=== PATIENT | male | born 1930 | race Two or more races ===

== ENCOUNTER 2016-12-02 17:37 | Inpatient (IN) | payer MEDICARE ==
[~2016-12-02] VITALS: Ht 160 cm; Wt 48.0 kg
[2016-12-02 19:00] VITALS: BP 121/52
[2016-12-02] MEDS ORDERED: MORPHINE SULFATE 2 MG/ML DISP.SYRIN. IV PRN (19:30)
[2016-12-02] MEDS ORDERED: 0.9 % SODIUM CHLORIDE 10 ML DISP.SYRIN. IV PRN (19:30)
[2016-12-02] MEDS ORDERED: BISACODYL 10 MG SUPP.RECT PR PRN (19:30)
[2016-12-02] MEDS ORDERED: hydrALAZINE 20 MG/ML VIAL. IVP PRN (19:45)
[2016-12-02] MEDS ORDERED: ACETAMINOPHEN 650 MG SUPP.RECT. PR PRN (19:45)
[2016-12-02 20:00] VITALS: BP 119/47
[2016-12-02 21:00] VITALS: BP 127/43
--- NOTE | 2016-12-02 21:22 | HP ---
ADMIT DATE: 12/02/2016 CHIEF COMPLAINT: Abdominal pain, gastric outlet obstruction. HISTORY OF PRESENT ILLNESS: This is an 85-year-old gentleman who presented to the Emergency Room at [facility] with a 2-day history of abdominal pain. He relates that this is going on for the past 2 days, it got worse and worse. It is in his midabdomen, sharp, did not have any vomiting, but has been nauseous. Did have a normal bowel movement yesterday, has a history of constipation. Denies any vomiting, any diarrhea, any fevers or chills. In the Emergency Room at [facility], CT showed a massively distended stomach consistent with gastric outlet obstruction. He was therefore transferred to the [facility] for further evaluation. PAST MEDICAL HISTORY: Diabetes, hypertension. He denies heart disease or CHF, but does have a pacer in place. Parkinsonism. FAMILY HISTORY: Positive for heart disease. SOCIAL HISTORY: Lives with his . Quit smoking several years back, accumulated a 50+ pack-year history. ALLERGIES: No known drug allergies. MEDICATIONS: MAR reconciled with home medications. REVIEW OF SYSTEMS: The patient relates the pain currently is about a 3. He does have some breathing difficulties at this time. He has not voided. Does not feel constipated or that his bladder is full. Denies any other symptoms at this time in rest of organ system review. PHYSICAL EXAMINATION: VITAL SIGNS: From today show a blood pressure of 126/51, heart rate at 94, respiratory rate at 23. He is afebrile. GENERAL: This is an 85-year-old, cachectic-appearing gentleman, awake, alert, in no acute distress. HEENT: Shows no scleral icterus. Ptosis of both eyelids, right greater than left. Oral mucosa is dry. He is edentulous. NECK: Supple. LUNGS: Clear. CARDIOVASCULAR: Regular rate and rhythm with 2/6 systolic ejection murmur. ABDOMEN: Decreased bowel sounds, soft, no tenderness to palpation. EXTREMITIES: Show no edema, no clubbing, no cyanosis. SKIN: Warm, soft and dry. LABORATORY DATA: From [facility] were reviewed. CT reviewed as well. ASSESSMENT AND PLAN: The patient is an 85-year-old gentleman with gastric outlet obstruction. Etiology is somewhat unclear. No preceding symptoms consistent with infection etc. We will treat symptomatically for now. NG tube will be placed. He will remain n.p.o. Surgical consult will be requested. By report from the ER in [facility], he does have a history of CHF. We will be cautious with IV fluids. He did have receive a small bolus at the ER at [facility] already. He also received Lasix without any urine production so far. Perry will be placed. Creatinine at [facility] was 2.2, possibly secondary to poor p.o. intake and vomiting x 1 yesterday. We will cautiously rehydrate. We will obtain a renal consult in the morning as well. Blood pressure currently is under good control. He is on Norvasc at home. We will hold all p.o. medications. He will be given hydralazine p.r.n. The patient is on carbidopa levodopa for Parkinson's. We will hold p.o. medications. Monitor closely. Abrupt stoppage can cause NMS-like symptoms. For prophylaxis, he will be started on a proton pump inhibitor. We will hold heparin subQ for now in anticipation of potential surgery. SCDs will be applied. AZUL WOOD MD DR: UR/nts JOB#: [id number] / [id number] POLINA
[2016-12-02 21:37] LABS: OBC FLU VALID
[2016-12-02] MEDS ORDERED: ACET325T9 PO (21:46)
[2016-12-02] MEDS ORDERED: AMLO5TAB2 PO (21:46)
[2016-12-02] MEDS ORDERED: ASPI81TA9 PO (21:46)
[2016-12-02] MEDS ORDERED: RANI150T2 PO (21:58)
[2016-12-02] MEDS ORDERED: FURO40TA4 PO (21:58)
[2016-12-02] MEDS ORDERED: SIMV40TA3 PO (21:58)
[2016-12-02] MEDS ORDERED: CARB1TAB2 PO (21:58)
[2016-12-02] MEDS ORDERED: OMEP40CA5 PO (21:58)
[2016-12-02] MEDS ORDERED: INSU100V5 IJ (21:58)
[2016-12-02 22:00] VITALS: BP 118/47
[2016-12-02 22:10] LABS: BASO # 0.1 x10^3/uL (0.0-0.2); BASO % 0 % (0-3); EOS % 0 % (0-3); HEMATOCRIT 41.3 % (39.0-53.0); HEMOGLOBIN 13.4 g/dL (13.0-17.5); LYMPH # 0.7 x10^3/uL (1.0-4.8); LYMPH % 4 % (24-48); MEAN CORPUSCULAR HEMOGLOBIN 31 pg (25-35); MEAN CORPUSCULAR HGB CONC 32 g/dL (31-37); MEAN CORPUSCULAR VOLUME 95 fL (79-100); MONO % 7 % (0-9); NEUT % 89 % (31-73); PLATELET COUNT 269 x10^3/uL (140-400); RED BLOOD COUNT 4.34 x10^6/uL (4.30-5.70); RED CELL DISTRIBUTION WIDTH 13.4 % (11.5-14.5); WHITE BLOOD COUNT 18.6 x10^3/uL (4.0-11.0)
[2016-12-02 22:17] LABS: INR 1.2 (0.8-1.1); PROTHROMBIN TIME PATIENT 14.4 SEC (11.7-14.0)
[2016-12-02 22:27] LABS: MAGNESIUM 2.7 mg/dL (1.8-2.4)
[2016-12-02 22:29] LABS: ALBUMIN 3.6 g/dL (3.4-5.0); CREATININE 3.7 mg/dL (0.7-1.3); GFR 15.6; POTASSIUM 3.5 mmol/L (3.5-5.1); TOTAL BILIRUBIN 0.4 mg/dL (0.2-1.0); TOTAL PROTEIN 7.1 g/dL (6.4-8.2)
[2016-12-02 22:32] LABS: PLT ESTIMATE ADEQUATE (ADEQUATE); TOXIC GRANULATION SLIGHT
[2016-12-02] MEDS ORDERED: CALC1TAB75 PO (22:58)
[2016-12-02 23:00] VITALS: BP 126/44
[2016-12-02] MEDS ORDERED: PIPERACILLIN/TAZOBACTAM 2.25 GM in IV NORMAL SALINE 50ML 50 ML IV ONE (23:00)
[2016-12-02] MEDS ORDERED: IV 1/2 NORMAL SALINE 1,000 ML IV SCH (23:00)
[2016-12-02] MEDS ORDERED: PIP/TAZO PER PHARMACY MC PRN (23:00)
[2016-12-03] VITALS (17 sets, daily range): BP systolic 110–153; BP diastolic 34–63
[2016-12-03 04:54] LABS: BASO % 0 % (0-3); EOS % 0 % (0-3); HEMATOCRIT 40.9 % (39.0-53.0); LYMPH # 0.9 x10^3/uL (1.0-4.8); LYMPH % 5 % (24-48); MEAN CORPUSCULAR HEMOGLOBIN 31 pg (25-35); MEAN CORPUSCULAR HGB CONC 32 g/dL (31-37); MEAN CORPUSCULAR VOLUME 98 fL (79-100); MONO % 7 % (0-9); NEUT % 88 % (31-73); PLATELET COUNT 227 x10^3/uL (140-400); RED BLOOD COUNT 4.19 x10^6/uL (4.30-5.70); RED CELL DISTRIBUTION WIDTH 13.7 % (11.5-14.5); WHITE BLOOD COUNT 19.2 x10^3/uL (4.0-11.0)
[2016-12-03 05:01] LABS: INR 1.2 (0.8-1.1); PROTHROMBIN TIME PATIENT 14.7 SEC (11.7-14.0)
[2016-12-03] MEDS: PIPERACILLIN/TAZOBACTAM 2.25 GM in IV NORMAL SALINE 50ML 50 ML IV SCH ×2 (06:04→13:28)
[2016-12-03 07:23] LABS: ALBUMIN 3.4 g/dL (3.4-5.0); CALCIUM 9.8 mg/dL (8.5-10.1); CREATININE 3.7 mg/dL (0.7-1.3); GFR 15.6; MAGNESIUM 2.7 mg/dL (1.8-2.4); PHOSPHORUS 5.8 mg/dL (2.6-4.7); TOTAL BILIRUBIN 0.6 mg/dL (0.2-1.0); TOTAL PROTEIN 6.9 g/dL (6.4-8.2)
[2016-12-03 07:24] LABS: POTASSIUM 4.5 mmol/L (3.5-5.1)
--- NOTE | 2016-12-03 10:09 | PDOC2 ---
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 Patient reports abdominal pain and vomiting for 2 days. Small hard BM 2 days ago. Denies blood in stool, however had some possible blood in emesis Past Medical History Cardiovascular: CAD, CHF, HTN, Pulmonary hypertension Pulmonary: COPD CENTRAL NERVOUS SYSTEM: Other (parkinsons ) Renal/: Chronic renal insuff Endocrine: Diabetes Past Surgical History Past Surgical History: Appendectomy, Cholecystectomy, Hernia Repair Family History Family History: Other (noncontributory due to advanced age) Social History Quit ALCOHOL: none Drugs: None Lives: with Family Current Problem List Problem List Problems Medical Problems: (1) Gastric outlet obstruction Status: Acute Current Medications Current Medications Current Medications Sodium Chloride (Normal Saline Flush) 3 ml PRN DAILY PRN IV AFTER MEDS AND BLOOD DRAWS; Start 12/02/16 at 19:30 Morphine Sulfate 1 mg PRN Q1HR PRN IV PAIN; Start 12/02/16 at 19:30 Bisacodyl (Dulcolax Supp) 10 mg PRN DAILY PRN [place] CONSTIPATION; Start 12/02/16 at 19:30 Hydralazine HCl (Apresoline) 10 mg PRN Q4HRS PRN IVP ELEVATED BP, SEE COMMENTS ; Start 12/02/16 at 19:45 Acetaminophen 650 mg 650 mg PRN Q6HRS PRN [place] MILD PAIN / TEMP; Start 12/02/16 at 19:45 Sodium Chloride 1,000 ml @ 150 mls/hr Q6H40M IV ; Start 12/02/16 at 23:00; Stop 12/03/16 at 01:24; Status DC Piperacillin Sod/ Tazobactam Sod/ Sodium Chloride (Zosyn/Iv Sodium Chloride 0.9 % 50ml) 50 ml @ 100 mls/hr 1X ONCE IV Last administered on 12/03/16t 00:15; Start 12/02/16 at 23:00; Stop 12/02/16 at 23:29; Status DC Piperacillin Sod/ Tazobactam Sod 1 each 1 each PRN DAILY PRN MC SEE COMMENTS; Start 12/02/16 at 23:00 Piperacillin Sod/ Tazobactam Sod 2.25 gm/Sodium Chloride 50 ml @ 100 mls/hr Q8HRS IV Last administered on 12/03/16 06:04; Start 12/03/16 at 06:00 Sodium Chloride (Iv Sodium Chloride 0.45%) 1,000 ml @ 150 mls/hr Q6H40M IV Last administered on 12/03/16 01:56; Start 12/03/16 at 23:00 Active Scripts Active Reported Calcium 600 + Vit D 200 Tablet (Calcium Carbonate/Vitamin D3) 1 Each Tablet 1 Each PO BID Simvastatin 40 Mg Tablet 0.5 Tab PO QHS Ranitidine Hcl 150 Mg Tablet 1 Tab PO BID Omeprazole 40 Mg Capsule.dr 1 Cap PO DAILY Humulin R (Insulin Regular, Human) 100 Unit/1 Ml Vial 5-8 Unit IJ TIDWMEALS Furosemide 40 Mg Tablet 0.5 Tab PO DAILY PRN Furosemide 40 Mg Tablet 0.5 Tab PO DAILY Sinemet 25-100 Mg Tablet (Carbidopa/Levodopa) 1 Each Tablet 1 Tab PO QID Aspirin Ec (Aspirin) 81 Mg Tablet.dr 1 Tab PO DAILY Amlodipine Besylate 5 Mg Tablet 2.5 Mg PO DAILY Tylenol (Acetaminophen) 325 Mg Tablet 1-2 Tab PO QID Allergies Allergies: Coded Allergies: No Known Drug Allergies (Unverified , 12/02/16) ROS General: No: Chills, Other (fevers ) PSYCHOLOGICAL ROS: No: Anxiety, Depression Eyes: No Blurry vision, No Double vision HEENT: YES: Hearing change, No: Heacaches Hematological and Lymphatic: No: Bleeding Problems, Blood Clots Respiratory: YES: Cough, Shortness of breath Cardiovascular: No Chest Pain, No Palpitations Gastrointestinal: Yes Other (see hpi) Genitourinary: No Dysuria, No Hematuria Musculoskeletal: No Joint Stiffness, No Joint Swelling Neurological: Yes Memory Loss, No Impaired Coord/balance Skin: No Pruritus Physical Exam General: Cooperative, No acute distress, Other (eldery male) HEENT: Mucous membr. moist/pink, Other (NG tube in place) Lungs: Other (diminished ) Heart: Regular rate, Normal S1, Normal S2 Abdomen: Soft, Other (ND, NTTP on exam) Extremities: No clubbing, No cyanosis Skin: No breakdown, No significant lesion Neuro: Normal speech, Sensation intact Psych/Mental Status: Mental status NL, Mood NL MUSCULOSKELETAL: No deformity, No swelling Vitals VITALS Vital Signs Date Time Temp Pulse Resp B/P Pulse Ox O2 Delivery O2 Flow Rate FiO2 12/03/16 09:00 97.9 82 20 132/43 100 Nasal Cannula 5.0 97.9 Labs Labs Laboratory Tests Test 12/02/16 21:00 12/02/16 21:12 12/02/16 21:55 12/03/16 03:20 Influenza Type A Antigen Negative (NEGATIVE) Influenza Type B Antigen Negative (NEGATIVE) Glucose (Fingerstick) 285mg/dL (70-99) White Blood Count 18.6x10^3/uL (4.0-11.0) 19.2x10^3/uL (4.0-11.0) Red Blood Count 4.34x10^6/uL (4.30-5.70) 4.19x10^6/uL (4.30-5.70) Hemoglobin 13.4g/dL (13.0-17.5) 13.0g/dL (13.0-17.5) Hematocrit 41.3% (39.0-53.0) 40.9% (39.0-53.0) Mean Corpuscular Volume 95fL (79-100) 98fL (79-100) Mean Corpuscular Hemoglobin 31pg (25-35) 31pg (25-35) Mean Corpuscular Hemoglobin Concent 32g/dL (31-37) 32g/dL (31-37) Red Cell Distribution Width 13.4% (11.5-14.5) 13.7% (11.5-14.5) Platelet Count 269x10^3/uL (140-400) 227x10^3/uL (140-400) Neutrophils (%) (Auto) 89% (31-73) 88% (31-73) Lymphocytes (%) (Auto) 4% (24-48) 5% (24-48) Monocytes (%) (Auto) 7% (0-9) 7% (0-9) Eosinophils (%) (Auto) 0% (0-3) 0% (0-3) Basophils (%) (Auto) 0% (0-3) 0% (0-3) Neutrophils # (Auto) 16.6x10^3uL (1.8-7.7) 16.9x10^3uL (1.8-7.7) Lymphocytes # (Auto) 0.7x10^3/uL (1.0-4.8) 0.9x10^3/uL (1.0-4.8) Monocytes # (Auto) 1.2x10^3/uL (0.0-1.1) 1.3x10^3/uL (0.0-1.1) Eosinophils # (Auto) 0.0x10^3/uL (0.0-0.7) 0.0x10^3/uL (0.0-0.7) Basophils # (Auto) 0.1x10^3/uL (0.0-0.2) 0.0x10^3/uL (0.0-0.2) Segmented Neutrophils % 79% (35-66) Band Neutrophils % 11% (0-9) Lymphocytes % 4% (24-48) Monocytes % 6% (0-10) Toxic Granulation Slight Platelet Estimate Adequate (ADEQUATE) Prothrombin Time 14.4SEC (11.7-14.0) 14.7SEC (11.7-14.0) Prothromb Time International Ratio 1.2 (0.8-1.1) 1.2 (0.8-1.1) Sodium Level 151mmol/L (136-145) 154mmol/L (136-145) Potassium Level 3.5mmol/L (3.5-5.1) 4.5mmol/L (3.5-5.1) Chloride Level 102mmol/L (98-107) 104mmol/L (98-107) Carbon Dioxide Level 37mmol/L (21-32) 40mmol/L (21-32) Anion Gap 12 (6-14) 10 (6-14) Blood Urea Nitrogen 81mg/dL (8-26) 86mg/dL (8-26) Creatinine 3.7mg/dL (0.7-1.3) 3.7mg/dL (0.7-1.3) Estimated GFR (Cockcroft-Gault) 15.6 15.6 BUN/Creatinine Ratio 22 (6-20) 23 (6-20) Glucose Level 354mg/dL (70-99) 319mg/dL (70-99) Calcium Level 10.0mg/dL (8.5-10.1) 9.8mg/dL (8.5-10.1) Phosphorus Level 6.0mg/dL (2.6-4.7) 5.8mg/dL (2.6-4.7) Magnesium Level 2.7mg/dL (1.8-2.4) 2.7mg/dL (1.8-2.4) Total Bilirubin 0.4mg/dL (0.2-1.0) 0.6mg/dL (0.2-1.0) Aspartate Amino Transf (AST/SGOT) 16U/L (15-37) 16U/L (15-37) Alanine Aminotransferase (ALT/SGPT) 13U/L (16-63) 13U/L (16-63) Alkaline Phosphatase 81U/L (46-116) 77U/L (46-116) Total Protein 7.1g/dL (6.4-8.2) 6.9g/dL (6.4-8.2) Albumin 3.6g/dL (3.4-5.0) 3.4g/dL (3.4-5.0) Albumin/Globulin Ratio 1.0 (1.0-1.7) 1.0 (1.0-1.7) Laboratory Tests Test 12/02/16 21:00 12/02/16 21:12 12/02/16 21:55 12/03/16 03:20 Influenza Type A Antigen Negative (NEGATIVE) Influenza Type B Antigen Negative (NEGATIVE) Glucose (Fingerstick) 285mg/dL (70-99) White Blood Count 18.6x10^3/uL (4.0-11.0) 19.2x10^3/uL (4.0-11.0) Red Blood Count 4.34x10^6/uL (4.30-5.70) 4.19x10^6/uL (4.30-5.70) Hemoglobin 13.4g/dL (13.0-17.5) 13.0g/dL (13.0-17.5) Hematocrit 41.3% (39.0-53.0) 40.9% (39.0-53.0) Mean Corpuscular Volume 95fL (79-100) 98fL (79-100) Mean Corpuscular Hemoglobin 31pg (25-35) 31pg (25-35) Mean Corpuscular Hemoglobin Concent 32g/dL (31-37) 32g/dL (31-37) Red Cell Distribution Width 13.4% (11.5-14.5) 13.7% (11.5-14.5) Platelet Count 269x10^3/uL (140-400) 227x10^3/uL (140-400) Neutrophils (%) (Auto) 89% (31-73) 88% (31-73) Lymphocytes (%) (Auto) 4% (24-48) 5% (24-48) Monocytes (%) (Auto) 7% (0-9) 7% (0-9) Eosinophils (%) (Auto) 0% (0-3) 0% (0-3) Basophils (%) (Auto) 0% (0-3) 0% (0-3) Neutrophils # (Auto) 16.6x10^3uL (1.8-7.7) 16.9x10^3uL (1.8-7.7) Lymphocytes # (Auto) 0.7x10^3/uL (1.0-4.8) 0.9x10^3/uL (1.0-4.8) Monocytes # (Auto) 1.2x10^3/uL (0.0-1.1) 1.3x10^3/uL (0.0-1.1) Eosinophils # (Auto) 0.0x10^3/uL (0.0-0.7) 0.0x10^3/uL (0.0-0.7) Basophils # (Auto) 0.1x10^3/uL (0.0-0.2) 0.0x10^3/uL (0.0-0.2) Segmented Neutrophils % 79% (35-66) Band Neutrophils % 11% (0-9) Lymphocytes % 4% (24-48) Monocytes % 6% (0-10) Toxic Granulation Slight Platelet Estimate Adequate (ADEQUATE) Prothrombin Time 14.4SEC (11.7-14.0) 14.7SEC (11.7-14.0) Prothromb Time International Ratio 1.2 (0.8-1.1) 1.2 (0.8-1.1) Sodium Level 151mmol/L (136-145) 154mmol/L (136-145) Potassium Level 3.5mmol/L (3.5-5.1) 4.5mmol/L (3.5-5.1) Chloride Level 102mmol/L (98-107) 104mmol/L (98-107) Carbon Dioxide Level 37mmol/L (21-32) 40mmol/L (21-32) Anion Gap 12 (6-14) 10 (6-14) Blood Urea Nitrogen 81mg/dL (8-26) 86mg/dL (8-26) Creatinine 3.7mg/dL (0.7-1.3) 3.7mg/dL (0.7-1.3) Estimated GFR (Cockcroft-Gault) 15.6 15.6 BUN/Creatinine Ratio 22 (6-20) 23 (6-20) Glucose Level 354mg/dL (70-99) 319mg/dL (70-99) Calcium Level 10.0mg/dL (8.5-10.1) 9.8mg/dL (8.5-10.1) Phosphorus Level 6.0mg/dL (2.6-4.7) 5.8mg/dL (2.6-4.7) Magnesium Level 2.7mg/dL (1.8-2.4) 2.7mg/dL (1.8-2.4) Total Bilirubin 0.4mg/dL (0.2-1.0) 0.6mg/dL (0.2-1.0) Aspartate Amino Transf (AST/SGOT) 16U/L (15-37) 16U/L (15-37) Alanine Aminotransferase (ALT/SGPT) 13U/L (16-63) 13U/L (16-63) Alkaline Phosphatase 81U/L (46-116) 77U/L (46-116) Total Protein 7.1g/dL (6.4-8.2) 6.9g/dL (6.4-8.2) Albumin 3.6g/dL (3.4-5.0) 3.4g/dL (3.4-5.0) Albumin/Globulin Ratio 1.0 (1.0-1.7) 1.0 (1.0-1.7) Assessment/Plan Assessment/Plan Reviewed CT from [facility]--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 Pt denies pain currently, asking to drink; PMH/PSH/ROS/SH as above, reviewed; exam: alert, elderly, frail, denies pain, NG in place, lungs diminished, heart RR and R, abdomen soft, thin, nontender, no masses, ext neg for edema; Lab and CT/xrays reviewed; A/P) Vomiting, large diaphragmatic hernia; stable with NG tube, agree with GI consult for EGD, upper GI; pt frail, multiple comorbidities, poor surgical candidate LUISA FRY APRN Dec 03, 2016 10:09 CALLIE HOWELL MD Dec 03, 2016 10:47
--- NOTE | 2016-12-03 10:11 | PDOC ---
PROGRESS NOTES Chief Complaint Chief Complaint 1. Gastric outlet obstruction 2. Abdominal pain 3. Constipation 4. Diabetes Mellitus Type 2 5. Hypertension 6. Parkinson's Disease History of Present Illness History of Present Illness Pt awake laying down in bed in ICU. Pt has intermittent NG tube in place. No fevers or chills. On 5 L NC. Patient in no acute distress. Pt notes to have several runs of arrhythmia-consults to Cards placed. VSS- All questions and concerns addressed and answered. Vitals Vitals Vital Signs Date Time Temp Pulse Resp B/P Pulse Ox O2 Delivery O2 Flow Rate FiO2 12/03/16 09:00 97.9 82 20 132/43 100 Nasal Cannula 5.0 97.9 Physical Exam General: Alert, Cooperative, No acute distress Heart: Regular rate, Normal S1, Normal S2, No murmurs Lungs: Clear Abdomen: Soft, No tenderness, Other (no bowel sounds) Extremities: No clubbing, No cyanosis, No edema Skin: No rashes, No breakdown, No significant lesion Labs LABS Laboratory Tests Test 12/02/16 21:00 12/02/16 21:12 12/02/16 21:55 12/03/16 03:20 Influenza Type A Antigen Negative (NEGATIVE) Influenza Type B Antigen Negative (NEGATIVE) Glucose (Fingerstick) 285mg/dL (70-99) White Blood Count 18.6x10^3/uL (4.0-11.0) 19.2x10^3/uL (4.0-11.0) Red Blood Count 4.34x10^6/uL (4.30-5.70) 4.19x10^6/uL (4.30-5.70) Hemoglobin 13.4g/dL (13.0-17.5) 13.0g/dL (13.0-17.5) Hematocrit 41.3% (39.0-53.0) 40.9% (39.0-53.0) Mean Corpuscular Volume 95fL (79-100) 98fL (79-100) Mean Corpuscular Hemoglobin 31pg (25-35) 31pg (25-35) Mean Corpuscular Hemoglobin Concent 32g/dL (31-37) 32g/dL (31-37) Red Cell Distribution Width 13.4% (11.5-14.5) 13.7% (11.5-14.5) Platelet Count 269x10^3/uL (140-400) 227x10^3/uL (140-400) Neutrophils (%) (Auto) 89% (31-73) 88% (31-73) Lymphocytes (%) (Auto) 4% (24-48) 5% (24-48) Monocytes (%) (Auto) 7% (0-9) 7% (0-9) Eosinophils (%) (Auto) 0% (0-3) 0% (0-3) Basophils (%) (Auto) 0% (0-3) 0% (0-3) Neutrophils # (Auto) 16.6x10^3uL (1.8-7.7) 16.9x10^3uL (1.8-7.7) Lymphocytes # (Auto) 0.7x10^3/uL (1.0-4.8) 0.9x10^3/uL (1.0-4.8) Monocytes # (Auto) 1.2x10^3/uL (0.0-1.1) 1.3x10^3/uL (0.0-1.1) Eosinophils # (Auto) 0.0x10^3/uL (0.0-0.7) 0.0x10^3/uL (0.0-0.7) Basophils # (Auto) 0.1x10^3/uL (0.0-0.2) 0.0x10^3/uL (0.0-0.2) Segmented Neutrophils % 79% (35-66) Band Neutrophils % 11% (0-9) Lymphocytes % 4% (24-48) Monocytes % 6% (0-10) Toxic Granulation Slight Platelet Estimate Adequate (ADEQUATE) Prothrombin Time 14.4SEC (11.7-14.0) 14.7SEC (11.7-14.0) Prothromb Time International Ratio 1.2 (0.8-1.1) 1.2 (0.8-1.1) Sodium Level 151mmol/L (136-145) 154mmol/L (136-145) Potassium Level 3.5mmol/L (3.5-5.1) 4.5mmol/L (3.5-5.1) Chloride Level 102mmol/L (98-107) 104mmol/L (98-107) Carbon Dioxide Level 37mmol/L (21-32) 40mmol/L (21-32) Anion Gap 12 (6-14) 10 (6-14) Blood Urea Nitrogen 81mg/dL (8-26) 86mg/dL (8-26) Creatinine 3.7mg/dL (0.7-1.3) 3.7mg/dL (0.7-1.3) Estimated GFR (Cockcroft-Gault) 15.6 15.6 BUN/Creatinine Ratio 22 (6-20) 23 (6-20) Glucose Level 354mg/dL (70-99) 319mg/dL (70-99) Calcium Level 10.0mg/dL (8.5-10.1) 9.8mg/dL (8.5-10.1) Phosphorus Level 6.0mg/dL (2.6-4.7) 5.8mg/dL (2.6-4.7) Magnesium Level 2.7mg/dL (1.8-2.4) 2.7mg/dL (1.8-2.4) Total Bilirubin 0.4mg/dL (0.2-1.0) 0.6mg/dL (0.2-1.0) Aspartate Amino Transf (AST/SGOT) 16U/L (15-37) 16U/L (15-37) Alanine Aminotransferase (ALT/SGPT) 13U/L (16-63) 13U/L (16-63) Alkaline Phosphatase 81U/L (46-116) 77U/L (46-116) Total Protein 7.1g/dL (6.4-8.2) 6.9g/dL (6.4-8.2) Albumin 3.6g/dL (3.4-5.0) 3.4g/dL (3.4-5.0) Albumin/Globulin Ratio 1.0 (1.0-1.7) 1.0 (1.0-1.7) Review of Systems Review of Systems Complaint of hunger Complaint of fatigue Assessment and Plan Assessmemt and Plan Problems Medical Problems: (1) Gastric outlet obstruction Status: Acute Assessment: 1. Gastric outlet obstruction 2. Abdominal pain 3. Constipation 4. Diabetes Mellitus Type 2 5. Hypertension 6. Parkinson's Disease Plan: Continue to monitor the patient per ICU protocol Continue daily labs- CBC, BMP, BUN and Cr NPO Continue NG tube Continue IV Zosyn IVFs at 150 cc/hr Perry inplace Continue to hold hold PO medications Monitor for any NMS-like syndrome Await surgery, renal, and GI input and recommendations Consult Cards for arrhythmia Discuss with ICU nurse Problems: Comment Review of Relevant I have reviewed the following items rachael (where applicable) has been applied. Labs Laboratory Tests Test 12/02/16 21:00 12/02/16 21:12 12/02/16 21:55 12/03/16 03:20 Influenza Type A Antigen Negative (NEGATIVE) Influenza Type B Antigen Negative (NEGATIVE) Glucose (Fingerstick) 285mg/dL (70-99) White Blood Count 18.6x10^3/uL (4.0-11.0) 19.2x10^3/uL (4.0-11.0) Red Blood Count 4.34x10^6/uL (4.30-5.70) 4.19x10^6/uL (4.30-5.70) Hemoglobin 13.4g/dL (13.0-17.5) 13.0g/dL (13.0-17.5) Hematocrit 41.3% (39.0-53.0) 40.9% (39.0-53.0) Mean Corpuscular Volume 95fL (79-100) 98fL (79-100) Mean Corpuscular Hemoglobin 31pg (25-35) 31pg (25-35) Mean Corpuscular Hemoglobin Concent 32g/dL (31-37) 32g/dL (31-37) Red Cell Distribution Width 13.4% (11.5-14.5) 13.7% (11.5-14.5) Platelet Count 269x10^3/uL (140-400) 227x10^3/uL (140-400) Neutrophils (%) (Auto) 89% (31-73) 88% (31-73) Lymphocytes (%) (Auto) 4% (24-48) 5% (24-48) Monocytes (%) (Auto) 7% (0-9) 7% (0-9) Eosinophils (%) (Auto) 0% (0-3) 0% (0-3) Basophils (%) (Auto) 0% (0-3) 0% (0-3) Neutrophils # (Auto) 16.6x10^3uL (1.8-7.7) 16.9x10^3uL (1.8-7.7) Lymphocytes # (Auto) 0.7x10^3/uL (1.0-4.8) 0.9x10^3/uL (1.0-4.8) Monocytes # (Auto) 1.2x10^3/uL (0.0-1.1) 1.3x10^3/uL (0.0-1.1) Eosinophils # (Auto) 0.0x10^3/uL (0.0-0.7) 0.0x10^3/uL (0.0-0.7) Basophils # (Auto) 0.1x10^3/uL (0.0-0.2) 0.0x10^3/uL (0.0-0.2) Segmented Neutrophils % 79% (35-66) Band Neutrophils % 11% (0-9) Lymphocytes % 4% (24-48) Monocytes % 6% (0-10) Toxic Granulation Slight Platelet Estimate Adequate (ADEQUATE) Prothrombin Time 14.4SEC (11.7-14.0) 14.7SEC (11.7-14.0) Prothromb Time International Ratio 1.2 (0.8-1.1) 1.2 (0.8-1.1) Sodium Level 151mmol/L (136-145) 154mmol/L (136-145) Potassium Level 3.5mmol/L (3.5-5.1) 4.5mmol/L (3.5-5.1) Chloride Level 102mmol/L (98-107) 104mmol/L (98-107) Carbon Dioxide Level 37mmol/L (21-32) 40mmol/L (21-32) Anion Gap 12 (6-14) 10 (6-14) Blood Urea Nitrogen 81mg/dL (8-26) 86mg/dL (8-26) Creatinine 3.7mg/dL (0.7-1.3) 3.7mg/dL (0.7-1.3) Estimated GFR (Cockcroft-Gault) 15.6 15.6 BUN/Creatinine Ratio 22 (6-20) 23 (6-20) Glucose Level 354mg/dL (70-99) 319mg/dL (70-99) Calcium Level 10.0mg/dL (8.5-10.1) 9.8mg/dL (8.5-10.1) Phosphorus Level 6.0mg/dL (2.6-4.7) 5.8mg/dL (2.6-4.7) Magnesium Level 2.7mg/dL (1.8-2.4) 2.7mg/dL (1.8-2.4) Total Bilirubin 0.4mg/dL (0.2-1.0) 0.6mg/dL (0.2-1.0) Aspartate Amino Transf (AST/SGOT) 16U/L (15-37) 16U/L (15-37) Alanine Aminotransferase (ALT/SGPT) 13U/L (16-63) 13U/L (16-63) Alkaline Phosphatase 81U/L (46-116) 77U/L (46-116) Total Protein 7.1g/dL (6.4-8.2) 6.9g/dL (6.4-8.2) Albumin 3.6g/dL (3.4-5.0) 3.4g/dL (3.4-5.0) Albumin/Globulin Ratio 1.0 (1.0-1.7) 1.0 (1.0-1.7) Laboratory Tests Test 12/02/16 21:00 12/02/16 21:12 12/02/16 21:55 12/03/16 03:20 Influenza Type A Antigen Negative (NEGATIVE) Influenza Type B Antigen Negative (NEGATIVE) Glucose (Fingerstick) 285mg/dL (70-99) White Blood Count 18.6x10^3/uL (4.0-11.0) 19.2x10^3/uL (4.0-11.0) Red Blood Count 4.34x10^6/uL (4.30-5.70) 4.19x10^6/uL (4.30-5.70) Hemoglobin 13.4g/dL (13.0-17.5) 13.0g/dL (13.0-17.5) Hematocrit 41.3% (39.0-53.0) 40.9% (39.0-53.0) Mean Corpuscular Volume 95fL (79-100) 98fL (79-100) Mean Corpuscular Hemoglobin 31pg (25-35) 31pg (25-35) Mean Corpuscular Hemoglobin Concent 32g/dL (31-37) 32g/dL (31-37) Red Cell Distribution Width 13.4% (11.5-14.5) 13.7% (11.5-14.5) Platelet Count 269x10^3/uL (140-400) 227x10^3/uL (140-400) Neutrophils (%) (Auto) 89% (31-73) 88% (31-73) Lymphocytes (%) (Auto) 4% (24-48) 5% (24-48) Monocytes (%) (Auto) 7% (0-9) 7% (0-9) Eosinophils (%) (Auto) 0% (0-3) 0% (0-3) Basophils (%) (Auto) 0% (0-3) 0% (0-3) Neutrophils # (Auto) 16.6x10^3uL (1.8-7.7) 16.9x10^3uL (1.8-7.7) Lymphocytes # (Auto) 0.7x10^3/uL (1.0-4.8) 0.9x10^3/uL (1.0-4.8) Monocytes # (Auto) 1.2x10^3/uL (0.0-1.1) 1.3x10^3/uL (0.0-1.1) Eosinophils # (Auto) 0.0x10^3/uL (0.0-0.7) 0.0x10^3/uL (0.0-0.7) Basophils # (Auto) 0.1x10^3/uL (0.0-0.2) 0.0x10^3/uL (0.0-0.2) Segmented Neutrophils % 79% (35-66) Band Neutrophils % 11% (0-9) Lymphocytes % 4% (24-48) Monocytes % 6% (0-10) Toxic Granulation Slight Platelet Estimate Adequate (ADEQUATE) Prothrombin Time 14.4SEC (11.7-14.0) 14.7SEC (11.7-14.0) Prothromb Time International Ratio 1.2 (0.8-1.1) 1.2 (0.8-1.1) Sodium Level 151mmol/L (136-145) 154mmol/L (136-145) Potassium Level 3.5mmol/L (3.5-5.1) 4.5mmol/L (3.5-5.1) Chloride Level 102mmol/L (98-107) 104mmol/L (98-107) Carbon Dioxide Level 37mmol/L (21-32) 40mmol/L (21-32) Anion Gap 12 (6-14) 10 (6-14) Blood Urea Nitrogen 81mg/dL (8-26) 86mg/dL (8-26) Creatinine 3.7mg/dL (0.7-1.3) 3.7mg/dL (0.7-1.3) Estimated GFR (Cockcroft-Gault) 15.6 15.6 BUN/Creatinine Ratio 22 (6-20) 23 (6-20) Glucose Level 354mg/dL (70-99) 319mg/dL (70-99) Calcium Level 10.0mg/dL (8.5-10.1) 9.8mg/dL (8.5-10.1) Phosphorus Level 6.0mg/dL (2.6-4.7) 5.8mg/dL (2.6-4.7) Magnesium Level 2.7mg/dL (1.8-2.4) 2.7mg/dL (1.8-2.4) Total Bilirubin 0.4mg/dL (0.2-1.0) 0.6mg/dL (0.2-1.0) Aspartate Amino Transf (AST/SGOT) 16U/L (15-37) 16U/L (15-37) Alanine Aminotransferase (ALT/SGPT) 13U/L (16-63) 13U/L (16-63) Alkaline Phosphatase 81U/L (46-116) 77U/L (46-116) Total Protein 7.1g/dL (6.4-8.2) 6.9g/dL (6.4-8.2) Albumin 3.6g/dL (3.4-5.0) 3.4g/dL (3.4-5.0) Albumin/Globulin Ratio 1.0 (1.0-1.7) 1.0 (1.0-1.7) Medications Current Medications Sodium Chloride (Normal Saline Flush) 3 ml PRN DAILY PRN IV AFTER MEDS AND BLOOD DRAWS; Start 12/02/16 at 19:30 Morphine Sulfate 1 mg PRN Q1HR PRN IV PAIN; Start 12/02/16 at 19:30 Bisacodyl (Dulcolax Supp) 10 mg PRN DAILY PRN CA CONSTIPATION; Start 12/02/16 at 19:30 Hydralazine HCl (Apresoline) 10 mg PRN Q4HRS PRN IVP ELEVATED BP, SEE COMMENTS ; Start 12/02/16 at 19:45 Acetaminophen 650 mg 650 mg PRN Q6HRS PRN CA MILD PAIN / TEMP; Start 12/02/16 at 19:45 Sodium Chloride 1,000 ml @ 150 mls/hr Q6H40M IV ; Start 12/02/16 at 23:00; Stop 12/03/16 at 01:24; Status DC Piperacillin Sod/ Tazobactam Sod/ Sodium Chloride (Zosyn/Iv Sodium Chloride 0.9 % 50ml) 50 ml @ 100 mls/hr 1X ONCE IV Last administered on 12/03/16 00:15; Start 12/02/16 at 23:00; Stop 12/02/16 at 23:29; Status DC Piperacillin Sod/ Tazobactam Sod 1 each 1 each PRN DAILY PRN MC SEE COMMENTS; Start 12/02/16 at 23:00 Piperacillin Sod/ Tazobactam Sod 2.25 gm/Sodium Chloride 50 ml @ 100 mls/hr Q8HRS IV Last administered on 12/03/16 06:04; Start 12/03/16 at 06:00 Sodium Chloride (Iv Sodium Chloride 0.45%) 1,000 ml @ 150 mls/hr Q6H40M IV Last administered on 12/03/16 01:56; Start 12/03/16 at 23:00 Active Scripts Active Reported Calcium 600 + Vit D 200 Tablet (Calcium Carbonate/Vitamin D3) 1 Each Tablet 1 Each PO BID Simvastatin 40 Mg Tablet 0.5 Tab PO QHS Ranitidine Hcl 150 Mg Tablet 1 Tab PO BID Omeprazole 40 Mg Capsule.dr 1 Cap PO DAILY Humulin R (Insulin Regular, Human) 100 Unit/1 Ml Vial 5-8 Unit IJ TIDWMEALS Furosemide 40 Mg Tablet 0.5 Tab PO DAILY PRN Furosemide 40 Mg Tablet 0.5 Tab PO DAILY Sinemet 25-100 Mg Tablet (Carbidopa/Levodopa) 1 Each Tablet 1 Tab PO QID Aspirin Ec (Aspirin) 81 Mg Tablet.dr 1 Tab PO DAILY Amlodipine Besylate 5 Mg Tablet 2.5 Mg PO DAILY Tylenol (Acetaminophen) 325 Mg Tablet 1-2 Tab PO QID Vitals/I & O Vital Sign - Last 24 Hours 12/02/16 12/02/16 12/02/16 12/02/16 19:00 19:00 20:00 21:00 Temp 97.5 97.5 Pulse 87 78 74 Resp 18 18 B/P 121/52 119/47 127/43 Pulse Ox 95 93 98 O2 Delivery Nasal Cannula Nasal Cannula Nasal Cannula Nasal Cannula O2 Flow Rate 5.0 5.0 5.0 5.0 12/02/16 12/02/16 12/02/16 12/03/16 22:00 23:00 23:59 00:23 Temp 97.5 97.5 Pulse 77 78 68 Resp 18 18 B/P 118/47 126/44 134/41 Pulse Ox 100 100 99 O2 Delivery Nasal Cannula Nasal Cannula Nasal Cannula Nasal Cannula O2 Flow Rate 5.0 5.0 5.0 5.0 12/03/16 12/03/16 12/03/16 12/03/16 01:31 01:43 02:23 03:23 Temp 97.5 97.5 Pulse 69 68 68 Resp 16 16 18 B/P 145/47 121/52 138/34 136/47 Pulse Ox 100 100 100 O2 Delivery Nasal Cannula Nasal Cannula Nasal Cannula O2 Flow Rate 5.0 5.0 5.0 12/03/16 12/03/16 12/03/16 12/03/16 04:00 04:23 05:21 06:18 Pulse 75 71 65 Resp 20 18 20 B/P 110/51 142/56 125/51 Pulse Ox 100 100 100 O2 Delivery Nasal Cannula Nasal Cannula Nasal Cannula Nasal Cannula O2 Flow Rate 5.0 5.0 5.0 5.0 12/03/16 12/03/16 12/03/16 07:00 08:00 09:00 Temp 97.9 97.9 Pulse 75 82 Resp 20 20 B/P 142/48 132/43 Pulse Ox 97 100 O2 Delivery Nasal Cannula Nasal Cannula Nasal Cannula O2 Flow Rate 5.0 5.0 5.0 Intake and Output 12/02/16 12/02/16 12/03/16 15:00 23:00 07:00 Intake Total 570 ml Output Total 190 ml 1185 ml Balance -190 ml -615 ml PHIL GROSS III DO Dec 03, 2016 10:11
--- NOTE | 2016-12-03 10:48 | PDOC2 ---
CONSULT Date of Consult Date of Consult DATE: 12/03/16 TIME: 10:43 Reason for Consult Reason for Consult: DIPIKA Referring Physician Referring Physician: ISRAEL Identification/Chief Complaint Chief Complaint ABD PAIN, SOB Source Source: Chart review History of Present Illness Reason for Visit: THIS IS AN 85 YR OLD ADMITTED WITH SOME SOB AND ABD PAIN. PER PT HAS NOT BEEN EATING WELL FOR DAYS AND ALWAYS HAS PROBLEMS WITH CONSTIPATION. HIS CR IS 3.7 AND HE IS HYPERNATREMIC. HE ALSO HAS LEUCOCYTOSIS. PER PT DOES NOT HAVE ANY CKD HX. SHE ALSO STATES THAT HE MAY HAVE SOME BPH. PT HAS REED IN PLACE. 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 Past Medical History Cardiovascular: CAD, CHF, HTN, Pulmonary hypertension Pulmonary: COPD CENTRAL NERVOUS SYSTEM: Other (parkinsons ) Renal/: Chronic renal insuff Endocrine: Diabetes Past Surgical History Past Surgical History: Appendectomy, Cholecystectomy, Hernia Repair Family History Family History: Other (noncontributory due to advanced age) Social History Quit ALCOHOL: none Drugs: None Lives: with Family Current Problem List Problem List Problems Medical Problems: (1) Gastric outlet obstruction Status: Acute Current Medications Current Medications Current Medications Sodium Chloride (Normal Saline Flush) 3 ml PRN DAILY PRN IV AFTER MEDS AND BLOOD DRAWS; Start 12/02/16 at 19:30 Morphine Sulfate 1 mg PRN Q1HR PRN IV PAIN; Start 12/02/16 at 19:30 Bisacodyl (Dulcolax Supp) 10 mg PRN DAILY PRN IN CONSTIPATION; Start 12/02/16 at 19:30 Hydralazine HCl (Apresoline) 10 mg PRN Q4HRS PRN IVP ELEVATED BP, SEE COMMENTS ; Start 12/02/16 at 19:45 Acetaminophen 650 mg 650 mg PRN Q6HRS PRN IN MILD PAIN / TEMP; Start 12/02/16 at 19:45 Sodium Chloride 1,000 ml @ 150 mls/hr Q6H40M IV ; Start 12/02/16 at 23:00; Stop 12/03/16 at 01:24; Status DC Piperacillin Sod/ Tazobactam Sod/ Sodium Chloride (Zosyn/Iv Sodium Chloride 0.9 % 50ml) 50 ml @ 100 mls/hr 1X ONCE IV Last administered on 12/03/16t 00:15; Start 12/02/16 at 23:00; Stop 12/02/16 at 23:29; Status DC Piperacillin Sod/ Tazobactam Sod 1 each 1 each PRN DAILY PRN MC SEE COMMENTS; Start 12/02/16 at 23:00 Piperacillin Sod/ Tazobactam Sod 2.25 gm/Sodium Chloride 50 ml @ 100 mls/hr Q8HRS IV Last administered on 12/03/16 06:04; Start 12/03/16 at 06:00 Sodium Chloride (Iv Sodium Chloride 0.45%) 1,000 ml @ 150 mls/hr Q6H40M IV Last administered on 12/03/16 01:56; Start 12/03/16 at 23:00 Active Scripts Active Reported Calcium 600 + Vit D 200 Tablet (Calcium Carbonate/Vitamin D3) 1 Each Tablet 1 Each PO BID Simvastatin 40 Mg Tablet 0.5 Tab PO QHS Ranitidine Hcl 150 Mg Tablet 1 Tab PO BID Omeprazole 40 Mg Capsule.dr 1 Cap PO DAILY Humulin R (Insulin Regular, Human) 100 Unit/1 Ml Vial 5-8 Unit IJ TIDWMEALS Furosemide 40 Mg Tablet 0.5 Tab PO DAILY PRN Furosemide 40 Mg Tablet 0.5 Tab PO DAILY Sinemet 25-100 Mg Tablet (Carbidopa/Levodopa) 1 Each Tablet 1 Tab PO QID Aspirin Ec (Aspirin) 81 Mg Tablet.dr 1 Tab PO DAILY Amlodipine Besylate 5 Mg Tablet 2.5 Mg PO DAILY Tylenol (Acetaminophen) 325 Mg Tablet 1-2 Tab PO QID Allergies Allergies: Coded Allergies: No Known Drug Allergies (Unverified , 12/02/16) ROS Review of System UNABLE TO OBTAIN FROM PT Physical Exam General: Alert, Cooperative HEENT: Atraumatic, PERRLA, Other (DRY ORAL MUCOSA) Lungs: Clear to auscultation Heart: Regular rate Abdomen: Other (SOME EPIGASTRIC DISTENTION AND HYPOACTIVE) Extremities: No clubbing Skin: No breakdown Neuro: Other Psych/Mental Status: Other (SOME LETHARGY) MUSCULOSKELETAL: No deformity, Other (DIFFUSE ATROPHY) Vitals VITALS Vital Signs Date Time Temp Pulse Resp B/P Pulse Ox O2 Delivery O2 Flow Rate FiO2 12/03/16 09:00 97.9 82 20 132/43 100 Nasal Cannula 5.0 97.9 Labs Labs Laboratory Tests Test 12/02/16 21:00 12/02/16 21:12 12/02/16 21:55 12/03/16 03:20 Influenza Type A Antigen Negative (NEGATIVE) Influenza Type B Antigen Negative (NEGATIVE) Glucose (Fingerstick) 285mg/dL (70-99) White Blood Count 18.6x10^3/uL (4.0-11.0) 19.2x10^3/uL (4.0-11.0) Red Blood Count 4.34x10^6/uL (4.30-5.70) 4.19x10^6/uL (4.30-5.70) Hemoglobin 13.4g/dL (13.0-17.5) 13.0g/dL (13.0-17.5) Hematocrit 41.3% (39.0-53.0) 40.9% (39.0-53.0) Mean Corpuscular Volume 95fL (79-100) 98fL (79-100) Mean Corpuscular Hemoglobin 31pg (25-35) 31pg (25-35) Mean Corpuscular Hemoglobin Concent 32g/dL (31-37) 32g/dL (31-37) Red Cell Distribution Width 13.4% (11.5-14.5) 13.7% (11.5-14.5) Platelet Count 269x10^3/uL (140-400) 227x10^3/uL (140-400) Neutrophils (%) (Auto) 89% (31-73) 88% (31-73) Lymphocytes (%) (Auto) 4% (24-48) 5% (24-48) Monocytes (%) (Auto) 7% (0-9) 7% (0-9) Eosinophils (%) (Auto) 0% (0-3) 0% (0-3) Basophils (%) (Auto) 0% (0-3) 0% (0-3) Neutrophils # (Auto) 16.6x10^3uL (1.8-7.7) 16.9x10^3uL (1.8-7.7) Lymphocytes # (Auto) 0.7x10^3/uL (1.0-4.8) 0.9x10^3/uL (1.0-4.8) Monocytes # (Auto) 1.2x10^3/uL (0.0-1.1) 1.3x10^3/uL (0.0-1.1) Eosinophils # (Auto) 0.0x10^3/uL (0.0-0.7) 0.0x10^3/uL (0.0-0.7) Basophils # (Auto) 0.1x10^3/uL (0.0-0.2) 0.0x10^3/uL (0.0-0.2) Segmented Neutrophils % 79% (35-66) Band Neutrophils % 11% (0-9) Lymphocytes % 4% (24-48) Monocytes % 6% (0-10) Toxic Granulation Slight Platelet Estimate Adequate (ADEQUATE) Prothrombin Time 14.4SEC (11.7-14.0) 14.7SEC (11.7-14.0) Prothromb Time International Ratio 1.2 (0.8-1.1) 1.2 (0.8-1.1) Sodium Level 151mmol/L (136-145) 154mmol/L (136-145) Potassium Level 3.5mmol/L (3.5-5.1) 4.5mmol/L (3.5-5.1) Chloride Level 102mmol/L (98-107) 104mmol/L (98-107) Carbon Dioxide Level 37mmol/L (21-32) 40mmol/L (21-32) Anion Gap 12 (6-14) 10 (6-14) Blood Urea Nitrogen 81mg/dL (8-26) 86mg/dL (8-26) Creatinine 3.7mg/dL (0.7-1.3) 3.7mg/dL (0.7-1.3) Estimated GFR (Cockcroft-Gault) 15.6 15.6 BUN/Creatinine Ratio 22 (6-20) 23 (6-20) Glucose Level 354mg/dL (70-99) 319mg/dL (70-99) Calcium Level 10.0mg/dL (8.5-10.1) 9.8mg/dL (8.5-10.1) Phosphorus Level 6.0mg/dL (2.6-4.7) 5.8mg/dL (2.6-4.7) Magnesium Level 2.7mg/dL (1.8-2.4) 2.7mg/dL (1.8-2.4) Total Bilirubin 0.4mg/dL (0.2-1.0) 0.6mg/dL (0.2-1.0) Aspartate Amino Transf (AST/SGOT) 16U/L (15-37) 16U/L (15-37) Alanine Aminotransferase (ALT/SGPT) 13U/L (16-63) 13U/L (16-63) Alkaline Phosphatase 81U/L (46-116) 77U/L (46-116) Total Protein 7.1g/dL (6.4-8.2) 6.9g/dL (6.4-8.2) Albumin 3.6g/dL (3.4-5.0) 3.4g/dL (3.4-5.0) Albumin/Globulin Ratio 1.0 (1.0-1.7) 1.0 (1.0-1.7) Laboratory Tests Test 12/02/16 21:00 12/02/16 21:12 12/02/16 21:55 12/03/16 03:20 Influenza Type A Antigen Negative (NEGATIVE) Influenza Type B Antigen Negative (NEGATIVE) Glucose (Fingerstick) 285mg/dL (70-99) White Blood Count 18.6x10^3/uL (4.0-11.0) 19.2x10^3/uL (4.0-11.0) Red Blood Count 4.34x10^6/uL (4.30-5.70) 4.19x10^6/uL (4.30-5.70) Hemoglobin 13.4g/dL (13.0-17.5) 13.0g/dL (13.0-17.5) Hematocrit 41.3% (39.0-53.0) 40.9% (39.0-53.0) Mean Corpuscular Volume 95fL (79-100) 98fL (79-100) Mean Corpuscular Hemoglobin 31pg (25-35) 31pg (25-35) Mean Corpuscular Hemoglobin Concent 32g/dL (31-37) 32g/dL (31-37) Red Cell Distribution Width 13.4% (11.5-14.5) 13.7% (11.5-14.5) Platelet Count 269x10^3/uL (140-400) 227x10^3/uL (140-400) Neutrophils (%) (Auto) 89% (31-73) 88% (31-73) Lymphocytes (%) (Auto) 4% (24-48) 5% (24-48) Monocytes (%) (Auto) 7% (0-9) 7% (0-9) Eosinophils (%) (Auto) 0% (0-3) 0% (0-3) Basophils (%) (Auto) 0% (0-3) 0% (0-3) Neutrophils # (Auto) 16.6x10^3uL (1.8-7.7) 16.9x10^3uL (1.8-7.7) Lymphocytes # (Auto) 0.7x10^3/uL (1.0-4.8) 0.9x10^3/uL (1.0-4.8) Monocytes # (Auto) 1.2x10^3/uL (0.0-1.1) 1.3x10^3/uL (0.0-1.1) Eosinophils # (Auto) 0.0x10^3/uL (0.0-0.7) 0.0x10^3/uL (0.0-0.7) Basophils # (Auto) 0.1x10^3/uL (0.0-0.2) 0.0x10^3/uL (0.0-0.2) Segmented Neutrophils % 79% (35-66) Band Neutrophils % 11% (0-9) Lymphocytes % 4% (24-48) Monocytes % 6% (0-10) Toxic Granulation Slight Platelet Estimate Adequate (ADEQUATE) Prothrombin Time 14.4SEC (11.7-14.0) 14.7SEC (11.7-14.0) Prothromb Time International Ratio 1.2 (0.8-1.1) 1.2 (0.8-1.1) Sodium Level 151mmol/L (136-145) 154mmol/L (136-145) Potassium Level 3.5mmol/L (3.5-5.1) 4.5mmol/L (3.5-5.1) Chloride Level 102mmol/L (98-107) 104mmol/L (98-107) Carbon Dioxide Level 37mmol/L (21-32) 40mmol/L (21-32) Anion Gap 12 (6-14) 10 (6-14) Blood Urea Nitrogen 81mg/dL (8-26) 86mg/dL (8-26) Creatinine 3.7mg/dL (0.7-1.3) 3.7mg/dL (0.7-1.3) Estimated GFR (Cockcroft-Gault) 15.6 15.6 BUN/Creatinine Ratio 22 (6-20) 23 (6-20) Glucose Level 354mg/dL (70-99) 319mg/dL (70-99) Calcium Level 10.0mg/dL (8.5-10.1) 9.8mg/dL (8.5-10.1) Phosphorus Level 6.0mg/dL (2.6-4.7) 5.8mg/dL (2.6-4.7) Magnesium Level 2.7mg/dL (1.8-2.4) 2.7mg/dL (1.8-2.4) Total Bilirubin 0.4mg/dL (0.2-1.0) 0.6mg/dL (0.2-1.0) Aspartate Amino Transf (AST/SGOT) 16U/L (15-37) 16U/L (15-37) Alanine Aminotransferase (ALT/SGPT) 13U/L (16-63) 13U/L (16-63) Alkaline Phosphatase 81U/L (46-116) 77U/L (46-116) Total Protein 7.1g/dL (6.4-8.2) 6.9g/dL (6.4-8.2) Albumin 3.6g/dL (3.4-5.0) 3.4g/dL (3.4-5.0) Albumin/Globulin Ratio 1.0 (1.0-1.7) 1.0 (1.0-1.7) Assessment/Plan Assessment/Plan IMP DIPIKA-ATN DEHYDRATION GASTRIC OUTLET OBSTRUCTION CHRONIC CONSTIPATION PLAN IVF'S SURGERY AND GI EVALUATION RENAL SONOGRAM UA UPDATED AND FAMILY EZEKIEL RAMOS MD Dec 03, 2016 10:48
--- NOTE | 2016-12-03 10:59 | PDOC2 ---
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 Reports upper abd pain began 3 days ago w/ significant vomiting. Family reports possible bloody emesis. Currently w/o pain. H/o GERD not controlled w/ omeprazole 40mg QD. Recalls previous EGD, no h/o PUD. Some constipation improved w/ stool softeners. Previously normal colonoscopy years ago. Labs significant for elevated WBC (19.2), elevated Na+ ( 154), elevated BUN (86), elevated Cr (3.6). PMH: PMH: CAD, CHF, HTN, pulmonary hypertension, COPD, GERD, Parkison's, CKD, DM, appendectomy, cholecystectomy, hernia repair, pacemaker FH: Family History: CAD Social History: Smoke: Quit ALCOHOL: none Drugs: None ROS: GEN: Denies fevers, chills, sweats HEENT: Denies blurred vision, sore throat CV: Denies chest pain RESP: Denies shortness of air, cough GI: Per HPI : Denies hematuria, dysuria ENDO: Denies weight changes NEURO: Denies confusion, dizziness MSK: +weakness SKIN: Denies jaundice, pruritus VItals: Vitals: Vital Signs Date Time Temp Pulse Resp B/P Pulse Ox O2 Delivery O2 Flow Rate FiO2 12/03/16 09:00 97.9 82 20 132/43 100 Nasal Cannula 5.0 97.9 Labs: Labs: Laboratory Tests Test 12/02/16 21:00 12/02/16 21:12 12/02/16 21:55 12/03/16 03:20 Influenza Type A Antigen Negative (NEGATIVE) Influenza Type B Antigen Negative (NEGATIVE) Glucose (Fingerstick) 285mg/dL (70-99) White Blood Count 18.6x10^3/uL (4.0-11.0) 19.2x10^3/uL (4.0-11.0) Red Blood Count 4.34x10^6/uL (4.30-5.70) 4.19x10^6/uL (4.30-5.70) Hemoglobin 13.4g/dL (13.0-17.5) 13.0g/dL (13.0-17.5) Hematocrit 41.3% (39.0-53.0) 40.9% (39.0-53.0) Mean Corpuscular Volume 95fL (79-100) 98fL (79-100) Mean Corpuscular Hemoglobin 31pg (25-35) 31pg (25-35) Mean Corpuscular Hemoglobin Concent 32g/dL (31-37) 32g/dL (31-37) Red Cell Distribution Width 13.4% (11.5-14.5) 13.7% (11.5-14.5) Platelet Count 269x10^3/uL (140-400) 227x10^3/uL (140-400) Neutrophils (%) (Auto) 89% (31-73) 88% (31-73) Lymphocytes (%) (Auto) 4% (24-48) 5% (24-48) Monocytes (%) (Auto) 7% (0-9) 7% (0-9) Eosinophils (%) (Auto) 0% (0-3) 0% (0-3) Basophils (%) (Auto) 0% (0-3) 0% (0-3) Neutrophils # (Auto) 16.6x10^3uL (1.8-7.7) 16.9x10^3uL (1.8-7.7) Lymphocytes # (Auto) 0.7x10^3/uL (1.0-4.8) 0.9x10^3/uL (1.0-4.8) Monocytes # (Auto) 1.2x10^3/uL (0.0-1.1) 1.3x10^3/uL (0.0-1.1) Eosinophils # (Auto) 0.0x10^3/uL (0.0-0.7) 0.0x10^3/uL (0.0-0.7) Basophils # (Auto) 0.1x10^3/uL (0.0-0.2) 0.0x10^3/uL (0.0-0.2) Segmented Neutrophils % 79% (35-66) Band Neutrophils % 11% (0-9) Lymphocytes % 4% (24-48) Monocytes % 6% (0-10) Toxic Granulation Slight Platelet Estimate Adequate (ADEQUATE) Prothrombin Time 14.4SEC (11.7-14.0) 14.7SEC (11.7-14.0) Prothromb Time International Ratio 1.2 (0.8-1.1) 1.2 (0.8-1.1) Sodium Level 151mmol/L (136-145) 154mmol/L (136-145) Potassium Level 3.5mmol/L (3.5-5.1) 4.5mmol/L (3.5-5.1) Chloride Level 102mmol/L (98-107) 104mmol/L (98-107) Carbon Dioxide Level 37mmol/L (21-32) 40mmol/L (21-32) Anion Gap 12 (6-14) 10 (6-14) Blood Urea Nitrogen 81mg/dL (8-26) 86mg/dL (8-26) Creatinine 3.7mg/dL (0.7-1.3) 3.7mg/dL (0.7-1.3) Estimated GFR (Cockcroft-Gault) 15.6 15.6 BUN/Creatinine Ratio 22 (6-20) 23 (6-20) Glucose Level 354mg/dL (70-99) 319mg/dL (70-99) Calcium Level 10.0mg/dL (8.5-10.1) 9.8mg/dL (8.5-10.1) Phosphorus Level 6.0mg/dL (2.6-4.7) 5.8mg/dL (2.6-4.7) Magnesium Level 2.7mg/dL (1.8-2.4) 2.7mg/dL (1.8-2.4) Total Bilirubin 0.4mg/dL (0.2-1.0) 0.6mg/dL (0.2-1.0) Aspartate Amino Transf (AST/SGOT) 16U/L (15-37) 16U/L (15-37) Alanine Aminotransferase (ALT/SGPT) 13U/L (16-63) 13U/L (16-63) Alkaline Phosphatase 81U/L (46-116) 77U/L (46-116) Total Protein 7.1g/dL (6.4-8.2) 6.9g/dL (6.4-8.2) Albumin 3.6g/dL (3.4-5.0) 3.4g/dL (3.4-5.0) Albumin/Globulin Ratio 1.0 (1.0-1.7) 1.0 (1.0-1.7) Allergies: Coded Allergies: No Known Drug Allergies (Unverified , 12/02/16) Medications: Current Medications Medications (Trade) Dose Ordered Sig/Jaylan Route PRN Reason Start Time Stop Time Status Last Admin Dose Admin Piperacillin Sod/ Tazobactam Sod 2.25 gm/Sodium Chloride 50 ml @ 100 mls/hr 1X ONCE IV 12/02/16 23:00 12/02/16 23:29 DC 12/03/16 00:15 Piperacillin Sod/ Tazobactam Sod 2.25 gm/Sodium Chloride 50 ml @ 100 mls/hr Q8HRS IV 12/03/16 06:00 12/03/16 06:04 Sodium Chloride (Iv Sodium Chloride 0.45%) 1,000 ml @ 150 mls/hr Q6H40M IV 12/03/16 23:00 12/03/16 01:56 Imaging: Imaging: Reviewed report of CT from [facility] (per HPI). 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 Sorto - ?EGD ?upper GI GERM[facility]N-SD DARDEN Dec 03, 2016 10:59
--- NOTE | 2016-12-03 11:26 | PDOC2 ---
ARON HOOK COMMERCIAL FIELD INSPECTOR 12/03/16 1126: CARDIAC CONSULT DATE OF CONSULT Date of Consult DATE: 12/03/16 TIME: 11:18 REASON FOR CONSULT Reason for Consult: arrhythmia REFERRING PHYSICIAN Referring Physician: Dr. Ramírez SOURCE Source: Chart review, Patient HISTORY OF PRESENT ILLNESS HISTORY OF PRESENT ILLNESS This is an 85 yo male who initially presented to [facility] with complaints of abdominal pain and vomiting. CT noted chronic diaphragmatic hernia with extension of the stomach and bowel loops along with marked distention of the stomach with fluid, gas, and food debris. Patient was therefore transferred to the [facility] for further evaluation/treatment. Patient is a poor historian. Pacemaker in situ; unclear as to why this was placed. Presumably for SSS. Additional h/o CHF. Follows with [facility] cardiology. Most recent echocardiogram > 6 months ago. Reports compliance with medications but unable to verbalize home medication regimen. PAST MEDICAL HISTORY Cardiovascular: CAD, CHF, HTN Pulmonary: COPD CENTRAL NERVOUS SYSTEM: Other (Parkinson's Dx) GI: GERD Heme/Onc: No pertinent hx Hepatobiliary: No pertinent hx Psych: No pertinent hx Musculoskeletal: Osteoarthritis Rheumatologic: No pertinent hx Infectious disease: No pertinent hx ENT: No pertinent hx Renal/: Chronic renal insuff Endocrine: Diabetes Dermatology: No pertinent hx PAST SURGICAL HISTORY Past Surgical History: Pacemaker, Appendectomy, Hernia Repair FAMILY HISTORY Family History: Other (noncontributory ) SOCIAL HISTORY Smoke: No ALCOHOL: none Drugs: None Lives: with Family CURRENT MEDICATIONS CURRENT MEDICATIONS Current Medications Medications (Trade) Dose Ordered Sig/Jaylan Route PRN Reason Start Time Stop Time Status Last Admin Dose Admin Piperacillin Sod/ Tazobactam Sod 2.25 gm/Sodium Chloride 50 ml @ 100 mls/hr 1X ONCE IV 12/02/16 23:00 12/02/16 23:29 DC 12/03/16 00:15 Piperacillin Sod/ Tazobactam Sod 2.25 gm/Sodium Chloride 50 ml @ 100 mls/hr Q8HRS IV 12/03/16 06:00 12/03/16 06:04 Sodium Chloride (Iv Sodium Chloride 0.45%) 1,000 ml @ 75 mls/hr Q6H40M IV 12/03/16 23:00 12/03/16 01:56 ALLERGIES ALLERGIES: Coded Allergies: No Known Drug Allergies (Unverified , 12/02/16) ROS Review of System 14 point ROS conducted with pertinent positives noted above in HPI although somewhat limited as patient is a poor historian. PHYSICAL EXAM General: Alert, Oriented X3, Cooperative, No acute distress HEENT: Atraumatic, Mucous membr. moist/pink, Other (right nare NG tube intace ) Lungs: Other (diminished bases ) Heart: Other (distant heart tones; tele; intermittent AV pacing with underlying sinus arrhythmia with PAC's and PVC's. ) Abdomen: Soft, Other (tenderness) Extremities: No edema, Other (1+ bilateral DP pulses ) Skin: No breakdown, No significant lesion Neuro: Normal speech, Sensation intact Psych/Mental Status: Mental status NL, Mood NL MUSCULOSKELETAL: Osteoarthritic changes both hands VITALS VITALS Vital Signs Date Time Temp Pulse Resp B/P Pulse Ox O2 Delivery O2 Flow Rate FiO2 12/03/16 11:00 76 20 131/45 100 Nasal Cannula 5.0 12/03/16 09:00 97.9 97.9 LABS Lab: Laboratory Tests Test 12/02/16 21:00 12/02/16 21:12 12/02/16 21:55 12/03/16 03:20 Influenza Type A Antigen Negative (NEGATIVE) Influenza Type B Antigen Negative (NEGATIVE) Glucose (Fingerstick) 285mg/dL (70-99) White Blood Count 18.6x10^3/uL (4.0-11.0) 19.2x10^3/uL (4.0-11.0) Red Blood Count 4.34x10^6/uL (4.30-5.70) 4.19x10^6/uL (4.30-5.70) Hemoglobin 13.4g/dL (13.0-17.5) 13.0g/dL (13.0-17.5) Hematocrit 41.3% (39.0-53.0) 40.9% (39.0-53.0) Mean Corpuscular Volume 95fL (79-100) 98fL (79-100) Mean Corpuscular Hemoglobin 31pg (25-35) 31pg (25-35) Mean Corpuscular Hemoglobin Concent 32g/dL (31-37) 32g/dL (31-37) Red Cell Distribution Width 13.4% (11.5-14.5) 13.7% (11.5-14.5) Platelet Count 269x10^3/uL (140-400) 227x10^3/uL (140-400) Neutrophils (%) (Auto) 89% (31-73) 88% (31-73) Lymphocytes (%) (Auto) 4% (24-48) 5% (24-48) Monocytes (%) (Auto) 7% (0-9) 7% (0-9) Eosinophils (%) (Auto) 0% (0-3) 0% (0-3) Basophils (%) (Auto) 0% (0-3) 0% (0-3) Neutrophils # (Auto) 16.6x10^3uL (1.8-7.7) 16.9x10^3uL (1.8-7.7) Lymphocytes # (Auto) 0.7x10^3/uL (1.0-4.8) 0.9x10^3/uL (1.0-4.8) Monocytes # (Auto) 1.2x10^3/uL (0.0-1.1) 1.3x10^3/uL (0.0-1.1) Eosinophils # (Auto) 0.0x10^3/uL (0.0-0.7) 0.0x10^3/uL (0.0-0.7) Basophils # (Auto) 0.1x10^3/uL (0.0-0.2) 0.0x10^3/uL (0.0-0.2) Segmented Neutrophils % 79% (35-66) Band Neutrophils % 11% (0-9) Lymphocytes % 4% (24-48) Monocytes % 6% (0-10) Toxic Granulation Slight Platelet Estimate Adequate (ADEQUATE) Prothrombin Time 14.4SEC (11.7-14.0) 14.7SEC (11.7-14.0) Prothromb Time International Ratio 1.2 (0.8-1.1) 1.2 (0.8-1.1) Sodium Level 151mmol/L (136-145) 154mmol/L (136-145) Potassium Level 3.5mmol/L (3.5-5.1) 4.5mmol/L (3.5-5.1) Chloride Level 102mmol/L (98-107) 104mmol/L (98-107) Carbon Dioxide Level 37mmol/L (21-32) 40mmol/L (21-32) Anion Gap 12 (6-14) 10 (6-14) Blood Urea Nitrogen 81mg/dL (8-26) 86mg/dL (8-26) Creatinine 3.7mg/dL (0.7-1.3) 3.7mg/dL (0.7-1.3) Estimated GFR (Cockcroft-Gault) 15.6 15.6 BUN/Creatinine Ratio 22 (6-20) 23 (6-20) Glucose Level 354mg/dL (70-99) 319mg/dL (70-99) Calcium Level 10.0mg/dL (8.5-10.1) 9.8mg/dL (8.5-10.1) Phosphorus Level 6.0mg/dL (2.6-4.7) 5.8mg/dL (2.6-4.7) Magnesium Level 2.7mg/dL (1.8-2.4) 2.7mg/dL (1.8-2.4) Total Bilirubin 0.4mg/dL (0.2-1.0) 0.6mg/dL (0.2-1.0) Aspartate Amino Transf (AST/SGOT) 16U/L (15-37) 16U/L (15-37) Alanine Aminotransferase (ALT/SGPT) 13U/L (16-63) 13U/L (16-63) Alkaline Phosphatase 81U/L (46-116) 77U/L (46-116) Total Protein 7.1g/dL (6.4-8.2) 6.9g/dL (6.4-8.2) Albumin 3.6g/dL (3.4-5.0) 3.4g/dL (3.4-5.0) Albumin/Globulin Ratio 1.0 (1.0-1.7) 1.0 (1.0-1.7) ASSESSMENT/PLAN ASSESSMENT/PLAN 1. Arrhythmia 2. PPM in situ 3. Coronary artery disease 4. Abdominal Pain/ gastric outlet obstruction 5. Leukocytosis 6. Hypernatremia 7. DIPIKA 8. Diabetes 9. Dehydration Recommendations PPM interrogation check TSH, echo obtain records from [facility] Agree with gentle hydration supportive care from CV perspective. Problems: KEY WALLACE MD 12/03/16 191: CARDIAC CONSULT ALLERGIES ALLERGIES: Coded Allergies: No Known Drug Allergies (Unverified , 12/02/16) ASSESSMENT/PLAN ASSESSMENT/PLAN Pt. seen and examined. Agree with above BLUEPRINTING AND PHOTOCOPY SUPERVISOR note. 85 y.o with GI problems, cardiology asked to see given significant history Awaiting OSH records. On exam he is somnolent. Appears weak labs reviewed. meds reviewed. Patient has multiorgan failure, suspect from dehydration, possible infection and now echo reveals severe LV dysfunction. Poor candidate for cath etc. Would continue conservative mgmt, could consider cath ultimately on an outpt basis with primary fleet maintenance foreman. Will follow along. May give fluids prn, will use prn vasopressors if needed. Problems: ARON HOOK APRN Dec 03, 2016 11:26 KEY WALLACE MD Dec 03, 2016 19:12
[2016-12-03 15:18] LABS: BILIRUBIN,URINE NEGATIVE (NEG); GLUCOSE,URINE NEGATIVE (NEG); NITRITE,URINE NEGATIVE (NEG); PH,URINE 5.5; PROTEIN,URINE 30 mg/dL (NEG-TRACE); UROBILINOGEN,URINE 0.2 mg/dL (0.2 mg/dL)
--- NOTE | 2016-12-03 15:51 | RAD ---
Renal ultrasound, 12/03/2016: History: Acute renal injury The right kidney measures 10.4 cm in length while the left kidney measures 10.3 cm. There is no evidence of hydronephrosis or a renal mass. The renal parenchymal echogenicity is within normal limits. The urinary bladder is collapsed due to the presence of a Perry catheter, and not adequately delineated. The prostate is markedly enlarged. IMPRESSION: 1. No renal abnormality is detected. 2. Prostatic enlargement
[2016-12-03 15:56] LABS: BACTERIA,URINE FEW /HPF (0-FEW); SQUAMOUS EPITHELIAL CELL,UR MOD /LPF
[2016-12-03] MEDS ORDERED: IV 1/2 NORMAL SALINE 1,000 ML IV SCH (23:00)
[2016-12-04] VITALS (23 sets, daily range): BP systolic 111–162; BP diastolic 43–81
[2016-12-04] MEDS: PIPERACILLIN/TAZOBACTAM 2.25 GM in IV NORMAL SALINE 50ML 50 ML IV SCH ×4 (00:57→22:39)
[2016-12-04 06:04] LABS: BASO % 0 % (0-3); EOS % 0 % (0-3); HEMATOCRIT 36.1 % (39.0-53.0); HEMOGLOBIN 11.6 g/dL (13.0-17.5); LYMPH # 1.2 x10^3/uL (1.0-4.8); LYMPH % 10 % (24-48); MEAN CORPUSCULAR HEMOGLOBIN 31 pg (25-35); MEAN CORPUSCULAR HGB CONC 32 g/dL (31-37); MEAN CORPUSCULAR VOLUME 97 fL (79-100); MONO % 8 % (0-9); NEUT % 83 % (31-73); PLATELET COUNT 188 x10^3/uL (140-400); RED BLOOD COUNT 3.73 x10^6/uL (4.30-5.70); RED CELL DISTRIBUTION WIDTH 13.3 % (11.5-14.5); WHITE BLOOD COUNT 12.8 x10^3/uL (4.0-11.0)
[2016-12-04 06:23] LABS: ALBUMIN 2.7 g/dL (3.4-5.0); ALBUMIN/GLOBULIN RATIO 0.8 (1.0-1.7); CALCIUM 9.2 mg/dL (8.5-10.1); CREATININE 2.6 mg/dL (0.7-1.3); GFR 23.5; TOTAL BILIRUBIN 0.7 mg/dL (0.2-1.0); TOTAL PROTEIN 6.2 g/dL (6.4-8.2)
[2016-12-04] MEDS ORDERED: IV RINGERS,LACTATED 1000ML 1,000 ML IV SCH (07:00)
--- NOTE | 2016-12-04 07:49 | CARD ---
APPROVED REPORT EXAM: Two-dimensional and M-mode echocardiogram with Doppler and color Doppler. Other Information Quality : Technically Limited Technically limited study due to body habitus and smoking. INDICATION Arrhythmia Congestive Heart Failure Surgery/Intervention ICD/Pacemaker: 2D DIMENSIONS Left Atrium(2D)3.7 (1.6-4.0cm)IVSd0.7 (0.7-1.1cm) Aortic Root(2D)2.7 (2.0-3.7cm)LVDd4.9 (3.9-5.9cm) PWd0.8 (0.7-1.1cm)LVDs3.8 (2.5-4.0cm) FS (%) 22.8 %SV51.2 ml LVEF(%)45.8 (>50%) LEFT VENTRICLE The left ventricle is normal size. There is normal left ventricular wall thickness. Left ventricle sy stolic function is severely impaired. The Ejection Fraction is 25%. There is severe global hypokinesi s of the left ventricle with severe hypokinesis to akinesis of the anterior wall. Tissue Doppler imag ing reveals severe left ventricular diastolic dysfunction. RIGHT VENTRICLE The right ventricle is normal size. The right ventricular systolic function is normal. ATRIA The left atrium size is normal. The right atrium size is normal. The interatrial septum is intact wit h no evidence for an atrial septal defect or patent foramen ovale as noted on 2-D or Doppler imaging. AORTIC VALVE The aortic valve is not well visualized. Doppler and Color Flow revealed trace aortic regurgitation. MITRAL VALVE The mitral valve is calcified but opens well. There is no evidence of mitral valve prolapse. There is no mitral valve stenosis. Doppler and Color-flow revealed mild mitral regurgitation. TRICUSPID VALVE The tricuspid valve is normal in structure and function. Doppler and Color Flow revealed no tricuspid valve regurgitation noted. There is no tricuspid valve stenosis. GREAT VESSELS The aortic root is normal in size. The ascending aorta is not well seen. The IVC is dilated and colla pses <50% with inspiration consisten with volume overload PERICARDIAL EFFUSION There is no evidence of significant pericardial effusion. Critical Notification Critical Value: No <Conclusion> Left ventricle systolic function is severely impaired. The Ejection Fraction is 25%. There is severe global hypokinesis of the left ventricle with severe hypokinesis to akinesis of the a nterior wall. Tissue Doppler imaging reveals severe left ventricular diastolic dysfunction. The IVC is dilated and collapses <50% with inspiration consistent with volume overload
--- NOTE | 2016-12-04 08:33 | PDOC ---
LUISA FRY DIGITAL EDITOR 12/04/16 0833: SURGICAL PROGRESS NOTE Subjective still having some pain i spoke with his on the phone potential EGD today Vital Signs Vital Signs Date Time Temp Pulse Resp B/P Pulse Ox O2 Delivery O2 Flow Rate FiO2 12/04/16 08:00 98.7 77 25 135/45 100 Nasal Cannula 2.0 98.7 I&O Intake and Output 12/04/16 07:00 Intake Total 1630 ml Output Total 1275 ml Balance 355 ml Intake Oral 0 ml IV Total 1630 ml Output Urine Total 825 ml Gastric Drainage Total 450 ml General: Alert, Cooperative, No acute distress HEENT: Other (ng present ) Abdomen: Soft, Other (ND, mild epigastric ttp on exam) Labs Laboratory Tests Test 12/02/16 21:00 12/02/16 21:12 12/02/16 21:55 12/03/16 03:20 Influenza Type A Antigen Negative (NEGATIVE) Influenza Type B Antigen Negative (NEGATIVE) Glucose (Fingerstick) 285mg/dL (70-99) White Blood Count 18.6x10^3/uL (4.0-11.0) 19.2x10^3/uL (4.0-11.0) Red Blood Count 4.34x10^6/uL (4.30-5.70) 4.19x10^6/uL (4.30-5.70) Hemoglobin 13.4g/dL (13.0-17.5) 13.0g/dL (13.0-17.5) Hematocrit 41.3% (39.0-53.0) 40.9% (39.0-53.0) Mean Corpuscular Volume 95fL (79-100) 98fL (79-100) Mean Corpuscular Hemoglobin 31pg (25-35) 31pg (25-35) Mean Corpuscular Hemoglobin Concent 32g/dL (31-37) 32g/dL (31-37) Red Cell Distribution Width 13.4% (11.5-14.5) 13.7% (11.5-14.5) Platelet Count 269x10^3/uL (140-400) 227x10^3/uL (140-400) Neutrophils (%) (Auto) 89% (31-73) 88% (31-73) Lymphocytes (%) (Auto) 4% (24-48) 5% (24-48) Monocytes (%) (Auto) 7% (0-9) 7% (0-9) Eosinophils (%) (Auto) 0% (0-3) 0% (0-3) Basophils (%) (Auto) 0% (0-3) 0% (0-3) Neutrophils # (Auto) 16.6x10^3uL (1.8-7.7) 16.9x10^3uL (1.8-7.7) Lymphocytes # (Auto) 0.7x10^3/uL (1.0-4.8) 0.9x10^3/uL (1.0-4.8) Monocytes # (Auto) 1.2x10^3/uL (0.0-1.1) 1.3x10^3/uL (0.0-1.1) Eosinophils # (Auto) 0.0x10^3/uL (0.0-0.7) 0.0x10^3/uL (0.0-0.7) Basophils # (Auto) 0.1x10^3/uL (0.0-0.2) 0.0x10^3/uL (0.0-0.2) Segmented Neutrophils % 79% (35-66) Band Neutrophils % 11% (0-9) Lymphocytes % 4% (24-48) Monocytes % 6% (0-10) Toxic Granulation Slight Platelet Estimate Adequate (ADEQUATE) Prothrombin Time 14.4SEC (11.7-14.0) 14.7SEC (11.7-14.0) Prothromb Time International Ratio 1.2 (0.8-1.1) 1.2 (0.8-1.1) Sodium Level 151mmol/L (136-145) 154mmol/L (136-145) Potassium Level 3.5mmol/L (3.5-5.1) 4.5mmol/L (3.5-5.1) Chloride Level 102mmol/L (98-107) 104mmol/L (98-107) Carbon Dioxide Level 37mmol/L (21-32) 40mmol/L (21-32) Anion Gap 12 (6-14) 10 (6-14) Blood Urea Nitrogen 81mg/dL (8-26) 86mg/dL (8-26) Creatinine 3.7mg/dL (0.7-1.3) 3.7mg/dL (0.7-1.3) Estimated GFR (Cockcroft-Gault) 15.6 15.6 BUN/Creatinine Ratio 22 (6-20) 23 (6-20) Glucose Level 354mg/dL (70-99) 319mg/dL (70-99) Calcium Level 10.0mg/dL (8.5-10.1) 9.8mg/dL (8.5-10.1) Phosphorus Level 6.0mg/dL (2.6-4.7) 5.8mg/dL (2.6-4.7) Magnesium Level 2.7mg/dL (1.8-2.4) 2.7mg/dL (1.8-2.4) Total Bilirubin 0.4mg/dL (0.2-1.0) 0.6mg/dL (0.2-1.0) Aspartate Amino Transf (AST/SGOT) 16U/L (15-37) 16U/L (15-37) Alanine Aminotransferase (ALT/SGPT) 13U/L (16-63) 13U/L (16-63) Alkaline Phosphatase 81U/L (46-116) 77U/L (46-116) Total Protein 7.1g/dL (6.4-8.2) 6.9g/dL (6.4-8.2) Albumin 3.6g/dL (3.4-5.0) 3.4g/dL (3.4-5.0) Albumin/Globulin Ratio 1.0 (1.0-1.7) 1.0 (1.0-1.7) Thyroid Stimulating Hormone (TSH) 2.919uIU/mL (0.358-3.74) Test 12/03/16 10:35 12/03/16 14:00 12/03/16 15:05 12/04/16 01:28 Nasal Screen MRSA (PCR) Negative (Negative) Urine Color Yellow Urine Clarity Clear Urine pH 5.5 Urine Specific [place] 1.020 Urine Protein 30mg/dL (NEG-TRACE) Urine Glucose (UA) Negativemg/dL (NEG) Urine Ketones (Stick) Negativemg/dL (NEG) Urine Blood Moderate (NEG) Urine Nitrite Negative (NEG) Urine Bilirubin Negative (NEG) Urine Urobilinogen Dipstick 0.2mg/dL (0.2 mg/dL) Urine Leukocyte Esterase Moderate (NEG) Urine RBC 1-2/HPF (0-2) Urine WBC 1-4/HPF (0-4) Urine Squamous Epithelial Cells Mod/LPF Urine Bacteria Few/HPF (0-FEW) Urine Hyaline Casts Occasional/HPF Urine Mucus Slight/LPF Troponin I Quantitative 0.149ng/mL (0.000-0.055) Glucose (Fingerstick) 211mg/dL (70-99) Test 12/04/16 05:08 12/04/16 08:04 White Blood Count 12.8x10^3/uL (4.0-11.0) Red Blood Count 3.73x10^6/uL (4.30-5.70) Hemoglobin 11.6g/dL (13.0-17.5) Hematocrit 36.1% (39.0-53.0) Mean Corpuscular Volume 97fL (79-100) Mean Corpuscular Hemoglobin 31pg (25-35) Mean Corpuscular Hemoglobin Concent 32g/dL (31-37) Red Cell Distribution Width 13.3% (11.5-14.5) Platelet Count 188x10^3/uL (140-400) Neutrophils (%) (Auto) 83% (31-73) Lymphocytes (%) (Auto) 10% (24-48) Monocytes (%) (Auto) 8% (0-9) Eosinophils (%) (Auto) 0% (0-3) Basophils (%) (Auto) 0% (0-3) Neutrophils # (Auto) 10.6x10^3uL (1.8-7.7) Lymphocytes # (Auto) 1.2x10^3/uL (1.0-4.8) Monocytes # (Auto) 1.0x10^3/uL (0.0-1.1) Eosinophils # (Auto) 0.0x10^3/uL (0.0-0.7) Basophils # (Auto) 0.0x10^3/uL (0.0-0.2) Sodium Level 151mmol/L (136-145) Potassium Level 3.0mmol/L (3.5-5.1) Chloride Level 105mmol/L (98-107) Carbon Dioxide Level 37mmol/L (21-32) Anion Gap 9 (6-14) Blood Urea Nitrogen 76mg/dL (8-26) Creatinine 2.6mg/dL (0.7-1.3) Estimated GFR (Cockcroft-Gault) 23.5 BUN/Creatinine Ratio 29 (6-20) Glucose Level 222mg/dL (70-99) Calcium Level 9.2mg/dL (8.5-10.1) Total Bilirubin 0.7mg/dL (0.2-1.0) Aspartate Amino Transf (AST/SGOT) 17U/L (15-37) Alanine Aminotransferase (ALT/SGPT) 10U/L (16-63) Alkaline Phosphatase 58U/L (46-116) Total Protein 6.2g/dL (6.4-8.2) Albumin 2.7g/dL (3.4-5.0) Albumin/Globulin Ratio 0.8 (1.0-1.7) Glucose (Fingerstick) 177mg/dL (70-99) Laboratory Tests Test 12/03/16 10:35 12/03/16 14:00 12/03/16 15:05 12/04/16 01:28 Nasal Screen MRSA (PCR) Negative (Negative) Urine Color Yellow Urine Clarity Clear Urine pH 5.5 Urine Specific [place] 1.020 Urine Protein 30mg/dL (NEG-TRACE) Urine Glucose (UA) Negativemg/dL (NEG) Urine Ketones (Stick) Negativemg/dL (NEG) Urine Blood Moderate (NEG) Urine Nitrite Negative (NEG) Urine Bilirubin Negative (NEG) Urine Urobilinogen Dipstick 0.2mg/dL (0.2 mg/dL) Urine Leukocyte Esterase Moderate (NEG) Urine RBC 1-2/HPF (0-2) Urine WBC 1-4/HPF (0-4) Urine Squamous Epithelial Cells Mod/LPF Urine Bacteria Few/HPF (0-FEW) Urine Hyaline Casts Occasional/HPF Urine Mucus Slight/LPF Troponin I Quantitative 0.149ng/mL (0.000-0.055) Glucose (Fingerstick) 211mg/dL (70-99) Test 12/04/16 05:08 12/04/16 08:04 White Blood Count 12.8x10^3/uL (4.0-11.0) Red Blood Count 3.73x10^6/uL (4.30-5.70) Hemoglobin 11.6g/dL (13.0-17.5) Hematocrit 36.1% (39.0-53.0) Mean Corpuscular Volume 97fL (79-100) Mean Corpuscular Hemoglobin 31pg (25-35) Mean Corpuscular Hemoglobin Concent 32g/dL (31-37) Red Cell Distribution Width 13.3% (11.5-14.5) Platelet Count 188x10^3/uL (140-400) Neutrophils (%) (Auto) 83% (31-73) Lymphocytes (%) (Auto) 10% (24-48) Monocytes (%) (Auto) 8% (0-9) Eosinophils (%) (Auto) 0% (0-3) Basophils (%) (Auto) 0% (0-3) Neutrophils # (Auto) 10.6x10^3uL (1.8-7.7) Lymphocytes # (Auto) 1.2x10^3/uL (1.0-4.8) Monocytes # (Auto) 1.0x10^3/uL (0.0-1.1) Eosinophils # (Auto) 0.0x10^3/uL (0.0-0.7) Basophils # (Auto) 0.0x10^3/uL (0.0-0.2) Sodium Level 151mmol/L (136-145) Potassium Level 3.0mmol/L (3.5-5.1) Chloride Level 105mmol/L (98-107) Carbon Dioxide Level 37mmol/L (21-32) Anion Gap 9 (6-14) Blood Urea Nitrogen 76mg/dL (8-26) Creatinine 2.6mg/dL (0.7-1.3) Estimated GFR (Cockcroft-Gault) 23.5 BUN/Creatinine Ratio 29 (6-20) Glucose Level 222mg/dL (70-99) Calcium Level 9.2mg/dL (8.5-10.1) Total Bilirubin 0.7mg/dL (0.2-1.0) Aspartate Amino Transf (AST/SGOT) 17U/L (15-37) Alanine Aminotransferase (ALT/SGPT) 10U/L (16-63) Alkaline Phosphatase 58U/L (46-116) Total Protein 6.2g/dL (6.4-8.2) Albumin 2.7g/dL (3.4-5.0) Albumin/Globulin Ratio 0.8 (1.0-1.7) Glucose (Fingerstick) 177mg/dL (70-99) Problem List Problems Medical Problems: (1) Gastric outlet obstruction Status: Acute 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 EGD results noted, Dr Sorto described gastric volvulus, recommended definitive surgery. Pt sleeping after EGD, NG in place, O2 per NC, lungs clear, abdomen soft, nontender with palpation, ext neg for edema. The patients and Son are present. I had an extensive discussion about surgical treatment for a very large paraesophageal hernia. I reviewed the details of surgery. The risks are significant and he is a poor operative candidate. However without treatment there would be concern for continued or recurrent volvulus with gastric outlet obstruction. The risks of surgery were described which include and are not limited to bleeding, infection, gastric or esophageal perforation, recurrent hernia, dysphagia, reflux, anesthetic risk, visceral organ injury, pneumonia, DVT, [place], mortality risk. The family understands and would like to proceed with surgery in the hopes of preventing recurrent problems. Problems: LUISA FRY APRN Dec 04, 2016 08:33 CALLIE CLIFTON MD Dec 04, 2016 16:47
[2016-12-04] MEDS ORDERED: DEXTROSE 50% 25 GM / 50ML DISP.SYRIN. IV PRN (09:30)
[2016-12-04] MEDS ORDERED: ACETAMINOPHEN 325 MG TABLET. PO PRN (09:30)
[2016-12-04] MEDS: PANTOPRAZOLE 40 MG TABLET. PO SCH (10:00)
[2016-12-04] MEDS: ASPIRIN ENTERIC COATED 81 MG TABLET.DR. PO SCH (10:00)
[2016-12-04] MEDS: CALCIUM CARB/VIT D3 500/200 TABLET PO SCH ×2 (10:00→17:00)
[2016-12-04] MEDS ORDERED: POTASSIUM CL 20MEQ-0.45% NACL 1,000 ML IV SCH (10:00)
[2016-12-04] MEDS: AMLODIPINE BESYLATE 2.5 MG TABLET PO SCH (10:00)
[2016-12-04] MEDS: CARBIDOPA/LEVODOPA 25/100MG TABLET PO SCH ×4 (10:00→19:38)
[2016-12-04] MEDS: AA 4.25%/CALCIUM/LYTES/D5W 1,000 ML IV SCH ×2 (10:30→23:54)
--- NOTE | 2016-12-04 10:36 | PDOC ---
Renal-Progress Notes Subjective Notes Notes CONFUSED History of Present Illness Hx of present illness FRAIL, STABLE Vitals Vitals Vital Signs Date Time Temp Pulse Resp B/P Pulse Ox O2 Delivery O2 Flow Rate FiO2 12/04/16 10:00 83 20 136/48 100 Nasal Cannula 2.0 12/04/16 08:00 98.7 98.7 Weight Weight [ ] I.O. Intake and Output Intake and Output 12/04/16 07:00 Intake Total 1630 ml Output Total 1275 ml Balance 355 ml Intake Oral 0 ml IV Total 1630 ml Output Urine Total 825 ml Gastric Drainage Total 450 ml Labs Labs Laboratory Tests Test 12/03/16 10:35 12/03/16 14:00 12/03/16 15:05 12/04/16 01:28 Nasal Screen MRSA (PCR) Negative (Negative) Urine Color Yellow Urine Clarity Clear Urine pH 5.5 Urine Specific [place] 1.020 Urine Protein 30mg/dL (NEG-TRACE) Urine Glucose (UA) Negativemg/dL (NEG) Urine Ketones (Stick) Negativemg/dL (NEG) Urine Blood Moderate (NEG) Urine Nitrite Negative (NEG) Urine Bilirubin Negative (NEG) Urine Urobilinogen Dipstick 0.2mg/dL (0.2 mg/dL) Urine Leukocyte Esterase Moderate (NEG) Urine RBC 1-2/HPF (0-2) Urine WBC 1-4/HPF (0-4) Urine Squamous Epithelial Cells Mod/LPF Urine Bacteria Few/HPF (0-FEW) Urine Hyaline Casts Occasional/HPF Urine Mucus Slight/LPF Troponin I Quantitative 0.149ng/mL (0.000-0.055) Glucose (Fingerstick) 211mg/dL (70-99) Test 12/04/16 05:08 12/04/16 08:04 White Blood Count 12.8x10^3/uL (4.0-11.0) Red Blood Count 3.73x10^6/uL (4.30-5.70) Hemoglobin 11.6g/dL (13.0-17.5) Hematocrit 36.1% (39.0-53.0) Mean Corpuscular Volume 97fL (79-100) Mean Corpuscular Hemoglobin 31pg (25-35) Mean Corpuscular Hemoglobin Concent 32g/dL (31-37) Red Cell Distribution Width 13.3% (11.5-14.5) Platelet Count 188x10^3/uL (140-400) Neutrophils (%) (Auto) 83% (31-73) Lymphocytes (%) (Auto) 10% (24-48) Monocytes (%) (Auto) 8% (0-9) Eosinophils (%) (Auto) 0% (0-3) Basophils (%) (Auto) 0% (0-3) Neutrophils # (Auto) 10.6x10^3uL (1.8-7.7) Lymphocytes # (Auto) 1.2x10^3/uL (1.0-4.8) Monocytes # (Auto) 1.0x10^3/uL (0.0-1.1) Eosinophils # (Auto) 0.0x10^3/uL (0.0-0.7) Basophils # (Auto) 0.0x10^3/uL (0.0-0.2) Sodium Level 151mmol/L (136-145) Potassium Level 3.0mmol/L (3.5-5.1) Chloride Level 105mmol/L (98-107) Carbon Dioxide Level 37mmol/L (21-32) Anion Gap 9 (6-14) Blood Urea Nitrogen 76mg/dL (8-26) Creatinine 2.6mg/dL (0.7-1.3) Estimated GFR (Cockcroft-Gault) 23.5 BUN/Creatinine Ratio 29 (6-20) Glucose Level 222mg/dL (70-99) Calcium Level 9.2mg/dL (8.5-10.1) Magnesium Level 2.7mg/dL (1.8-2.4) Total Bilirubin 0.7mg/dL (0.2-1.0) Aspartate Amino Transf (AST/SGOT) 17U/L (15-37) Alanine Aminotransferase (ALT/SGPT) 10U/L (16-63) Alkaline Phosphatase 58U/L (46-116) Total Protein 6.2g/dL (6.4-8.2) Albumin 2.7g/dL (3.4-5.0) Albumin/Globulin Ratio 0.8 (1.0-1.7) Glucose (Fingerstick) 177mg/dL (70-99) Review of Systems Constitutional: yes: no symptom reported Physical Exam General Appearance: no apparent distress Skin: warm Respiratory: decreased breath sounds Heart: S1S2, RRR Abdomen: soft, other (HYPOACTIVE) Genitourinary: bladder flat Extremities: atrophy Neurology: alert Musculoskeletal: Osteoarthritis Assessment Assessment IMP DIPIKA-IMPROVING HYPOVOLEMIA HYPOKALEMIA HYPERNATREMIA GASTRIC OBSTRUCTION LEUCOCYTOSIS-BETTER PLAN GI AND SURGERY EVAL AND TX REPLACE K PPN WILL FOLLOW EZEKIEL RAMOS MD Dec 04, 2016 10:36
[2016-12-04] MEDS: POTASSIUM CHLORIDE 10MEQ 100 ML IV SCH ×2 (10:42→12:29)
[2016-12-04] MEDS: INSULIN ASPART 300 UNITS/3 ML INSULN.PEN SQ SCH ×2 (12:00→17:00)
--- NOTE | 2016-12-04 12:40 | PDOC ---
[facility] 12/04/16 1240: CARDIO Progress Notes Date and Time Date of Service 12/04/16 Time of Evaluation 1300 Subjective Subjective: No Chest Pain, No shortness of breath, No Palpitations, Other ( abdominal pain) Vitals Vitals Vital Signs Date Time Temp Pulse Resp B/P Pulse Ox O2 Delivery O2 Flow Rate FiO2 12/04/16 11:00 85 24 127/46 100 Nasal Cannula 2.0 12/04/16 08:00 98.7 98.7 Weight Weight [ ] Input and Output Intake and Output Intake and Output 12/04/16 07:00 Intake Total 1630 ml Output Total 1275 ml Balance 355 ml Intake Oral 0 ml IV Total 1630 ml Output Urine Total 825 ml Gastric Drainage Total 450 ml Laboratory Labs Laboratory Tests Test 12/03/16 14:00 12/03/16 15:05 12/04/16 01:28 12/04/16 05:08 Urine Color Yellow Urine Clarity Clear Urine pH 5.5 Urine Specific [place] 1.020 Urine Protein 30mg/dL (NEG-TRACE) Urine Glucose (UA) Negativemg/dL (NEG) Urine Ketones (Stick) Negativemg/dL (NEG) Urine Blood Moderate (NEG) Urine Nitrite Negative (NEG) Urine Bilirubin Negative (NEG) Urine Urobilinogen Dipstick 0.2mg/dL (0.2 mg/dL) Urine Leukocyte Esterase Moderate (NEG) Urine RBC 1-2/HPF (0-2) Urine WBC 1-4/HPF (0-4) Urine Squamous Epithelial Cells Mod/LPF Urine Bacteria Few/HPF (0-FEW) Urine Hyaline Casts Occasional/HPF Urine Mucus Slight/LPF Troponin I Quantitative 0.149ng/mL (0.000-0.055) Glucose (Fingerstick) 211mg/dL (70-99) White Blood Count 12.8x10^3/uL (4.0-11.0) Red Blood Count 3.73x10^6/uL (4.30-5.70) Hemoglobin 11.6g/dL (13.0-17.5) Hematocrit 36.1% (39.0-53.0) Mean Corpuscular Volume 97fL (79-100) Mean Corpuscular Hemoglobin 31pg (25-35) Mean Corpuscular Hemoglobin Concent 32g/dL (31-37) Red Cell Distribution Width 13.3% (11.5-14.5) Platelet Count 188x10^3/uL (140-400) Neutrophils (%) (Auto) 83% (31-73) Lymphocytes (%) (Auto) 10% (24-48) Monocytes (%) (Auto) 8% (0-9) Eosinophils (%) (Auto) 0% (0-3) Basophils (%) (Auto) 0% (0-3) Neutrophils # (Auto) 10.6x10^3uL (1.8-7.7) Lymphocytes # (Auto) 1.2x10^3/uL (1.0-4.8) Monocytes # (Auto) 1.0x10^3/uL (0.0-1.1) Eosinophils # (Auto) 0.0x10^3/uL (0.0-0.7) Basophils # (Auto) 0.0x10^3/uL (0.0-0.2) Sodium Level 151mmol/L (136-145) Potassium Level 3.0mmol/L (3.5-5.1) Chloride Level 105mmol/L (98-107) Carbon Dioxide Level 37mmol/L (21-32) Anion Gap 9 (6-14) Blood Urea Nitrogen 76mg/dL (8-26) Creatinine 2.6mg/dL (0.7-1.3) Estimated GFR (Cockcroft-Gault) 23.5 BUN/Creatinine Ratio 29 (6-20) Glucose Level 222mg/dL (70-99) Calcium Level 9.2mg/dL (8.5-10.1) Magnesium Level 2.7mg/dL (1.8-2.4) Total Bilirubin 0.7mg/dL (0.2-1.0) Aspartate Amino Transf (AST/SGOT) 17U/L (15-37) Alanine Aminotransferase (ALT/SGPT) 10U/L (16-63) Alkaline Phosphatase 58U/L (46-116) Total Protein 6.2g/dL (6.4-8.2) Albumin 2.7g/dL (3.4-5.0) Albumin/Globulin Ratio 0.8 (1.0-1.7) Test 12/04/16 08:04 Glucose (Fingerstick) 177mg/dL (70-99) Review of Systems Constitutional: yes: no symptom reported Physical Exam HEENT: Neck Supple W Full Motion Chest: Symmetric LUNGS: Other (diminished bases ) Heart: S1S2, other (distant hrt tones. tele SR with intermittent V pacing with PVC's and PAC's ) Abdomen: Soft N/T, Other (diffuse abdominal tenderness) Extremities: No Edema Neurology: alert, oriented, follow commands, other (WIYOT) Assessment Assessment 1. Arrhythmia 2. PPM in situ 3. Coronary artery disease 4. Abdominal Pain/ gastric outlet obstruction 5. Leukocytosis 6. lyte abnormalities 7. DIPIKA 8. Diabetes 9. Dehydration Recommendations PPM interrogation reveals normal device function replace K, monitor lytes. echo revealed severely impaired LV function with an EF of 25%, not new per . No records from [facility] obtained No RYLEE/ARB with DIPIKA High surgical risk given comorbidities and severe systolic dysfunction Supportive care from CV perspective. Prognosis poor KEY WALLACE MD 12/04/16 2215: CARDIO Progress Notes Plan Plan Pt. seen and examined. Discussed with [employer] and RN at bedside No significant changes since yesterday. Labs/meds reviewed. For intrabdominal surgery he would be considered high risk due to acute heart failure and poor functional capacity. No interventions prior would really help mitigate risk. Poor overall prognosis. Will follow along. ARON HOOK APRN Dec 04, 2016 12:40 KEY WALLACE MD Dec 04, 2016 22:15
[2016-12-04] MEDS: IV NORMAL SALINE 1000ML BAG 1,000 ML IV SCH (14:00)
[2016-12-04] MEDS ORDERED: HEPARIN PF for SUB-Q USE 5,000 UNIT/0.5 ML VIAL. SQ SCH (14:30)
--- NOTE | 2016-12-04 14:30 | PDOC ---
PROGRESS NOTES Chief Complaint Chief Complaint 1. Gastric outlet obstruction 2. Abdominal pain 3. Constipation 4. Diabetes Mellitus Type 2 5. Hypertension 6. Parkinson's Disease fu with card, gi, sx EGD today plan possible sx tmr NPO ivf, on PPN dvt , gi ppx replete K History of Present Illness History of Present Illness Pt awake laying down in bed in ICU. Pt has intermittent NG tube in place. No fevers or chills. On 5 L NC. Patient in no acute distress. Pt notes to have several runs of arrhythmia-consults to Cards placed. VSS- All questions and concerns addressed and answered. very bad hearing Vitals Vitals Vital Signs Date Time Temp Pulse Resp B/P Pulse Ox O2 Delivery O2 Flow Rate FiO2 12/04/16 12:00 Nasal Cannula 2.0 12/04/16 11:00 85 24 127/46 100 12/04/16 08:00 98.7 98.7 Physical Exam General: Alert, Cooperative, No acute distress Heart: Other (distant heart tones; tele; intermittent AV pacing with underlying sinus arrhythmia with PAC's and PVC's. ) Lungs: Clear Abdomen: Soft, No tenderness, Other (ND, mild epigastric ttp on exam) Extremities: No edema, Other (1+ bilateral DP pulses ) Skin: No breakdown, No significant lesion Labs LABS Laboratory Tests Test 12/03/16 15:05 12/04/16 01:28 12/04/16 05:08 12/04/16 08:04 Troponin I Quantitative 0.149ng/mL (0.000-0.055) Glucose (Fingerstick) 211mg/dL (70-99) 177mg/dL (70-99) White Blood Count 12.8x10^3/uL (4.0-11.0) Red Blood Count 3.73x10^6/uL (4.30-5.70) Hemoglobin 11.6g/dL (13.0-17.5) Hematocrit 36.1% (39.0-53.0) Mean Corpuscular Volume 97fL (79-100) Mean Corpuscular Hemoglobin 31pg (25-35) Mean Corpuscular Hemoglobin Concent 32g/dL (31-37) Red Cell Distribution Width 13.3% (11.5-14.5) Platelet Count 188x10^3/uL (140-400) Neutrophils (%) (Auto) 83% (31-73) Lymphocytes (%) (Auto) 10% (24-48) Monocytes (%) (Auto) 8% (0-9) Eosinophils (%) (Auto) 0% (0-3) Basophils (%) (Auto) 0% (0-3) Neutrophils # (Auto) 10.6x10^3uL (1.8-7.7) Lymphocytes # (Auto) 1.2x10^3/uL (1.0-4.8) Monocytes # (Auto) 1.0x10^3/uL (0.0-1.1) Eosinophils # (Auto) 0.0x10^3/uL (0.0-0.7) Basophils # (Auto) 0.0x10^3/uL (0.0-0.2) Sodium Level 151mmol/L (136-145) Potassium Level 3.0mmol/L (3.5-5.1) Chloride Level 105mmol/L (98-107) Carbon Dioxide Level 37mmol/L (21-32) Anion Gap 9 (6-14) Blood Urea Nitrogen 76mg/dL (8-26) Creatinine 2.6mg/dL (0.7-1.3) Estimated GFR (Cockcroft-Gault) 23.5 BUN/Creatinine Ratio 29 (6-20) Glucose Level 222mg/dL (70-99) Calcium Level 9.2mg/dL (8.5-10.1) Magnesium Level 2.7mg/dL (1.8-2.4) Total Bilirubin 0.7mg/dL (0.2-1.0) Aspartate Amino Transf (AST/SGOT) 17U/L (15-37) Alanine Aminotransferase (ALT/SGPT) 10U/L (16-63) Alkaline Phosphatase 58U/L (46-116) Total Protein 6.2g/dL (6.4-8.2) Albumin 2.7g/dL (3.4-5.0) Albumin/Globulin Ratio 0.8 (1.0-1.7) Test 12/04/16 12:40 Glucose (Fingerstick) 162mg/dL (70-99) Review of Systems Review of Systems no fever, chills, sob or chest pain Assessment and Plan Assessmemt and Plan Problems Medical Problems: (1) Gastric outlet obstruction Status: Acute Problems: Comment Review of Relevant I have reviewed the following items rachael (where applicable) has been applied. Labs Laboratory Tests Test 12/02/16 21:00 12/02/16 21:12 12/02/16 21:55 12/03/16 03:20 Influenza Type A Antigen Negative (NEGATIVE) Influenza Type B Antigen Negative (NEGATIVE) Glucose (Fingerstick) 285mg/dL (70-99) White Blood Count 18.6x10^3/uL (4.0-11.0) 19.2x10^3/uL (4.0-11.0) Red Blood Count 4.34x10^6/uL (4.30-5.70) 4.19x10^6/uL (4.30-5.70) Hemoglobin 13.4g/dL (13.0-17.5) 13.0g/dL (13.0-17.5) Hematocrit 41.3% (39.0-53.0) 40.9% (39.0-53.0) Mean Corpuscular Volume 95fL (79-100) 98fL (79-100) Mean Corpuscular Hemoglobin 31pg (25-35) 31pg (25-35) Mean Corpuscular Hemoglobin Concent 32g/dL (31-37) 32g/dL (31-37) Red Cell Distribution Width 13.4% (11.5-14.5) 13.7% (11.5-14.5) Platelet Count 269x10^3/uL (140-400) 227x10^3/uL (140-400) Neutrophils (%) (Auto) 89% (31-73) 88% (31-73) Lymphocytes (%) (Auto) 4% (24-48) 5% (24-48) Monocytes (%) (Auto) 7% (0-9) 7% (0-9) Eosinophils (%) (Auto) 0% (0-3) 0% (0-3) Basophils (%) (Auto) 0% (0-3) 0% (0-3) Neutrophils # (Auto) 16.6x10^3uL (1.8-7.7) 16.9x10^3uL (1.8-7.7) Lymphocytes # (Auto) 0.7x10^3/uL (1.0-4.8) 0.9x10^3/uL (1.0-4.8) Monocytes # (Auto) 1.2x10^3/uL (0.0-1.1) 1.3x10^3/uL (0.0-1.1) Eosinophils # (Auto) 0.0x10^3/uL (0.0-0.7) 0.0x10^3/uL (0.0-0.7) Basophils # (Auto) 0.1x10^3/uL (0.0-0.2) 0.0x10^3/uL (0.0-0.2) Segmented Neutrophils % 79% (35-66) Band Neutrophils % 11% (0-9) Lymphocytes % 4% (24-48) Monocytes % 6% (0-10) Toxic Granulation Slight Platelet Estimate Adequate (ADEQUATE) Prothrombin Time 14.4SEC (11.7-14.0) 14.7SEC (11.7-14.0) Prothromb Time International Ratio 1.2 (0.8-1.1) 1.2 (0.8-1.1) Sodium Level 151mmol/L (136-145) 154mmol/L (136-145) Potassium Level 3.5mmol/L (3.5-5.1) 4.5mmol/L (3.5-5.1) Chloride Level 102mmol/L (98-107) 104mmol/L (98-107) Carbon Dioxide Level 37mmol/L (21-32) 40mmol/L (21-32) Anion Gap 12 (6-14) 10 (6-14) Blood Urea Nitrogen 81mg/dL (8-26) 86mg/dL (8-26) Creatinine 3.7mg/dL (0.7-1.3) 3.7mg/dL (0.7-1.3) Estimated GFR (Cockcroft-Gault) 15.6 15.6 BUN/Creatinine Ratio 22 (6-20) 23 (6-20) Glucose Level 354mg/dL (70-99) 319mg/dL (70-99) Calcium Level 10.0mg/dL (8.5-10.1) 9.8mg/dL (8.5-10.1) Phosphorus Level 6.0mg/dL (2.6-4.7) 5.8mg/dL (2.6-4.7) Magnesium Level 2.7mg/dL (1.8-2.4) 2.7mg/dL (1.8-2.4) Total Bilirubin 0.4mg/dL (0.2-1.0) 0.6mg/dL (0.2-1.0) Aspartate Amino Transf (AST/SGOT) 16U/L (15-37) 16U/L (15-37) Alanine Aminotransferase (ALT/SGPT) 13U/L (16-63) 13U/L (16-63) Alkaline Phosphatase 81U/L (46-116) 77U/L (46-116) Total Protein 7.1g/dL (6.4-8.2) 6.9g/dL (6.4-8.2) Albumin 3.6g/dL (3.4-5.0) 3.4g/dL (3.4-5.0) Albumin/Globulin Ratio 1.0 (1.0-1.7) 1.0 (1.0-1.7) Thyroid Stimulating Hormone (TSH) 2.919uIU/mL (0.358-3.74) Test 12/03/16 10:35 12/03/16 14:00 12/03/16 15:05 12/04/16 01:28 Nasal Screen MRSA (PCR) Negative (Negative) Urine Color Yellow Urine Clarity Clear Urine pH 5.5 Urine Specific Howard 1.020 Urine Protein 30mg/dL (NEG-TRACE) Urine Glucose (UA) Negativemg/dL (NEG) Urine Ketones (Stick) Negativemg/dL (NEG) Urine Blood Moderate (NEG) Urine Nitrite Negative (NEG) Urine Bilirubin Negative (NEG) Urine Urobilinogen Dipstick 0.2mg/dL (0.2 mg/dL) Urine Leukocyte Esterase Moderate (NEG) Urine RBC 1-2/HPF (0-2) Urine WBC 1-4/HPF (0-4) Urine Squamous Epithelial Cells Mod/LPF Urine Bacteria Few/HPF (0-FEW) Urine Hyaline Casts Occasional/HPF Urine Mucus Slight/LPF Troponin I Quantitative 0.149ng/mL (0.000-0.055) Glucose (Fingerstick) 211mg/dL (70-99) Test 12/04/16 05:08 12/04/16 08:04 12/04/16 12:40 White Blood Count 12.8x10^3/uL (4.0-11.0) Red Blood Count 3.73x10^6/uL (4.30-5.70) Hemoglobin 11.6g/dL (13.0-17.5) Hematocrit 36.1% (39.0-53.0) Mean Corpuscular Volume 97fL (79-100) Mean Corpuscular Hemoglobin 31pg (25-35) Mean Corpuscular Hemoglobin Concent 32g/dL (31-37) Red Cell Distribution Width 13.3% (11.5-14.5) Platelet Count 188x10^3/uL (140-400) Neutrophils (%) (Auto) 83% (31-73) Lymphocytes (%) (Auto) 10% (24-48) Monocytes (%) (Auto) 8% (0-9) Eosinophils (%) (Auto) 0% (0-3) Basophils (%) (Auto) 0% (0-3) Neutrophils # (Auto) 10.6x10^3uL (1.8-7.7) Lymphocytes # (Auto) 1.2x10^3/uL (1.0-4.8) Monocytes # (Auto) 1.0x10^3/uL (0.0-1.1) Eosinophils # (Auto) 0.0x10^3/uL (0.0-0.7) Basophils # (Auto) 0.0x10^3/uL (0.0-0.2) Sodium Level 151mmol/L (136-145) Potassium Level 3.0mmol/L (3.5-5.1) Chloride Level 105mmol/L (98-107) Carbon Dioxide Level 37mmol/L (21-32) Anion Gap 9 (6-14) Blood Urea Nitrogen 76mg/dL (8-26) Creatinine 2.6mg/dL (0.7-1.3) Estimated GFR (Cockcroft-Gault) 23.5 BUN/Creatinine Ratio 29 (6-20) Glucose Level 222mg/dL (70-99) Calcium Level 9.2mg/dL (8.5-10.1) Magnesium Level 2.7mg/dL (1.8-2.4) Total Bilirubin 0.7mg/dL (0.2-1.0) Aspartate Amino Transf (AST/SGOT) 17U/L (15-37) Alanine Aminotransferase (ALT/SGPT) 10U/L (16-63) Alkaline Phosphatase 58U/L (46-116) Total Protein 6.2g/dL (6.4-8.2) Albumin 2.7g/dL (3.4-5.0) Albumin/Globulin Ratio 0.8 (1.0-1.7) Glucose (Fingerstick) 177mg/dL (70-99) 162mg/dL (70-99) Laboratory Tests Test 12/03/16 15:05 12/04/16 01:28 12/04/16 05:08 12/04/16 08:04 Troponin I Quantitative 0.149ng/mL (0.000-0.055) Glucose (Fingerstick) 211mg/dL (70-99) 177mg/dL (70-99) White Blood Count 12.8x10^3/uL (4.0-11.0) Red Blood Count 3.73x10^6/uL (4.30-5.70) Hemoglobin 11.6g/dL (13.0-17.5) Hematocrit 36.1% (39.0-53.0) Mean Corpuscular Volume 97fL (79-100) Mean Corpuscular Hemoglobin 31pg (25-35) Mean Corpuscular Hemoglobin Concent 32g/dL (31-37) Red Cell Distribution Width 13.3% (11.5-14.5) Platelet Count 188x10^3/uL (140-400) Neutrophils (%) (Auto) 83% (31-73) Lymphocytes (%) (Auto) 10% (24-48) Monocytes (%) (Auto) 8% (0-9) Eosinophils (%) (Auto) 0% (0-3) Basophils (%) (Auto) 0% (0-3) Neutrophils # (Auto) 10.6x10^3uL (1.8-7.7) Lymphocytes # (Auto) 1.2x10^3/uL (1.0-4.8) Monocytes # (Auto) 1.0x10^3/uL (0.0-1.1) Eosinophils # (Auto) 0.0x10^3/uL (0.0-0.7) Basophils # (Auto) 0.0x10^3/uL (0.0-0.2) Sodium Level 151mmol/L (136-145) Potassium Level 3.0mmol/L (3.5-5.1) Chloride Level 105mmol/L (98-107) Carbon Dioxide Level 37mmol/L (21-32) Anion Gap 9 (6-14) Blood Urea Nitrogen 76mg/dL (8-26) Creatinine 2.6mg/dL (0.7-1.3) Estimated GFR (Cockcroft-Gault) 23.5 BUN/Creatinine Ratio 29 (6-20) Glucose Level 222mg/dL (70-99) Calcium Level 9.2mg/dL (8.5-10.1) Magnesium Level 2.7mg/dL (1.8-2.4) Total Bilirubin 0.7mg/dL (0.2-1.0) Aspartate Amino Transf (AST/SGOT) 17U/L (15-37) Alanine Aminotransferase (ALT/SGPT) 10U/L (16-63) Alkaline Phosphatase 58U/L (46-116) Total Protein 6.2g/dL (6.4-8.2) Albumin 2.7g/dL (3.4-5.0) Albumin/Globulin Ratio 0.8 (1.0-1.7) Test 12/04/16 12:40 Glucose (Fingerstick) 162mg/dL (70-99) Medications Current Medications Sodium Chloride (Normal Saline Flush) 3 ml PRN DAILY PRN IV AFTER MEDS AND BLOOD DRAWS; Start 12/02/16 at 19:30 Morphine Sulfate 1 mg PRN Q1HR PRN IV PAIN; Start 12/02/16 at 19:30 Bisacodyl (Dulcolax Supp) 10 mg PRN DAILY PRN LA CONSTIPATION; Start 12/02/16 at 19:30 Hydralazine HCl (Apresoline) 10 mg PRN Q4HRS PRN IVP ELEVATED BP, SEE COMMENTS ; Start 12/02/16 at 19:45 Acetaminophen 650 mg 650 mg PRN Q6HRS PRN LA MILD PAIN / TEMP; Start 12/02/16 at 19:45 Sodium Chloride 1,000 ml @ 150 mls/hr Q6H40M IV ; Start 12/02/16 at 23:00; Stop 12/03/16 at 01:24; Status DC Piperacillin Sod/ Tazobactam Sod/ Sodium Chloride (Zosyn/Iv Sodium Chloride 0.9 % 50ml) 50 ml @ 100 mls/hr 1X ONCE IV Last administered on 12/03/16 00:15; Start 12/02/16 at 23:00; Stop 12/02/16 at 23:29; Status DC Piperacillin Sod/ Tazobactam Sod 1 each 1 each PRN DAILY PRN MC SEE COMMENTS; Start 12/02/16 at 23:00 Piperacillin Sod/ Tazobactam Sod 2.25 gm/Sodium Chloride 50 ml @ 100 mls/hr Q8HRS IV Last administered on 12/04/16 06:28; Start 12/03/16 at 06:00 Sodium Chloride 1,000 ml @ 75 mls/hr Q6H40M IV Last administered on 12/03/16 01:56; Start 12/03/16 at 23:00; Stop 12/04/16 at 09:27; Status DC Lactated Ringer's (Iv Lactated Ringers) 1,000 ml @ 50 mls/hr Q20H IV ; Start at 07:00; Stop 12/04/16 at 18:59 Acetaminophen (Tylenol) 650 mg PRN Q6HRS PRN PO FEVER; Start 12/04/16 at 09:30 Amlodipine Besylate (Norvasc) 2.5 mg DAILY PO ; Start 12/04/16 at 10:00 Aspirin (Ecotrin) 81 mg DAILY PO ; Start 12/04/16 at 10:00 Carbidopa/Levodopa (Sinemet 25/100) 1 tab QID PO ; Start 12/04/16 at 10:00 Atorvastatin Calcium (Lipitor) 20 mg QHS PO ; Start 12/04/16 at 21:00 Calcium/Vitamin D (Oscal D 500mg/ 200uts) 1 tab BIDWMEALS PO ; Start 12/04/16 at 10:00 Pantoprazole Sodium 40 mg 40 mg DAILYAC PO ; Start 12/04/16 at 10:00 Potassium Chloride 100 ml @ 100 mls/hr Q1H IV Last administered on 12/04/16 12:29; Start 12/04/16 at 10:00; Stop 12/04/16 at 11:59; Status DC Potassium Chloride/Sodium Chloride (KCl 20 Meq-0.45% Nacl) 1,000 ml @ 75 mls/ hr [id number] IV ; Start 12/04/16 at 10:00 Insulin Aspart (Novolog) 0-9 UNITS TIDWMEALS SQ ; Start 12/04/16 at 12:00 Dextrose 12.5 gm 12.5 gm PRN Q15MIN PRN IV SEE COMMENTS; Start 12/04/16 at 09: 30 Amino Acids/ Electrolytes/ Dextrose 1,000 ml @ 80 mls/hr [id number] IV Last administered on 12/04/16 10:30; Start 12/04/16 at 10:30 Sodium Chloride (Iv Sodium Chloride 0.9% 1000ml Bag) 1,000 ml @ 75 mls/hr [id number] IV ; Start 12/04/16 at 14:00 Active Scripts Active Reported Calcium 600 + Vit D 200 Tablet (Calcium Carbonate/Vitamin D3) 1 Each Tablet 1 Each PO BID Simvastatin 40 Mg Tablet 0.5 Tab PO QHS Ranitidine Hcl 150 Mg Tablet 1 Tab PO BID Omeprazole 40 Mg Capsule.dr 1 Cap PO DAILY Humulin R (Insulin Regular, Human) 100 Unit/1 Ml Vial 5-8 Unit IJ TIDWMEALS Furosemide 40 Mg Tablet 0.5 Tab PO DAILY PRN Furosemide 40 Mg Tablet 0.5 Tab PO DAILY Sinemet 25-100 Mg Tablet (Carbidopa/Levodopa) 1 Each Tablet 1 Tab PO QID Aspirin Ec (Aspirin) 81 Mg Tablet.dr 1 Tab PO DAILY Amlodipine Besylate 5 Mg Tablet 2.5 Mg PO DAILY Tylenol (Acetaminophen) 325 Mg Tablet 1-2 Tab PO QID Vitals/I & O Vital Sign - Last 24 Hours 12/03/16 12/03/16 12/03/16 12/03/16 15:00 16:00 16:00 17:00 Temp 99.1 99.1 Pulse 71 83 86 Resp 16 16 16 B/P 135/46 132/50 116/46 Pulse Ox 100 100 100 O2 Delivery Nasal Cannula Nasal Cannula Nasal Cannula Nasal Cannula O2 Flow Rate 3.0 3.0 2.0 2.0 12/03/16 12/03/16 12/03/16 12/03/16 18:00 19:00 20:00 20:00 Temp 98.9 98.9 Pulse 85 70 82 Resp 16 22 18 B/P 147/61 Pulse Ox 100 100 100 O2 Delivery Nasal Cannula Nasal Cannula Nasal Cannula Nasal Cannula O2 Flow Rate 2.0 2.0 2.0 2.0 12/03/16 12/03/16 12/03/16 12/04/16 21:00 22:00 23:00 00:00 Temp 99.4 99.4 Pulse 76 80 76 80 Resp 20 20 18 12 B/P 149/54 148/56 Pulse Ox 100 100 100 100 O2 Delivery Nasal Cannula Nasal Cannula Nasal Cannula Nasal Cannula O2 Flow Rate 2.0 2.0 2.0 2.0 12/04/16 12/04/16 12/04/16 12/04/16 00:00 01:00 02:00 03:00 Pulse 78 82 64 Resp 18 15 12 B/P 150/53 116/43 152/58 Pulse Ox 100 99 100 O2 Delivery Nasal Cannula Nasal Cannula Nasal Cannula Nasal Cannula O2 Flow Rate 2.0 2.0 2.0 2.0 12/04/16 12/04/16 12/04/16 12/04/16 04:00 04:00 05:00 06:00 Temp 99.2 99.2 Pulse 80 72 82 Resp 10 12 24 B/P 141/53 155/60 138/58 Pulse Ox 100 100 100 O2 Delivery Nasal Cannula Nasal Cannula Nasal Cannula Nasal Cannula O2 Flow Rate 2.0 2.0 2.0 2.0 12/04/16 12/04/16 12/04/16 12/04/16 07:00 08:00 08:00 09:00 Temp 98.7 98.7 Pulse 81 77 75 Resp 15 25 25 B/P 123/62 135/45 136/47 Pulse Ox 100 100 97 O2 Delivery Nasal Cannula Nasal Cannula Nasal Cannula Nasal Cannula O2 Flow Rate 2.0 2.0 2.0 2.0 12/04/16 12/04/16 12/04/16 10:00 11:00 12:00 Pulse 83 85 Resp 20 24 B/P 136/48 127/46 Pulse Ox 100 100 O2 Delivery Nasal Cannula Nasal Cannula Nasal Cannula O2 Flow Rate 2.0 2.0 2.0 Intake and Output 12/03/16 12/03/16 12/04/16 15:00 23:00 07:00 Intake Total 100 ml 1530 ml 0 ml Output Total 245 ml 255 ml 775 ml Balance -145 ml 1275 ml -775 ml AURELIA EVANS MD Dec 04, 2016 14:30
[2016-12-04] MEDS ORDERED: PROPOFOL 20 ML IV ONE (14:58)
[2016-12-04] MEDS ORDERED: LIDOCAINE 2% PF Vial for OR 5 ML VIAL. ONE (14:58)
--- NOTE | 2016-12-04 15:19 | PDOC4 ---
Operative Note Operative Note EGD Meds propofol per anesthesia Pre-op dx n/v/abnl Ct scan/epigastric pain Post-op dx esophagitis gastric volvulus S/p temporary decompression Plan surgical repair tomorrow CALLIE BRUNO MD Dec 04, 2016 15:19
[2016-12-04] MEDS: ATORVASTATIN CALCIUM 20 MG TABLET PO SCH (19:38)
[2016-12-05] VITALS (22 sets, daily range): BP systolic 97–171; BP diastolic 37–71
[2016-12-05] MEDS: INSULIN ASPART 300 UNITS/3 ML INSULN.PEN SQ SCH ×5 (00:16→23:50)
[2016-12-05] MEDS: IV NORMAL SALINE 1000ML BAG 1,000 ML IV SCH ×2 (02:36→12:44)
[2016-12-05] MEDS: PIPERACILLIN/TAZOBACTAM 2.25 GM in IV NORMAL SALINE 50ML 50 ML IV SCH ×3 (05:29→23:11)
[2016-12-05 06:20] LABS: BASO % 0 % (0-3); EOS % 1 % (0-3); HEMOGLOBIN 12.6 g/dL (13.0-17.5); LYMPH # 1.2 x10^3/uL (1.0-4.8); LYMPH % 12 % (24-48); MEAN CORPUSCULAR HEMOGLOBIN 31 pg (25-35); MEAN CORPUSCULAR HGB CONC 32 g/dL (31-37); MEAN CORPUSCULAR VOLUME 97 fL (79-100); MONO % 8 % (0-9); NEUT % 79 % (31-73); PLATELET COUNT 183 x10^3/uL (140-400); RED BLOOD COUNT 4.02 x10^6/uL (4.30-5.70); RED CELL DISTRIBUTION WIDTH 13.2 % (11.5-14.5); WHITE BLOOD COUNT 9.7 x10^3/uL (4.0-11.0)
[2016-12-05 06:40] LABS: ALBUMIN 2.4 g/dL (3.4-5.0); ALBUMIN/GLOBULIN RATIO 0.6 (1.0-1.7); CALCIUM 9.5 mg/dL (8.5-10.1); GFR 31.8; POTASSIUM 3.5 mmol/L (3.5-5.1); TOTAL BILIRUBIN 0.6 mg/dL (0.2-1.0); TOTAL PROTEIN 6.3 g/dL (6.4-8.2)
[2016-12-05] MEDS ORDERED: ONDANSETRON PF 4 MG/2 ML VIAL. IV PRN (07:00)
[2016-12-05] MEDS ORDERED: FENTANYL PF 100 MCG/2 ML VIAL. IV PRN ×2 (07:00)
[2016-12-05] MEDS ORDERED: HYDROMORPHONE 2 MG/ML VIAL. IV PRN (07:00)
[2016-12-05] MEDS ORDERED: IV RINGERS,LACTATED 1000ML 1,000 ML IV SCH (07:00)
[2016-12-05] MEDS ORDERED: MORPHINE SULFATE 2 MG/ML DISP.SYRIN. IV PRN (07:00)
[2016-12-05] MEDS ORDERED: LIDOCAINE 1% 1 ML SYRINGE. ID PRN (07:00)
[2016-12-05] MEDS ORDERED: PROCHLORPERAZINE 10 MG/2 ML VIAL. IV PRN (07:00)
[2016-12-05] MEDS ORDERED: SURGICEL HEMOSTAT 4X8 EACH. ONE ×2 (07:09→07:34)
[2016-12-05] MEDS ORDERED: BUPIVAC MPF-EPI 0.5%-1:200000 30 ML VIAL. ONE (07:09)
[2016-12-05] MEDS ORDERED: PROPOFOL 20 ML IV ONE (07:13)
[2016-12-05] MEDS ORDERED: LIDOCAINE 2% 100 MG/5 ML DISP.SYRIN. ONE (07:13)
[2016-12-05] MEDS ORDERED: ROCURONIUM 50 MG/5 ML VIAL. ONE (07:13)
[2016-12-05] MEDS ORDERED: SUCCINYLCHOLINE 200 MG/10 ML VIAL. ONE (07:14)
[2016-12-05] MEDS ORDERED: FENTANYL PF 100 MCG/2 ML VIAL. ONE ×2 (07:16→08:32)
[2016-12-05] MEDS: PANTOPRAZOLE 40 MG TABLET. PO SCH (07:30)
[2016-12-05] MEDS ORDERED: PHENYLEPHRINE in 0.9% NACL PF 1 MG/10 ML DISP.SYRIN. IV ONE (07:46)
[2016-12-05] MEDS: CALCIUM CARB/VIT D3 500/200 TABLET PO SCH ×2 (08:00→17:00)
[2016-12-05] MEDS ORDERED: ACETAMINOPHEN INTRAVENOUS 100 ML IV ONE (08:29)
--- NOTE | 2016-12-05 08:35 | PDOC ---
Objective: Objective: Out for surgery. Vital Signs: Vital Signs Date Time Temp Pulse Resp B/P Pulse Ox O2 Delivery O2 Flow Rate FiO2 12/05/16 06:00 63 16 143/51 100 Nasal Cannula 2.0 12/05/16 04:00 98.1 98.1 Labs: Laboratory Tests Test 12/04/16 12:40 12/04/16 17:54 12/04/16 23:57 12/05/16 05:39 Glucose (Fingerstick) 162mg/dL 184mg/dL 321mg/dL White Blood Count 9.7x10^3/uL Red Blood Count 4.02x10^6/uL Hemoglobin 12.6g/dL Hematocrit 39.0% Mean Corpuscular Volume 97fL Mean Corpuscular Hemoglobin 31pg Mean Corpuscular Hemoglobin Concent 32g/dL Red Cell Distribution Width 13.2% Platelet Count 183x10^3/uL Neutrophils (%) (Auto) 79% Lymphocytes (%) (Auto) 12% Monocytes (%) (Auto) 8% Eosinophils (%) (Auto) 1% Basophils (%) (Auto) 0% Neutrophils # (Auto) 7.7x10^3uL Lymphocytes # (Auto) 1.2x10^3/uL Monocytes # (Auto) 0.8x10^3/uL Eosinophils # (Auto) 0.1x10^3/uL Basophils # (Auto) 0.0x10^3/uL Sodium Level 150mmol/L Potassium Level 3.5mmol/L Chloride Level 105mmol/L Carbon Dioxide Level 40mmol/L Anion Gap 5 Blood Urea Nitrogen 75mg/dL Creatinine 2.0mg/dL Estimated GFR (Cockcroft-Gault) 31.8 BUN/Creatinine Ratio 38 Glucose Level 302mg/dL Calcium Level 9.5mg/dL Total Bilirubin 0.6mg/dL Aspartate Amino Transf (AST/SGOT) 19U/L Alanine Aminotransferase (ALT/SGPT) 14U/L Alkaline Phosphatase 55U/L Total Protein 6.3g/dL Albumin 2.4g/dL Albumin/Globulin Ratio 0.6 Test 12/05/16 07:35 Glucose (Fingerstick) 287mg/dL Imaging: EGD 12/04/16: esophagitis, gastric volvulus s/p temporary decompression PE: no exam A/P: Gastric volvulus s/p EGD/temporary decompression 12/04 -- Out for surgery. Will follow. SD CLEMENTE Dec 05, 2016 08:35
[2016-12-05] MEDS: AMLODIPINE BESYLATE 2.5 MG TABLET PO SCH (09:00)
[2016-12-05] MEDS: ASPIRIN ENTERIC COATED 81 MG TABLET.DR. PO SCH (09:00)
[2016-12-05] MEDS: CARBIDOPA/LEVODOPA 25/100MG TABLET PO SCH ×4 (09:00→20:45)
[2016-12-05] MEDS ORDERED: DESFLURANE > 120 MINUTES IH ONE (09:09)
[2016-12-05] MEDS ORDERED: EPHEDRINE PF IN SALINE 50 MG/5 ML DISP.SYRIN. IV ONE (10:01)
[2016-12-05] MEDS ORDERED: INSULIN ASPART 100 UNIT/ML 10ML VIAL. SQ ONE (10:15)
[2016-12-05] MEDS ORDERED: INSULIN ASPART 300 UNITS/3 ML INSULN.PEN SQ ONE (10:15)
[2016-12-05] MEDS ORDERED: ALBUMIN HUMAN 25% 0 ML IV ONE ×2 (10:20)
[2016-12-05] MEDS ORDERED: ALBUMIN HUMAN 5% 500 ML IV ONE (10:24)
[2016-12-05] MEDS ORDERED: INSULIN REGULAR 100 UNIT/ML 10ML VIAL. IV ONE ×2 (10:30)
--- NOTE | 2016-12-05 10:40 | PDOC ---
Renal-Progress Notes Subjective Notes Notes TO OR Vitals Vitals Vital Signs Date Time Temp Pulse Resp B/P Pulse Ox O2 Delivery O2 Flow Rate FiO2 12/05/16 06:00 63 16 143/51 100 Nasal Cannula 2.0 12/05/16 04:00 98.1 98.1 Weight Weight [ ] I.O. Intake and Output Intake and Output 12/05/16 07:00 Intake Total 1726 ml Output Total 1450 ml Balance 276 ml Intake Oral 0 ml IV Total 1726 ml Output Urine Total 1450 ml Labs Labs Laboratory Tests Test 12/04/16 12:40 12/04/16 17:54 12/04/16 23:57 12/05/16 05:39 Glucose (Fingerstick) 162mg/dL (70-99) 184mg/dL (70-99) 321mg/dL (70-99) White Blood Count 9.7x10^3/uL (4.0-11.0) Red Blood Count 4.02x10^6/uL (4.30-5.70) Hemoglobin 12.6g/dL (13.0-17.5) Hematocrit 39.0% (39.0-53.0) Mean Corpuscular Volume 97fL (79-100) Mean Corpuscular Hemoglobin 31pg (25-35) Mean Corpuscular Hemoglobin Concent 32g/dL (31-37) Red Cell Distribution Width 13.2% (11.5-14.5) Platelet Count 183x10^3/uL (140-400) Neutrophils (%) (Auto) 79% (31-73) Lymphocytes (%) (Auto) 12% (24-48) Monocytes (%) (Auto) 8% (0-9) Eosinophils (%) (Auto) 1% (0-3) Basophils (%) (Auto) 0% (0-3) Neutrophils # (Auto) 7.7x10^3uL (1.8-7.7) Lymphocytes # (Auto) 1.2x10^3/uL (1.0-4.8) Monocytes # (Auto) 0.8x10^3/uL (0.0-1.1) Eosinophils # (Auto) 0.1x10^3/uL (0.0-0.7) Basophils # (Auto) 0.0x10^3/uL (0.0-0.2) Sodium Level 150mmol/L (136-145) Potassium Level 3.5mmol/L (3.5-5.1) Chloride Level 105mmol/L (98-107) Carbon Dioxide Level 40mmol/L (21-32) Anion Gap 5 (6-14) Blood Urea Nitrogen 75mg/dL (8-26) Creatinine 2.0mg/dL (0.7-1.3) Estimated GFR (Cockcroft-Gault) 31.8 BUN/Creatinine Ratio 38 (6-20) Glucose Level 302mg/dL (70-99) Calcium Level 9.5mg/dL (8.5-10.1) Total Bilirubin 0.6mg/dL (0.2-1.0) Aspartate Amino Transf (AST/SGOT) 19U/L (15-37) Alanine Aminotransferase (ALT/SGPT) 14U/L (16-63) Alkaline Phosphatase 55U/L (46-116) Total Protein 6.3g/dL (6.4-8.2) Albumin 2.4g/dL (3.4-5.0) Albumin/Globulin Ratio 0.6 (1.0-1.7) Test 12/05/16 07:35 12/05/16 09:48 Glucose (Fingerstick) 287mg/dL (70-99) 303mg/dL (70-99) Review of Systems Constitutional: yes: no symptom reported Physical Exam General Appearance: no apparent distress Skin: warm Respiratory: decreased breath sounds Heart: S1S2, RRR Abdomen: soft, other (HYPOACTIVE) Genitourinary: bladder flat Extremities: atrophy Neurology: alert, oriented, follow commands, other (NULATO) Musculoskeletal: Osteoarthritis Assessment Assessment IMP DIPIKA-IMPROVING HYPOVOLEMIA HYPOKALEMIA-BETTER HYPERNATREMIA GASTRIC OBSTRUCTION LEUCOCYTOSIS-BETTER PLAN OR TODAY PPN TO CONTINUE WILL FOLLOW EZEKIEL RAMOS MD Dec 05, 2016 10:40
[2016-12-05] MEDS ORDERED: GLYCOPYRROLATE 1 MG/5 ML VIAL. ONE (10:55)
[2016-12-05] MEDS ORDERED: NEOSTIGMINE METHYLSULFATE 5 MG/5 ML SYRINGE. ONE (10:55)
[2016-12-05] MEDS ORDERED: PHENYLEPHRINE 10 MG/ML VIAL. ONE (11:00)
--- NOTE | 2016-12-05 12:05 | PDOC ---
CARDIO Progress Notes Date and Time Date of Service 12/05/16 Time of Evaluation 0940 Subjective Subjective: No Chest Pain, No shortness of breath, No Palpitations, Other ( abdominal pain) Vitals Vitals Vital Signs Date Time Temp Pulse Resp B/P Pulse Ox O2 Delivery O2 Flow Rate FiO2 12/05/16 08:00 Nasal Cannula 2.0 12/05/16 08:00 60 16 140/52 99 12/05/16 07:00 98.0 98.0 Weight Weight [ ] Input and Output Intake and Output Intake and Output 12/05/16 07:00 Intake Total 1726 ml Output Total 1450 ml Balance 276 ml Intake Oral 0 ml IV Total 1726 ml Output Urine Total 1450 ml Laboratory Labs Laboratory Tests Test 12/04/16 12:40 12/04/16 17:54 12/04/16 23:57 12/05/16 05:39 Glucose (Fingerstick) 162mg/dL (70-99) 184mg/dL (70-99) 321mg/dL (70-99) White Blood Count 9.7x10^3/uL (4.0-11.0) Red Blood Count 4.02x10^6/uL (4.30-5.70) Hemoglobin 12.6g/dL (13.0-17.5) Hematocrit 39.0% (39.0-53.0) Mean Corpuscular Volume 97fL (79-100) Mean Corpuscular Hemoglobin 31pg (25-35) Mean Corpuscular Hemoglobin Concent 32g/dL (31-37) Red Cell Distribution Width 13.2% (11.5-14.5) Platelet Count 183x10^3/uL (140-400) Neutrophils (%) (Auto) 79% (31-73) Lymphocytes (%) (Auto) 12% (24-48) Monocytes (%) (Auto) 8% (0-9) Eosinophils (%) (Auto) 1% (0-3) Basophils (%) (Auto) 0% (0-3) Neutrophils # (Auto) 7.7x10^3uL (1.8-7.7) Lymphocytes # (Auto) 1.2x10^3/uL (1.0-4.8) Monocytes # (Auto) 0.8x10^3/uL (0.0-1.1) Eosinophils # (Auto) 0.1x10^3/uL (0.0-0.7) Basophils # (Auto) 0.0x10^3/uL (0.0-0.2) Sodium Level 150mmol/L (136-145) Potassium Level 3.5mmol/L (3.5-5.1) Chloride Level 105mmol/L (98-107) Carbon Dioxide Level 40mmol/L (21-32) Anion Gap 5 (6-14) Blood Urea Nitrogen 75mg/dL (8-26) Creatinine 2.0mg/dL (0.7-1.3) Estimated GFR (Cockcroft-Gault) 31.8 BUN/Creatinine Ratio 38 (6-20) Glucose Level 302mg/dL (70-99) Calcium Level 9.5mg/dL (8.5-10.1) Total Bilirubin 0.6mg/dL (0.2-1.0) Aspartate Amino Transf (AST/SGOT) 19U/L (15-37) Alanine Aminotransferase (ALT/SGPT) 14U/L (16-63) Alkaline Phosphatase 55U/L (46-116) Total Protein 6.3g/dL (6.4-8.2) Albumin 2.4g/dL (3.4-5.0) Albumin/Globulin Ratio 0.6 (1.0-1.7) Test 12/05/16 07:35 12/05/16 09:48 Glucose (Fingerstick) 287mg/dL (70-99) 303mg/dL (70-99) Review of Systems Constitutional: yes: no symptom reported Physical Exam HEENT: Neck Supple W Full Motion Chest: Symmetric LUNGS: Other (diminished bases ) Heart: S1S2, other (distant hrt tones. tele SR with intermittent V pacing with PVC's and PAC's ) Abdomen: Soft N/T, Other (diffuse abdominal tenderness) Extremities: No Edema Neurology: alert, oriented, follow commands, other ([facility]) Assessment Assessment 1. Arrhythmia 2. PPM in situ 3. Coronary artery disease 4. Abdominal Pain 5. Leukocytosis 6. lyte abnormalities 7. DIPIKA 8. Diabetes 9. Dehydration 10. Esophagitis; volvulus s/p temporary decompression 12/04 Recommendations Off unit in OR will follow in ARON Contreras APRN Dec 05, 2016 12:05
--- NOTE | 2016-12-05 12:13 | PDOC4 ---
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 Anthony Anesthesia: Gen. Estimated Blood Loss: 25 mL Specimen: Hernia sac to pathology Drains: None Complications: None Indications: The patient is an 85 year old male who was admitted because of vomiting. Evaluation identified a very large paraesophageal hernia with the nearly the entire stomach present in the chest and associated volvulus. We reviewed surgical correction of the hernia with the patient and his family. The risks of surgery were discussed which include bleeding, infection, recurrent herniation, gastric or esophageal perforation, visceral injury, recurrent reflux, gas bloat syndrome, dysphasia, anesthetic risk, mortality, potential need for additional surgeries or procedures. They patient is also elderly and frail and a high risk surgical candidate. The family understands and would like to proceed. Description: The patient was taken to the operating room and placed supine on the operating table. General anesthesia was performed. The patient was then placed in lithotomy. The abdomen was prepped with ChloraPrep and draped in a standard surgical fashion. I attempted initially to place a veress needle through a small supraumbilical incision. There appeared to be mesh placed for a prior hernia repair. We then attempted insertion of a veress needle in a left upper quadrant incision, but had some difficulty likely from a redundant peritoneum. I then elected to cut down through the fascia to the peritoneum through a small incision to the patients left of the umbilicus. The peritoneum was opened and a 5 mm trocar was inserted. A pneumoperitoneum was created and the laparoscope introduced. There was no evidence of visceral injury. In the right lateral abdomen a 12 mm trocar was inserted through which a soft fan retractor was used to elevate the left lobe of the liver. In the right upper quadrant a 5 mm trocar was inserted. In the left upper quadrant an 11 mm trocar was inserted while in the left lateral abdomen a 5 mm trocar was inserted. Attention was then directed to the diaphragmatic hiatus. As expected there was a very large hiatal hernia defect with virtually all of the stomach present in the chest. There was also many loops of small bowel and a portion of the transverse colon in the chest. The small and large bowel were reduced without difficulty. A large amount of stomach and omentum was pulled out of the chest and able to be reduced. We then began mobilizing the entire hernia sac within the mediastinum. We started this on the right side and began freeing up the sac from the right jose. The Harmonic scalpel assisted for much of this dissection. We continued mobilizing the sac superiorly well into the mediastinum. We continued this dissection anteriorly freeing up the sac and its attachments in this location. The dissection then continued along the left jose and the sac and attachments were mobilized here as well. Due to the large size and redundancy of the sac considerable time was required in freeing this out of the mediastinum. Portions of the redundant sac were also fully excised and sent off to pathology as a specimen. We then freed up the upper part of the greater curvature and fundus using the harmonic scalpel. Large blood vessels were doubly clipped and divided. The dissection continued all the way back up to the left jose and any remaining splenic attachments were also mobilized. At this point the esophagus was readily visualized and we were able to free up the area around his gastroesophageal junction. A Fan drain was then placed around the esophagus at the GE junction and clips were applied holding the [place] in place. With retraction on the [place] we were able to continue freeing up any remaining sac attachments particularly in the posterior location. At this point the GE junction was well within the abdominal cavity. The left and right jose were then reapproximated with interrupted 2-0 silk sutures using the Endo Stitch device. Stitches were applied both anteriorly and posteriorly allowing for closure of the hernia defect. We elected to reinforce the closure with a Phasix ST mesh patch. The mesh was tailored to fit the space and a slit was made to accommodate the esophagus. The mesh was then introduced and laid up against the diaphragm and around the esophagus. Initial fixation sutures were placed at the superior corners of the mesh using 2 -0 silk. The entire mesh was then fixed to the diaphragm using the Tisseel fibrin glue. The fundus was then wrapped around in a 360 fashion creating the fundoplication. A shoeshine maneuver was used to ensure no twists or kinks. An initial 2-0 Ethibond suture was used securing the fundic lips together. Another suture was placed superior to this which incorporated a small bite of the anterior esophagus. An additional suture was then placed inferiorly completing the fundoplication. At this point hemostasis was good, the hernia was well repaired with good coverage from the biologic mesh, and the fundoplication was intact with a nice orientation. The 11 and 12 mm trochars were then removed and the fascia closed with 0 Vicryl using an Endo Close. The remaining ports were removed and the pneumoperitoneum was relieved. Skin at all incisions was closed with 4-0 Monocryl. Steri-Strips and dressings were applied. The patient tolerated the procedure well. CALLIE HOWELL MD Dec 05, 2016 12:13
[2016-12-05] MEDS: AA 4.25%/CALCIUM/LYTES/D5W 1,000 ML IV SCH (13:46)
--- NOTE | 2016-12-05 14:23 | PDOC ---
PROGRESS NOTES Chief Complaint Chief Complaint 1. Gastric outlet obstruction, hiatal hernia with gastric volvulus 2. Abdominal pain 3. Constipation 4. Diabetes Mellitus Type 2 5. Hypertension 6. Parkinson's Disease History of Present Illness History of Present Illness No acute events overnight. Patient is seen in ICU following return from OR for laparoscopic socorro fundoplication. He remains very sleep from his anesthetic. His nurse is bedside and his care is discussed. Vitals Vitals Vital Signs Date Time Temp Pulse Resp B/P Pulse Ox O2 Delivery O2 Flow Rate FiO2 12/05/16 12:54 97.6 77 18 118/44 98 Nasal Cannula 2.0 97.6 Physical Exam General: Cooperative, No acute distress Heart: Regular rate, No murmurs Lungs: Clear Abdomen: Soft, No tenderness (appropriately tender to plapation at incisions ) , Other (Non-distended, 7 laparoscopic port sites with bandages CDI) Extremities: No edema, No tenderness/swelling Skin: No breakdown, No significant lesion Labs LABS Laboratory Tests Test 12/04/16 17:54 12/04/16 23:57 12/05/16 05:39 12/05/16 07:35 Glucose (Fingerstick) 184mg/dL (70-99) 321mg/dL (70-99) 287mg/dL (70-99) White Blood Count 9.7x10^3/uL (4.0-11.0) Red Blood Count 4.02x10^6/uL (4.30-5.70) Hemoglobin 12.6g/dL (13.0-17.5) Hematocrit 39.0% (39.0-53.0) Mean Corpuscular Volume 97fL (79-100) Mean Corpuscular Hemoglobin 31pg (25-35) Mean Corpuscular Hemoglobin Concent 32g/dL (31-37) Red Cell Distribution Width 13.2% (11.5-14.5) Platelet Count 183x10^3/uL (140-400) Neutrophils (%) (Auto) 79% (31-73) Lymphocytes (%) (Auto) 12% (24-48) Monocytes (%) (Auto) 8% (0-9) Eosinophils (%) (Auto) 1% (0-3) Basophils (%) (Auto) 0% (0-3) Neutrophils # (Auto) 7.7x10^3uL (1.8-7.7) Lymphocytes # (Auto) 1.2x10^3/uL (1.0-4.8) Monocytes # (Auto) 0.8x10^3/uL (0.0-1.1) Eosinophils # (Auto) 0.1x10^3/uL (0.0-0.7) Basophils # (Auto) 0.0x10^3/uL (0.0-0.2) Sodium Level 150mmol/L (136-145) Potassium Level 3.5mmol/L (3.5-5.1) Chloride Level 105mmol/L (98-107) Carbon Dioxide Level 40mmol/L (21-32) Anion Gap 5 (6-14) Blood Urea Nitrogen 75mg/dL (8-26) Creatinine 2.0mg/dL (0.7-1.3) Estimated GFR (Cockcroft-Gault) 31.8 BUN/Creatinine Ratio 38 (6-20) Glucose Level 302mg/dL (70-99) Calcium Level 9.5mg/dL (8.5-10.1) Total Bilirubin 0.6mg/dL (0.2-1.0) Aspartate Amino Transf (AST/SGOT) 19U/L (15-37) Alanine Aminotransferase (ALT/SGPT) 14U/L (16-63) Alkaline Phosphatase 55U/L (46-116) Total Protein 6.3g/dL (6.4-8.2) Albumin 2.4g/dL (3.4-5.0) Albumin/Globulin Ratio 0.6 (1.0-1.7) Test 12/05/16 09:48 12/05/16 12:33 Glucose (Fingerstick) 303mg/dL (70-99) 239mg/dL (70-99) Review of Systems Review of Systems Afebrile, no nausea or vomiting Assessment and Plan Assessmemt and Plan Problems Medical Problems: (1) Gastric outlet obstruction Status: Acute Assessment: 1. Gastric outlet obstruction with hiatal hernia and gastric volvulus 2. Abdominal pain 3. Constipation 4. Diabetes Mellitus Type 2 5. Hypertension 6. Parkinson's Disease Plan: Routine post operative care Restart Clinimix at 80ml/hr Continue to monitor the patient per ICU protocol Continue to trend daily labs, follow electrolytes closely Continue NPO Continue holden catheter Surgery, Renal, GI and cardiology have been consulted, input and recommendations greatly appreciated Plan discussed with ICU nurse Problems: Comment Review of Relevant I have reviewed the following items rachael (where applicable) has been applied. Labs Laboratory Tests Test 12/03/16 15:05 12/04/16 01:28 12/04/16 05:08 12/04/16 08:04 Troponin I Quantitative 0.149ng/mL (0.000-0.055) Glucose (Fingerstick) 211mg/dL (70-99) 177mg/dL (70-99) White Blood Count 12.8x10^3/uL (4.0-11.0) Red Blood Count 3.73x10^6/uL (4.30-5.70) Hemoglobin 11.6g/dL (13.0-17.5) Hematocrit 36.1% (39.0-53.0) Mean Corpuscular Volume 97fL (79-100) Mean Corpuscular Hemoglobin 31pg (25-35) Mean Corpuscular Hemoglobin Concent 32g/dL (31-37) Red Cell Distribution Width 13.3% (11.5-14.5) Platelet Count 188x10^3/uL (140-400) Neutrophils (%) (Auto) 83% (31-73) Lymphocytes (%) (Auto) 10% (24-48) Monocytes (%) (Auto) 8% (0-9) Eosinophils (%) (Auto) 0% (0-3) Basophils (%) (Auto) 0% (0-3) Neutrophils # (Auto) 10.6x10^3uL (1.8-7.7) Lymphocytes # (Auto) 1.2x10^3/uL (1.0-4.8) Monocytes # (Auto) 1.0x10^3/uL (0.0-1.1) Eosinophils # (Auto) 0.0x10^3/uL (0.0-0.7) Basophils # (Auto) 0.0x10^3/uL (0.0-0.2) Sodium Level 151mmol/L (136-145) Potassium Level 3.0mmol/L (3.5-5.1) Chloride Level 105mmol/L (98-107) Carbon Dioxide Level 37mmol/L (21-32) Anion Gap 9 (6-14) Blood Urea Nitrogen 76mg/dL (8-26) Creatinine 2.6mg/dL (0.7-1.3) Estimated GFR (Cockcroft-Gault) 23.5 BUN/Creatinine Ratio 29 (6-20) Glucose Level 222mg/dL (70-99) Calcium Level 9.2mg/dL (8.5-10.1) Magnesium Level 2.7mg/dL (1.8-2.4) Total Bilirubin 0.7mg/dL (0.2-1.0) Aspartate Amino Transf (AST/SGOT) 17U/L (15-37) Alanine Aminotransferase (ALT/SGPT) 10U/L (16-63) Alkaline Phosphatase 58U/L (46-116) Total Protein 6.2g/dL (6.4-8.2) Albumin 2.7g/dL (3.4-5.0) Albumin/Globulin Ratio 0.8 (1.0-1.7) Test 12/04/16 12:40 12/04/16 17:54 12/04/16 23:57 12/05/16 05:39 Glucose (Fingerstick) 162mg/dL (70-99) 184mg/dL (70-99) 321mg/dL (70-99) White Blood Count 9.7x10^3/uL (4.0-11.0) Red Blood Count 4.02x10^6/uL (4.30-5.70) Hemoglobin 12.6g/dL (13.0-17.5) Hematocrit 39.0% (39.0-53.0) Mean Corpuscular Volume 97fL (79-100) Mean Corpuscular Hemoglobin 31pg (25-35) Mean Corpuscular Hemoglobin Concent 32g/dL (31-37) Red Cell Distribution Width 13.2% (11.5-14.5) Platelet Count 183x10^3/uL (140-400) Neutrophils (%) (Auto) 79% (31-73) Lymphocytes (%) (Auto) 12% (24-48) Monocytes (%) (Auto) 8% (0-9) Eosinophils (%) (Auto) 1% (0-3) Basophils (%) (Auto) 0% (0-3) Neutrophils # (Auto) 7.7x10^3uL (1.8-7.7) Lymphocytes # (Auto) 1.2x10^3/uL (1.0-4.8) Monocytes # (Auto) 0.8x10^3/uL (0.0-1.1) Eosinophils # (Auto) 0.1x10^3/uL (0.0-0.7) Basophils # (Auto) 0.0x10^3/uL (0.0-0.2) Sodium Level 150mmol/L (136-145) Potassium Level 3.5mmol/L (3.5-5.1) Chloride Level 105mmol/L (98-107) Carbon Dioxide Level 40mmol/L (21-32) Anion Gap 5 (6-14) Blood Urea Nitrogen 75mg/dL (8-26) Creatinine 2.0mg/dL (0.7-1.3) Estimated GFR (Cockcroft-Gault) 31.8 BUN/Creatinine Ratio 38 (6-20) Glucose Level 302mg/dL (70-99) Calcium Level 9.5mg/dL (8.5-10.1) Total Bilirubin 0.6mg/dL (0.2-1.0) Aspartate Amino Transf (AST/SGOT) 19U/L (15-37) Alanine Aminotransferase (ALT/SGPT) 14U/L (16-63) Alkaline Phosphatase 55U/L (46-116) Total Protein 6.3g/dL (6.4-8.2) Albumin 2.4g/dL (3.4-5.0) Albumin/Globulin Ratio 0.6 (1.0-1.7) Test 12/05/16 07:35 12/05/16 09:48 12/05/16 12:33 Glucose (Fingerstick) 287mg/dL (70-99) 303mg/dL (70-99) 239mg/dL (70-99) Laboratory Tests Test 12/04/16 17:54 12/04/16 23:57 12/05/16 05:39 12/05/16 07:35 Glucose (Fingerstick) 184mg/dL (70-99) 321mg/dL (70-99) 287mg/dL (70-99) White Blood Count 9.7x10^3/uL (4.0-11.0) Red Blood Count 4.02x10^6/uL (4.30-5.70) Hemoglobin 12.6g/dL (13.0-17.5) Hematocrit 39.0% (39.0-53.0) Mean Corpuscular Volume 97fL (79-100) Mean Corpuscular Hemoglobin 31pg (25-35) Mean Corpuscular Hemoglobin Concent 32g/dL (31-37) Red Cell Distribution Width 13.2% (11.5-14.5) Platelet Count 183x10^3/uL (140-400) Neutrophils (%) (Auto) 79% (31-73) Lymphocytes (%) (Auto) 12% (24-48) Monocytes (%) (Auto) 8% (0-9) Eosinophils (%) (Auto) 1% (0-3) Basophils (%) (Auto) 0% (0-3) Neutrophils # (Auto) 7.7x10^3uL (1.8-7.7) Lymphocytes # (Auto) 1.2x10^3/uL (1.0-4.8) Monocytes # (Auto) 0.8x10^3/uL (0.0-1.1) Eosinophils # (Auto) 0.1x10^3/uL (0.0-0.7) Basophils # (Auto) 0.0x10^3/uL (0.0-0.2) Sodium Level 150mmol/L (136-145) Potassium Level 3.5mmol/L (3.5-5.1) Chloride Level 105mmol/L (98-107) Carbon Dioxide Level 40mmol/L (21-32) Anion Gap 5 (6-14) Blood Urea Nitrogen 75mg/dL (8-26) Creatinine 2.0mg/dL (0.7-1.3) Estimated GFR (Cockcroft-Gault) 31.8 BUN/Creatinine Ratio 38 (6-20) Glucose Level 302mg/dL (70-99) Calcium Level 9.5mg/dL (8.5-10.1) Total Bilirubin 0.6mg/dL (0.2-1.0) Aspartate Amino Transf (AST/SGOT) 19U/L (15-37) Alanine Aminotransferase (ALT/SGPT) 14U/L (16-63) Alkaline Phosphatase 55U/L (46-116) Total Protein 6.3g/dL (6.4-8.2) Albumin 2.4g/dL (3.4-5.0) Albumin/Globulin Ratio 0.6 (1.0-1.7) Test 12/05/16 09:48 12/05/16 12:33 Glucose (Fingerstick) 303mg/dL (70-99) 239mg/dL (70-99) Medications Current Medications Sodium Chloride (Normal Saline Flush) 3 ml PRN DAILY PRN IV AFTER MEDS AND BLOOD DRAWS; Start 12/02/16 at 19:30 Morphine Sulfate 1 mg PRN Q1HR PRN IV PAIN; Start 12/02/16 at 19:30 Bisacodyl (Dulcolax Supp) 10 mg PRN DAILY PRN [place] CONSTIPATION; Start 12/02/16 at 19:30 Hydralazine HCl (Apresoline) 10 mg PRN Q4HRS PRN IVP ELEVATED BP, SEE COMMENTS ; Start 12/02/16 at 19:45 Acetaminophen 650 mg 650 mg PRN Q6HRS PRN [place] MILD PAIN / TEMP; Start 12/02/16 at 19:45; Stop 12/04/16 at 14:30; Status DC Sodium Chloride 1,000 ml @ 150 mls/hr Q6H40M IV ; Start 12/02/16 at 23:00; Stop 12/03/16 at 01:24; Status DC Piperacillin Sod/ Tazobactam Sod/ Sodium Chloride (Zosyn/Iv Sodium Chloride 0.9 % 50ml) 50 ml @ 100 mls/hr 1X ONCE IV Last administered on 12/03/16 00:15; Start 12/02/16 at 23:00; Stop 12/02/16 at 23:29; Status DC Piperacillin Sod/ Tazobactam Sod 1 each 1 each PRN DAILY PRN MC SEE COMMENTS; Start 12/02/16 at 23:00; Stop 12/05/16 at 09:25; Status DC Piperacillin Sod/ Tazobactam Sod 2.25 gm/Sodium Chloride 50 ml @ 100 mls/hr Q8HRS IV Last administered on 12/05/16 13:49; Start 12/03/16 at 06:00 Sodium Chloride 1,000 ml @ 75 mls/hr Q6H40M IV Last administered on 12/03/16 01:56; Start 12/03/16 at 23:00; Stop 12/04/16 at 09:27; Status DC Lactated Ringer's (Iv Lactated Ringers) 1,000 ml @ 50 mls/hr Q20H IV ; Start at 07:00; Stop 12/04/16 at 18:59; Status DC Acetaminophen (Tylenol) 650 mg PRN Q6HRS PRN PO FEVER; Start 12/04/16 at 09:30 Amlodipine Besylate (Norvasc) 2.5 mg DAILY PO ; Start 12/04/16 at 10:00 Aspirin (Ecotrin) 81 mg DAILY PO ; Start 12/04/16 at 10:00 Carbidopa/Levodopa (Sinemet 25/100) 1 tab QID PO ; Start 12/04/16 at 10:00 Atorvastatin Calcium (Lipitor) 20 mg QHS PO ; Start 12/04/16 at 21:00 Calcium/Vitamin D (Oscal D 500mg/ 200uts) 1 tab BIDWMEALS PO ; Start 12/04/16 at 10:00 Pantoprazole Sodium 40 mg 40 mg DAILYAC PO ; Start 12/04/16 at 10:00 Potassium Chloride 100 ml @ 100 mls/hr Q1H IV Last administered on 12/04/16 12:29; Start 12/04/16 at 10:00; Stop 12/04/16 at 11:59; Status DC Potassium Chloride/Sodium Chloride (KCl 20 Meq-0.45% Nacl) 1,000 ml @ 75 mls/ hr [id number] IV ; Start 12/04/16 at 10:00; Stop 12/04/16 at 14:30; Status DC Insulin Aspart (Novolog) 0-9 UNITS TIDWMEALS SQ ; Start 12/04/16 at 12:00; Stop 12/05/16 at 00:12; Status DC Dextrose 12.5 gm 12.5 gm PRN Q15MIN PRN IV SEE COMMENTS; Start 12/04/16 at 09: 30 Amino Acids/ Electrolytes/ Dextrose 1,000 ml @ 80 mls/hr [id number] IV Last administered on 3/1/17at 13:46; Start 12/04/16 at 10:30 Sodium Chloride (Iv Sodium Chloride 0.9% 1000ml Bag) 1,000 ml @ 75 mls/hr [id number] IV Last administered on 12/05/16t 12:44; Start 12/04/16 at 14:00 Heparin Sodium (Porcine) 5000 unit 5,000 unit Q8HRS SQ ; Start 12/04/16 at 14:30 ; Stop 12/04/16 at 16:48; Status DC Propofol (Diprivan) 20 ml @ As Directed STK-MED ONCE IV ; Start 12/04/16 at 14: 58; Stop 12/04/16 at 14:59; Status DC Lidocaine HCl (Lidocaine Pf 2% Vial) 5 ml STK-MED ONCE .ROUTE ; Start 12/04/16 at 14:58; Stop 12/04/16 at 14:59; Status DC Ondansetron HCl (Zofran) 4 mg PRN Q6HRS PRN IV Nausea; Start 12/05/16 at 07:00; Stop 12/06/16 at 06:59 Fentanyl Citrate (Fentanyl 2ml Vial) 25 mcg PRN Q5MIN PRN IV MILD PAIN; Start 12/05/16 at 07:00; Stop 12/06/16 at 06:59 Fentanyl Citrate (Fentanyl 2ml Vial) 50 mcg PRN Q5MIN PRN IV MODERATE PAIN; Start 12/05/16 at 07:00; Stop 12/06/16 at 06:59 Morphine Sulfate 1 mg 1 mg PRN Q10MIN PRN IV SEVERE PAIN; Start 12/05/16 at 07: 00; Stop 12/06/16 at 06:59 Lactated Ringer's (Iv Lactated Ringers) 1,000 ml @ 0 mls/hr Q0M IV ; Start 12/05 at 07:00; Stop 12/05/16 at 18:59 Lidocaine HCl 2 ml 1X PRN PRN ID IV START; Start 12/05/16 at 07:00; Stop at 06:59 Hydromorphone HCl (Dilaudid) 0.5 mg PRN Q10MIN PRN IV SEVERE PAIN, Second choice; Start 12/05/16 at 07:00; Stop 12/06/16 at 06:59 Prochlorperazine Edisylate (Compazine) 5 mg PACU PRN PRN IV NAUSEA; Start at 07:00; Stop 12/06/16 at 06:59 Insulin Aspart (Novolog) 0-9 UNITS QIDACHS SQ Last administered on 12/05/16t 00: 16; Start 12/05/16 at 00:30 Cellulose 1 each STK-MED ONCE .ROUTE ; Start 12/05/16 at 07:09; Stop 12/05/16 at 07:10; Status DC Bupivacaine HCl/ Epinephrine Bitart 30 ml 30 ml STK-MED ONCE .ROUTE Last administered on 12/05/16t 08:35; Start 12/05/16 at 07:09; Stop 12/05/16 at 07:10; Status DC Propofol (Diprivan) 20 ml @ As Directed STK-MED ONCE IV ; Start 12/05/16 at 07:13 ; Stop 12/05/16 at 07:14; Status DC Lidocaine HCl 100 mg STK-MED ONCE .ROUTE ; Start 12/05/16 at 07:13; Stop 12/05/16 at 07:14; Status DC Rocuronium [place] (Zemuron) 50 mg STK-MED ONCE .ROUTE ; Start 12/05/16 at 07:13 ; Stop 12/05/16 at 07:14; Status DC Succinylcholine Chloride (Anectine) 200 mg STK-MED ONCE .ROUTE ; Start 12/05/16 at 07:14; Stop 12/05/16 at 07:15; Status DC Fentanyl Citrate (Fentanyl 2ml Vial) 100 mcg STK-MED ONCE .ROUTE ; Start at 07:16; Stop 12/05/16 at 07:17; Status DC Cellulose 1 each STK-MED ONCE .ROUTE ; Start 12/05/16 at 07:34; Stop 12/05/16 at 07:35; Status DC Phenylephrine HCl 1 mg 1 mg STK-MED ONCE IV ; Start 12/05/16 at 07:46; Stop at 07:47; Status DC Acetaminophen (Ofirmev) 100 ml @ As Directed STK-MED ONCE IV ; Start 12/05/16 at 08:29; Stop 12/05/16 at 08:30; Status DC Fentanyl Citrate (Fentanyl 2ml Vial) 100 mcg STK-MED ONCE .ROUTE ; Start at 08:32; Stop 12/05/16 at 08:33; Status DC Desflurane (Suprane) 90 ml STK-MED ONCE IH ; Start 12/05/16 at 09:09; Stop at 09:10; Status DC Insulin Aspart (Novolog) 8 units 1X ONCE SQ ; Start 12/05/16 at 10:15; Stop 12/05 at 10:15; Status DC Ephedrine Sulfate 50 mg STK-MED ONCE IV ; Start 12/05/16 at 10:01; Stop 12/05/16 at 10:02; Status DC Insulin Aspart (Novolog Vial) 8 unit ONCE ONCE SQ ; Start 12/05/16 at 10:15; Stop 12/05/16 at 10:16; Status DC Insulin Human Regular (Novolin R Vial) 8 unit 1X ONCE IV ; Start 12/05/16 at 10: 30; Stop 12/05/16 at 10:30; Status DC Insulin Human Regular 8 unit 8 unit 1X ONCE IV ; Start 12/05/16 at 10:30; Stop 12/05/16 at 10:31; Status DC Albumin Human 0 ml @ As Directed STK-MED ONCE IV ; Start 12/05/16 at 10:20; Stop 12/05/16 at 10:21; Status DC Albumin Human 100 ml @ As Directed STK-MED ONCE IV ; Start 12/05/16 at 10:20; Stop 12/05/16 at 10:21; Status DC Albumin Human (Plasmanate) 500 ml @ As Directed STK-MED ONCE IV ; Start at 10:24; Stop 12/05/16 at 10:25; Status DC Neostigmine Methylsulfate 5 mg STK-MED ONCE .ROUTE ; Start 12/05/16 at 10:55; Stop 12/05/16 at 10:56; Status DC Glycopyrrolate (Robinul) 1 mg STK-MED ONCE .ROUTE ; Start 12/05/16 at 10:55; Stop 12/05/16 at 10:56; Status DC Phenylephrine HCl (Guido-Synephrine Inj) 10 mg STK-MED ONCE .ROUTE ; Start at 11:00; Stop 12/05/16 at 11:01; Status DC Active Scripts Active Reported Calcium 600 + Vit D 200 Tablet (Calcium Carbonate/Vitamin D3) 1 Each Tablet 1 Each PO BID Simvastatin 40 Mg Tablet 0.5 Tab PO QHS Ranitidine Hcl 150 Mg Tablet 1 Tab PO BID Omeprazole 40 Mg Capsule.dr 1 Cap PO DAILY Humulin R (Insulin Regular, Human) 100 Unit/1 Ml Vial 5-8 Unit IJ TIDWMEALS Furosemide 40 Mg Tablet 0.5 Tab PO DAILY PRN Furosemide 40 Mg Tablet 0.5 Tab PO DAILY Sinemet 25-100 Mg Tablet (Carbidopa/Levodopa) 1 Each Tablet 1 Tab PO QID Aspirin Ec (Aspirin) 81 Mg Tablet.dr 1 Tab PO DAILY Amlodipine Besylate 5 Mg Tablet 2.5 Mg PO DAILY Tylenol (Acetaminophen) 325 Mg Tablet 1-2 Tab PO QID Vitals/I & O Vital Sign - Last 24 Hours 12/04/16 12/04/16 12/04/16 12/04/16 14:25 15:19 15:33 16:00 Temp 98.7 98.1 98.8 98.7 98.1 98.8 Pulse 73 76 72 80 Resp 18 16 18 B/P 169/71 169/71 143/68 Pulse Ox 100 100 100 99 O2 Delivery Nasal Cannula Nasal Cannula Nasal Cannula O2 Flow Rate 2.0 2.0 12/04/16 12/04/16 12/04/16 12/04/16 16:00 17:00 18:00 19:00 Pulse 84 76 72 Resp 22 20 20 B/P 158/54 149/53 111/44 Pulse Ox 99 100 100 O2 Delivery Nasal Cannula Nasal Cannula Nasal Cannula Nasal Cannula O2 Flow Rate 2.0 2.0 2.0 2.0 12/04/16 12/04/16 12/04/16 12/04/16 20:00 20:00 21:00 22:00 Temp 97.6 97.6 Pulse 88 76 101 Resp 16 20 20 B/P 162/67 146/81 131/47 Pulse Ox 100 100 100 O2 Delivery Nasal Cannula Nasal Cannula Nasal Cannula Nasal Cannula O2 Flow Rate 2.0 2.0 2.0 2.0 12/04/16 12/04/16 12/05/16 12/05/16 23:00 23:59 00:00 01:00 Temp 97.5 97.5 Pulse 101 72 68 Resp 12 12 12 B/P 112/47 171/66 120/46 Pulse Ox 100 100 100 O2 Delivery Nasal Cannula Nasal Cannula Nasal Cannula Nasal Cannula O2 Flow Rate 2.0 2.0 2.0 2.0 12/05/16 12/05/16 12/05/16 12/05/16 02:00 03:00 04:00 04:00 Temp 98.1 98.1 Pulse 65 75 61 Resp 12 12 12 B/P 144/61 127/59 158/71 Pulse Ox 100 100 100 O2 Delivery Nasal Cannula Nasal Cannula Nasal Cannula Nasal Cannula O2 Flow Rate 2.0 2.0 2.0 2.0 12/05/16 12/05/16 12/05/16 12/05/16 05:00 06:00 07:00 08:00 Temp 98.0 98.0 Pulse 84 63 66 60 Resp 14 16 14 16 B/P 156/57 143/51 152/55 140/52 Pulse Ox 100 100 100 99 O2 Delivery Nasal Cannula Nasal Cannula Nasal Cannula Nasal Cannula O2 Flow Rate 2.0 2.0 2.0 2.0 12/05/16 12/05/16 12/05/16 12/05/16 08:00 12:19 12:34 12:54 Temp 97.6 97.6 97.6 97.6 Pulse 101 80 77 Resp 22 22 18 B/P 123/59 121/42 118/44 Pulse Ox 99 99 98 O2 Delivery Nasal Cannula Simple Mask Simple Mask Nasal Cannula O2 Flow Rate 2.0 10.0 10.0 2.0 Intake and Output 12/04/16 12/04/16 12/05/16 15:00 23:00 07:00 Intake Total 0 ml 1294 ml 432 ml Output Total 240 ml 510 ml 700 ml Balance -240 ml 784 ml -268 ml PHIL GROSS K III DO Dec 05, 2016 14:23
[2016-12-05] MEDS: ATORVASTATIN CALCIUM 20 MG TABLET PO SCH (20:45)
[2016-12-06] VITALS (15 sets, daily range): BP systolic 96–150; BP diastolic 37–81
[2016-12-06] MEDS: AA 4.25%/CALCIUM/LYTES/D5W 1,000 ML IV SCH ×2 (00:49→14:23)
[2016-12-06 04:42] LABS: ALBUMIN 2.5 g/dL (3.4-5.0); ALBUMIN/GLOBULIN RATIO 0.7 (1.0-1.7); CALCIUM 9.3 mg/dL (8.5-10.1); CREATININE 2.1 mg/dL (0.7-1.3); POTASSIUM 3.9 mmol/L (3.5-5.1); TOTAL BILIRUBIN 0.5 mg/dL (0.2-1.0); TOTAL PROTEIN 5.9 g/dL (6.4-8.2)
[2016-12-06] MEDS: PIPERACILLIN/TAZOBACTAM 2.25 GM in IV NORMAL SALINE 50ML 50 ML IV SCH ×3 (05:38→22:26)
[2016-12-06] MEDS: IV NORMAL SALINE 1000ML BAG 1,000 ML IV SCH (06:00)
[2016-12-06] MEDS: INSULIN ASPART 300 UNITS/3 ML INSULN.PEN SQ SCH ×4 (06:45→22:35)
--- NOTE | 2016-12-06 08:35 | PDOC ---
Subjective: Subjective: Some abd tenderness, no flatus. Asks if he has to have another operation, asks to eat. Objective: Objective: Per RN - to try clears this morning, no flatus, doing well. Vital Signs: Vital Signs Date Time Temp Pulse Resp B/P Pulse Ox O2 Delivery O2 Flow Rate FiO2 12/06/16 06:00 70 17 147/55 97 Room Air 12/06/16 04:00 97.7 97.7 12/06/16 03:00 Labs: Laboratory Tests Test 12/05/16 09:48 12/05/16 12:33 12/05/16 19:19 12/05/16 23:48 Glucose (Fingerstick) 303mg/dL 239mg/dL 358mg/dL 333mg/dL Test 12/06/16 04:10 Sodium Level 150mmol/L Potassium Level 3.9mmol/L Chloride Level 110mmol/L Carbon Dioxide Level 34mmol/L Anion Gap 6 Blood Urea Nitrogen 93mg/dL Creatinine 2.1mg/dL Estimated GFR (Cockcroft-Gault) 30.0 BUN/Creatinine Ratio 44 Glucose Level 389mg/dL Calcium Level 9.3mg/dL Total Bilirubin 0.5mg/dL Aspartate Amino Transf (AST/SGOT) 38U/L Alanine Aminotransferase (ALT/SGPT) 29U/L Alkaline Phosphatase 54U/L Total Protein 5.9g/dL Albumin 2.5g/dL Albumin/Globulin Ratio 0.7 PE: GEN: NAD LUNGS: clear anteriorly HEART: S1S2 ABD: some tenderness NEURO/PSYCH: difficult to understand (mouth is dry, dentures out) A/P: S/p lap repair of large paraesophageal hernia w/ Heena fundoplication 12/05/16 -- Note plans to try clears. Diet per surgery. SD CLEMENTE Dec 06, 2016 08:35
--- NOTE | 2016-12-06 09:52 | PDOC ---
LUISA FRY ENGAGEMENT EXECUTIVE 12/06/16 0952: SURGICAL PROGRESS NOTE Subjective Tolerating diet no pain sitting up in chair Vital Signs Vital Signs Date Time Temp Pulse Resp B/P Pulse Ox O2 Delivery O2 Flow Rate FiO2 12/06/16 06:00 70 17 147/55 97 Room Air 12/06/16 04:00 97.7 97.7 12/06/16 03:00 I&O Intake and Output 12/06/16 07:00 Intake Total 2311 ml Output Total 1332 ml Balance 979 ml Intake Oral 0 ml IV Total 2311 ml Output Urine Total 1107 ml Estimated Blood Loss 225 ml General: Alert, Oriented X3, Cooperative, No acute distress Abdomen: Soft, Other (nontender) Labs Laboratory Tests Test 12/04/16 12:40 12/04/16 17:54 12/04/16 23:57 12/05/16 05:39 Glucose (Fingerstick) 162mg/dL (70-99) 184mg/dL (70-99) 321mg/dL (70-99) White Blood Count 9.7x10^3/uL (4.0-11.0) Red Blood Count 4.02x10^6/uL (4.30-5.70) Hemoglobin 12.6g/dL (13.0-17.5) Hematocrit 39.0% (39.0-53.0) Mean Corpuscular Volume 97fL (79-100) Mean Corpuscular Hemoglobin 31pg (25-35) Mean Corpuscular Hemoglobin Concent 32g/dL (31-37) Red Cell Distribution Width 13.2% (11.5-14.5) Platelet Count 183x10^3/uL (140-400) Neutrophils (%) (Auto) 79% (31-73) Lymphocytes (%) (Auto) 12% (24-48) Monocytes (%) (Auto) 8% (0-9) Eosinophils (%) (Auto) 1% (0-3) Basophils (%) (Auto) 0% (0-3) Neutrophils # (Auto) 7.7x10^3uL (1.8-7.7) Lymphocytes # (Auto) 1.2x10^3/uL (1.0-4.8) Monocytes # (Auto) 0.8x10^3/uL (0.0-1.1) Eosinophils # (Auto) 0.1x10^3/uL (0.0-0.7) Basophils # (Auto) 0.0x10^3/uL (0.0-0.2) Sodium Level 150mmol/L (136-145) Potassium Level 3.5mmol/L (3.5-5.1) Chloride Level 105mmol/L (98-107) Carbon Dioxide Level 40mmol/L (21-32) Anion Gap 5 (6-14) Blood Urea Nitrogen 75mg/dL (8-26) Creatinine 2.0mg/dL (0.7-1.3) Estimated GFR (Cockcroft-Gault) 31.8 BUN/Creatinine Ratio 38 (6-20) Glucose Level 302mg/dL (70-99) Calcium Level 9.5mg/dL (8.5-10.1) Total Bilirubin 0.6mg/dL (0.2-1.0) Aspartate Amino Transf (AST/SGOT) 19U/L (15-37) Alanine Aminotransferase (ALT/SGPT) 14U/L (16-63) Alkaline Phosphatase 55U/L (46-116) Total Protein 6.3g/dL (6.4-8.2) Albumin 2.4g/dL (3.4-5.0) Albumin/Globulin Ratio 0.6 (1.0-1.7) Test 12/05/16 07:35 12/05/16 09:48 12/05/16 12:33 12/05/16 19:19 Glucose (Fingerstick) 287mg/dL (70-99) 303mg/dL (70-99) 239mg/dL (70-99) 358mg/dL (70-99) Test 12/05/16 23:48 12/06/16 04:10 Glucose (Fingerstick) 333mg/dL (70-99) Sodium Level 150mmol/L (136-145) Potassium Level 3.9mmol/L (3.5-5.1) Chloride Level 110mmol/L (98-107) Carbon Dioxide Level 34mmol/L (21-32) Anion Gap 6 (6-14) Blood Urea Nitrogen 93mg/dL (8-26) Creatinine 2.1mg/dL (0.7-1.3) Estimated GFR (Cockcroft-Gault) 30.0 BUN/Creatinine Ratio 44 (6-20) Glucose Level 389mg/dL (70-99) Calcium Level 9.3mg/dL (8.5-10.1) Total Bilirubin 0.5mg/dL (0.2-1.0) Aspartate Amino Transf (AST/SGOT) 38U/L (15-37) Alanine Aminotransferase (ALT/SGPT) 29U/L (16-63) Alkaline Phosphatase 54U/L (46-116) Total Protein 5.9g/dL (6.4-8.2) Albumin 2.5g/dL (3.4-5.0) Albumin/Globulin Ratio 0.7 (1.0-1.7) Laboratory Tests Test 12/05/16 12:33 12/05/16 19:19 12/05/16 23:48 12/06/16 04:10 Glucose (Fingerstick) 239mg/dL (70-99) 358mg/dL (70-99) 333mg/dL (70-99) Sodium Level 150mmol/L (136-145) Potassium Level 3.9mmol/L (3.5-5.1) Chloride Level 110mmol/L (98-107) Carbon Dioxide Level 34mmol/L (21-32) Anion Gap 6 (6-14) Blood Urea Nitrogen 93mg/dL (8-26) Creatinine 2.1mg/dL (0.7-1.3) Estimated GFR (Cockcroft-Gault) 30.0 BUN/Creatinine Ratio 44 (6-20) Glucose Level 389mg/dL (70-99) Calcium Level 9.3mg/dL (8.5-10.1) Total Bilirubin 0.5mg/dL (0.2-1.0) Aspartate Amino Transf (AST/SGOT) 38U/L (15-37) Alanine Aminotransferase (ALT/SGPT) 29U/L (16-63) Alkaline Phosphatase 54U/L (46-116) Total Protein 5.9g/dL (6.4-8.2) Albumin 2.5g/dL (3.4-5.0) Albumin/Globulin Ratio 0.7 (1.0-1.7) Problem List Problems Medical Problems: (1) Gastric outlet obstruction Status: Acute Assessment/Plan s/p socorro fundoplication clears, do not advance diet no carbonated beverages Problems: CALLIE HOWELL MD 12/06/16 1302: SURGICAL PROGRESS NOTE Assessment/Plan Clear liquids today, agree with above Problems: LUISA FRY APRN Dec 06, 2016 09:52 CALLIE HOWELL MD Dec 06, 2016 13:02
[2016-12-06] MEDS: CARBIDOPA/LEVODOPA 25/100MG TABLET PO SCH ×4 (10:22→22:26)
[2016-12-06] MEDS: ASPIRIN ENTERIC COATED 81 MG TABLET.DR. PO SCH (10:22)
[2016-12-06] MEDS: CALCIUM CARB/VIT D3 500/200 TABLET PO SCH ×2 (10:22→17:18)
[2016-12-06] MEDS: AMLODIPINE BESYLATE 2.5 MG TABLET PO SCH (10:24)
[2016-12-06] MEDS: PANTOPRAZOLE 40 MG TABLET. PO SCH (10:32)
--- NOTE | 2016-12-06 10:54 | PDOC ---
Renal-Progress Notes Subjective Notes Notes STARTING TO EAT SOME History of Present Illness Hx of present illness NONE Vitals Vitals Vital Signs Date Time Temp Pulse Resp B/P Pulse Ox O2 Delivery O2 Flow Rate FiO2 12/06/16 10:24 97 139/47 12/06/16 10:22 97 Room Air 2.0 12/06/16 06:00 17 12/06/16 04:00 97.7 97.7 Weight Weight [ ] I.O. Intake and Output Intake and Output 12/06/16 07:00 Intake Total 2311 ml Output Total 1332 ml Balance 979 ml Intake Oral 0 ml IV Total 2311 ml Output Urine Total 1107 ml Estimated Blood Loss 225 ml Labs Labs Laboratory Tests Test 12/05/16 12:33 12/05/16 19:19 12/05/16 23:48 12/06/16 04:10 Glucose (Fingerstick) 239mg/dL (70-99) 358mg/dL (70-99) 333mg/dL (70-99) Sodium Level 150mmol/L (136-145) Potassium Level 3.9mmol/L (3.5-5.1) Chloride Level 110mmol/L (98-107) Carbon Dioxide Level 34mmol/L (21-32) Anion Gap 6 (6-14) Blood Urea Nitrogen 93mg/dL (8-26) Creatinine 2.1mg/dL (0.7-1.3) Estimated GFR (Cockcroft-Gault) 30.0 BUN/Creatinine Ratio 44 (6-20) Glucose Level 389mg/dL (70-99) Calcium Level 9.3mg/dL (8.5-10.1) Total Bilirubin 0.5mg/dL (0.2-1.0) Aspartate Amino Transf (AST/SGOT) 38U/L (15-37) Alanine Aminotransferase (ALT/SGPT) 29U/L (16-63) Alkaline Phosphatase 54U/L (46-116) Total Protein 5.9g/dL (6.4-8.2) Albumin 2.5g/dL (3.4-5.0) Albumin/Globulin Ratio 0.7 (1.0-1.7) Review of Systems Constitutional: yes: no symptom reported Physical Exam General Appearance: no apparent distress Skin: warm Respiratory: decreased breath sounds Heart: S1S2, RRR Abdomen: soft, other (HYPOACTIVE) Genitourinary: bladder flat Extremities: atrophy Neurology: alert, oriented, follow commands, other ([place]) Musculoskeletal: Osteoarthritis Assessment Assessment IMP DIPIKA-IMPROVING HYPOVOLEMIA HYPOKALEMIA-BETTER HYPERNATREMIA GASTRIC OBSTRUCTION LEUCOCYTOSIS-BETTER S/P [place] FUNDOPLICATION PLAN CONT IVFS PPN TO CONTINUE WILL FOLLOW EZEKIEL RAMOS MD Dec 06, 2016 10:54
--- NOTE | 2016-12-06 11:29 | PDOC ---
PROGRESS NOTES Chief Complaint Chief Complaint 1. Gastric outlet obstruction, hiatal hernia with gastric volvulus 2. Abdominal pain 3. Constipation 4. Diabetes Mellitus Type 2 5. Hypertension 6. Parkinson's Disease History of Present Illness History of Present Illness No acute events overnight. Patient is seen in ICU, he was awake, sitting in chair, ate liquid diet and was able to keep it down, RN was at bedside, plan of care is discussed with her and pt., incision site dressings were dry and incision were intact. Vitals Vitals Vital Signs Date Time Temp Pulse Resp B/P Pulse Ox O2 Delivery O2 Flow Rate FiO2 12/06/16 10:24 97 139/47 12/06/16 10:22 97 Room Air 2.0 12/06/16 10:00 18 12/06/16 08:00 97.7 97.7 Physical Exam General: Alert, Oriented X3, Cooperative, No acute distress Heart: Regular rate, No murmurs Lungs: Clear Abdomen: Soft, Other (nontender) Extremities: No edema, No tenderness/swelling Skin: No breakdown, No significant lesion Labs LABS Laboratory Tests Test 12/05/16 12:33 12/05/16 19:19 12/05/16 23:48 12/06/16 04:10 Glucose (Fingerstick) 239mg/dL (70-99) 358mg/dL (70-99) 333mg/dL (70-99) Sodium Level 150mmol/L (136-145) Potassium Level 3.9mmol/L (3.5-5.1) Chloride Level 110mmol/L (98-107) Carbon Dioxide Level 34mmol/L (21-32) Anion Gap 6 (6-14) Blood Urea Nitrogen 93mg/dL (8-26) Creatinine 2.1mg/dL (0.7-1.3) Estimated GFR (Cockcroft-Gault) 30.0 BUN/Creatinine Ratio 44 (6-20) Glucose Level 389mg/dL (70-99) Calcium Level 9.3mg/dL (8.5-10.1) Total Bilirubin 0.5mg/dL (0.2-1.0) Aspartate Amino Transf (AST/SGOT) 38U/L (15-37) Alanine Aminotransferase (ALT/SGPT) 29U/L (16-63) Alkaline Phosphatase 54U/L (46-116) Total Protein 5.9g/dL (6.4-8.2) Albumin 2.5g/dL (3.4-5.0) Albumin/Globulin Ratio 0.7 (1.0-1.7) Review of Systems Review of Systems Afebrile, no nausea, vomiting, dysphagia reported, was able to keep liquid diet down, no abdominal distension noticed. Assessment and Plan Assessmemt and Plan Problems 1. Gastric outlet obstruction with hiatal hernia and gastric volvulus- Heena Fundoplication procedure performed 2. Abdominal pain 3. Constipation 4. Diabetes Mellitus Type 2 5. Hypertension 6. Parkinson's Disease Plan: Routine post operative care Clinimix at 80ml/hr continued May get transfer to medical floor today Continue to trend daily labs, follow electrolytes closely Continue holden catheter SNU evaluation ordered Surgery, Renal, GI and cardiology are on consult , input and recommendations greatly appreciated Plan discussed with patient and ICU nurse Problems: Comment Review of Relevant I have reviewed the following items rachael (where applicable) has been applied. Labs Laboratory Tests Test 12/04/16 12:40 12/04/16 17:54 12/04/16 23:57 12/05/16 05:39 Glucose (Fingerstick) 162mg/dL (70-99) 184mg/dL (70-99) 321mg/dL (70-99) White Blood Count 9.7x10^3/uL (4.0-11.0) Red Blood Count 4.02x10^6/uL (4.30-5.70) Hemoglobin 12.6g/dL (13.0-17.5) Hematocrit 39.0% (39.0-53.0) Mean Corpuscular Volume 97fL (79-100) Mean Corpuscular Hemoglobin 31pg (25-35) Mean Corpuscular Hemoglobin Concent 32g/dL (31-37) Red Cell Distribution Width 13.2% (11.5-14.5) Platelet Count 183x10^3/uL (140-400) Neutrophils (%) (Auto) 79% (31-73) Lymphocytes (%) (Auto) 12% (24-48) Monocytes (%) (Auto) 8% (0-9) Eosinophils (%) (Auto) 1% (0-3) Basophils (%) (Auto) 0% (0-3) Neutrophils # (Auto) 7.7x10^3uL (1.8-7.7) Lymphocytes # (Auto) 1.2x10^3/uL (1.0-4.8) Monocytes # (Auto) 0.8x10^3/uL (0.0-1.1) Eosinophils # (Auto) 0.1x10^3/uL (0.0-0.7) Basophils # (Auto) 0.0x10^3/uL (0.0-0.2) Sodium Level 150mmol/L (136-145) Potassium Level 3.5mmol/L (3.5-5.1) Chloride Level 105mmol/L (98-107) Carbon Dioxide Level 40mmol/L (21-32) Anion Gap 5 (6-14) Blood Urea Nitrogen 75mg/dL (8-26) Creatinine 2.0mg/dL (0.7-1.3) Estimated GFR (Cockcroft-Gault) 31.8 BUN/Creatinine Ratio 38 (6-20) Glucose Level 302mg/dL (70-99) Calcium Level 9.5mg/dL (8.5-10.1) Total Bilirubin 0.6mg/dL (0.2-1.0) Aspartate Amino Transf (AST/SGOT) 19U/L (15-37) Alanine Aminotransferase (ALT/SGPT) 14U/L (16-63) Alkaline Phosphatase 55U/L (46-116) Total Protein 6.3g/dL (6.4-8.2) Albumin 2.4g/dL (3.4-5.0) Albumin/Globulin Ratio 0.6 (1.0-1.7) Test 12/05/16 07:35 12/05/16 09:48 12/05/16 12:33 12/05/16 19:19 Glucose (Fingerstick) 287mg/dL (70-99) 303mg/dL (70-99) 239mg/dL (70-99) 358mg/dL (70-99) Test 12/05/16 23:48 12/06/16 04:10 Glucose (Fingerstick) 333mg/dL (70-99) Sodium Level 150mmol/L (136-145) Potassium Level 3.9mmol/L (3.5-5.1) Chloride Level 110mmol/L (98-107) Carbon Dioxide Level 34mmol/L (21-32) Anion Gap 6 (6-14) Blood Urea Nitrogen 93mg/dL (8-26) Creatinine 2.1mg/dL (0.7-1.3) Estimated GFR (Cockcroft-Gault) 30.0 BUN/Creatinine Ratio 44 (6-20) Glucose Level 389mg/dL (70-99) Calcium Level 9.3mg/dL (8.5-10.1) Total Bilirubin 0.5mg/dL (0.2-1.0) Aspartate Amino Transf (AST/SGOT) 38U/L (15-37) Alanine Aminotransferase (ALT/SGPT) 29U/L (16-63) Alkaline Phosphatase 54U/L (46-116) Total Protein 5.9g/dL (6.4-8.2) Albumin 2.5g/dL (3.4-5.0) Albumin/Globulin Ratio 0.7 (1.0-1.7) Laboratory Tests Test 12/05/16 12:33 12/05/16 19:19 12/05/16 23:48 12/06/16 04:10 Glucose (Fingerstick) 239mg/dL (70-99) 358mg/dL (70-99) 333mg/dL (70-99) Sodium Level 150mmol/L (136-145) Potassium Level 3.9mmol/L (3.5-5.1) Chloride Level 110mmol/L (98-107) Carbon Dioxide Level 34mmol/L (21-32) Anion Gap 6 (6-14) Blood Urea Nitrogen 93mg/dL (8-26) Creatinine 2.1mg/dL (0.7-1.3) Estimated GFR (Cockcroft-Gault) 30.0 BUN/Creatinine Ratio 44 (6-20) Glucose Level 389mg/dL (70-99) Calcium Level 9.3mg/dL (8.5-10.1) Total Bilirubin 0.5mg/dL (0.2-1.0) Aspartate Amino Transf (AST/SGOT) 38U/L (15-37) Alanine Aminotransferase (ALT/SGPT) 29U/L (16-63) Alkaline Phosphatase 54U/L (46-116) Total Protein 5.9g/dL (6.4-8.2) Albumin 2.5g/dL (3.4-5.0) Albumin/Globulin Ratio 0.7 (1.0-1.7) Medications Current Medications Sodium Chloride (Normal Saline Flush) 3 ml PRN DAILY PRN IV AFTER MEDS AND BLOOD DRAWS; Start 12/02/16 at 19:30 Morphine Sulfate 1 mg PRN Q1HR PRN IV PAIN Last administered on 12/06/16 10:22 ; Start 12/02/16 at 19:30 Bisacodyl (Dulcolax Supp) 10 mg PRN DAILY PRN [place] CONSTIPATION; Start 12/02/16 at 19:30 Hydralazine HCl (Apresoline) 10 mg PRN Q4HRS PRN IVP ELEVATED BP, SEE COMMENTS ; Start 12/02/16 at 19:45 Acetaminophen 650 mg 650 mg PRN Q6HRS PRN [place] MILD PAIN / TEMP; Start 12/02/16 at 19:45; Stop 12/04/16 at 14:30; Status DC Sodium Chloride 1,000 ml @ 150 mls/hr Q6H40M IV ; Start 12/02/16 at 23:00; Stop 12/03/16 at 01:24; Status DC Piperacillin Sod/ Tazobactam Sod/ Sodium Chloride (Zosyn/Iv Sodium Chloride 0.9 % 50ml) 50 ml @ 100 mls/hr 1X ONCE IV Last administered on 12/03/16 00:15; Start 12/02/16 at 23:00; Stop 12/02/16 at 23:29; Status DC Piperacillin Sod/ Tazobactam Sod 1 each 1 each PRN DAILY PRN MC SEE COMMENTS; Start 12/02/16 at 23:00; Stop 12/05/16 at 09:25; Status DC Piperacillin Sod/ Tazobactam Sod 2.25 gm/Sodium Chloride 50 ml @ 100 mls/hr Q8HRS IV Last administered on 12/06/16 05:38; Start 12/03/16 at 06:00 Sodium Chloride 1,000 ml @ 75 mls/hr Q6H40M IV Last administered on 12/03/16 01:56; Start 12/03/16 at 23:00; Stop 12/04/16 at 09:27; Status DC Lactated Ringer's (Iv Lactated Ringers) 1,000 ml @ 50 mls/hr Q20H IV ; Start at 07:00; Stop 12/04/16 at 18:59; Status DC Acetaminophen (Tylenol) 650 mg PRN Q6HRS PRN PO FEVER; Start 12/04/16 at 09:30 Amlodipine Besylate (Norvasc) 2.5 mg DAILY PO Last administered on 12/06/16 10: 24; Start 12/04/16 at 10:00 Aspirin (Ecotrin) 81 mg DAILY PO Last administered on 12/06/16 10:22; Start at 10:00 Carbidopa/Levodopa (Sinemet 25/100) 1 tab QID PO Last administered on 12/06/16 10:22; Start 12/04/16 at 10:00 Atorvastatin Calcium (Lipitor) 20 mg QHS PO ; Start 12/04/16 at 21:00 Calcium/Vitamin D (Oscal D 500mg/ 200uts) 1 tab BIDWMEALS PO Last administered on 12/06/16 10:22; Start 12/04/16 at 10:00 Pantoprazole Sodium 40 mg 40 mg DAILYAC PO Last administered on 12/06/16 10:32 ; Start 12/04/16 at 10:00 Potassium Chloride 100 ml @ 100 mls/hr Q1H IV Last administered on 12/04/16 12:29; Start 12/04/16 at 10:00; Stop 12/04/16 at 11:59; Status DC Potassium Chloride/Sodium Chloride (KCl 20 Meq-0.45% Nacl) 1,000 ml @ 75 mls/ hr [id number] IV ; Start 12/04/16 at 10:00; Stop 12/04/16 at 14:30; Status DC Insulin Aspart (Novolog) 0-9 UNITS TIDWMEALS SQ ; Start 12/04/16 at 12:00; Stop 12/05/16 at 00:12; Status DC Dextrose 12.5 gm 12.5 gm PRN Q15MIN PRN IV SEE COMMENTS; Start 12/04/16 at 09: 30 Amino Acids/ Electrolytes/ Dextrose 1,000 ml @ 80 mls/hr [id number] IV Last administered on 12/06/16 00:49; Start 12/04/16 at 10:30 Sodium Chloride (Iv Sodium Chloride 0.9% 1000ml Bag) 1,000 ml @ 75 mls/hr [id number] IV Last administered on 12/06/16 06:00; Start 12/04/16 at 14:00 Heparin Sodium (Porcine) 5000 unit 5,000 unit Q8HRS SQ ; Start 12/04/16 at 14:30 ; Stop 12/04/16 at 16:48; Status DC Propofol (Diprivan) 20 ml @ As Directed STK-MED ONCE IV ; Start 12/04/16 at 14: 58; Stop 12/04/16 at 14:59; Status DC Lidocaine HCl (Lidocaine Pf 2% Vial) 5 ml STK-MED ONCE .ROUTE ; Start 12/04/16 at 14:58; Stop 12/04/16 at 14:59; Status DC Ondansetron HCl (Zofran) 4 mg PRN Q6HRS PRN IV Nausea; Start 12/05/16 at 07:00; Stop 12/06/16 at 06:59; Status DC Fentanyl Citrate (Fentanyl 2ml Vial) 25 mcg PRN Q5MIN PRN IV MILD PAIN; Start 12/05/16 at 07:00; Stop 12/06/16 at 06:59; Status DC Fentanyl Citrate (Fentanyl 2ml Vial) 50 mcg PRN Q5MIN PRN IV MODERATE PAIN Last administered on 12/05/16 15:24; Start 12/05/16 at 07:00; Stop 12/06/16 at 06: 59; Status DC Morphine Sulfate 1 mg 1 mg PRN Q10MIN PRN IV SEVERE PAIN; Start 12/05/16 at 07: 00; Stop 12/06/16 at 06:59; Status DC Lactated Ringer's (Iv Lactated Ringers) 1,000 ml @ 0 mls/hr Q0M IV ; Start 12/05 at 07:00; Stop 12/05/16 at 18:59; Status DC Lidocaine HCl 2 ml 1X PRN PRN ID IV START; Start 12/05/16 at 07:00; Stop at 06:59; Status DC Hydromorphone HCl (Dilaudid) 0.5 mg PRN Q10MIN PRN IV SEVERE PAIN, Second choice; Start 12/05/16 at 07:00; Stop 12/06/16 at 06:59; Status DC Prochlorperazine Edisylate (Compazine) 5 mg PACU PRN PRN IV NAUSEA; Start at 07:00; Stop 12/06/16 at 06:59; Status DC Insulin Aspart (Novolog) 0-9 UNITS QIDACHS SQ Last administered on 12/06/16 06: 45; Start 12/05/16 at 00:30 Cellulose 1 each STK-MED ONCE .ROUTE ; Start 12/05/16 at 07:09; Stop 12/05/16 at 07:10; Status DC Bupivacaine HCl/ Epinephrine Bitart 30 ml 30 ml STK-MED ONCE .ROUTE Last administered on 12/05/16 08:35; Start 12/05/16 at 07:09; Stop 12/05/16 at 07:10; Status DC Propofol (Diprivan) 20 ml @ As Directed STK-MED ONCE IV ; Start 12/05/16 at 07:13 ; Stop 12/05/16 at 07:14; Status DC Lidocaine HCl 100 mg STK-MED ONCE .ROUTE ; Start 12/05/16 at 07:13; Stop 12/05/16 at 07:14; Status DC Rocuronium [place] (Zemuron) 50 mg STK-MED ONCE .ROUTE ; Start 12/05/16 at 07:13 ; Stop 12/05/16 at 07:14; Status DC Succinylcholine Chloride (Anectine) 200 mg STK-MED ONCE .ROUTE ; Start 12/05/16 at 07:14; Stop 12/05/16 at 07:15; Status DC Fentanyl Citrate (Fentanyl 2ml Vial) 100 mcg STK-MED ONCE .ROUTE ; Start at 07:16; Stop 12/05/16 at 07:17; Status DC Cellulose 1 each STK-MED ONCE .ROUTE ; Start 12/05/16 at 07:34; Stop 12/05/16 at 07:35; Status DC Phenylephrine HCl 1 mg 1 mg STK-MED ONCE IV ; Start 12/05/16 at 07:46; Stop at 07:47; Status DC Acetaminophen (Ofirmev) 100 ml @ As Directed STK-MED ONCE IV ; Start 12/05/16 at 08:29; Stop 12/05/16 at 08:30; Status DC Fentanyl Citrate (Fentanyl 2ml Vial) 100 mcg STK-MED ONCE .ROUTE ; Start at 08:32; Stop 12/05/16 at 08:33; Status DC Desflurane (Suprane) 90 ml STK-MED ONCE IH ; Start 12/05/16 at 09:09; Stop at 09:10; Status DC Insulin Aspart (Novolog) 8 units 1X ONCE SQ ; Start 12/05/16 at 10:15; Stop 12/05 at 10:15; Status DC Ephedrine Sulfate 50 mg STK-MED ONCE IV ; Start 12/05/16 at 10:01; Stop 12/05/16 at 10:02; Status DC Insulin Aspart (Novolog Vial) 8 unit ONCE ONCE SQ ; Start 12/05/16 at 10:15; Stop 12/05/16 at 10:16; Status DC Insulin Human Regular (Novolin R Vial) 8 unit 1X ONCE IV ; Start 12/05/16 at 10: 30; Stop 12/05/16 at 10:30; Status DC Insulin Human Regular 8 unit 8 unit 1X ONCE IV ; Start 12/05/16 at 10:30; Stop 12/05/16 at 10:31; Status DC Albumin Human 0 ml @ As Directed STK-MED ONCE IV ; Start 12/05/16 at 10:20; Stop 12/05/16 at 10:21; Status DC Albumin Human 0 ml @ As Directed STK-MED ONCE IV ; Start 12/05/16 at 10:20; Stop 12/05/16 at 10:21; Status DC Albumin Human (Plasmanate) 500 ml @ As Directed STK-MED ONCE IV ; Start at 10:24; Stop 12/05/16 at 10:25; Status DC Neostigmine Methylsulfate 5 mg STK-MED ONCE .ROUTE ; Start 12/05/16 at 10:55; Stop 12/05/16 at 10:56; Status DC Glycopyrrolate (Robinul) 1 mg STK-MED ONCE .ROUTE ; Start 12/05/16 at 10:55; Stop 12/05/16 at 10:56; Status DC Phenylephrine HCl (Guido-Synephrine Inj) 10 mg STK-MED ONCE .ROUTE ; Start at 11:00; Stop 12/05/16 at 11:01; Status DC Active Scripts Active Reported Calcium 600 + Vit D 200 Tablet (Calcium Carbonate/Vitamin D3) 1 Each Tablet 1 Each PO BID Simvastatin 40 Mg Tablet 0.5 Tab PO QHS Ranitidine Hcl 150 Mg Tablet 1 Tab PO BID Omeprazole 40 Mg Capsule.dr 1 Cap PO DAILY Humulin R (Insulin Regular, Human) 100 Unit/1 Ml Vial 5-8 Unit IJ TIDWMEALS Furosemide 40 Mg Tablet 0.5 Tab PO DAILY PRN Furosemide 40 Mg Tablet 0.5 Tab PO DAILY Sinemet 25-100 Mg Tablet (Carbidopa/Levodopa) 1 Each Tablet 1 Tab PO QID Aspirin Ec (Aspirin) 81 Mg Tablet.dr 1 Tab PO DAILY Amlodipine Besylate 5 Mg Tablet 2.5 Mg PO DAILY Tylenol (Acetaminophen) 325 Mg Tablet 1-2 Tab PO QID Vitals/I & O Vital Sign - Last 24 Hours 12/05/16 12/05/16 12/05/16 12/05/16 12:19 12:30 12:34 12:54 Temp 97.6 97.6 97.6 97.6 Pulse 101 80 77 Resp 22 22 18 B/P 123/59 121/42 118/44 Pulse Ox 99 99 98 O2 Delivery Simple Mask Nasal Cannula Simple Mask Nasal Cannula O2 Flow Rate 10.0 2.0 10.0 2.0 12/05/16 12/05/16 12/05/16 12/05/16 14:00 15:00 15:24 15:55 Pulse 68 70 Resp 30 28 33 20 B/P 107/46 121/50 Pulse Ox 100 100 98 96 O2 Delivery Nasal Cannula Nasal Cannula Nasal Cannula Nasal Cannula O2 Flow Rate 2.0 2.0 2.0 2.0 12/05/16 12/05/16 12/05/16 12/05/16 16:00 16:00 17:00 18:00 Temp 97.9 97.9 Pulse 70 72 68 Resp 26 20 23 B/P 97/40 123/55 105/43 Pulse Ox 100 100 100 O2 Delivery Nasal Cannula Nasal Cannula Nasal Cannula Nasal Cannula O2 Flow Rate 2.0 2.0 2.0 2.0 12/05/16 12/05/16 12/05/16 12/05/16 19:00 20:00 20:00 21:00 Temp 97.5 97.5 Pulse 89 83 77 Resp 27 14 15 B/P 119/51 102/39 117/47 Pulse Ox 100 100 97 O2 Delivery Room Air Room Air Room Air Room Air O2 Flow Rate 12/05/16 12/05/16 12/05/16 12/06/16 22:00 23:00 23:59 00:00 Temp 97.7 97.7 Pulse 71 67 65 Resp 13 14 18 B/P 113/37 132/45 125/43 Pulse Ox 99 100 100 O2 Delivery Room Air Room Air Room Air Room Air O2 Flow Rate 12/06/16 12/06/16 12/06/16 12/06/16 01:00 02:00 03:00 04:00 Pulse 68 78 64 Resp 16 17 16 B/P 139/45 135/48 122/44 Pulse Ox 100 100 96 O2 Delivery Room Air Room Air Room Air Room Air O2 Flow Rate 12/06/16 12/06/16 12/06/16 12/06/16 04:00 05:00 06:00 07:00 Temp 97.7 97.7 Pulse 70 81 70 85 Resp 15 16 17 14 B/P 96/71 150/58 147/55 139/44 Pulse Ox 95 98 97 98 O2 Delivery Room Air Room Air Room Air Room Air 12/06/16 12/06/16 12/06/16 12/06/16 08:00 09:00 10:00 10:22 Temp 97.7 97.7 Pulse 73 86 84 Resp 18 20 18 B/P 122/42 122/53 Pulse Ox 98 95 90 97 O2 Delivery Room Air Room Air Room Air Room Air O2 Flow Rate 2.0 12/06/16 10:24 Pulse 97 B/P 139/47 Intake and Output 12/05/16 12/05/16 12/06/16 15:00 23:00 07:00 Intake Total 1250 ml 1061 ml Output Total 875 ml 248 ml 209 ml Balance 375 ml -248 ml 852 ml PHIL GROSS III DO Dec 06, 2016 11:28
--- NOTE | 2016-12-06 14:27 | PDOC ---
CARDIO Progress Notes Date and Time Date of Service 12/06/16 Time of Evaluation 1340 Subjective Subjective: No Chest Pain, No shortness of breath, No Palpitations, Other ( mild surgical abd tenderness. ) Vitals Vitals Vital Signs Date Time Temp Pulse Resp B/P Pulse Ox O2 Delivery O2 Flow Rate FiO2 12/06/16 13:00 98.0 106 16 105/81 94 Room Air 98.0 12/06/16 10:22 2.0 Weight Weight [ ] Input and Output Intake and Output Intake and Output 12/06/16 07:00 Intake Total 2311 ml Output Total 1332 ml Balance 979 ml Intake Oral 0 ml IV Total 2311 ml Output Urine Total 1107 ml Estimated Blood Loss 225 ml Laboratory Labs Laboratory Tests Test 12/05/16 19:19 12/05/16 23:48 12/06/16 04:10 12/06/16 12:14 Glucose (Fingerstick) 358mg/dL (70-99) 333mg/dL (70-99) 368mg/dL (70-99) Sodium Level 150mmol/L (136-145) Potassium Level 3.9mmol/L (3.5-5.1) Chloride Level 110mmol/L (98-107) Carbon Dioxide Level 34mmol/L (21-32) Anion Gap 6 (6-14) Blood Urea Nitrogen 93mg/dL (8-26) Creatinine 2.1mg/dL (0.7-1.3) Estimated GFR (Cockcroft-Gault) 30.0 BUN/Creatinine Ratio 44 (6-20) Glucose Level 389mg/dL (70-99) Calcium Level 9.3mg/dL (8.5-10.1) Total Bilirubin 0.5mg/dL (0.2-1.0) Aspartate Amino Transf (AST/SGOT) 38U/L (15-37) Alanine Aminotransferase (ALT/SGPT) 29U/L (16-63) Alkaline Phosphatase 54U/L (46-116) Total Protein 5.9g/dL (6.4-8.2) Albumin 2.5g/dL (3.4-5.0) Albumin/Globulin Ratio 0.7 (1.0-1.7) Review of Systems Constitutional: yes: no symptom reported Physical Exam HEENT: Neck Supple W Full Motion Chest: Symmetric LUNGS: Clear to Auscultation, Other (diminished bases ) Heart: S1S2, other (distant hrt tones. tele SR with intermittent V pacing with PVC's and PAC's ) Abdomen: Soft N/T, Other (abdominal lap sites) Extremities: Other (trace upper ext edema ) Neurology: alert, oriented, follow commands, other ([employer]) Assessment Assessment 1. Arrhythmia 2. Chronic systolic heart failure 3. PPM in situ 4. Coronary artery disease 5. Abdominal Pain 6. Leukocytosis 7. DIPIKA 8. Diabetes 9. Dehydration 10. Esophagitis; volvulus s/p temporary decompression 12/04 11. Gastric outlet obstruction s/p lap repair Recommendations Clinically compensated from HR standpoint post surgery. Continue supportive care. 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 after discharge. Will follow along peripherally. Please call with questions. ARON HOOK APRN Dec 06, 2016 14:27
[2016-12-06] MEDS ORDERED: INSULIN ASPART 300 UNITS/3 ML INSULN.PEN SQ ONE (14:30)
--- NOTE | 2016-12-06 17:36 | PATHOLOGY ---
PATHOLOGY REPORT * * * * * * * * FINAL DIAGNOSIS: Segment of focal mesothelial-lined fibromembranous and fibroadipose tissue, laparoscopic paraesophageal hernia repair: - Hernia sac showing congestion and focal recent hemorrhage. (JPM:; d/t: 12/06/16) REPORT ELECTRONICALLY SIGNED BY: Bogdan Hill M.D. DATE/TIME: 12/06/2016 17:35 * * * * * * * * GROSS PATHOLOGY: Received in formalin labeled "Mahendra Al, hernia sac," is a segment of focally hemorrhagic fibrofatty tissue measuring 6.6 x 5.0 x 1.8 cm. No nodules or lesions are identified. [employer] tissue is submitted in cassette A1. (CAA; 12/05/2016) INITIAL CPT CODE(S): A; 37399 Professional services performed [place] [address] Technical services performed by [facility] [facility] [employer] at [address] [place] [address], [address], [place] [address]. SPECIMEN(S) RECEIVED: A.Hernia sac CLINICAL HISTORY: Paraesophageal hernia PATIENT: MAHENDRA AL /AGE: 312/11/1930 (Age: 85) PATIENT #: [id number] ALT CASE #: SPECIMEN COLLECTION DATE: 12/05/2016 SPECIMEN RECEIVED DATE: 12/05/2016 [facility] - [address] [place] [address] - PHONE: [phone] * * * END OF REPORT * * *
[2016-12-06] MEDS ORDERED: LIDOCAINE 2% JELLY 6ML IN APPLICATOR. MM ONE (22:00)
[2016-12-06] MEDS: ATORVASTATIN CALCIUM 20 MG TABLET PO SCH (22:26)
[2016-12-07 03:12] VITALS: BP 133/49
[2016-12-07] MEDS: AA 4.25%/CALCIUM/LYTES/D5W 1,000 ML IV SCH ×2 (04:20→17:09)
[2016-12-07 04:38] LABS: BASO % 0 % (0-3); EOS % 2 % (0-3); HEMATOCRIT 30.9 % (39.0-53.0); HEMOGLOBIN 10.1 g/dL (13.0-17.5); LYMPH # 1.3 x10^3/uL (1.0-4.8); LYMPH % 11 % (24-48); MEAN CORPUSCULAR HEMOGLOBIN 32 pg (25-35); MEAN CORPUSCULAR HGB CONC 33 g/dL (31-37); MEAN CORPUSCULAR VOLUME 97 fL (79-100); MONO % 9 % (0-9); NEUT % 78 % (31-73); PLATELET COUNT 161 x10^3/uL (140-400); RED BLOOD COUNT 3.19 x10^6/uL (4.30-5.70); RED CELL DISTRIBUTION WIDTH 13.5 % (11.5-14.5); WHITE BLOOD COUNT 11.9 x10^3/uL (4.0-11.0)
[2016-12-07 04:55] LABS: CALCIUM 9.3 mg/dL (8.5-10.1); CREATININE 2.1 mg/dL (0.7-1.3); POTASSIUM 3.7 mmol/L (3.5-5.1)
[2016-12-07] MEDS: PIPERACILLIN/TAZOBACTAM 2.25 GM in IV NORMAL SALINE 50ML 50 ML IV SCH ×3 (05:55→22:14)
[2016-12-07 07:00] VITALS: BP 153/97
[2016-12-07] MEDS: ASPIRIN ENTERIC COATED 81 MG TABLET.DR. PO SCH (08:38)
[2016-12-07] MEDS: CALCIUM CARB/VIT D3 500/200 TABLET PO SCH ×2 (08:38→17:07)
[2016-12-07] MEDS: PANTOPRAZOLE 40 MG TABLET. PO SCH (08:38)
[2016-12-07] MEDS: CARBIDOPA/LEVODOPA 25/100MG TABLET PO SCH ×4 (08:39→20:32)
[2016-12-07] MEDS: AMLODIPINE BESYLATE 2.5 MG TABLET PO SCH (08:40)
[2016-12-07] MEDS: INSULIN ASPART 300 UNITS/3 ML INSULN.PEN SQ SCH ×4 (08:44→21:00)
--- NOTE | 2016-12-07 09:10 | PDOC ---
LUISA FRY CLOTHING CONSULTANT 12/07/16 0910: SURGICAL PROGRESS NOTE Subjective he says he wants to go home tolerating clears no pain Vital Signs Vital Signs Date Time Temp Pulse Resp B/P Pulse Ox O2 Delivery O2 Flow Rate FiO2 12/07/16 08:40 72 153/73 12/07/16 07:00 97.9 16 96 Room Air 97.9 12/06/16 10:22 2.0 I&O Intake and Output 12/07/16 07:00 Intake Total 1520 ml Output Total 850 ml Balance 670 ml Intake Oral 1520 ml Output Urine Total 850 ml General: Alert, Oriented X3, Cooperative, No acute distress Abdomen: Soft, Other (ND, NTTP, lap dressings dry) Labs Laboratory Tests Test 12/05/16 09:48 12/05/16 12:33 12/05/16 19:19 12/05/16 23:48 Glucose (Fingerstick) 303mg/dL (70-99) 239mg/dL (70-99) 358mg/dL (70-99) 333mg/dL (70-99) Test 12/06/16 04:10 12/06/16 12:14 12/06/16 15:59 12/06/16 21:08 Sodium Level 150mmol/L (136-145) Potassium Level 3.9mmol/L (3.5-5.1) Chloride Level 110mmol/L (98-107) Carbon Dioxide Level 34mmol/L (21-32) Anion Gap 6 (6-14) Blood Urea Nitrogen 93mg/dL (8-26) Creatinine 2.1mg/dL (0.7-1.3) Estimated GFR (Cockcroft-Gault) 30.0 BUN/Creatinine Ratio 44 (6-20) Glucose Level 389mg/dL (70-99) Calcium Level 9.3mg/dL (8.5-10.1) Total Bilirubin 0.5mg/dL (0.2-1.0) Aspartate Amino Transf (AST/SGOT) 38U/L (15-37) Alanine Aminotransferase (ALT/SGPT) 29U/L (16-63) Alkaline Phosphatase 54U/L (46-116) Total Protein 5.9g/dL (6.4-8.2) Albumin 2.5g/dL (3.4-5.0) Albumin/Globulin Ratio 0.7 (1.0-1.7) Glucose (Fingerstick) 368mg/dL (70-99) 278mg/dL (70-99) 276mg/dL (70-99) Test 12/07/16 04:00 12/07/16 07:21 White Blood Count 11.9x10^3/uL (4.0-11.0) Red Blood Count 3.19x10^6/uL (4.30-5.70) Hemoglobin 10.1g/dL (13.0-17.5) Hematocrit 30.9% (39.0-53.0) Mean Corpuscular Volume 97fL (79-100) Mean Corpuscular Hemoglobin 32pg (25-35) Mean Corpuscular Hemoglobin Concent 33g/dL (31-37) Red Cell Distribution Width 13.5% (11.5-14.5) Platelet Count 161x10^3/uL (140-400) Neutrophils (%) (Auto) 78% (31-73) Lymphocytes (%) (Auto) 11% (24-48) Monocytes (%) (Auto) 9% (0-9) Eosinophils (%) (Auto) 2% (0-3) Basophils (%) (Auto) 0% (0-3) Neutrophils # (Auto) 9.2x10^3uL (1.8-7.7) Lymphocytes # (Auto) 1.3x10^3/uL (1.0-4.8) Monocytes # (Auto) 1.1x10^3/uL (0.0-1.1) Eosinophils # (Auto) 0.2x10^3/uL (0.0-0.7) Basophils # (Auto) 0.0x10^3/uL (0.0-0.2) Sodium Level 145mmol/L (136-145) Potassium Level 3.7mmol/L (3.5-5.1) Chloride Level 104mmol/L (98-107) Carbon Dioxide Level 33mmol/L (21-32) Anion Gap 8 (6-14) Blood Urea Nitrogen 112mg/dL (8-26) Creatinine 2.1mg/dL (0.7-1.3) Estimated GFR (Cockcroft-Gault) 30.0 Glucose Level 208mg/dL (70-99) Calcium Level 9.3mg/dL (8.5-10.1) Magnesium Level 2.9mg/dL (1.8-2.4) [id number]-Type Natriuretic Peptide 67012va/mL (0-449) Glucose (Fingerstick) 248mg/dL (70-99) Laboratory Tests Test 12/06/16 12:14 12/06/16 15:59 12/06/16 21:08 12/07/16 04:00 Glucose (Fingerstick) 368mg/dL (70-99) 278mg/dL (70-99) 276mg/dL (70-99) White Blood Count 11.9x10^3/uL (4.0-11.0) Red Blood Count 3.19x10^6/uL (4.30-5.70) Hemoglobin 10.1g/dL (13.0-17.5) Hematocrit 30.9% (39.0-53.0) Mean Corpuscular Volume 97fL (79-100) Mean Corpuscular Hemoglobin 32pg (25-35) Mean Corpuscular Hemoglobin Concent 33g/dL (31-37) Red Cell Distribution Width 13.5% (11.5-14.5) Platelet Count 161x10^3/uL (140-400) Neutrophils (%) (Auto) 78% (31-73) Lymphocytes (%) (Auto) 11% (24-48) Monocytes (%) (Auto) 9% (0-9) Eosinophils (%) (Auto) 2% (0-3) Basophils (%) (Auto) 0% (0-3) Neutrophils # (Auto) 9.2x10^3uL (1.8-7.7) Lymphocytes # (Auto) 1.3x10^3/uL (1.0-4.8) Monocytes # (Auto) 1.1x10^3/uL (0.0-1.1) Eosinophils # (Auto) 0.2x10^3/uL (0.0-0.7) Basophils # (Auto) 0.0x10^3/uL (0.0-0.2) Sodium Level 145mmol/L (136-145) Potassium Level 3.7mmol/L (3.5-5.1) Chloride Level 104mmol/L (98-107) Carbon Dioxide Level 33mmol/L (21-32) Anion Gap 8 (6-14) Blood Urea Nitrogen 112mg/dL (8-26) Creatinine 2.1mg/dL (0.7-1.3) Estimated GFR (Cockcroft-Gault) 30.0 Glucose Level 208mg/dL (70-99) Calcium Level 9.3mg/dL (8.5-10.1) Magnesium Level 2.9mg/dL (1.8-2.4) [id number]-Type Natriuretic Peptide 19378bp/mL (0-449) Test 12/07/16 07:21 Glucose (Fingerstick) 248mg/dL (70-99) Problem List Problems Medical Problems: (1) Gastric outlet obstruction Status: Acute Assessment/Plan s/p lap socorro fundoplication advance to full liquids, needs to stay on liquid diet x 2 weeks lortab elixir for pain Problems: CALLIE HOWELL MD 12/07/16 1052: SURGICAL PROGRESS NOTE Assessment/Plan Agree with above, recommend "slippery" diet for 2 weeks, full liquids good example, no carbonation Problems: LUISA FRY APRN Dec 07, 2016 09:10 CALLIE HOWELL MD Dec 07, 2016 10:52
[2016-12-07] MEDS ORDERED: HYDROCODONE/APAP 7.5/325MG ORAL 15 ML SOLUTION. PO PRN (09:15)
--- NOTE | 2016-12-07 10:48 | PDOC ---
Subjective: Subjective: A little abd tenderness. Eating okay. Had a BM. Objective: Objective: D/w RN. Vital Signs: Vital Signs Date Time Temp Pulse Resp B/P Pulse Ox O2 Delivery O2 Flow Rate FiO2 12/07/16 08:40 72 153/73 12/07/16 07:00 97.9 16 96 Room Air 97.9 12/06/16 10:22 2.0 Labs: Laboratory Tests Test 12/06/16 12:14 12/06/16 15:59 12/06/16 21:08 12/07/16 04:00 Glucose (Fingerstick) 368mg/dL 278mg/dL 276mg/dL White Blood Count 11.9x10^3/uL Red Blood Count 3.19x10^6/uL Hemoglobin 10.1g/dL Hematocrit 30.9% Mean Corpuscular Volume 97fL Mean Corpuscular Hemoglobin 32pg Mean Corpuscular Hemoglobin Concent 33g/dL Red Cell Distribution Width 13.5% Platelet Count 161x10^3/uL Neutrophils (%) (Auto) 78% Lymphocytes (%) (Auto) 11% Monocytes (%) (Auto) 9% Eosinophils (%) (Auto) 2% Basophils (%) (Auto) 0% Neutrophils # (Auto) 9.2x10^3uL Lymphocytes # (Auto) 1.3x10^3/uL Monocytes # (Auto) 1.1x10^3/uL Eosinophils # (Auto) 0.2x10^3/uL Basophils # (Auto) 0.0x10^3/uL Sodium Level 145mmol/L Potassium Level 3.7mmol/L Chloride Level 104mmol/L Carbon Dioxide Level 33mmol/L Anion Gap 8 Blood Urea Nitrogen 112mg/dL Creatinine 2.1mg/dL Estimated GFR (Cockcroft-Gault) 30.0 Glucose Level 208mg/dL Calcium Level 9.3mg/dL Magnesium Level 2.9mg/dL [id number]-Type Natriuretic Peptide 71197wy/mL Test 12/07/16 07:21 Glucose (Fingerstick) 248mg/dL PE: GEN: NAD, up to chair LUNGS: clear anteriorly HEART: S1S2 ABD: some tenderness NEURO/PSYCH: A & O 3 A/P: S/p lap repair of large paraesophageal hernia w/ Heena fundoplication 12/05/16 -- Advancing to full liquids per surgery. DS CLEMENTE Dec 07, 2016 10:48
[2016-12-07 11:00] VITALS: BP 120/68
--- NOTE | 2016-12-07 12:26 | PDOC ---
PROGRESS NOTES Chief Complaint Chief Complaint 1. Gastric outlet obstruction, hiatal hernia with gastric volvulus 2. Abdominal pain 3. Constipation 4. Diabetes Mellitus Type 2 5. Hypertension 6. Parkinson's Disease History of Present Illness History of Present Illness Patient was sitting in the chair at the time of evaluation, was in no distress, able to keep clear liquid diet down, last night he pulled his holden cath out, new holden cath inserted and 50ml blood obtained, since then no issues he is draining urine well, RN was at bedside, plan of care is discussed with her and pt., no new complains reported this AM. Vitals Vitals Vital Signs Date Time Temp Pulse Resp B/P Pulse Ox O2 Delivery O2 Flow Rate FiO2 12/07/16 11:00 97.6 70 18 120/68 95 Room Air 97.6 12/06/16 10:22 2.0 Physical Exam General: Alert, Oriented X3, Cooperative, No acute distress Heart: Regular rate, No murmurs Lungs: Clear Abdomen: Soft, Other (ND, NTTP, lap dressings dry) Extremities: No edema, No tenderness/swelling Skin: No breakdown, No significant lesion Labs LABS Laboratory Tests Test 12/06/16 12:14 12/06/16 15:59 12/06/16 21:08 12/07/16 04:00 Glucose (Fingerstick) 368mg/dL (70-99) 278mg/dL (70-99) 276mg/dL (70-99) White Blood Count 11.9x10^3/uL (4.0-11.0) Red Blood Count 3.19x10^6/uL (4.30-5.70) Hemoglobin 10.1g/dL (13.0-17.5) Hematocrit 30.9% (39.0-53.0) Mean Corpuscular Volume 97fL (79-100) Mean Corpuscular Hemoglobin 32pg (25-35) Mean Corpuscular Hemoglobin Concent 33g/dL (31-37) Red Cell Distribution Width 13.5% (11.5-14.5) Platelet Count 161x10^3/uL (140-400) Neutrophils (%) (Auto) 78% (31-73) Lymphocytes (%) (Auto) 11% (24-48) Monocytes (%) (Auto) 9% (0-9) Eosinophils (%) (Auto) 2% (0-3) Basophils (%) (Auto) 0% (0-3) Neutrophils # (Auto) 9.2x10^3uL (1.8-7.7) Lymphocytes # (Auto) 1.3x10^3/uL (1.0-4.8) Monocytes # (Auto) 1.1x10^3/uL (0.0-1.1) Eosinophils # (Auto) 0.2x10^3/uL (0.0-0.7) Basophils # (Auto) 0.0x10^3/uL (0.0-0.2) Sodium Level 145mmol/L (136-145) Potassium Level 3.7mmol/L (3.5-5.1) Chloride Level 104mmol/L (98-107) Carbon Dioxide Level 33mmol/L (21-32) Anion Gap 8 (6-14) Blood Urea Nitrogen 112mg/dL (8-26) Creatinine 2.1mg/dL (0.7-1.3) Estimated GFR (Cockcroft-Gault) 30.0 Glucose Level 208mg/dL (70-99) Calcium Level 9.3mg/dL (8.5-10.1) Magnesium Level 2.9mg/dL (1.8-2.4) MS-Mji-J-Type Natriuretic Peptide 94714cv/mL (0-449) Test 12/07/16 07:21 12/07/16 11:07 Glucose (Fingerstick) 248mg/dL (70-99) 346mg/dL (70-99) Review of Systems Review of Systems Holden cath in place, on clear diet, awake, alert, incision site intact, afebrile Assessment and Plan Assessmemt and Plan 1. Gastric outlet obstruction with hiatal hernia and gastric volvulus- Heena Fundoplication procedure performed 2. Abdominal pain 3. Constipation 4. Diabetes Mellitus Type 2 5. Hypertension 6. Parkinson's Disease Plan: Continue post operative care Clinimix at 80ml/hr continued Continue Zosyn Repeat daily labs Continue holden catheter Subspecialties input and recommendations greatly appreciated Plan discussed with patient and RN Problems Medical Problems: (1) Gastric outlet obstruction Status: Acute Problems: Comment Review of Relevant I have reviewed the following items rachael (where applicable) has been applied. Labs Laboratory Tests Test 3/1/17 12:33 12/05/16 19:19 12/05/16 23:48 12/06/16 04:10 Glucose (Fingerstick) 239mg/dL (70-99) 358mg/dL (70-99) 333mg/dL (70-99) Sodium Level 150mmol/L (136-145) Potassium Level 3.9mmol/L (3.5-5.1) Chloride Level 110mmol/L (98-107) Carbon Dioxide Level 34mmol/L (21-32) Anion Gap 6 (6-14) Blood Urea Nitrogen 93mg/dL (8-26) Creatinine 2.1mg/dL (0.7-1.3) Estimated GFR (Cockcroft-Gault) 30.0 BUN/Creatinine Ratio 44 (6-20) Glucose Level 389mg/dL (70-99) Calcium Level 9.3mg/dL (8.5-10.1) Total Bilirubin 0.5mg/dL (0.2-1.0) Aspartate Amino Transf (AST/SGOT) 38U/L (15-37) Alanine Aminotransferase (ALT/SGPT) 29U/L (16-63) Alkaline Phosphatase 54U/L (46-116) Total Protein 5.9g/dL (6.4-8.2) Albumin 2.5g/dL (3.4-5.0) Albumin/Globulin Ratio 0.7 (1.0-1.7) Test 12/06/16 12:14 12/06/16 15:59 12/06/16 21:08 12/07/16 04:00 Glucose (Fingerstick) 368mg/dL (70-99) 278mg/dL (70-99) 276mg/dL (70-99) White Blood Count 11.9x10^3/uL (4.0-11.0) Red Blood Count 3.19x10^6/uL (4.30-5.70) Hemoglobin 10.1g/dL (13.0-17.5) Hematocrit 30.9% (39.0-53.0) Mean Corpuscular Volume 97fL (79-100) Mean Corpuscular Hemoglobin 32pg (25-35) Mean Corpuscular Hemoglobin Concent 33g/dL (31-37) Red Cell Distribution Width 13.5% (11.5-14.5) Platelet Count 161x10^3/uL (140-400) Neutrophils (%) (Auto) 78% (31-73) Lymphocytes (%) (Auto) 11% (24-48) Monocytes (%) (Auto) 9% (0-9) Eosinophils (%) (Auto) 2% (0-3) Basophils (%) (Auto) 0% (0-3) Neutrophils # (Auto) 9.2x10^3uL (1.8-7.7) Lymphocytes # (Auto) 1.3x10^3/uL (1.0-4.8) Monocytes # (Auto) 1.1x10^3/uL (0.0-1.1) Eosinophils # (Auto) 0.2x10^3/uL (0.0-0.7) Basophils # (Auto) 0.0x10^3/uL (0.0-0.2) Sodium Level 145mmol/L (136-145) Potassium Level 3.7mmol/L (3.5-5.1) Chloride Level 104mmol/L (98-107) Carbon Dioxide Level 33mmol/L (21-32) Anion Gap 8 (6-14) Blood Urea Nitrogen 112mg/dL (8-26) Creatinine 2.1mg/dL (0.7-1.3) Estimated GFR (Cockcroft-Gault) 30.0 Glucose Level 208mg/dL (70-99) Calcium Level 9.3mg/dL (8.5-10.1) Magnesium Level 2.9mg/dL (1.8-2.4) SE-Cye-U-Type Natriuretic Peptide 46409bu/mL (0-449) Test 12/07/16 07:21 12/07/16 11:07 Glucose (Fingerstick) 248mg/dL (70-99) 346mg/dL (70-99) Laboratory Tests Test 12/06/16 12:14 12/06/16 15:59 12/06/16 21:08 12/07/16 04:00 Glucose (Fingerstick) 368mg/dL (70-99) 278mg/dL (70-99) 276mg/dL (70-99) White Blood Count 11.9x10^3/uL (4.0-11.0) Red Blood Count 3.19x10^6/uL (4.30-5.70) Hemoglobin 10.1g/dL (13.0-17.5) Hematocrit 30.9% (39.0-53.0) Mean Corpuscular Volume 97fL (79-100) Mean Corpuscular Hemoglobin 32pg (25-35) Mean Corpuscular Hemoglobin Concent 33g/dL (31-37) Red Cell Distribution Width 13.5% (11.5-14.5) Platelet Count 161x10^3/uL (140-400) Neutrophils (%) (Auto) 78% (31-73) Lymphocytes (%) (Auto) 11% (24-48) Monocytes (%) (Auto) 9% (0-9) Eosinophils (%) (Auto) 2% (0-3) Basophils (%) (Auto) 0% (0-3) Neutrophils # (Auto) 9.2x10^3uL (1.8-7.7) Lymphocytes # (Auto) 1.3x10^3/uL (1.0-4.8) Monocytes # (Auto) 1.1x10^3/uL (0.0-1.1) Eosinophils # (Auto) 0.2x10^3/uL (0.0-0.7) Basophils # (Auto) 0.0x10^3/uL (0.0-0.2) Sodium Level 145mmol/L (136-145) Potassium Level 3.7mmol/L (3.5-5.1) Chloride Level 104mmol/L (98-107) Carbon Dioxide Level 33mmol/L (21-32) Anion Gap 8 (6-14) Blood Urea Nitrogen 112mg/dL (8-26) Creatinine 2.1mg/dL (0.7-1.3) Estimated GFR (Cockcroft-Gault) 30.0 Glucose Level 208mg/dL (70-99) Calcium Level 9.3mg/dL (8.5-10.1) Magnesium Level 2.9mg/dL (1.8-2.4) PZ-Hfu-J-Type Natriuretic Peptide 07521td/mL (0-449) Test 12/07/16 07:21 12/07/16 11:07 Glucose (Fingerstick) 248mg/dL (70-99) 346mg/dL (70-99) Medications Current Medications Sodium Chloride (Normal Saline Flush) 3 ml PRN DAILY PRN IV AFTER MEDS AND BLOOD DRAWS; Start 12/02/16 at 19:30 Morphine Sulfate 1 mg PRN Q1HR PRN IV PAIN Last administered on 12/06/16 10:22 ; Start 12/02/16 at 19:30 Bisacodyl (Dulcolax Supp) 10 mg PRN DAILY PRN MA CONSTIPATION; Start 12/02/16 at 19:30 Hydralazine HCl (Apresoline) 10 mg PRN Q4HRS PRN IVP ELEVATED BP, SEE COMMENTS ; Start 12/02/16 at 19:45 Acetaminophen 650 mg 650 mg PRN Q6HRS PRN MA MILD PAIN / TEMP; Start 12/02/16 at 19:45; Stop 12/04/16 at 14:30; Status DC Sodium Chloride 1,000 ml @ 150 mls/hr Q6H40M IV ; Start 12/02/16 at 23:00; Stop 12/03/16 at 01:24; Status DC Piperacillin Sod/ Tazobactam Sod/ Sodium Chloride (Zosyn/Iv Sodium Chloride 0.9 % 50ml) 50 ml @ 100 mls/hr 1X ONCE IV Last administered on 12/03/16 00:15; Start 12/02/16 at 23:00; Stop 12/02/16 at 23:29; Status DC Piperacillin Sod/ Tazobactam Sod 1 each 1 each PRN DAILY PRN MC SEE COMMENTS; Start 12/02/16 at 23:00; Stop 12/05/16 at 09:25; Status DC Piperacillin Sod/ Tazobactam Sod 2.25 gm/Sodium Chloride 50 ml @ 100 mls/hr Q8HRS IV Last administered on 12/07/16 05:55; Start 12/03/16 at 06:00 Sodium Chloride 1,000 ml @ 75 mls/hr Q6H40M IV Last administered on 12/03/16 01:56; Start 12/03/16 at 23:00; Stop 12/04/16 at 09:27; Status DC Lactated Ringer's (Iv Lactated Ringers) 1,000 ml @ 50 mls/hr Q20H IV ; Start at 07:00; Stop 12/04/16 at 18:59; Status DC Acetaminophen (Tylenol) 650 mg PRN Q6HRS PRN PO FEVER; Start 12/04/16 at 09:30 Amlodipine Besylate (Norvasc) 2.5 mg DAILY PO Last administered on 12/07/16 08: 40; Start 12/04/16 at 10:00 Aspirin (Ecotrin) 81 mg DAILY PO Last administered on 12/07/16 08:38; Start at 10:00 Carbidopa/Levodopa (Sinemet 25/100) 1 tab QID PO Last administered on 12/07/16 11:44; Start 12/04/16 at 10:00 Atorvastatin Calcium (Lipitor) 20 mg QHS PO Last administered on 12/06/16 22:26 ; Start 12/04/16 at 21:00 Calcium/Vitamin D (Oscal D 500mg/ 200uts) 1 tab BIDWMEALS PO Last administered on 12/07/16 08:38; Start 12/04/16 at 10:00 Pantoprazole Sodium 40 mg 40 mg DAILYAC PO Last administered on 12/07/16 08:38 ; Start 12/04/16 at 10:00 Potassium Chloride 100 ml @ 100 mls/hr Q1H IV Last administered on 12/04/16 12:29; Start 12/04/16 at 10:00; Stop 12/04/16 at 11:59; Status DC Potassium Chloride/Sodium Chloride (KCl 20 Meq-0.45% Nacl) 1,000 ml @ 75 mls/ hr [id number] IV ; Start 12/04/16 at 10:00; Stop 12/04/16 at 14:30; Status DC Insulin Aspart (Novolog) 0-9 UNITS TIDWMEALS SQ ; Start 12/04/16 at 12:00; Stop 12/05/16 at 00:12; Status DC Dextrose 12.5 gm 12.5 gm PRN Q15MIN PRN IV SEE COMMENTS; Start 12/04/16 at 09: 30 Amino Acids/ Electrolytes/ Dextrose 1,000 ml @ 80 mls/hr [id number] IV Last administered on 12/07/16 04:20; Start 12/04/16 at 10:30 Sodium Chloride (Iv Sodium Chloride 0.9% 1000ml Bag) 1,000 ml @ 75 mls/hr [id number] IV Last administered on 12/06/16 06:00; Start 12/04/16 at 14:00; Stop 12/06/16 at 16:14; Status DC Heparin Sodium (Porcine) 5000 unit 5,000 unit Q8HRS SQ ; Start 12/04/16 at 14:30 ; Stop 12/04/16 at 16:48; Status DC Propofol (Diprivan) 20 ml @ As Directed STK-MED ONCE IV ; Start 12/04/16 at 14: 58; Stop 12/04/16 at 14:59; Status DC Lidocaine HCl (Lidocaine Pf 2% Vial) 5 ml STK-MED ONCE .ROUTE ; Start 12/04/16 at 14:58; Stop 12/04/16 at 14:59; Status DC Ondansetron HCl (Zofran) 4 mg PRN Q6HRS PRN IV Nausea; Start 12/05/16 at 07:00; Stop 12/06/16 at 06:59; Status DC Fentanyl Citrate (Fentanyl 2ml Vial) 25 mcg PRN Q5MIN PRN IV MILD PAIN; Start 12/05/16 at 07:00; Stop 12/06/16 at 06:59; Status DC Fentanyl Citrate (Fentanyl 2ml Vial) 50 mcg PRN Q5MIN PRN IV MODERATE PAIN Last administered on 12/05/16 15:24; Start 12/05/16 at 07:00; Stop 12/06/16 at 06: 59; Status DC Morphine Sulfate 1 mg 1 mg PRN Q10MIN PRN IV SEVERE PAIN; Start 12/05/16 at 07: 00; Stop 12/06/16 at 06:59; Status DC Lactated Ringer's (Iv Lactated Ringers) 1,000 ml @ 0 mls/hr Q0M IV ; Start 12/05 at 07:00; Stop 12/05/16 at 18:59; Status DC Lidocaine HCl 2 ml 1X PRN PRN ID IV START; Start 12/05/16 at 07:00; Stop at 06:59; Status DC Hydromorphone HCl (Dilaudid) 0.5 mg PRN Q10MIN PRN IV SEVERE PAIN, Second choice; Start 12/05/16 at 07:00; Stop 12/06/16 at 06:59; Status DC Prochlorperazine Edisylate (Compazine) 5 mg PACU PRN PRN IV NAUSEA; Start at 07:00; Stop 12/06/16 at 06:59; Status DC Insulin Aspart (Novolog) 0-9 UNITS QIDACHS SQ Last administered on 12/07/16 11: 47; Start 12/05/16 at 00:30 Cellulose 1 each STK-MED ONCE .ROUTE ; Start 12/05/16 at 07:09; Stop 12/05/16 at 07:10; Status DC Bupivacaine HCl/ Epinephrine Bitart 30 ml 30 ml STK-MED ONCE .ROUTE Last administered on 12/05/16 08:35; Start 12/05/16 at 07:09; Stop 12/05/16 at 07:10; Status DC Propofol (Diprivan) 20 ml @ As Directed STK-MED ONCE IV ; Start 12/05/16 at 07:13 ; Stop 12/05/16 at 07:14; Status DC Lidocaine HCl 100 mg STK-MED ONCE .ROUTE ; Start 12/05/16 at 07:13; Stop 12/05/16 at 07:14; Status DC Rocuronium [place] (Zemuron) 50 mg STK-MED ONCE .ROUTE ; Start 12/05/16 at 07:13 ; Stop 12/05/16 at 07:14; Status DC Succinylcholine Chloride (Anectine) 200 mg STK-MED ONCE .ROUTE ; Start 12/05/16 at 07:14; Stop 12/05/16 at 07:15; Status DC Fentanyl Citrate (Fentanyl 2ml Vial) 100 mcg STK-MED ONCE .ROUTE ; Start at 07:16; Stop 12/05/16 at 07:17; Status DC Cellulose 1 each STK-MED ONCE .ROUTE ; Start 12/05/16 at 07:34; Stop 12/05/16 at 07:35; Status DC Phenylephrine HCl 1 mg 1 mg STK-MED ONCE IV ; Start 12/05/16 at 07:46; Stop at 07:47; Status DC Acetaminophen (Ofirmev) 100 ml @ As Directed STK-MED ONCE IV ; Start 12/05/16 at 08:29; Stop 12/05/16 at 08:30; Status DC Fentanyl Citrate (Fentanyl 2ml Vial) 100 mcg STK-MED ONCE .ROUTE ; Start at 08:32; Stop 12/05/16 at 08:33; Status DC Desflurane (Suprane) 90 ml STK-MED ONCE IH ; Start 12/05/16 at 09:09; Stop at 09:10; Status DC Insulin Aspart (Novolog) 8 units 1X ONCE SQ ; Start 12/05/16 at 10:15; Stop 12/05 at 10:15; Status DC Ephedrine Sulfate 50 mg STK-MED ONCE IV ; Start 12/05/16 at 10:01; Stop 12/05/16 at 10:02; Status DC Insulin Aspart (Novolog Vial) 8 unit ONCE ONCE SQ ; Start 12/05/16 at 10:15; Stop 12/05/16 at 10:16; Status DC Insulin Human Regular (Novolin R Vial) 8 unit 1X ONCE IV ; Start 12/05/16 at 10: 30; Stop 12/05/16 at 10:30; Status DC Insulin Human Regular 8 unit 8 unit 1X ONCE IV ; Start 12/05/16 at 10:30; Stop 12/05/16 at 10:31; Status DC Albumin Human 0 ml @ As Directed STK-MED ONCE IV ; Start 12/05/16 at 10:20; Stop 12/05/16 at 10:21; Status DC Albumin Human 0 ml @ As Directed STK-MED ONCE IV ; Start 12/05/16 at 10:20; Stop 12/05/16 at 10:21; Status DC Albumin Human (Plasmanate) 500 ml @ As Directed STK-MED ONCE IV ; Start at 10:24; Stop 12/05/16 at 10:25; Status DC Neostigmine Methylsulfate 5 mg STK-MED ONCE .ROUTE ; Start 12/05/16 at 10:55; Stop 12/05/16 at 10:56; Status DC Glycopyrrolate (Robinul) 1 mg STK-MED ONCE .ROUTE ; Start 12/05/16 at 10:55; Stop 12/05/16 at 10:56; Status DC Phenylephrine HCl (Guido-Synephrine Inj) 10 mg STK-MED ONCE .ROUTE ; Start at 11:00; Stop 12/05/16 at 11:01; Status DC Insulin Aspart (Novolog) 3 units 1X ONCE SQ Last administered on 12/06/16t 14: 30; Start 12/06/16 at 14:30; Stop 12/06/16 at 14:31; Status DC Lidocaine HCl (Glydo (Lidocaine) Jelly) 1 kassidy 1X ONCE MM ; Start 12/06/16 at 22: 00; Stop 12/06/16 at 22:01; Status DC Acetaminophen/ Hydrocodone Bitart (Lortab 7.5-325/ 15ml Oral Solution) 15 ml PRN Q6HRS PRN PO PAIN; Start 12/07/16 at 09:15 Active Scripts Active Reported Calcium 600 + Vit D 200 Tablet (Calcium Carbonate/Vitamin D3) 1 Each Tablet 1 Each PO BID Simvastatin 40 Mg Tablet 0.5 Tab PO QHS Ranitidine Hcl 150 Mg Tablet 1 Tab PO BID Omeprazole 40 Mg Capsule.dr 1 Cap PO DAILY Humulin R (Insulin Regular, Human) 100 Unit/1 Ml Vial 5-8 Unit IJ TIDWMEALS Furosemide 40 Mg Tablet 0.5 Tab PO DAILY PRN Furosemide 40 Mg Tablet 0.5 Tab PO DAILY Sinemet 25-100 Mg Tablet (Carbidopa/Levodopa) 1 Each Tablet 1 Tab PO QID Aspirin Ec (Aspirin) 81 Mg Tablet.dr 1 Tab PO DAILY Amlodipine Besylate 5 Mg Tablet 2.5 Mg PO DAILY Tylenol (Acetaminophen) 325 Mg Tablet 1-2 Tab PO QID Vitals/I & O Vital Sign - Last 24 Hours 12/06/16 12/06/16 12/06/16 12/06/16 13:00 15:40 20:00 20:00 Temp 98.0 98.3 98.1 98.0 98.3 98.1 Pulse 106 66 57 Resp 16 20 16 B/P 105/81 128/53 114/37 Pulse Ox 94 99 94 O2 Delivery Room Air Room Air Room Air Room Air 12/07/16 12/07/16 12/07/16 12/07/16 03:12 07:00 08:40 11:00 Temp 98.1 97.9 97.6 98.1 97.9 97.6 Pulse 60 72 72 70 Resp 16 16 18 B/P 133/49 153/97 153/73 120/68 Pulse Ox 95 96 95 O2 Delivery Room Air Room Air Room Air Intake and Output 12/06/16 12/06/16 12/07/16 15:00 23:00 07:00 Intake Total 1080 ml 320 ml 120 ml Output Total 300 ml 350 ml 200 ml Balance 780 ml -30 ml -80 ml PHIL GROSS III DO Dec 07, 2016 12:26
--- NOTE | 2016-12-07 12:42 | PDOC ---
Renal-Progress Notes Subjective Notes Notes NONE History of Present Illness Hx of present illness BETTER Vitals Vitals Vital Signs Date Time Temp Pulse Resp B/P Pulse Ox O2 Delivery O2 Flow Rate FiO2 12/07/16 11:00 97.6 70 18 120/68 95 Room Air 97.6 12/06/16 10:22 2.0 Weight Weight [ ] I.O. Intake and Output Intake and Output 12/07/16 07:00 Intake Total 1520 ml Output Total 850 ml Balance 670 ml Intake Oral 1520 ml Output Urine Total 850 ml Labs Labs Laboratory Tests Test 12/06/16 15:59 12/06/16 21:08 12/07/16 04:00 12/07/16 07:21 Glucose (Fingerstick) 278mg/dL (70-99) 276mg/dL (70-99) 248mg/dL (70-99) White Blood Count 11.9x10^3/uL (4.0-11.0) Red Blood Count 3.19x10^6/uL (4.30-5.70) Hemoglobin 10.1g/dL (13.0-17.5) Hematocrit 30.9% (39.0-53.0) Mean Corpuscular Volume 97fL (79-100) Mean Corpuscular Hemoglobin 32pg (25-35) Mean Corpuscular Hemoglobin Concent 33g/dL (31-37) Red Cell Distribution Width 13.5% (11.5-14.5) Platelet Count 161x10^3/uL (140-400) Neutrophils (%) (Auto) 78% (31-73) Lymphocytes (%) (Auto) 11% (24-48) Monocytes (%) (Auto) 9% (0-9) Eosinophils (%) (Auto) 2% (0-3) Basophils (%) (Auto) 0% (0-3) Neutrophils # (Auto) 9.2x10^3uL (1.8-7.7) Lymphocytes # (Auto) 1.3x10^3/uL (1.0-4.8) Monocytes # (Auto) 1.1x10^3/uL (0.0-1.1) Eosinophils # (Auto) 0.2x10^3/uL (0.0-0.7) Basophils # (Auto) 0.0x10^3/uL (0.0-0.2) Sodium Level 145mmol/L (136-145) Potassium Level 3.7mmol/L (3.5-5.1) Chloride Level 104mmol/L (98-107) Carbon Dioxide Level 33mmol/L (21-32) Anion Gap 8 (6-14) Blood Urea Nitrogen 112mg/dL (8-26) Creatinine 2.1mg/dL (0.7-1.3) Estimated GFR (Cockcroft-Gault) 30.0 Glucose Level 208mg/dL (70-99) Calcium Level 9.3mg/dL (8.5-10.1) Magnesium Level 2.9mg/dL (1.8-2.4) HJ-Vez-V-Type Natriuretic Peptide 74778bm/mL (0-449) Test 12/07/16 11:07 Glucose (Fingerstick) 346mg/dL (70-99) Review of Systems Constitutional: yes: no symptom reported Physical Exam General Appearance: no apparent distress Skin: warm Respiratory: decreased breath sounds Heart: S1S2, RRR Abdomen: soft, other (HYPOACTIVE) Genitourinary: bladder flat Extremities: atrophy Neurology: alert, oriented, follow commands, other [place] Musculoskeletal: Osteoarthritis Assessment Assessment IMP DIPIKA-IMPROVING HYPOVOLEMIA HYPOKALEMIA-BETTER HYPERNATREMIA GASTRIC OBSTRUCTION LEUCOCYTOSIS-BETTER S/P [place] FUNDOPLICATION PLAN PPN TO CONTINUE ENC PO TOLERATED WILL FOLLOW EZEKIEL RAMOS MD Dec 07, 2016 12:42
--- NOTE | 2016-12-07 13:39 | PDOC ---
CARDIO Progress Notes Date and Time Date of Service 12/07/16 Time of Evaluation 1420 Subjective Subjective: No Chest Pain, No shortness of breath, No Palpitations, Other ( mild surgical abd tenderness. ) Vitals Vitals Vital Signs Date Time Temp Pulse Resp B/P Pulse Ox O2 Delivery O2 Flow Rate FiO2 12/07/16 11:00 97.6 70 18 120/68 95 Room Air 97.6 12/06/16 10:22 2.0 Weight Weight [ ] Input and Output Intake and Output Intake and Output 12/07/16 07:00 Intake Total 1520 ml Output Total 850 ml Balance 670 ml Intake Oral 1520 ml Output Urine Total 850 ml Laboratory Labs Laboratory Tests Test 12/06/16 15:59 12/06/16 21:08 12/07/16 04:00 12/07/16 07:21 Glucose (Fingerstick) 278mg/dL (70-99) 276mg/dL (70-99) 248mg/dL (70-99) White Blood Count 11.9x10^3/uL (4.0-11.0) Red Blood Count 3.19x10^6/uL (4.30-5.70) Hemoglobin 10.1g/dL (13.0-17.5) Hematocrit 30.9% (39.0-53.0) Mean Corpuscular Volume 97fL (79-100) Mean Corpuscular Hemoglobin 32pg (25-35) Mean Corpuscular Hemoglobin Concent 33g/dL (31-37) Red Cell Distribution Width 13.5% (11.5-14.5) Platelet Count 161x10^3/uL (140-400) Neutrophils (%) (Auto) 78% (31-73) Lymphocytes (%) (Auto) 11% (24-48) Monocytes (%) (Auto) 9% (0-9) Eosinophils (%) (Auto) 2% (0-3) Basophils (%) (Auto) 0% (0-3) Neutrophils # (Auto) 9.2x10^3uL (1.8-7.7) Lymphocytes # (Auto) 1.3x10^3/uL (1.0-4.8) Monocytes # (Auto) 1.1x10^3/uL (0.0-1.1) Eosinophils # (Auto) 0.2x10^3/uL (0.0-0.7) Basophils # (Auto) 0.0x10^3/uL (0.0-0.2) Sodium Level 145mmol/L (136-145) Potassium Level 3.7mmol/L (3.5-5.1) Chloride Level 104mmol/L (98-107) Carbon Dioxide Level 33mmol/L (21-32) Anion Gap 8 (6-14) Blood Urea Nitrogen 112mg/dL (8-26) Creatinine 2.1mg/dL (0.7-1.3) Estimated GFR (Cockcroft-Gault) 30.0 Glucose Level 208mg/dL (70-99) Calcium Level 9.3mg/dL (8.5-10.1) Magnesium Level 2.9mg/dL (1.8-2.4) RF-Nzq-V-Type Natriuretic Peptide 24188fm/mL (0-449) Test 12/07/16 11:07 Glucose (Fingerstick) 346mg/dL (70-99) Review of Systems Constitutional: yes: no symptom reported Physical Exam HEENT: Neck Supple W Full Motion Chest: Symmetric LUNGS: Clear to Auscultation, Other (diminished bases, no crackles) Heart: S1S2, other (distant hrt tones. tele SR with intermittent V pacing with PVC's and PAC's ) Abdomen: Soft N/T, Other (abdominal lap sites) Extremities: Other (trace upper ext edema ) Neurology: alert, oriented, follow commands, other ([place]) Assessment Assessment 1. Arrhythmia 2. Chronic systolic heart failure 3. PPM in situ 4. Coronary artery disease 5. Abdominal Pain 6. Leukocytosis 7. DIPIKA 8. Diabetes 9. Dehydration 10. Esophagitis; volvulus s/p temporary decompression 12/04 11. Gastric outlet obstruction s/p lap repair Recommendations Although BNP elevated, patient appears fairly well clinically compensated. Intake decreased, on PPN Will obtain CXR- Diuresis if warranted Continue supportive care. Post-op management per surgical team ARON HOOK APRN Dec 07, 2016 13:39
--- NOTE | 2016-12-07 14:14 | RAD ---
Exam performed: One view chest. History: CHF. Date of service: 12/07/16. Comparison: 1 view chest from 08/03/13. Single AP upright portable view chest findings: Mild cardiomegaly. The pulmonary vascularity is unremarkable. Linear bibasal atelectasis with tiny bilateral effusions. There is a bipolar pacemaker in place. Impression: Bibasal atelectasis with trace bilateral effusions.
[2016-12-07 15:00] VITALS: BP_SYST 108; BP_SYST 125; BP_DIAS 41; BP_DIAS 74
[2016-12-07] MEDS: FUROSEMIDE 20 MG TABLET PO SCH (17:07)
[2016-12-07 19:00] VITALS: BP 118/56
[2016-12-07] MEDS: ATORVASTATIN CALCIUM 20 MG TABLET PO SCH (20:32)
[2016-12-07] MEDS ORDERED: INSULIN ASPART 300 UNITS/3 ML INSULN.PEN SQ ONE (21:00)
[2016-12-07 22:57] VITALS: BP 116/52
[2016-12-08 03:00] VITALS: BP 112/49
[2016-12-08 05:14] LABS: BASO % 0 % (0-3); EOS % 5 % (0-3); HEMATOCRIT 25.6 % (39.0-53.0); HEMOGLOBIN 8.4 g/dL (13.0-17.5); LYMPH # 1.2 x10^3/uL (1.0-4.8); LYMPH % 12 % (24-48); MEAN CORPUSCULAR HEMOGLOBIN 32 pg (25-35); MEAN CORPUSCULAR HGB CONC 33 g/dL (31-37); MEAN CORPUSCULAR VOLUME 97 fL (79-100); MONO % 10 % (0-9); NEUT % 74 % (31-73); PLATELET COUNT 161 x10^3/uL (140-400); RED BLOOD COUNT 2.64 x10^6/uL (4.30-5.70); RED CELL DISTRIBUTION WIDTH 13.2 % (11.5-14.5)
[2016-12-08 05:30] LABS: CALCIUM 9.2 mg/dL (8.5-10.1); GFR 31.8; POTASSIUM 3.9 mmol/L (3.5-5.1)
[2016-12-08] MEDS: PIPERACILLIN/TAZOBACTAM 2.25 GM in IV NORMAL SALINE 50ML 50 ML IV SCH ×3 (05:33→22:05)
[2016-12-08] MEDS: AA 4.25%/CALCIUM/LYTES/D5W 1,000 ML IV SCH ×3 (05:59→22:05)
[2016-12-08 07:00] VITALS: BP 120/48
[2016-12-08] MEDS: PANTOPRAZOLE 40 MG TABLET. PO SCH (07:54)
[2016-12-08] MEDS: FUROSEMIDE 20 MG TABLET PO SCH (07:54)
[2016-12-08] MEDS: CARBIDOPA/LEVODOPA 25/100MG TABLET PO SCH ×4 (07:54→22:05)
[2016-12-08] MEDS: ASPIRIN ENTERIC COATED 81 MG TABLET.DR. PO SCH (07:54)
[2016-12-08] MEDS: CALCIUM CARB/VIT D3 500/200 TABLET PO SCH ×2 (07:54→18:11)
[2016-12-08] MEDS: AMLODIPINE BESYLATE 2.5 MG TABLET PO SCH (07:56)
[2016-12-08] MEDS: INSULIN ASPART 300 UNITS/3 ML INSULN.PEN SQ SCH ×4 (08:04→22:15)
[2016-12-08 11:00] VITALS: BP 120/43
--- NOTE | 2016-12-08 11:25 | PDOC ---
PROGRESS NOTES Chief Complaint Chief Complaint 1. Gastric outlet obstruction, hiatal hernia with gastric volvulus 2. Abdominal pain 3. Constipation 4. Diabetes Mellitus Type 2 5. Hypertension 6. Parkinson's Disease History of Present Illness History of Present Illness Patient was sleeping in the bed at the time of evaluation, was in no distress, able to keep clear liquid diet down, RN was at bedside, plan of care is discussed with her, no new complains reported this AM. Vitals Vitals Vital Signs Date Time Temp Pulse Resp B/P Pulse Ox O2 Delivery O2 Flow Rate FiO2 12/08/16 08:00 Room Air 12/08/16 07:56 72 120/48 12/08/16 07:00 98.0 16 95 98.0 Physical Exam General: Alert, Oriented X3, Cooperative, No acute distress Heart: Regular rate, No murmurs Lungs: Clear Abdomen: Soft, Other (ND, NTTP, lap dressings dry) Extremities: No edema, No tenderness/swelling Skin: No breakdown, No significant lesion Labs LABS Laboratory Tests Test 12/07/16 16:02 12/07/16 20:34 12/08/16 04:00 Glucose (Fingerstick) 323mg/dL (70-99) 368mg/dL (70-99) White Blood Count 10.0x10^3/uL (4.0-11.0) Red Blood Count 2.64x10^6/uL (4.30-5.70) Hemoglobin 8.4g/dL (13.0-17.5) Hematocrit 25.6% (39.0-53.0) Mean Corpuscular Volume 97fL (79-100) Mean Corpuscular Hemoglobin 32pg (25-35) Mean Corpuscular Hemoglobin Concent 33g/dL (31-37) Red Cell Distribution Width 13.2% (11.5-14.5) Platelet Count 161x10^3/uL (140-400) Neutrophils (%) (Auto) 74% (31-73) Lymphocytes (%) (Auto) 12% (24-48) Monocytes (%) (Auto) 10% (0-9) Eosinophils (%) (Auto) 5% (0-3) Basophils (%) (Auto) 0% (0-3) Neutrophils # (Auto) 7.4x10^3uL (1.8-7.7) Lymphocytes # (Auto) 1.2x10^3/uL (1.0-4.8) Monocytes # (Auto) 1.0x10^3/uL (0.0-1.1) Eosinophils # (Auto) 0.5x10^3/uL (0.0-0.7) Basophils # (Auto) 0.0x10^3/uL (0.0-0.2) Sodium Level 142mmol/L (136-145) Potassium Level 3.9mmol/L (3.5-5.1) Chloride Level 106mmol/L (98-107) Carbon Dioxide Level 31mmol/L (21-32) Anion Gap 5 (6-14) Blood Urea Nitrogen 100mg/dL (8-26) Creatinine 2.0mg/dL (0.7-1.3) Estimated GFR (Cockcroft-Gault) 31.8 Glucose Level 99mg/dL (70-99) Calcium Level 9.2mg/dL (8.5-10.1) Review of Systems Review of Systems Afebrile, no SOB, no CP, Assessment and Plan Assessmemt and Plan ASSESSMENT: 1. Gastric outlet obstruction with hiatal hernia and gastric volvulus- Heena Fundoplication procedure performed 2. Abdominal pain 3. Constipation 4. Diabetes Mellitus Type 2 5. Hypertension 6. Parkinson's Disease Plan: - SNU evaluation - Hope to advance diet - Continue post operative care - Continue Clinimix - Continue Zosyn - Continue holden catheter - Subspecialties input and recommendations greatly appreciated - Plan discussed RN Problems Medical Problems: (1) Gastric outlet obstruction Status: Acute Problems: Comment Review of Relevant I have reviewed the following items rachael (where applicable) has been applied. Labs Laboratory Tests Test 12/06/16 12:14 12/06/16 15:59 12/06/16 21:08 12/07/16 04:00 Glucose (Fingerstick) 368mg/dL (70-99) 278mg/dL (70-99) 276mg/dL (70-99) White Blood Count 11.9x10^3/uL (4.0-11.0) Red Blood Count 3.19x10^6/uL (4.30-5.70) Hemoglobin 10.1g/dL (13.0-17.5) Hematocrit 30.9% (39.0-53.0) Mean Corpuscular Volume 97fL (79-100) Mean Corpuscular Hemoglobin 32pg (25-35) Mean Corpuscular Hemoglobin Concent 33g/dL (31-37) Red Cell Distribution Width 13.5% (11.5-14.5) Platelet Count 161x10^3/uL (140-400) Neutrophils (%) (Auto) 78% (31-73) Lymphocytes (%) (Auto) 11% (24-48) Monocytes (%) (Auto) 9% (0-9) Eosinophils (%) (Auto) 2% (0-3) Basophils (%) (Auto) 0% (0-3) Neutrophils # (Auto) 9.2x10^3uL (1.8-7.7) Lymphocytes # (Auto) 1.3x10^3/uL (1.0-4.8) Monocytes # (Auto) 1.1x10^3/uL (0.0-1.1) Eosinophils # (Auto) 0.2x10^3/uL (0.0-0.7) Basophils # (Auto) 0.0x10^3/uL (0.0-0.2) Sodium Level 145mmol/L (136-145) Potassium Level 3.7mmol/L (3.5-5.1) Chloride Level 104mmol/L (98-107) Carbon Dioxide Level 33mmol/L (21-32) Anion Gap 8 (6-14) Blood Urea Nitrogen 112mg/dL (8-26) Creatinine 2.1mg/dL (0.7-1.3) Estimated GFR (Cockcroft-Gault) 30.0 Glucose Level 208mg/dL (70-99) Calcium Level 9.3mg/dL (8.5-10.1) Magnesium Level 2.9mg/dL (1.8-2.4) QX-Kgh-H-Type Natriuretic Peptide 97346wm/mL (0-449) Test 12/07/16 07:21 12/07/16 11:07 12/07/16 16:02 12/07/16 20:34 Glucose (Fingerstick) 248mg/dL (70-99) 346mg/dL (70-99) 323mg/dL (70-99) 368mg/dL (70-99) Test 12/08/16 04:00 White Blood Count 10.0x10^3/uL (4.0-11.0) Red Blood Count 2.64x10^6/uL (4.30-5.70) Hemoglobin 8.4g/dL (13.0-17.5) Hematocrit 25.6% (39.0-53.0) Mean Corpuscular Volume 97fL (79-100) Mean Corpuscular Hemoglobin 32pg (25-35) Mean Corpuscular Hemoglobin Concent 33g/dL (31-37) Red Cell Distribution Width 13.2% (11.5-14.5) Platelet Count 161x10^3/uL (140-400) Neutrophils (%) (Auto) 74% (31-73) Lymphocytes (%) (Auto) 12% (24-48) Monocytes (%) (Auto) 10% (0-9) Eosinophils (%) (Auto) 5% (0-3) Basophils (%) (Auto) 0% (0-3) Neutrophils # (Auto) 7.4x10^3uL (1.8-7.7) Lymphocytes # (Auto) 1.2x10^3/uL (1.0-4.8) Monocytes # (Auto) 1.0x10^3/uL (0.0-1.1) Eosinophils # (Auto) 0.5x10^3/uL (0.0-0.7) Basophils # (Auto) 0.0x10^3/uL (0.0-0.2) Sodium Level 142mmol/L (136-145) Potassium Level 3.9mmol/L (3.5-5.1) Chloride Level 106mmol/L (98-107) Carbon Dioxide Level 31mmol/L (21-32) Anion Gap 5 (6-14) Blood Urea Nitrogen 100mg/dL (8-26) Creatinine 2.0mg/dL (0.7-1.3) Estimated GFR (Cockcroft-Gault) 31.8 Glucose Level 99mg/dL (70-99) Calcium Level 9.2mg/dL (8.5-10.1) Laboratory Tests Test 12/07/16 16:02 12/07/16 20:34 12/08/16 04:00 Glucose (Fingerstick) 323mg/dL (70-99) 368mg/dL (70-99) White Blood Count 10.0x10^3/uL (4.0-11.0) Red Blood Count 2.64x10^6/uL (4.30-5.70) Hemoglobin 8.4g/dL (13.0-17.5) Hematocrit 25.6% (39.0-53.0) Mean Corpuscular Volume 97fL (79-100) Mean Corpuscular Hemoglobin 32pg (25-35) Mean Corpuscular Hemoglobin Concent 33g/dL (31-37) Red Cell Distribution Width 13.2% (11.5-14.5) Platelet Count 161x10^3/uL (140-400) Neutrophils (%) (Auto) 74% (31-73) Lymphocytes (%) (Auto) 12% (24-48) Monocytes (%) (Auto) 10% (0-9) Eosinophils (%) (Auto) 5% (0-3) Basophils (%) (Auto) 0% (0-3) Neutrophils # (Auto) 7.4x10^3uL (1.8-7.7) Lymphocytes # (Auto) 1.2x10^3/uL (1.0-4.8) Monocytes # (Auto) 1.0x10^3/uL (0.0-1.1) Eosinophils # (Auto) 0.5x10^3/uL (0.0-0.7) Basophils # (Auto) 0.0x10^3/uL (0.0-0.2) Sodium Level 142mmol/L (136-145) Potassium Level 3.9mmol/L (3.5-5.1) Chloride Level 106mmol/L (98-107) Carbon Dioxide Level 31mmol/L (21-32) Anion Gap 5 (6-14) Blood Urea Nitrogen 100mg/dL (8-26) Creatinine 2.0mg/dL (0.7-1.3) Estimated GFR (Cockcroft-Gault) 31.8 Glucose Level 99mg/dL (70-99) Calcium Level 9.2mg/dL (8.5-10.1) Medications Current Medications Sodium Chloride (Normal Saline Flush) 3 ml PRN DAILY PRN IV AFTER MEDS AND BLOOD DRAWS; Start 12/02/16 at 19:30 Morphine Sulfate 1 mg PRN Q1HR PRN IV PAIN Last administered on 12/06/16 10:22 ; Start 12/02/16 at 19:30 Bisacodyl (Dulcolax Supp) 10 mg PRN DAILY PRN WI CONSTIPATION; Start 12/02/16 at 19:30 Hydralazine HCl (Apresoline) 10 mg PRN Q4HRS PRN IVP ELEVATED BP, SEE COMMENTS ; Start 12/02/16 at 19:45 Acetaminophen 650 mg 650 mg PRN Q6HRS PRN WI MILD PAIN / TEMP; Start 12/02/16 at 19:45; Stop 12/04/16 at 14:30; Status DC Sodium Chloride 1,000 ml @ 150 mls/hr Q6H40M IV ; Start 12/02/16 at 23:00; Stop 12/03/16 at 01:24; Status DC Piperacillin Sod/ Tazobactam Sod/ Sodium Chloride (Zosyn/Iv Sodium Chloride 0.9 % 50ml) 50 ml @ 100 mls/hr 1X ONCE IV Last administered on 12/03/16 00:15; Start 12/02/16 at 23:00; Stop 12/02/16 at 23:29; Status DC Piperacillin Sod/ Tazobactam Sod 1 each 1 each PRN DAILY PRN MC SEE COMMENTS; Start 12/02/16 at 23:00; Stop 12/05/16 at 09:25; Status DC Piperacillin Sod/ Tazobactam Sod 2.25 gm/Sodium Chloride 50 ml @ 100 mls/hr Q8HRS IV Last administered on 12/08/16 05:33; Start 12/03/16 at 06:00 Sodium Chloride 1,000 ml @ 75 mls/hr Q6H40M IV Last administered on 12/03/16 01:56; Start 12/03/16 at 23:00; Stop 12/04/16 at 09:27; Status DC Lactated Ringer's (Iv Lactated Ringers) 1,000 ml @ 50 mls/hr Q20H IV ; Start at 07:00; Stop 12/04/16 at 18:59; Status DC Acetaminophen (Tylenol) 650 mg PRN Q6HRS PRN PO FEVER; Start 12/04/16 at 09:30 Amlodipine Besylate (Norvasc) 2.5 mg DAILY PO Last administered on 12/08/16 07: 56; Start 12/04/16 at 10:00 Aspirin (Ecotrin) 81 mg DAILY PO Last administered on 12/08/16 07:54; Start at 10:00 Carbidopa/Levodopa (Sinemet 25/100) 1 tab QID PO Last administered on 12/08/16 07:54; Start 12/04/16 at 10:00 Atorvastatin Calcium (Lipitor) 20 mg QHS PO Last administered on 12/07/16 20:32 ; Start 12/04/16 at 21:00 Calcium/Vitamin D (Oscal D 500mg/ 200uts) 1 tab BIDWMEALS PO Last administered on 12/08/16 07:54; Start 12/04/16 at 10:00 Pantoprazole Sodium 40 mg 40 mg DAILYAC PO Last administered on 12/08/16 07:54 ; Start 12/04/16 at 10:00 Potassium Chloride 100 ml @ 100 mls/hr Q1H IV Last administered on 12/04/16 12:29; Start 12/04/16 at 10:00; Stop 12/04/16 at 11:59; Status DC Potassium Chloride/Sodium Chloride (KCl 20 Meq-0.45% Nacl) 1,000 ml @ 75 mls/ hr [id number] IV ; Start 12/04/16 at 10:00; Stop 12/04/16 at 14:30; Status DC Insulin Aspart (Novolog) 0-9 UNITS TIDWMEALS SQ ; Start 12/04/16 at 12:00; Stop 12/05/16 at 00:12; Status DC Dextrose 12.5 gm 12.5 gm PRN Q15MIN PRN IV SEE COMMENTS; Start 12/04/16 at 09: 30 Amino Acids/ Electrolytes/ Dextrose 1,000 ml @ 80 mls/hr [id number] IV Last administered on 12/08/16 05:59; Start 12/04/16 at 10:30 Sodium Chloride (Iv Sodium Chloride 0.9% 1000ml Bag) 1,000 ml @ 75 mls/hr [id number] IV Last administered on 12/06/16 06:00; Start 12/04/16 at 14:00; Stop 12/06/16 at 16:14; Status DC Heparin Sodium (Porcine) 5000 unit 5,000 unit Q8HRS SQ ; Start 12/04/16 at 14:30 ; Stop 12/04/16 at 16:48; Status DC Propofol (Diprivan) 20 ml @ As Directed STK-MED ONCE IV ; Start 12/04/16 at 14: 58; Stop 12/04/16 at 14:59; Status DC Lidocaine HCl (Lidocaine Pf 2% Vial) 5 ml STK-MED ONCE .ROUTE ; Start 12/04/16 at 14:58; Stop 12/04/16 at 14:59; Status DC Ondansetron HCl (Zofran) 4 mg PRN Q6HRS PRN IV Nausea; Start 12/05/16 at 07:00; Stop 12/06/16 at 06:59; Status DC Fentanyl Citrate (Fentanyl 2ml Vial) 25 mcg PRN Q5MIN PRN IV MILD PAIN; Start 12/05/16 at 07:00; Stop 12/06/16 at 06:59; Status DC Fentanyl Citrate (Fentanyl 2ml Vial) 50 mcg PRN Q5MIN PRN IV MODERATE PAIN Last administered on 12/05/16 15:24; Start 12/05/16 at 07:00; Stop 12/06/16 at 06: 59; Status DC Morphine Sulfate 1 mg 1 mg PRN Q10MIN PRN IV SEVERE PAIN; Start 12/05/16 at 07: 00; Stop 12/06/16 at 06:59; Status DC Lactated Ringer's (Iv Lactated Ringers) 1,000 ml @ 0 mls/hr Q0M IV ; Start 12/05 at 07:00; Stop 12/05/16 at 18:59; Status DC Lidocaine HCl 2 ml 1X PRN PRN ID IV START; Start 12/05/16 at 07:00; Stop at 06:59; Status DC Hydromorphone HCl (Dilaudid) 0.5 mg PRN Q10MIN PRN IV SEVERE PAIN, Second choice; Start 12/05/16 at 07:00; Stop 12/06/16 at 06:59; Status DC Prochlorperazine Edisylate (Compazine) 5 mg PACU PRN PRN IV NAUSEA; Start at 07:00; Stop 12/06/16 at 06:59; Status DC Insulin Aspart (Novolog) 0-9 UNITS QIDACHS SQ Last administered on 12/08/16 08: 04; Start 12/05/16 at 00:30 Cellulose 1 each STK-MED ONCE .ROUTE ; Start 12/05/16 at 07:09; Stop 12/05/16 at 07:10; Status DC Bupivacaine HCl/ Epinephrine Bitart 30 ml 30 ml STK-MED ONCE .ROUTE Last administered on 12/05/16 08:35; Start 12/05/16 at 07:09; Stop 12/05/16 at 07:10; Status DC Propofol (Diprivan) 20 ml @ As Directed STK-MED ONCE IV ; Start 12/05/16 at 07:13 ; Stop 12/05/16 at 07:14; Status DC Lidocaine HCl 100 mg STK-MED ONCE .ROUTE ; Start 12/05/16 at 07:13; Stop 12/05/16 at 07:14; Status DC Rocuronium [place] (Zemuron) 50 mg STK-MED ONCE .ROUTE ; Start 12/05/16 at 07:13 ; Stop 12/05/16 at 07:14; Status DC Succinylcholine Chloride (Anectine) 200 mg STK-MED ONCE .ROUTE ; Start 12/05/16 at 07:14; Stop 12/05/16 at 07:15; Status DC Fentanyl Citrate (Fentanyl 2ml Vial) 100 mcg STK-MED ONCE .ROUTE ; Start at 07:16; Stop 12/05/16 at 07:17; Status DC Cellulose 1 each STK-MED ONCE .ROUTE ; Start 12/05/16 at 07:34; Stop 12/05/16 at 07:35; Status DC Phenylephrine HCl 1 mg 1 mg STK-MED ONCE IV ; Start 12/05/16 at 07:46; Stop at 07:47; Status DC Acetaminophen (Ofirmev) 100 ml @ As Directed STK-MED ONCE IV ; Start 12/05/16 at 08:29; Stop 12/05/16 at 08:30; Status DC Fentanyl Citrate (Fentanyl 2ml Vial) 100 mcg STK-MED ONCE .ROUTE ; Start at 08:32; Stop 12/05/16 at 08:33; Status DC Desflurane (Suprane) 90 ml STK-MED ONCE IH ; Start 12/05/16 at 09:09; Stop at 09:10; Status DC Insulin Aspart (Novolog) 8 units 1X ONCE SQ ; Start 12/05/16 at 10:15; Stop 12/05 at 10:15; Status DC Ephedrine Sulfate 50 mg STK-MED ONCE IV ; Start 12/05/16 at 10:01; Stop 12/05/16 at 10:02; Status DC Insulin Aspart (Novolog Vial) 8 unit ONCE ONCE SQ ; Start 12/05/16 at 10:15; Stop 12/05/16 at 10:16; Status DC Insulin Human Regular (Novolin R Vial) 8 unit 1X ONCE IV ; Start 12/05/16 at 10: 30; Stop 12/05/16 at 10:30; Status DC Insulin Human Regular 8 unit 8 unit 1X ONCE IV ; Start 12/05/16 at 10:30; Stop 12/05/16 at 10:31; Status DC Albumin Human 0 ml @ As Directed STK-MED ONCE IV ; Start 12/05/16 at 10:20; Stop 12/05/16 at 10:21; Status DC Albumin Human 0 ml @ As Directed STK-MED ONCE IV ; Start 12/05/16 at 10:20; Stop 12/05/16 at 10:21; Status DC Albumin Human (Plasmanate) 500 ml @ As Directed STK-MED ONCE IV ; Start at 10:24; Stop 12/05/16 at 10:25; Status DC Neostigmine Methylsulfate 5 mg STK-MED ONCE .ROUTE ; Start 12/05/16 at 10:55; Stop 12/05/16 at 10:56; Status DC Glycopyrrolate (Robinul) 1 mg STK-MED ONCE .ROUTE ; Start 12/05/16 at 10:55; Stop 12/05/16 at 10:56; Status DC Phenylephrine HCl (Guido-Synephrine Inj) 10 mg STK-MED ONCE .ROUTE ; Start at 11:00; Stop 12/05/16 at 11:01; Status DC Insulin Aspart (Novolog) 3 units 1X ONCE SQ Last administered on 12/06/16 14: 30; Start 12/06/16 at 14:30; Stop 12/06/16 at 14:31; Status DC Lidocaine HCl (Glydo (Lidocaine) Jelly) 1 kassidy 1X ONCE MM ; Start 12/06/16 at 22: 00; Stop 12/06/16 at 22:01; Status DC Acetaminophen/ Hydrocodone Bitart (Lortab 7.5-325/ 15ml Oral Solution) 15 ml PRN Q6HRS PRN PO PAIN; Start 12/07/16 at 09:15 Furosemide (Lasix) 20 mg DAILY PO Last administered on 12/08/16 07:54; Start at 16:00 Insulin Aspart (Novolog) 20 units 1X ONCE SQ Last administered on 12/07/16 21: 08; Start 12/07/16 at 21:00; Stop 12/07/16 at 21:02; Status DC Active Scripts Active Reported Calcium 600 + Vit D 200 Tablet (Calcium Carbonate/Vitamin D3) 1 Each Tablet 1 Each PO BID Simvastatin 40 Mg Tablet 0.5 Tab PO QHS Ranitidine Hcl 150 Mg Tablet 1 Tab PO BID Omeprazole 40 Mg Capsule.dr 1 Cap PO DAILY Humulin R (Insulin Regular, Human) 100 Unit/1 Ml Vial 5-8 Unit IJ TIDWMEALS Furosemide 40 Mg Tablet 0.5 Tab PO DAILY PRN Furosemide 40 Mg Tablet 0.5 Tab PO DAILY Sinemet 25-100 Mg Tablet (Carbidopa/Levodopa) 1 Each Tablet 1 Tab PO QID Aspirin Ec (Aspirin) 81 Mg Tablet.dr 1 Tab PO DAILY Amlodipine Besylate 5 Mg Tablet 2.5 Mg PO DAILY Tylenol (Acetaminophen) 325 Mg Tablet 1-2 Tab PO QID Vitals/I & O Vital Sign - Last 24 Hours 12/07/16 12/07/16 12/07/16 12/07/16 15:00 19:00 20:01 22:57 Temp 98.0 97.6 97.7 98.0 97.6 97.7 Pulse 64 61 57 Resp 17 B/P 108/41 118/56 116/52 Pulse Ox 98 94 92 O2 Delivery Room Air Room Air Room Air Room Air 12/08/16 12/08/16 12/08/1617 03:00 07:00 07:56 08:00 Temp 98.0 98.0 98.0 98.0 Pulse 62 62 72 Resp 18 16 B/P 112/49 120/48 120/48 Pulse Ox 92 95 O2 Delivery Room Air Room Air Room Air Intake and Output 12/07/16 12/07/16 12/08/16 15:00 23:00 07:00 Intake Total 3350 ml 1160 ml Output Total 500 ml 650 ml Balance 2850 ml 510 ml PHIL GROSS III DO Dec 08, 2016 11:25
--- NOTE | 2016-12-08 12:34 | PDOC ---
Provider Note Provider Note denies abd pain. smiling. hero full liquids afeb vss abd soft nd nt a/p cont supportive care. no new recs. ALIA CHAN MD Dec 08, 2016 12:34
--- NOTE | 2016-12-08 14:54 | PDOC ---
PROGRESS NOTES Subjective Subjective SEEN IN FOLLOW UP OF ARF AND PPN Objective Objective Vital Signs Date Time Temp Pulse Resp B/P Pulse Ox O2 Delivery O2 Flow Rate FiO2 12/08/16 11:00 97.6 71 20 120/43 91 Room Air 97.6 12/06/16 10:22 2.0 Intake and Output 12/08/16 07:00 Intake Total 4510 ml Output Total 1150 ml Balance 3360 ml Intake Oral 2400 ml IV Total 2110 ml Output Urine Total 1150 ml # Voids 1 # Bowel Movements 2 Physical Exam Abdomen: Normal bowel sounds, Soft, No tenderness, No hepatosplenomegaly, No masses Heart: Regular rate, Normal S1, Normal S2, No murmurs, Gallops Extremities: No clubbing, No cyanosis, No edema, Normal pulses, No tenderness/ swelling General: Alert Lungs: Clear to auscultation, Normal air movement Psych/Mental Status: Mental status NL, Mood NL Diagnosis RENAL FAILURE: Acute (Acute tubular necrosis) Assessment Assessment Problems Medical Problems: (1) Gastric outlet obstruction Status: Acute Plan Plan of Care CONT PPN AND FLUID BALANCE. Comment Review of Relevant I have reviewed the following items rachael (where applicable) has been applied. Labs Laboratory Tests Test 12/06/16 15:59 12/06/16 21:08 12/07/16 04:00 12/07/16 07:21 Glucose (Fingerstick) 278mg/dL (70-99) 276mg/dL (70-99) 248mg/dL (70-99) White Blood Count 11.9x10^3/uL (4.0-11.0) Red Blood Count 3.19x10^6/uL (4.30-5.70) Hemoglobin 10.1g/dL (13.0-17.5) Hematocrit 30.9% (39.0-53.0) Mean Corpuscular Volume 97fL (79-100) Mean Corpuscular Hemoglobin 32pg (25-35) Mean Corpuscular Hemoglobin Concent 33g/dL (31-37) Red Cell Distribution Width 13.5% (11.5-14.5) Platelet Count 161x10^3/uL (140-400) Neutrophils (%) (Auto) 78% (31-73) Lymphocytes (%) (Auto) 11% (24-48) Monocytes (%) (Auto) 9% (0-9) Eosinophils (%) (Auto) 2% (0-3) Basophils (%) (Auto) 0% (0-3) Neutrophils # (Auto) 9.2x10^3uL (1.8-7.7) Lymphocytes # (Auto) 1.3x10^3/uL (1.0-4.8) Monocytes # (Auto) 1.1x10^3/uL (0.0-1.1) Eosinophils # (Auto) 0.2x10^3/uL (0.0-0.7) Basophils # (Auto) 0.0x10^3/uL (0.0-0.2) Sodium Level 145mmol/L (136-145) Potassium Level 3.7mmol/L (3.5-5.1) Chloride Level 104mmol/L (98-107) Carbon Dioxide Level 33mmol/L (21-32) Anion Gap 8 (6-14) Blood Urea Nitrogen 112mg/dL (8-26) Creatinine 2.1mg/dL (0.7-1.3) Estimated GFR (Cockcroft-Gault) 30.0 Glucose Level 208mg/dL (70-99) Calcium Level 9.3mg/dL (8.5-10.1) Magnesium Level 2.9mg/dL (1.8-2.4) ZN-Irt-L-Type Natriuretic Peptide 69930td/mL (0-449) Test 12/07/16 11:07 12/07/16 16:02 12/07/16 20:34 12/08/16 04:00 Glucose (Fingerstick) 346mg/dL (70-99) 323mg/dL (70-99) 368mg/dL (70-99) White Blood Count 10.0x10^3/uL (4.0-11.0) Red Blood Count 2.64x10^6/uL (4.30-5.70) Hemoglobin 8.4g/dL (13.0-17.5) Hematocrit 25.6% (39.0-53.0) Mean Corpuscular Volume 97fL (79-100) Mean Corpuscular Hemoglobin 32pg (25-35) Mean Corpuscular Hemoglobin Concent 33g/dL (31-37) Red Cell Distribution Width 13.2% (11.5-14.5) Platelet Count 161x10^3/uL (140-400) Neutrophils (%) (Auto) 74% (31-73) Lymphocytes (%) (Auto) 12% (24-48) Monocytes (%) (Auto) 10% (0-9) Eosinophils (%) (Auto) 5% (0-3) Basophils (%) (Auto) 0% (0-3) Neutrophils # (Auto) 7.4x10^3uL (1.8-7.7) Lymphocytes # (Auto) 1.2x10^3/uL (1.0-4.8) Monocytes # (Auto) 1.0x10^3/uL (0.0-1.1) Eosinophils # (Auto) 0.5x10^3/uL (0.0-0.7) Basophils # (Auto) 0.0x10^3/uL (0.0-0.2) Sodium Level 142mmol/L (136-145) Potassium Level 3.9mmol/L (3.5-5.1) Chloride Level 106mmol/L (98-107) Carbon Dioxide Level 31mmol/L (21-32) Anion Gap 5 (6-14) Blood Urea Nitrogen 100mg/dL (8-26) Creatinine 2.0mg/dL (0.7-1.3) Estimated GFR (Cockcroft-Gault) 31.8 Glucose Level 99mg/dL (70-99) Calcium Level 9.2mg/dL (8.5-10.1) Test 12/08/16 11:50 Glucose (Fingerstick) 344mg/dL (70-99) Laboratory Tests Test 12/07/16 16:02 12/07/16 20:34 12/08/16 04:00 12/08/16 11:50 Glucose (Fingerstick) 323mg/dL (70-99) 368mg/dL (70-99) 344mg/dL (70-99) White Blood Count 10.0x10^3/uL (4.0-11.0) Red Blood Count 2.64x10^6/uL (4.30-5.70) Hemoglobin 8.4g/dL (13.0-17.5) Hematocrit 25.6% (39.0-53.0) Mean Corpuscular Volume 97fL (79-100) Mean Corpuscular Hemoglobin 32pg (25-35) Mean Corpuscular Hemoglobin Concent 33g/dL (31-37) Red Cell Distribution Width 13.2% (11.5-14.5) Platelet Count 161x10^3/uL (140-400) Neutrophils (%) (Auto) 74% (31-73) Lymphocytes (%) (Auto) 12% (24-48) Monocytes (%) (Auto) 10% (0-9) Eosinophils (%) (Auto) 5% (0-3) Basophils (%) (Auto) 0% (0-3) Neutrophils # (Auto) 7.4x10^3uL (1.8-7.7) Lymphocytes # (Auto) 1.2x10^3/uL (1.0-4.8) Monocytes # (Auto) 1.0x10^3/uL (0.0-1.1) Eosinophils # (Auto) 0.5x10^3/uL (0.0-0.7) Basophils # (Auto) 0.0x10^3/uL (0.0-0.2) Sodium Level 142mmol/L (136-145) Potassium Level 3.9mmol/L (3.5-5.1) Chloride Level 106mmol/L (98-107) Carbon Dioxide Level 31mmol/L (21-32) Anion Gap 5 (6-14) Blood Urea Nitrogen 100mg/dL (8-26) Creatinine 2.0mg/dL (0.7-1.3) Estimated GFR (Cockcroft-Gault) 31.8 Glucose Level 99mg/dL (70-99) Calcium Level 9.2mg/dL (8.5-10.1) Medications Current Medications Sodium Chloride (Normal Saline Flush) 3 ml PRN DAILY PRN IV AFTER MEDS AND BLOOD DRAWS; Start 12/02/16 at 19:30 Morphine Sulfate 1 mg PRN Q1HR PRN IV PAIN Last administered on 12/06/16 10:22 ; Start 12/02/16 at 19:30 Bisacodyl (Dulcolax Supp) 10 mg PRN DAILY PRN [place] CONSTIPATION; Start 12/02/16 at 19:30 Hydralazine HCl (Apresoline) 10 mg PRN Q4HRS PRN IVP ELEVATED BP, SEE COMMENTS ; Start 12/02/16 at 19:45 Acetaminophen 650 mg 650 mg PRN Q6HRS PRN [place] MILD PAIN / TEMP; Start 12/02/16 at 19:45; Stop 12/04/16 at 14:30; Status DC Sodium Chloride 1,000 ml @ 150 mls/hr Q6H40M IV ; Start 12/02/16 at 23:00; Stop 12/03/16 at 01:24; Status DC Piperacillin Sod/ Tazobactam Sod/ Sodium Chloride (Zosyn/Iv Sodium Chloride 0.9 % 50ml) 50 ml @ 100 mls/hr 1X ONCE IV Last administered on 12/03/16 00:15; Start 12/02/16 at 23:00; Stop 12/02/16 at 23:29; Status DC Piperacillin Sod/ Tazobactam Sod 1 each 1 each PRN DAILY PRN MC SEE COMMENTS; Start 12/02/16 at 23:00; Stop 12/05/16 at 09:25; Status DC Piperacillin Sod/ Tazobactam Sod 2.25 gm/Sodium Chloride 50 ml @ 100 mls/hr Q8HRS IV Last administered on 12/08/16 05:33; Start 12/03/16 at 06:00 Sodium Chloride 1,000 ml @ 75 mls/hr Q6H40M IV Last administered on 12/03/16 01:56; Start 12/03/16 at 23:00; Stop 12/04/16 at 09:27; Status DC Lactated Ringer's (Iv Lactated Ringers) 1,000 ml @ 50 mls/hr Q20H IV ; Start at 07:00; Stop 12/04/16 at 18:59; Status DC Acetaminophen (Tylenol) 650 mg PRN Q6HRS PRN PO FEVER; Start 12/04/16 at 09:30 Amlodipine Besylate (Norvasc) 2.5 mg DAILY PO Last administered on 12/08/16 07: 56; Start 12/04/16 at 10:00 Aspirin (Ecotrin) 81 mg DAILY PO Last administered on 12/08/16 07:54; Start at 10:00 Carbidopa/Levodopa (Sinemet 25/100) 1 tab QID PO Last administered on 12/08/16 12:09; Start 12/04/16 at 10:00 Atorvastatin Calcium (Lipitor) 20 mg QHS PO Last administered on 12/07/16 20:32 ; Start 12/04/16 at 21:00 Calcium/Vitamin D (Oscal D 500mg/ 200uts) 1 tab BIDWMEALS PO Last administered on 12/08/16 07:54; Start 12/04/16 at 10:00 Pantoprazole Sodium 40 mg 40 mg DAILYAC PO Last administered on 12/08/16 07:54 ; Start 12/04/16 at 10:00 Potassium Chloride 100 ml @ 100 mls/hr Q1H IV Last administered on 12/04/16 12:29; Start 12/04/16 at 10:00; Stop 12/04/16 at 11:59; Status DC Potassium Chloride/Sodium Chloride (KCl 20 Meq-0.45% Nacl) 1,000 ml @ 75 mls/ hr [id number] IV ; Start 12/04/16 at 10:00; Stop 12/04/16 at 14:30; Status DC Insulin Aspart (Novolog) 0-9 UNITS TIDWMEALS SQ ; Start 12/04/16 at 12:00; Stop 12/05/16 at 00:12; Status DC Dextrose 12.5 gm 12.5 gm PRN Q15MIN PRN IV SEE COMMENTS; Start 12/04/16 at 09: 30 Amino Acids/ Electrolytes/ Dextrose 1,000 ml @ 80 mls/hr [id number] IV Last administered on 12/08/16 05:59; Start 12/04/16 at 10:30 Sodium Chloride (Iv Sodium Chloride 0.9% 1000ml Bag) 1,000 ml @ 75 mls/hr [id number] IV Last administered on 12/06/16 06:00; Start 12/04/16 at 14:00; Stop 12/06/16 at 16:14; Status DC Heparin Sodium (Porcine) 5000 unit 5,000 unit Q8HRS SQ ; Start 12/04/16 at 14:30 ; Stop 12/04/16 at 16:48; Status DC Propofol (Diprivan) 20 ml @ As Directed STK-MED ONCE IV ; Start 12/04/16 at 14: 58; Stop 12/04/16 at 14:59; Status DC Lidocaine HCl (Lidocaine Pf 2% Vial) 5 ml STK-MED ONCE .ROUTE ; Start 12/04/16 at 14:58; Stop 12/04/16 at 14:59; Status DC Ondansetron HCl (Zofran) 4 mg PRN Q6HRS PRN IV Nausea; Start 12/05/16 at 07:00; Stop 12/06/16 at 06:59; Status DC Fentanyl Citrate (Fentanyl 2ml Vial) 25 mcg PRN Q5MIN PRN IV MILD PAIN; Start 12/05/16 at 07:00; Stop 12/06/16 at 06:59; Status DC Fentanyl Citrate (Fentanyl 2ml Vial) 50 mcg PRN Q5MIN PRN IV MODERATE PAIN Last administered on 12/05/16 15:24; Start 12/05/16 at 07:00; Stop 12/06/16 at 06: 59; Status DC Morphine Sulfate 1 mg 1 mg PRN Q10MIN PRN IV SEVERE PAIN; Start 12/05/16 at 07: 00; Stop 12/06/16 at 06:59; Status DC Lactated Ringer's (Iv Lactated Ringers) 1,000 ml @ 0 mls/hr Q0M IV ; Start 12/05 at 07:00; Stop 12/05/16 at 18:59; Status DC Lidocaine HCl 2 ml 1X PRN PRN ID IV START; Start 12/05/16 at 07:00; Stop at 06:59; Status DC Hydromorphone HCl (Dilaudid) 0.5 mg PRN Q10MIN PRN IV SEVERE PAIN, Second choice; Start 12/05/16 at 07:00; Stop 12/06/16 at 06:59; Status DC Prochlorperazine Edisylate (Compazine) 5 mg PACU PRN PRN IV NAUSEA; Start at 07:00; Stop 12/06/16 at 06:59; Status DC Insulin Aspart (Novolog) 0-9 UNITS QIDACHS SQ Last administered on 12/08/16t 12: 16; Start 12/05/16 at 00:30 Cellulose 1 each STK-MED ONCE .ROUTE ; Start 12/05/16 at 07:09; Stop 12/05/16 at 07:10; Status DC Bupivacaine HCl/ Epinephrine Bitart 30 ml 30 ml STK-MED ONCE .ROUTE Last administered on 12/05/16t 08:35; Start 12/05/16 at 07:09; Stop 12/05/16 at 07:10; Status DC Propofol (Diprivan) 20 ml @ As Directed STK-MED ONCE IV ; Start 12/05/16 at 07:13 ; Stop 12/05/16 at 07:14; Status DC Lidocaine HCl 100 mg STK-MED ONCE .ROUTE ; Start 12/05/16 at 07:13; Stop 12/05/16 at 07:14; Status DC Rocuronium Vickery (Zemuron) 50 mg STK-MED ONCE .ROUTE ; Start 12/05/16 at 07:13 ; Stop 12/05/16 at 07:14; Status DC Succinylcholine Chloride (Anectine) 200 mg STK-MED ONCE .ROUTE ; Start 12/05/16 at 07:14; Stop 12/05/16 at 07:15; Status DC Fentanyl Citrate (Fentanyl 2ml Vial) 100 mcg STK-MED ONCE .ROUTE ; Start at 07:16; Stop 12/05/16 at 07:17; Status DC Cellulose 1 each STK-MED ONCE .ROUTE ; Start 12/05/16 at 07:34; Stop 12/05/16 at 07:35; Status DC Phenylephrine HCl 1 mg 1 mg STK-MED ONCE IV ; Start 12/05/16 at 07:46; Stop at 07:47; Status DC Acetaminophen (Ofirmev) 100 ml @ As Directed STK-MED ONCE IV ; Start 12/05/16 at 08:29; Stop 12/05/16 at 08:30; Status DC Fentanyl Citrate (Fentanyl 2ml Vial) 100 mcg STK-MED ONCE .ROUTE ; Start at 08:32; Stop 12/05/16 at 08:33; Status DC Desflurane (Suprane) 90 ml STK-MED ONCE IH ; Start 12/05/16 at 09:09; Stop at 09:10; Status DC Insulin Aspart (Novolog) 8 units 1X ONCE SQ ; Start 12/05/16 at 10:15; Stop 12/05 at 10:15; Status DC Ephedrine Sulfate 50 mg STK-MED ONCE IV ; Start 12/05/16 at 10:01; Stop 12/05/16 at 10:02; Status DC Insulin Aspart (Novolog Vial) 8 unit ONCE ONCE SQ ; Start 12/05/16 at 10:15; Stop 12/05/16 at 10:16; Status DC Insulin Human Regular (Novolin R Vial) 8 unit 1X ONCE IV ; Start 12/05/16 at 10: 30; Stop 12/05/16 at 10:30; Status DC Insulin Human Regular 8 unit 8 unit 1X ONCE IV ; Start 12/05/16 at 10:30; Stop 12/05/16 at 10:31; Status DC Albumin Human 0 ml @ As Directed STK-MED ONCE IV ; Start 12/05/16 at 10:20; Stop 12/05/16 at 10:21; Status DC Albumin Human 0 ml @ As Directed STK-MED ONCE IV ; Start 12/05/16 at 10:20; Stop 12/05/16 at 10:21; Status DC Albumin Human (Plasmanate) 500 ml @ As Directed STK-MED ONCE IV ; Start at 10:24; Stop 12/05/16 at 10:25; Status DC Neostigmine Methylsulfate 5 mg STK-MED ONCE .ROUTE ; Start 12/05/16 at 10:55; Stop 12/05/16 at 10:56; Status DC Glycopyrrolate (Robinul) 1 mg STK-MED ONCE .ROUTE ; Start 12/05/16 at 10:55; Stop 12/05/16 at 10:56; Status DC Phenylephrine HCl (Guido-Synephrine Inj) 10 mg STK-MED ONCE .ROUTE ; Start at 11:00; Stop 12/05/16 at 11:01; Status DC Insulin Aspart (Novolog) 3 units 1X ONCE SQ Last administered on 12/06/16t 14: 30; Start 12/06/16 at 14:30; Stop 12/06/16 at 14:31; Status DC Lidocaine HCl (Glydo (Lidocaine) Jelly) 1 kassidy 1X ONCE MM ; Start 12/06/16 at 22: 00; Stop 12/06/16 at 22:01; Status DC Acetaminophen/ Hydrocodone Bitart (Lortab 7.5-325/ 15ml Oral Solution) 15 ml PRN Q6HRS PRN PO PAIN; Start 12/07/16 at 09:15 Furosemide (Lasix) 20 mg DAILY PO Last administered on 12/08/16 07:54; Start at 16:00 Insulin Aspart (Novolog) 20 units 1X ONCE SQ Last administered on 12/07/16 21: 08; Start 12/07/16 at 21:00; Stop 12/07/16 at 21:02; Status DC Active Scripts Active Reported Calcium 600 + Vit D 200 Tablet (Calcium Carbonate/Vitamin D3) 1 Each Tablet 1 Each PO BID Simvastatin 40 Mg Tablet 0.5 Tab PO QHS Ranitidine Hcl 150 Mg Tablet 1 Tab PO BID Omeprazole 40 Mg Capsule.dr 1 Cap PO DAILY Humulin R (Insulin Regular, Human) 100 Unit/1 Ml Vial 5-8 Unit IJ TIDWMEALS Furosemide 40 Mg Tablet 0.5 Tab PO DAILY PRN Furosemide 40 Mg Tablet 0.5 Tab PO DAILY Sinemet 25-100 Mg Tablet (Carbidopa/Levodopa) 1 Each Tablet 1 Tab PO QID Aspirin Ec (Aspirin) 81 Mg Tablet.dr 1 Tab PO DAILY Amlodipine Besylate 5 Mg Tablet 2.5 Mg PO DAILY Tylenol (Acetaminophen) 325 Mg Tablet 1-2 Tab PO QID Vitals/I & O Vital Sign - Last 24 Hours 12/07/16 12/07/16 12/07/16 12/07/16 15:00 19:00 20:01 22:57 Temp 98.0 97.6 97.7 98.0 97.6 97.7 Pulse 64 61 57 Resp B/P 108/41 118/56 116/52 Pulse Ox 98 94 92 O2 Delivery Room Air Room Air Room Air Room Air 12/08/16 12/08/16 12/08/16 12/08/16 03:00 07:00 07:56 08:00 Temp 98.0 98.0 98.0 98.0 Pulse 62 62 72 Resp 18 16 B/P 112/49 120/48 120/48 Pulse Ox 92 95 O2 Delivery Room Air Room Air Room Air 12/08/16 11:00 Temp 97.6 97.6 Pulse 71 Resp 20 B/P 120/43 Pulse Ox 91 O2 Delivery Room Air Intake and Output 12/07/16 12/07/16 12/08/16 15:00 23:00 07:00 Intake Total 3350 ml 1160 ml Output Total 500 ml 650 ml Balance 2850 ml 510 ml SILVANA GOMES MD Dec 08, 2016 14:54
[2016-12-08 15:00] VITALS: BP 100/46
[2016-12-08 19:00] VITALS: BP 121/39
[2016-12-08] MEDS: ATORVASTATIN CALCIUM 20 MG TABLET PO SCH (22:04)
[2016-12-08 23:41] VITALS: BP 104/40
[2016-12-09 03:45] VITALS: BP 116/36
[2016-12-09] MEDS: PIPERACILLIN/TAZOBACTAM 2.25 GM in IV NORMAL SALINE 50ML 50 ML IV SCH ×3 (06:00→21:15)
[2016-12-09 06:13] LABS: BASO % 0 % (0-3); EOS % 4 % (0-3); HEMATOCRIT 25.9 % (39.0-53.0); HEMOGLOBIN 8.3 g/dL (13.0-17.5); LYMPH # 1.5 x10^3/uL (1.0-4.8); LYMPH % 13 % (24-48); MEAN CORPUSCULAR HEMOGLOBIN 31 pg (25-35); MEAN CORPUSCULAR HGB CONC 32 g/dL (31-37); MEAN CORPUSCULAR VOLUME 97 fL (79-100); MONO % 10 % (0-9); NEUT % 73 % (31-73); PLATELET COUNT 189 x10^3/uL (140-400); RED BLOOD COUNT 2.68 x10^6/uL (4.30-5.70); RED CELL DISTRIBUTION WIDTH 13.4 % (11.5-14.5); WHITE BLOOD COUNT 11.4 x10^3/uL (4.0-11.0)
[2016-12-09 06:54] LABS: ALBUMIN/GLOBULIN RATIO 0.6 (1.0-1.7); CALCIUM 9.1 mg/dL (8.5-10.1); CREATININE 1.9 mg/dL (0.7-1.3); GFR 33.7; MAGNESIUM 2.3 mg/dL (1.8-2.4); PHOSPHORUS 4.3 mg/dL (2.6-4.7); POTASSIUM 4.7 mmol/L (3.5-5.1); TOTAL BILIRUBIN 0.6 mg/dL (0.2-1.0); TOTAL PROTEIN 5.3 g/dL (6.4-8.2)
[2016-12-09 07:00] VITALS: BP 122/44
[2016-12-09] MEDS: FUROSEMIDE 20 MG TABLET PO SCH (08:14)
[2016-12-09] MEDS: CARBIDOPA/LEVODOPA 25/100MG TABLET PO SCH ×4 (08:14→21:17)
[2016-12-09] MEDS: ASPIRIN ENTERIC COATED 81 MG TABLET.DR. PO SCH (08:15)
[2016-12-09] MEDS: AMLODIPINE BESYLATE 2.5 MG TABLET PO SCH (08:15)
[2016-12-09] MEDS: CALCIUM CARB/VIT D3 500/200 TABLET PO SCH ×2 (08:15→17:13)
[2016-12-09] MEDS: PANTOPRAZOLE 40 MG TABLET. PO SCH (08:15)
[2016-12-09] MEDS: INSULIN ASPART 300 UNITS/3 ML INSULN.PEN SQ SCH ×5 (08:20→20:39)
[2016-12-09] MEDS: AA 4.25%/CALCIUM/LYTES/D5W 1,000 ML IV SCH ×2 (09:49→21:17)
[2016-12-09 11:00] VITALS: BP 115/42
--- NOTE | 2016-12-09 12:17 | PDOC ---
PROGRESS NOTES Chief Complaint Chief Complaint 1. Gastric outlet obstruction, hiatal hernia with gastric volvulus 2. Abdominal pain 3. Constipation 4. Diabetes Mellitus Type 2 5. Hypertension 6. Parkinson's Disease History of Present Illness History of Present Illness Patient was sitting in the bed at the time of evaluation, was in no acute distress, advanced to full liquid diet and able to keep it down, no new complains reported this AM. Vitals Vitals Vital Signs Date Time Temp Pulse Resp B/P Pulse Ox O2 Delivery O2 Flow Rate FiO2 12/09/16 11:00 97.6 55 20 115/42 95 Room Air 97.6 Physical Exam General: Alert Heart: Regular rate Lungs: Clear Abdomen: Soft, No tenderness, No masses Extremities: No clubbing, No cyanosis, No edema, Normal pulses, No tenderness/ swelling Skin: No breakdown, No significant lesion Labs LABS Laboratory Tests Test 12/08/16 21:05 12/09/16 05:00 12/09/16 07:37 12/09/16 11:39 Glucose (Fingerstick) 300mg/dL (70-99) 304mg/dL (70-99) 315mg/dL (70-99) White Blood Count 11.4x10^3/uL (4.0-11.0) Red Blood Count 2.68x10^6/uL (4.30-5.70) Hemoglobin 8.3g/dL (13.0-17.5) Hematocrit 25.9% (39.0-53.0) Mean Corpuscular Volume 97fL (79-100) Mean Corpuscular Hemoglobin 31pg (25-35) Mean Corpuscular Hemoglobin Concent 32g/dL (31-37) Red Cell Distribution Width 13.4% (11.5-14.5) Platelet Count 189x10^3/uL (140-400) Neutrophils (%) (Auto) 73% (31-73) Lymphocytes (%) (Auto) 13% (24-48) Monocytes (%) (Auto) 10% (0-9) Eosinophils (%) (Auto) 4% (0-3) Basophils (%) (Auto) 0% (0-3) Neutrophils # (Auto) 8.3x10^3uL (1.8-7.7) Lymphocytes # (Auto) 1.5x10^3/uL (1.0-4.8) Monocytes # (Auto) 1.2x10^3/uL (0.0-1.1) Eosinophils # (Auto) 0.4x10^3/uL (0.0-0.7) Basophils # (Auto) 0.0x10^3/uL (0.0-0.2) Sodium Level 140mmol/L (136-145) Potassium Level 4.7mmol/L (3.5-5.1) Chloride Level 103mmol/L (98-107) Carbon Dioxide Level 31mmol/L (21-32) Anion Gap 6 (6-14) Blood Urea Nitrogen 96mg/dL (8-26) Creatinine 1.9mg/dL (0.7-1.3) Estimated GFR (Cockcroft-Gault) 33.7 BUN/Creatinine Ratio 51 (6-20) Glucose Level 252mg/dL (70-99) Calcium Level 9.1mg/dL (8.5-10.1) Phosphorus Level 4.3mg/dL (2.6-4.7) Magnesium Level 2.3mg/dL (1.8-2.4) Total Bilirubin 0.6mg/dL (0.2-1.0) Aspartate Amino Transf (AST/SGOT) 25U/L (15-37) Alanine Aminotransferase (ALT/SGPT) 9U/L (16-63) Alkaline Phosphatase 49U/L (46-116) Total Protein 5.3g/dL (6.4-8.2) Albumin 2.0g/dL (3.4-5.0) Albumin/Globulin Ratio 0.6 (1.0-1.7) Review of Systems Review of Systems Denied any fever, nausea, vomiting, No SOB and CP, abdomen soft, nontender, abdominal incision site intact, Assessment and Plan Assessmemt and Plan ASSESSMENT: 1. Gastric outlet obstruction with hiatal hernia and gastric volvulus- Heena Fundoplication procedure performed 2. Abdominal pain 3. Constipation 4. Diabetes Mellitus Type 2 5. Hypertension 6. Parkinson's Disease Plan: - Probable SNU next week - diet full liquid tolerating - Continue post operative care - Continue Clinimix - Continue Zosyn - Subspecialties input and recommendations greatly appreciated - Recheck labs in AM Problems Medical Problems: (1) Gastric outlet obstruction Status: Acute Problems: Comment Review of Relevant I have reviewed the following items archael (where applicable) has been applied. Labs Laboratory Tests Test 12/07/16 16:02 12/07/16 20:34 12/08/16 04:00 12/08/16 11:50 Glucose (Fingerstick) 323mg/dL (70-99) 368mg/dL (70-99) 344mg/dL (70-99) White Blood Count 10.0x10^3/uL (4.0-11.0) Red Blood Count 2.64x10^6/uL (4.30-5.70) Hemoglobin 8.4g/dL (13.0-17.5) Hematocrit 25.6% (39.0-53.0) Mean Corpuscular Volume 97fL (79-100) Mean Corpuscular Hemoglobin 32pg (25-35) Mean Corpuscular Hemoglobin Concent 33g/dL (31-37) Red Cell Distribution Width 13.2% (11.5-14.5) Platelet Count 161x10^3/uL (140-400) Neutrophils (%) (Auto) 74% (31-73) Lymphocytes (%) (Auto) 12% (24-48) Monocytes (%) (Auto) 10% (0-9) Eosinophils (%) (Auto) 5% (0-3) Basophils (%) (Auto) 0% (0-3) Neutrophils # (Auto) 7.4x10^3uL (1.8-7.7) Lymphocytes # (Auto) 1.2x10^3/uL (1.0-4.8) Monocytes # (Auto) 1.0x10^3/uL (0.0-1.1) Eosinophils # (Auto) 0.5x10^3/uL (0.0-0.7) Basophils # (Auto) 0.0x10^3/uL (0.0-0.2) Sodium Level 142mmol/L (136-145) Potassium Level 3.9mmol/L (3.5-5.1) Chloride Level 106mmol/L (98-107) Carbon Dioxide Level 31mmol/L (21-32) Anion Gap 5 (6-14) Blood Urea Nitrogen 100mg/dL (8-26) Creatinine 2.0mg/dL (0.7-1.3) Estimated GFR (Cockcroft-Gault) 31.8 Glucose Level 99mg/dL (70-99) Calcium Level 9.2mg/dL (8.5-10.1) Test 12/08/16 21:05 12/09/16 05:00 12/09/16 07:37 12/09/16 11:39 Glucose (Fingerstick) 300mg/dL (70-99) 304mg/dL (70-99) 315mg/dL (70-99) White Blood Count 11.4x10^3/uL (4.0-11.0) Red Blood Count 2.68x10^6/uL (4.30-5.70) Hemoglobin 8.3g/dL (13.0-17.5) Hematocrit 25.9% (39.0-53.0) Mean Corpuscular Volume 97fL (79-100) Mean Corpuscular Hemoglobin 31pg (25-35) Mean Corpuscular Hemoglobin Concent 32g/dL (31-37) Red Cell Distribution Width 13.4% (11.5-14.5) Platelet Count 189x10^3/uL (140-400) Neutrophils (%) (Auto) 73% (31-73) Lymphocytes (%) (Auto) 13% (24-48) Monocytes (%) (Auto) 10% (0-9) Eosinophils (%) (Auto) 4% (0-3) Basophils (%) (Auto) 0% (0-3) Neutrophils # (Auto) 8.3x10^3uL (1.8-7.7) Lymphocytes # (Auto) 1.5x10^3/uL (1.0-4.8) Monocytes # (Auto) 1.2x10^3/uL (0.0-1.1) Eosinophils # (Auto) 0.4x10^3/uL (0.0-0.7) Basophils # (Auto) 0.0x10^3/uL (0.0-0.2) Sodium Level 140mmol/L (136-145) Potassium Level 4.7mmol/L (3.5-5.1) Chloride Level 103mmol/L (98-107) Carbon Dioxide Level 31mmol/L (21-32) Anion Gap 6 (6-14) Blood Urea Nitrogen 96mg/dL (8-26) Creatinine 1.9mg/dL (0.7-1.3) Estimated GFR (Cockcroft-Gault) 33.7 BUN/Creatinine Ratio 51 (6-20) Glucose Level 252mg/dL (70-99) Calcium Level 9.1mg/dL (8.5-10.1) Phosphorus Level 4.3mg/dL (2.6-4.7) Magnesium Level 2.3mg/dL (1.8-2.4) Total Bilirubin 0.6mg/dL (0.2-1.0) Aspartate Amino Transf (AST/SGOT) 25U/L (15-37) Alanine Aminotransferase (ALT/SGPT) 9U/L (16-63) Alkaline Phosphatase 49U/L (46-116) Total Protein 5.3g/dL (6.4-8.2) Albumin 2.0g/dL (3.4-5.0) Albumin/Globulin Ratio 0.6 (1.0-1.7) Laboratory Tests Test 12/08/16 21:05 12/09/16 05:00 12/09/16 07:37 12/09/16 11:39 Glucose (Fingerstick) 300mg/dL (70-99) 304mg/dL (70-99) 315mg/dL (70-99) White Blood Count 11.4x10^3/uL (4.0-11.0) Red Blood Count 2.68x10^6/uL (4.30-5.70) Hemoglobin 8.3g/dL (13.0-17.5) Hematocrit 25.9% (39.0-53.0) Mean Corpuscular Volume 97fL (79-100) Mean Corpuscular Hemoglobin 31pg (25-35) Mean Corpuscular Hemoglobin Concent 32g/dL (31-37) Red Cell Distribution Width 13.4% (11.5-14.5) Platelet Count 189x10^3/uL (140-400) Neutrophils (%) (Auto) 73% (31-73) Lymphocytes (%) (Auto) 13% (24-48) Monocytes (%) (Auto) 10% (0-9) Eosinophils (%) (Auto) 4% (0-3) Basophils (%) (Auto) 0% (0-3) Neutrophils # (Auto) 8.3x10^3uL (1.8-7.7) Lymphocytes # (Auto) 1.5x10^3/uL (1.0-4.8) Monocytes # (Auto) 1.2x10^3/uL (0.0-1.1) Eosinophils # (Auto) 0.4x10^3/uL (0.0-0.7) Basophils # (Auto) 0.0x10^3/uL (0.0-0.2) Sodium Level 140mmol/L (136-145) Potassium Level 4.7mmol/L (3.5-5.1) Chloride Level 103mmol/L (98-107) Carbon Dioxide Level 31mmol/L (21-32) Anion Gap 6 (6-14) Blood Urea Nitrogen 96mg/dL (8-26) Creatinine 1.9mg/dL (0.7-1.3) Estimated GFR (Cockcroft-Gault) 33.7 BUN/Creatinine Ratio 51 (6-20) Glucose Level 252mg/dL (70-99) Calcium Level 9.1mg/dL (8.5-10.1) Phosphorus Level 4.3mg/dL (2.6-4.7) Magnesium Level 2.3mg/dL (1.8-2.4) Total Bilirubin 0.6mg/dL (0.2-1.0) Aspartate Amino Transf (AST/SGOT) 25U/L (15-37) Alanine Aminotransferase (ALT/SGPT) 9U/L (16-63) Alkaline Phosphatase 49U/L (46-116) Total Protein 5.3g/dL (6.4-8.2) Albumin 2.0g/dL (3.4-5.0) Albumin/Globulin Ratio 0.6 (1.0-1.7) Medications Current Medications Sodium Chloride (Normal Saline Flush) 3 ml PRN DAILY PRN IV AFTER MEDS AND BLOOD DRAWS; Start 12/02/16 at 19:30 Morphine Sulfate 1 mg PRN Q1HR PRN IV PAIN Last administered on 12/06/16t 10:22 ; Start 12/02/16 at 19:30 Bisacodyl (Dulcolax Supp) 10 mg PRN DAILY PRN MI CONSTIPATION; Start 12/02/16 at 19:30 Hydralazine HCl (Apresoline) 10 mg PRN Q4HRS PRN IVP ELEVATED BP, SEE COMMENTS ; Start 12/02/16 at 19:45 Acetaminophen 650 mg 650 mg PRN Q6HRS PRN MI MILD PAIN / TEMP; Start 12/02/16 at 19:45; Stop 12/04/16 at 14:30; Status DC Sodium Chloride 1,000 ml @ 150 mls/hr Q6H40M IV ; Start 12/02/16 at 23:00; Stop 12/03/16 at 01:24; Status DC Piperacillin Sod/ Tazobactam Sod/ Sodium Chloride (Zosyn/Iv Sodium Chloride 0.9 % 50ml) 50 ml @ 100 mls/hr 1X ONCE IV Last administered on 12/03/16 00:15; Start 12/02/16 at 23:00; Stop 12/02/16 at 23:29; Status DC Piperacillin Sod/ Tazobactam Sod 1 each 1 each PRN DAILY PRN MC SEE COMMENTS; Start 12/02/16 at 23:00; Stop 12/05/16 at 09:25; Status DC Piperacillin Sod/ Tazobactam Sod 2.25 gm/Sodium Chloride 50 ml @ 100 mls/hr Q8HRS IV Last administered on 12/09/16 06:00; Start 12/03/16 at 06:00 Sodium Chloride 1,000 ml @ 75 mls/hr Q6H40M IV Last administered on 12/03/16 01:56; Start 12/03/16 at 23:00; Stop 12/04/16 at 09:27; Status DC Lactated Ringer's (Iv Lactated Ringers) 1,000 ml @ 50 mls/hr Q20H IV ; Start at 07:00; Stop 12/04/16 at 18:59; Status DC Acetaminophen (Tylenol) 650 mg PRN Q6HRS PRN PO FEVER; Start 12/04/16 at 09:30 Amlodipine Besylate (Norvasc) 2.5 mg DAILY PO Last administered on 12/09/16 08: 15; Start 12/04/16 at 10:00 Aspirin (Ecotrin) 81 mg DAILY PO Last administered on 12/09/16 08:15; Start at 10:00 Carbidopa/Levodopa (Sinemet 25/100) 1 tab QID PO Last administered on 12/09/16 08:14; Start 12/04/16 at 10:00 Atorvastatin Calcium (Lipitor) 20 mg QHS PO Last administered on 12/08/16 22:04 ; Start 12/04/16 at 21:00 Calcium/Vitamin D (Oscal D 500mg/ 200uts) 1 tab BIDWMEALS PO Last administered on 12/09/16 08:15; Start 12/04/16 at 10:00 Pantoprazole Sodium 40 mg 40 mg DAILYAC PO Last administered on 12/09/16 08:15 ; Start 12/04/16 at 10:00 Potassium Chloride 100 ml @ 100 mls/hr Q1H IV Last administered on 12/04/16 12:29; Start 12/04/16 at 10:00; Stop 12/04/16 at 11:59; Status DC Potassium Chloride/Sodium Chloride (KCl 20 Meq-0.45% Nacl) 1,000 ml @ 75 mls/ hr [id number] IV ; Start 12/04/16 at 10:00; Stop 12/04/16 at 14:30; Status DC Insulin Aspart (Novolog) 0-9 UNITS TIDWMEALS SQ ; Start 12/04/16 at 12:00; Stop 12/05/16 at 00:12; Status DC Dextrose 12.5 gm 12.5 gm PRN Q15MIN PRN IV SEE COMMENTS; Start 12/04/16 at 09: 30 Amino Acids/ Electrolytes/ Dextrose 1,000 ml @ 80 mls/hr [id number] IV Last administered on 12/09/16 09:49; Start 12/04/16 at 10:30 Sodium Chloride (Iv Sodium Chloride 0.9% 1000ml Bag) 1,000 ml @ 75 mls/hr [id number] IV Last administered on 12/06/16 06:00; Start 12/04/16 at 14:00; Stop 12/06/16 at 16:14; Status DC Heparin Sodium (Porcine) 5000 unit 5,000 unit Q8HRS SQ ; Start 12/04/16 at 14:30 ; Stop 12/04/16 at 16:48; Status DC Propofol (Diprivan) 20 ml @ As Directed STK-MED ONCE IV ; Start 12/04/16 at 14: 58; Stop 12/04/16 at 14:59; Status DC Lidocaine HCl (Lidocaine Pf 2% Vial) 5 ml STK-MED ONCE .ROUTE ; Start 12/04/16 at 14:58; Stop 12/04/16 at 14:59; Status DC Ondansetron HCl (Zofran) 4 mg PRN Q6HRS PRN IV Nausea; Start 12/05/16 at 07:00; Stop 12/06/16 at 06:59; Status DC Fentanyl Citrate (Fentanyl 2ml Vial) 25 mcg PRN Q5MIN PRN IV MILD PAIN; Start 12/05/16 at 07:00; Stop 12/06/16 at 06:59; Status DC Fentanyl Citrate (Fentanyl 2ml Vial) 50 mcg PRN Q5MIN PRN IV MODERATE PAIN Last administered on 12/05/16 15:24; Start 12/05/16 at 07:00; Stop 12/06/16 at 06: 59; Status DC Morphine Sulfate 1 mg 1 mg PRN Q10MIN PRN IV SEVERE PAIN; Start 12/05/16 at 07: 00; Stop 12/06/16 at 06:59; Status DC Lactated Ringer's (Iv Lactated Ringers) 1,000 ml @ 0 mls/hr Q0M IV ; Start 12/05 at 07:00; Stop 12/05/16 at 18:59; Status DC Lidocaine HCl 2 ml 1X PRN PRN ID IV START; Start 12/05/16 at 07:00; Stop at 06:59; Status DC Hydromorphone HCl (Dilaudid) 0.5 mg PRN Q10MIN PRN IV SEVERE PAIN, Second choice; Start 12/05/16 at 07:00; Stop 12/06/16 at 06:59; Status DC Prochlorperazine Edisylate (Compazine) 5 mg PACU PRN PRN IV NAUSEA; Start at 07:00; Stop 12/06/16 at 06:59; Status DC Insulin Aspart (Novolog) 0-9 UNITS QIDACHS SQ Last administered on 12/09/16 08: 20; Start 12/05/16 at 00:30 Cellulose 1 each STK-MED ONCE .ROUTE ; Start 12/05/16 at 07:09; Stop 12/05/16 at 07:10; Status DC Bupivacaine HCl/ Epinephrine Bitart 30 ml 30 ml STK-MED ONCE .ROUTE Last administered on 12/05/16t 08:35; Start 12/05/16 at 07:09; Stop 12/05/16 at 07:10; Status DC Propofol (Diprivan) 20 ml @ As Directed STK-MED ONCE IV ; Start 12/05/16 at 07:13 ; Stop 12/05/16 at 07:14; Status DC Lidocaine HCl 100 mg STK-MED ONCE .ROUTE ; Start 12/05/16 at 07:13; Stop 12/05/16 at 07:14; Status DC Rocuronium [place] (Zemuron) 50 mg STK-MED ONCE .ROUTE ; Start 12/05/16 at 07:13 ; Stop 12/05/16 at 07:14; Status DC Succinylcholine Chloride (Anectine) 200 mg STK-MED ONCE .ROUTE ; Start 12/05/16 at 07:14; Stop 12/05/16 at 07:15; Status DC Fentanyl Citrate (Fentanyl 2ml Vial) 100 mcg STK-MED ONCE .ROUTE ; Start at 07:16; Stop 12/05/16 at 07:17; Status DC Cellulose 1 each STK-MED ONCE .ROUTE ; Start 12/05/16 at 07:34; Stop 12/05/16 at 07:35; Status DC Phenylephrine HCl 1 mg 1 mg STK-MED ONCE IV ; Start 12/05/16 at 07:46; Stop at 07:47; Status DC Acetaminophen (Ofirmev) 100 ml @ As Directed STK-MED ONCE IV ; Start 12/05/16 at 08:29; Stop 12/05/16 at 08:30; Status DC Fentanyl Citrate (Fentanyl 2ml Vial) 100 mcg STK-MED ONCE .ROUTE ; Start at 08:32; Stop 12/05/16 at 08:33; Status DC Desflurane (Suprane) 90 ml STK-MED ONCE IH ; Start 12/05/16 at 09:09; Stop at 09:10; Status DC Insulin Aspart (Novolog) 8 units 1X ONCE SQ ; Start 12/05/16 at 10:15; Stop 12/05 at 10:15; Status DC Ephedrine Sulfate 50 mg STK-MED ONCE IV ; Start 12/05/16 at 10:01; Stop 12/05/16 at 10:02; Status DC Insulin Aspart (Novolog Vial) 8 unit ONCE ONCE SQ ; Start 12/05/16 at 10:15; Stop 12/05/16 at 10:16; Status DC Insulin Human Regular (Novolin R Vial) 8 unit 1X ONCE IV ; Start 12/05/16 at 10: 30; Stop 12/05/16 at 10:30; Status DC Insulin Human Regular 8 unit 8 unit 1X ONCE IV ; Start 12/05/16 at 10:30; Stop 12/05/16 at 10:31; Status DC Albumin Human 0 ml @ As Directed STK-MED ONCE IV ; Start 12/05/16 at 10:20; Stop 12/05/16 at 10:21; Status DC Albumin Human 0 ml @ As Directed STK-MED ONCE IV ; Start 12/05/16 at 10:20; Stop 12/05/16 at 10:21; Status DC Albumin Human (Plasmanate) 500 ml @ As Directed STK-MED ONCE IV ; Start at 10:24; Stop 12/05/16 at 10:25; Status DC Neostigmine Methylsulfate 5 mg STK-MED ONCE .ROUTE ; Start 12/05/16 at 10:55; Stop 12/05/16 at 10:56; Status DC Glycopyrrolate (Robinul) 1 mg STK-MED ONCE .ROUTE ; Start 12/05/16 at 10:55; Stop 12/05/16 at 10:56; Status DC Phenylephrine HCl (Guido-Synephrine Inj) 10 mg STK-MED ONCE .ROUTE ; Start at 11:00; Stop 12/05/16 at 11:01; Status DC Insulin Aspart (Novolog) 3 units 1X ONCE SQ Last administered on 12/06/16t 14: 30; Start 12/06/16 at 14:30; Stop 12/06/16 at 14:31; Status DC Lidocaine HCl (Glydo (Lidocaine) Jelly) 1 kassidy 1X ONCE MM ; Start 12/06/16 at 22: 00; Stop 12/06/16 at 22:01; Status DC Acetaminophen/ Hydrocodone Bitart (Lortab 7.5-325/ 15ml Oral Solution) 15 ml PRN Q6HRS PRN PO PAIN; Start 12/07/16 at 09:15 Furosemide (Lasix) 20 mg DAILY PO Last administered on 12/09/16 08:14; Start at 16:00 Insulin Aspart (Novolog) 20 units 1X ONCE SQ Last administered on 12/07/16 21: 08; Start 12/07/16 at 21:00; Stop 12/07/16 at 21:02; Status DC Active Scripts Active Reported Calcium 600 + Vit D 200 Tablet (Calcium Carbonate/Vitamin D3) 1 Each Tablet 1 Each PO BID Simvastatin 40 Mg Tablet 0.5 Tab PO QHS Ranitidine Hcl 150 Mg Tablet 1 Tab PO BID Omeprazole 40 Mg Capsule.dr 1 Cap PO DAILY Humulin R (Insulin Regular, Human) 100 Unit/1 Ml Vial 5-8 Unit IJ TIDWMEALS Furosemide 40 Mg Tablet 0.5 Tab PO DAILY PRN Furosemide 40 Mg Tablet 0.5 Tab PO DAILY Sinemet 25-100 Mg Tablet (Carbidopa/Levodopa) 1 Each Tablet 1 Tab PO QID Aspirin Ec (Aspirin) 81 Mg Tablet.dr 1 Tab PO DAILY Amlodipine Besylate 5 Mg Tablet 2.5 Mg PO DAILY Tylenol (Acetaminophen) 325 Mg Tablet 1-2 Tab PO QID Vitals/I & O Vital Sign - Last 24 Hours 12/08/16 12/08/16 12/08/16 12/08/16 15:00 19:00 20:00 23:41 Temp 98.4 97.5 98.3 98.4 97.5 98.3 Pulse 62 58 59 Resp 20 16 16 B/P 100/46 121/39 104/40 Pulse Ox 95 94 96 O2 Delivery Room Air Room Air Room Air Room Air 12/09/16 12/09/16 12/09/16 12/09/16 03:45 07:00 08:15 11:00 Temp 98.6 98.3 97.6 98.6 98.3 97.6 Pulse 65 66 66 55 Resp 16 20 B/P 116/36 122/44 122/44 115/42 Pulse Ox 93 95 O2 Delivery Room Air Room Air Intake and Output 12/08/16 12/08/16 12/09/16 15:00 23:00 07:00 Intake Total 280 ml 0 ml Output Total 1000 ml 600 ml Balance 280 ml -1000 ml -600 ml PHIL GROSS III DO Dec 09, 2016 12:17
[2016-12-09 15:00] VITALS: BP 120/43
--- NOTE | 2016-12-09 15:34 | PDOC ---
Provider Note Provider Note sleeping. i did not awaken. afeb vss. ALIA CHAN MD Dec 09, 2016 15:34
[2016-12-09 19:00] VITALS: BP 125/33
[2016-12-09] MEDS: ATORVASTATIN CALCIUM 20 MG TABLET PO SCH (21:17)
[2016-12-09 23:00] VITALS: BP 103/40
[2016-12-10 03:00] VITALS: BP 120/47
[2016-12-10 04:08] LABS: BASO % 0 % (0-3); EOS % 4 % (0-3); HEMATOCRIT 23.7 % (39.0-53.0); HEMOGLOBIN 7.7 g/dL (13.0-17.5); LYMPH # 1.8 x10^3/uL (1.0-4.8); LYMPH % 18 % (24-48); MEAN CORPUSCULAR HEMOGLOBIN 31 pg (25-35); MEAN CORPUSCULAR HGB CONC 32 g/dL (31-37); MEAN CORPUSCULAR VOLUME 96 fL (79-100); MONO % 12 % (0-9); NEUT % 66 % (31-73); PLATELET COUNT 191 x10^3/uL (140-400); RED BLOOD COUNT 2.47 x10^6/uL (4.30-5.70); WHITE BLOOD COUNT 10.2 x10^3/uL (4.0-11.0)
[2016-12-10 04:56] LABS: ALBUMIN 1.8 g/dL (3.4-5.0); ALBUMIN/GLOBULIN RATIO 0.6 (1.0-1.7); CREATININE 2.1 mg/dL (0.7-1.3); MAGNESIUM 2.2 mg/dL (1.8-2.4); PHOSPHORUS 4.4 mg/dL (2.6-4.7); POTASSIUM 4.6 mmol/L (3.5-5.1); TOTAL BILIRUBIN 0.5 mg/dL (0.2-1.0)
[2016-12-10] MEDS: PIPERACILLIN/TAZOBACTAM 2.25 GM in IV NORMAL SALINE 50ML 50 ML IV SCH ×3 (06:00→21:59)
[2016-12-10 07:00] VITALS: BP 121/55
[2016-12-10] MEDS: CARBIDOPA/LEVODOPA 25/100MG TABLET PO SCH ×4 (09:22→21:19)
[2016-12-10] MEDS: CALCIUM CARB/VIT D3 500/200 TABLET PO SCH ×2 (09:22→17:48)
[2016-12-10] MEDS: AMLODIPINE BESYLATE 2.5 MG TABLET PO SCH (09:23)
[2016-12-10] MEDS: FUROSEMIDE 20 MG TABLET PO SCH (09:23)
[2016-12-10] MEDS: ASPIRIN ENTERIC COATED 81 MG TABLET.DR. PO SCH (09:23)
[2016-12-10] MEDS: PANTOPRAZOLE 40 MG TABLET. PO SCH (09:23)
[2016-12-10] MEDS: INSULIN ASPART 300 UNITS/3 ML INSULN.PEN SQ SCH ×4 (09:32→21:00)
--- NOTE | 2016-12-10 10:31 | PDOC ---
LUISA [facility]Y [employer] 12/10/16 1031: SURGICAL PROGRESS NOTE Subjective tolerating diet no pain Vital Signs Vital Signs Date Time Temp Pulse Resp B/P Pulse Ox O2 Delivery O2 Flow Rate FiO2 12/10/16 09:23 67 121/55 12/10/16 07:00 98.2 16 92 Room Air 98.2 I&O Intake and Output 12/10/16 07:00 Intake Total 2920 ml Output Total 1300 ml Balance 1620 ml Intake Oral 860 ml IV Total 2060 ml Output Urine Total 1300 ml # Bowel Movements 2 General: Alert, Oriented X3, Cooperative, No acute distress Abdomen: Soft, Other (lap sites c/d/i, no erythema ) Labs Laboratory Tests Test 12/08/16 11:50 12/08/16 21:05 12/09/16 05:00 12/09/16 07:37 Glucose (Fingerstick) 344mg/dL (70-99) 300mg/dL (70-99) 304mg/dL (70-99) White Blood Count 11.4x10^3/uL (4.0-11.0) Red Blood Count 2.68x10^6/uL (4.30-5.70) Hemoglobin 8.3g/dL (13.0-17.5) Hematocrit 25.9% (39.0-53.0) Mean Corpuscular Volume 97fL (79-100) Mean Corpuscular Hemoglobin 31pg (25-35) Mean Corpuscular Hemoglobin Concent 32g/dL (31-37) Red Cell Distribution Width 13.4% (11.5-14.5) Platelet Count 189x10^3/uL (140-400) Neutrophils (%) (Auto) 73% (31-73) Lymphocytes (%) (Auto) 13% (24-48) Monocytes (%) (Auto) 10% (0-9) Eosinophils (%) (Auto) 4% (0-3) Basophils (%) (Auto) 0% (0-3) Neutrophils # (Auto) 8.3x10^3uL (1.8-7.7) Lymphocytes # (Auto) 1.5x10^3/uL (1.0-4.8) Monocytes # (Auto) 1.2x10^3/uL (0.0-1.1) Eosinophils # (Auto) 0.4x10^3/uL (0.0-0.7) Basophils # (Auto) 0.0x10^3/uL (0.0-0.2) Sodium Level 140mmol/L (136-145) Potassium Level 4.7mmol/L (3.5-5.1) Chloride Level 103mmol/L (98-107) Carbon Dioxide Level 31mmol/L (21-32) Anion Gap 6 (6-14) Blood Urea Nitrogen 96mg/dL (8-26) Creatinine 1.9mg/dL (0.7-1.3) Estimated GFR (Cockcroft-Gault) 33.7 BUN/Creatinine Ratio 51 (6-20) Glucose Level 252mg/dL (70-99) Calcium Level 9.1mg/dL (8.5-10.1) Phosphorus Level 4.3mg/dL (2.6-4.7) Magnesium Level 2.3mg/dL (1.8-2.4) Total Bilirubin 0.6mg/dL (0.2-1.0) Aspartate Amino Transf (AST/SGOT) 25U/L (15-37) Alanine Aminotransferase (ALT/SGPT) 9U/L (16-63) Alkaline Phosphatase 49U/L (46-116) Total Protein 5.3g/dL (6.4-8.2) Albumin 2.0g/dL (3.4-5.0) Albumin/Globulin Ratio 0.6 (1.0-1.7) Test 12/09/16 11:39 12/09/16 16:47 12/09/16 20:37 12/10/16 02:40 Glucose (Fingerstick) 315mg/dL (70-99) 171mg/dL (70-99) 189mg/dL (70-99) White Blood Count 10.2x10^3/uL (4.0-11.0) Red Blood Count 2.47x10^6/uL (4.30-5.70) Hemoglobin 7.7g/dL (13.0-17.5) Hematocrit 23.7% (39.0-53.0) Mean Corpuscular Volume 96fL (79-100) Mean Corpuscular Hemoglobin 31pg (25-35) Mean Corpuscular Hemoglobin Concent 32g/dL (31-37) Red Cell Distribution Width 13.0% (11.5-14.5) Platelet Count 191x10^3/uL (140-400) Neutrophils (%) (Auto) 66% (31-73) Lymphocytes (%) (Auto) 18% (24-48) Monocytes (%) (Auto) 12% (0-9) Eosinophils (%) (Auto) 4% (0-3) Basophils (%) (Auto) 0% (0-3) Neutrophils # (Auto) 6.8x10^3uL (1.8-7.7) Lymphocytes # (Auto) 1.8x10^3/uL (1.0-4.8) Monocytes # (Auto) 1.2x10^3/uL (0.0-1.1) Eosinophils # (Auto) 0.4x10^3/uL (0.0-0.7) Basophils # (Auto) 0.0x10^3/uL (0.0-0.2) Sodium Level 139mmol/L (136-145) Potassium Level 4.6mmol/L (3.5-5.1) Chloride Level 103mmol/L (98-107) Carbon Dioxide Level 28mmol/L (21-32) Anion Gap 8 (6-14) Blood Urea Nitrogen 94mg/dL (8-26) Creatinine 2.1mg/dL (0.7-1.3) Estimated GFR (Cockcroft-Gault) 30.0 BUN/Creatinine Ratio 45 (6-20) Glucose Level 267mg/dL (70-99) Calcium Level 9.0mg/dL (8.5-10.1) Phosphorus Level 4.4mg/dL (2.6-4.7) Magnesium Level 2.2mg/dL (1.8-2.4) Total Bilirubin 0.5mg/dL (0.2-1.0) Aspartate Amino Transf (AST/SGOT) 21U/L (15-37) Alanine Aminotransferase (ALT/SGPT) 8U/L (16-63) Alkaline Phosphatase 51U/L (46-116) Total Protein 5.0g/dL (6.4-8.2) Albumin 1.8g/dL (3.4-5.0) Albumin/Globulin Ratio 0.6 (1.0-1.7) Test 12/10/16 07:13 Glucose (Fingerstick) 339mg/dL (70-99) Laboratory Tests Test 12/09/16 11:39 12/09/16 16:47 12/09/16 20:37 12/10/16 02:40 Glucose (Fingerstick) 315mg/dL (70-99) 171mg/dL (70-99) 189mg/dL (70-99) White Blood Count 10.2x10^3/uL (4.0-11.0) Red Blood Count 2.47x10^6/uL (4.30-5.70) Hemoglobin 7.7g/dL (13.0-17.5) Hematocrit 23.7% (39.0-53.0) Mean Corpuscular Volume 96fL (79-100) Mean Corpuscular Hemoglobin 31pg (25-35) Mean Corpuscular Hemoglobin Concent 32g/dL (31-37) Red Cell Distribution Width 13.0% (11.5-14.5) Platelet Count 191x10^3/uL (140-400) Neutrophils (%) (Auto) 66% (31-73) Lymphocytes (%) (Auto) 18% (24-48) Monocytes (%) (Auto) 12% (0-9) Eosinophils (%) (Auto) 4% (0-3) Basophils (%) (Auto) 0% (0-3) Neutrophils # (Auto) 6.8x10^3uL (1.8-7.7) Lymphocytes # (Auto) 1.8x10^3/uL (1.0-4.8) Monocytes # (Auto) 1.2x10^3/uL (0.0-1.1) Eosinophils # (Auto) 0.4x10^3/uL (0.0-0.7) Basophils # (Auto) 0.0x10^3/uL (0.0-0.2) Sodium Level 139mmol/L (136-145) Potassium Level 4.6mmol/L (3.5-5.1) Chloride Level 103mmol/L (98-107) Carbon Dioxide Level 28mmol/L (21-32) Anion Gap 8 (6-14) Blood Urea Nitrogen 94mg/dL (8-26) Creatinine 2.1mg/dL (0.7-1.3) Estimated GFR (Cockcroft-Gault) 30.0 BUN/Creatinine Ratio 45 (6-20) Glucose Level 267mg/dL (70-99) Calcium Level 9.0mg/dL (8.5-10.1) Phosphorus Level 4.4mg/dL (2.6-4.7) Magnesium Level 2.2mg/dL (1.8-2.4) Total Bilirubin 0.5mg/dL (0.2-1.0) Aspartate Amino Transf (AST/SGOT) 21U/L (15-37) Alanine Aminotransferase (ALT/SGPT) 8U/L (16-63) Alkaline Phosphatase 51U/L (46-116) Total Protein 5.0g/dL (6.4-8.2) Albumin 1.8g/dL (3.4-5.0) Albumin/Globulin Ratio 0.6 (1.0-1.7) Test 12/10/16 07:13 Glucose (Fingerstick) 339mg/dL (70-99) Problem List Problems Medical Problems: (1) Gastric outlet obstruction Status: Acute Assessment/Plan s/p socorro fundoplication full liquids x 2 weeks postop FU in clinic with Dr Clifton Problems: CALLIE CLIFTON MD 12/11/16 1520: SURGICAL PROGRESS NOTE Assessment/Plan Agree with above Problems: LUISA FYR APRN Dec 10, 2016 10:31 CALLIE CLIFTON MD Dec 11, 2016 15:20
--- NOTE | 2016-12-10 10:43 | PDOC ---
PROGRESS NOTES Chief Complaint Chief Complaint 1. Gastric outlet obstruction, hiatal hernia with gastric volvulus 2. Abdominal pain 3. Constipation 4. Diabetes Mellitus Type 2 5. Hypertension 6. Parkinson's Disease 7. severe malnutrition History of Present Illness History of Present Illness Patient was sitting in the bed at the time of evaluation, was in no acute distress, advanced to full liquid diet and able to keep it down, no new complains reported this AM. Vitals Vitals Vital Signs Date Time Temp Pulse Resp B/P Pulse Ox O2 Delivery O2 Flow Rate FiO2 12/10/16 09:23 67 121/55 12/10/16 07:00 98.2 16 92 Room Air 98.2 Physical Exam General: Alert, Oriented X3, Cooperative, No acute distress Heart: Regular rate Lungs: Clear Abdomen: Soft, Other (lap sites c/d/i, no erythema ) Extremities: No clubbing, No cyanosis, No edema, Normal pulses, No tenderness/ swelling Skin: No breakdown, No significant lesion Labs LABS Laboratory Tests Test 12/09/16 11:39 12/09/16 16:47 12/09/16 20:37 12/10/16 02:40 Glucose (Fingerstick) 315mg/dL (70-99) 171mg/dL (70-99) 189mg/dL (70-99) White Blood Count 10.2x10^3/uL (4.0-11.0) Red Blood Count 2.47x10^6/uL (4.30-5.70) Hemoglobin 7.7g/dL (13.0-17.5) Hematocrit 23.7% (39.0-53.0) Mean Corpuscular Volume 96fL (79-100) Mean Corpuscular Hemoglobin 31pg (25-35) Mean Corpuscular Hemoglobin Concent 32g/dL (31-37) Red Cell Distribution Width 13.0% (11.5-14.5) Platelet Count 191x10^3/uL (140-400) Neutrophils (%) (Auto) 66% (31-73) Lymphocytes (%) (Auto) 18% (24-48) Monocytes (%) (Auto) 12% (0-9) Eosinophils (%) (Auto) 4% (0-3) Basophils (%) (Auto) 0% (0-3) Neutrophils # (Auto) 6.8x10^3uL (1.8-7.7) Lymphocytes # (Auto) 1.8x10^3/uL (1.0-4.8) Monocytes # (Auto) 1.2x10^3/uL (0.0-1.1) Eosinophils # (Auto) 0.4x10^3/uL (0.0-0.7) Basophils # (Auto) 0.0x10^3/uL (0.0-0.2) Sodium Level 139mmol/L (136-145) Potassium Level 4.6mmol/L (3.5-5.1) Chloride Level 103mmol/L (98-107) Carbon Dioxide Level 28mmol/L (21-32) Anion Gap 8 (6-14) Blood Urea Nitrogen 94mg/dL (8-26) Creatinine 2.1mg/dL (0.7-1.3) Estimated GFR (Cockcroft-Gault) 30.0 BUN/Creatinine Ratio 45 (6-20) Glucose Level 267mg/dL (70-99) Calcium Level 9.0mg/dL (8.5-10.1) Phosphorus Level 4.4mg/dL (2.6-4.7) Magnesium Level 2.2mg/dL (1.8-2.4) Total Bilirubin 0.5mg/dL (0.2-1.0) Aspartate Amino Transf (AST/SGOT) 21U/L (15-37) Alanine Aminotransferase (ALT/SGPT) 8U/L (16-63) Alkaline Phosphatase 51U/L (46-116) Total Protein 5.0g/dL (6.4-8.2) Albumin 1.8g/dL (3.4-5.0) Albumin/Globulin Ratio 0.6 (1.0-1.7) Test 12/10/16 07:13 Glucose (Fingerstick) 339mg/dL (70-99) Review of Systems Review of Systems abd pain better eating some mouth dry Assessment and Plan Assessmemt and Plan Problems Medical Problems: (1) Gastric outlet obstruction Status: Acute Problems: Comment Review of Relevant I have reviewed the following items rachael (where applicable) has been applied. Labs Laboratory Tests Test 12/08/16 11:50 12/08/16 21:05 12/09/16 05:00 12/09/16 07:37 Glucose (Fingerstick) 344mg/dL (70-99) 300mg/dL (70-99) 304mg/dL (70-99) White Blood Count 11.4x10^3/uL (4.0-11.0) Red Blood Count 2.68x10^6/uL (4.30-5.70) Hemoglobin 8.3g/dL (13.0-17.5) Hematocrit 25.9% (39.0-53.0) Mean Corpuscular Volume 97fL (79-100) Mean Corpuscular Hemoglobin 31pg (25-35) Mean Corpuscular Hemoglobin Concent 32g/dL (31-37) Red Cell Distribution Width 13.4% (11.5-14.5) Platelet Count 189x10^3/uL (140-400) Neutrophils (%) (Auto) 73% (31-73) Lymphocytes (%) (Auto) 13% (24-48) Monocytes (%) (Auto) 10% (0-9) Eosinophils (%) (Auto) 4% (0-3) Basophils (%) (Auto) 0% (0-3) Neutrophils # (Auto) 8.3x10^3uL (1.8-7.7) Lymphocytes # (Auto) 1.5x10^3/uL (1.0-4.8) Monocytes # (Auto) 1.2x10^3/uL (0.0-1.1) Eosinophils # (Auto) 0.4x10^3/uL (0.0-0.7) Basophils # (Auto) 0.0x10^3/uL (0.0-0.2) Sodium Level 140mmol/L (136-145) Potassium Level 4.7mmol/L (3.5-5.1) Chloride Level 103mmol/L (98-107) Carbon Dioxide Level 31mmol/L (21-32) Anion Gap 6 (6-14) Blood Urea Nitrogen 96mg/dL (8-26) Creatinine 1.9mg/dL (0.7-1.3) Estimated GFR (Cockcroft-Gault) 33.7 BUN/Creatinine Ratio 51 (6-20) Glucose Level 252mg/dL (70-99) Calcium Level 9.1mg/dL (8.5-10.1) Phosphorus Level 4.3mg/dL (2.6-4.7) Magnesium Level 2.3mg/dL (1.8-2.4) Total Bilirubin 0.6mg/dL (0.2-1.0) Aspartate Amino Transf (AST/SGOT) 25U/L (15-37) Alanine Aminotransferase (ALT/SGPT) 9U/L (16-63) Alkaline Phosphatase 49U/L (46-116) Total Protein 5.3g/dL (6.4-8.2) Albumin 2.0g/dL (3.4-5.0) Albumin/Globulin Ratio 0.6 (1.0-1.7) Test 12/09/16 11:39 12/09/16 16:47 12/09/16 20:37 12/10/16 02:40 Glucose (Fingerstick) 315mg/dL (70-99) 171mg/dL (70-99) 189mg/dL (70-99) White Blood Count 10.2x10^3/uL (4.0-11.0) Red Blood Count 2.47x10^6/uL (4.30-5.70) Hemoglobin 7.7g/dL (13.0-17.5) Hematocrit 23.7% (39.0-53.0) Mean Corpuscular Volume 96fL (79-100) Mean Corpuscular Hemoglobin 31pg (25-35) Mean Corpuscular Hemoglobin Concent 32g/dL (31-37) Red Cell Distribution Width 13.0% (11.5-14.5) Platelet Count 191x10^3/uL (140-400) Neutrophils (%) (Auto) 66% (31-73) Lymphocytes (%) (Auto) 18% (24-48) Monocytes (%) (Auto) 12% (0-9) Eosinophils (%) (Auto) 4% (0-3) Basophils (%) (Auto) 0% (0-3) Neutrophils # (Auto) 6.8x10^3uL (1.8-7.7) Lymphocytes # (Auto) 1.8x10^3/uL (1.0-4.8) Monocytes # (Auto) 1.2x10^3/uL (0.0-1.1) Eosinophils # (Auto) 0.4x10^3/uL (0.0-0.7) Basophils # (Auto) 0.0x10^3/uL (0.0-0.2) Sodium Level 139mmol/L (136-145) Potassium Level 4.6mmol/L (3.5-5.1) Chloride Level 103mmol/L (98-107) Carbon Dioxide Level 28mmol/L (21-32) Anion Gap 8 (6-14) Blood Urea Nitrogen 94mg/dL (8-26) Creatinine 2.1mg/dL (0.7-1.3) Estimated GFR (Cockcroft-Gault) 30.0 BUN/Creatinine Ratio 45 (6-20) Glucose Level 267mg/dL (70-99) Calcium Level 9.0mg/dL (8.5-10.1) Phosphorus Level 4.4mg/dL (2.6-4.7) Magnesium Level 2.2mg/dL (1.8-2.4) Total Bilirubin 0.5mg/dL (0.2-1.0) Aspartate Amino Transf (AST/SGOT) 21U/L (15-37) Alanine Aminotransferase (ALT/SGPT) 8U/L (16-63) Alkaline Phosphatase 51U/L (46-116) Total Protein 5.0g/dL (6.4-8.2) Albumin 1.8g/dL (3.4-5.0) Albumin/Globulin Ratio 0.6 (1.0-1.7) Test 12/10/16 07:13 Glucose (Fingerstick) 339mg/dL (70-99) Laboratory Tests Test 12/09/16 11:39 12/09/16 16:47 12/09/16 20:37 12/10/16 02:40 Glucose (Fingerstick) 315mg/dL (70-99) 171mg/dL (70-99) 189mg/dL (70-99) White Blood Count 10.2x10^3/uL (4.0-11.0) Red Blood Count 2.47x10^6/uL (4.30-5.70) Hemoglobin 7.7g/dL (13.0-17.5) Hematocrit 23.7% (39.0-53.0) Mean Corpuscular Volume 96fL (79-100) Mean Corpuscular Hemoglobin 31pg (25-35) Mean Corpuscular Hemoglobin Concent 32g/dL (31-37) Red Cell Distribution Width 13.0% (11.5-14.5) Platelet Count 191x10^3/uL (140-400) Neutrophils (%) (Auto) 66% (31-73) Lymphocytes (%) (Auto) 18% (24-48) Monocytes (%) (Auto) 12% (0-9) Eosinophils (%) (Auto) 4% (0-3) Basophils (%) (Auto) 0% (0-3) Neutrophils # (Auto) 6.8x10^3uL (1.8-7.7) Lymphocytes # (Auto) 1.8x10^3/uL (1.0-4.8) Monocytes # (Auto) 1.2x10^3/uL (0.0-1.1) Eosinophils # (Auto) 0.4x10^3/uL (0.0-0.7) Basophils # (Auto) 0.0x10^3/uL (0.0-0.2) Sodium Level 139mmol/L (136-145) Potassium Level 4.6mmol/L (3.5-5.1) Chloride Level 103mmol/L (98-107) Carbon Dioxide Level 28mmol/L (21-32) Anion Gap 8 (6-14) Blood Urea Nitrogen 94mg/dL (8-26) Creatinine 2.1mg/dL (0.7-1.3) Estimated GFR (Cockcroft-Gault) 30.0 BUN/Creatinine Ratio 45 (6-20) Glucose Level 267mg/dL (70-99) Calcium Level 9.0mg/dL (8.5-10.1) Phosphorus Level 4.4mg/dL (2.6-4.7) Magnesium Level 2.2mg/dL (1.8-2.4) Total Bilirubin 0.5mg/dL (0.2-1.0) Aspartate Amino Transf (AST/SGOT) 21U/L (15-37) Alanine Aminotransferase (ALT/SGPT) 8U/L (16-63) Alkaline Phosphatase 51U/L (46-116) Total Protein 5.0g/dL (6.4-8.2) Albumin 1.8g/dL (3.4-5.0) Albumin/Globulin Ratio 0.6 (1.0-1.7) Test 12/10/16 07:13 Glucose (Fingerstick) 339mg/dL (70-99) Medications Current Medications Sodium Chloride (Normal Saline Flush) 3 ml PRN DAILY PRN IV AFTER MEDS AND BLOOD DRAWS; Start 12/02/16 at 19:30 Morphine Sulfate 1 mg PRN Q1HR PRN IV PAIN Last administered on 12/06/16 10:22 ; Start 12/02/16 at 19:30 Bisacodyl (Dulcolax Supp) 10 mg PRN DAILY PRN [place] CONSTIPATION; Start 12/02/16 at 19:30 Hydralazine HCl (Apresoline) 10 mg PRN Q4HRS PRN IVP ELEVATED BP, SEE COMMENTS ; Start 12/02/16 at 19:45 Acetaminophen 650 mg 650 mg PRN Q6HRS PRN [place] MILD PAIN / TEMP; Start 12/02/16 at 19:45; Stop 12/04/16 at 14:30; Status DC Sodium Chloride 1,000 ml @ 150 mls/hr Q6H40M IV ; Start 12/02/16 at 23:00; Stop 12/03/16 at 01:24; Status DC Piperacillin Sod/ Tazobactam Sod/ Sodium Chloride (Zosyn/Iv Sodium Chloride 0.9 % 50ml) 50 ml @ 100 mls/hr 1X ONCE IV Last administered on 12/03/16 00:15; Start 12/02/16 at 23:00; Stop 12/02/16 at 23:29; Status DC Piperacillin Sod/ Tazobactam Sod 1 each 1 each PRN DAILY PRN MC SEE COMMENTS; Start 12/02/16 at 23:00; Stop 12/05/16 at 09:25; Status DC Piperacillin Sod/ Tazobactam Sod 2.25 gm/Sodium Chloride 50 ml @ 100 mls/hr Q8HRS IV Last administered on 12/10/16 06:00; Start 12/03/16 at 06:00 Sodium Chloride 1,000 ml @ 75 mls/hr Q6H40M IV Last administered on 12/03/16 01:56; Start 12/03/16 at 23:00; Stop 12/04/16 at 09:27; Status DC Lactated Ringer's (Iv Lactated Ringers) 1,000 ml @ 50 mls/hr Q20H IV ; Start at 07:00; Stop 12/04/16 at 18:59; Status DC Acetaminophen (Tylenol) 650 mg PRN Q6HRS PRN PO FEVER; Start 12/04/16 at 09:30 Amlodipine Besylate (Norvasc) 2.5 mg DAILY PO Last administered on 12/10/16 09: 23; Start 12/04/16 at 10:00 Aspirin (Ecotrin) 81 mg DAILY PO Last administered on 12/10/16 09:23; Start at 10:00 Carbidopa/Levodopa (Sinemet 25/100) 1 tab QID PO Last administered on 12/10/16 09:22; Start 12/04/16 at 10:00 Atorvastatin Calcium (Lipitor) 20 mg QHS PO Last administered on 12/09/16 21:17 ; Start 12/04/16 at 21:00 Calcium/Vitamin D (Oscal D 500mg/ 200uts) 1 tab BIDWMEALS PO Last administered on 12/10/16 09:22; Start 12/04/16 at 10:00 Pantoprazole Sodium 40 mg 40 mg DAILYAC PO Last administered on 12/10/16 09:23 ; Start 12/04/16 at 10:00 Potassium Chloride 100 ml @ 100 mls/hr Q1H IV Last administered on 12/04/16 12:29; Start 12/04/16 at 10:00; Stop 12/04/16 at 11:59; Status DC Potassium Chloride/Sodium Chloride (KCl 20 Meq-0.45% Nacl) 1,000 ml @ 75 mls/ hr [id number] IV ; Start 12/04/16 at 10:00; Stop 12/04/16 at 14:30; Status DC Insulin Aspart (Novolog) 0-9 UNITS TIDWMEALS SQ ; Start 12/04/16 at 12:00; Stop 12/05/16 at 00:12; Status DC Dextrose 12.5 gm 12.5 gm PRN Q15MIN PRN IV SEE COMMENTS; Start 12/04/16 at 09: 30 Amino Acids/ Electrolytes/ Dextrose 1,000 ml @ 80 mls/hr [id number] IV Last administered on 12/09/16 21:17; Start 12/04/16 at 10:30 Sodium Chloride (Iv Sodium Chloride 0.9% 1000ml Bag) 1,000 ml @ 75 mls/hr [id number] IV Last administered on 12/06/16 06:00; Start 12/04/16 at 14:00; Stop 12/06/16 at 16:14; Status DC Heparin Sodium (Porcine) 5000 unit 5,000 unit Q8HRS SQ ; Start 12/04/16 at 14:30 ; Stop 12/04/16 at 16:48; Status DC Propofol (Diprivan) 20 ml @ As Directed STK-MED ONCE IV ; Start 12/04/16 at 14: 58; Stop 12/04/16 at 14:59; Status DC Lidocaine HCl (Lidocaine Pf 2% Vial) 5 ml STK-MED ONCE .ROUTE ; Start 12/04/16 at 14:58; Stop 12/04/16 at 14:59; Status DC Ondansetron HCl (Zofran) 4 mg PRN Q6HRS PRN IV Nausea; Start 12/05/16 at 07:00; Stop 12/06/16 at 06:59; Status DC Fentanyl Citrate (Fentanyl 2ml Vial) 25 mcg PRN Q5MIN PRN IV MILD PAIN; Start 12/05/16 at 07:00; Stop 12/06/16 at 06:59; Status DC Fentanyl Citrate (Fentanyl 2ml Vial) 50 mcg PRN Q5MIN PRN IV MODERATE PAIN Last administered on 12/05/16 15:24; Start 12/05/16 at 07:00; Stop 12/06/16 at 06: 59; Status DC Morphine Sulfate 1 mg 1 mg PRN Q10MIN PRN IV SEVERE PAIN; Start 12/05/16 at 07: 00; Stop 12/06/16 at 06:59; Status DC Lactated Ringer's (Iv Lactated Ringers) 1,000 ml @ 0 mls/hr Q0M IV ; Start 12/05 at 07:00; Stop 12/05/16 at 18:59; Status DC Lidocaine HCl 2 ml 1X PRN PRN ID IV START; Start 12/05/16 at 07:00; Stop at 06:59; Status DC Hydromorphone HCl (Dilaudid) 0.5 mg PRN Q10MIN PRN IV SEVERE PAIN, Second choice; Start 12/05/16 at 07:00; Stop 12/06/16 at 06:59; Status DC Prochlorperazine Edisylate (Compazine) 5 mg PACU PRN PRN IV NAUSEA; Start at 07:00; Stop 12/06/16 at 06:59; Status DC Insulin Aspart (Novolog) 0-9 UNITS QIDACHS SQ Last administered on 12/09/16 08: 20; Start 12/05/16 at 00:30; Stop 12/09/16 at 12:22; Status DC Cellulose 1 each STK-MED ONCE .ROUTE ; Start 12/05/16 at 07:09; Stop 12/05/16 at 07:10; Status DC Bupivacaine HCl/ Epinephrine Bitart 30 ml 30 ml STK-MED ONCE .ROUTE Last administered on 12/05/16 08:35; Start 12/05/16 at 07:09; Stop 12/05/16 at 07:10; Status DC Propofol (Diprivan) 20 ml @ As Directed STK-MED ONCE IV ; Start 12/05/16 at 07:13 ; Stop 12/05/16 at 07:14; Status DC Lidocaine HCl 100 mg STK-MED ONCE .ROUTE ; Start 12/05/16 at 07:13; Stop 12/05/16 at 07:14; Status DC Rocuronium [place] (Zemuron) 50 mg STK-MED ONCE .ROUTE ; Start 12/05/16 at 07:13 ; Stop 12/05/16 at 07:14; Status DC Succinylcholine Chloride (Anectine) 200 mg STK-MED ONCE .ROUTE ; Start 12/05/16 at 07:14; Stop 12/05/16 at 07:15; Status DC Fentanyl Citrate (Fentanyl 2ml Vial) 100 mcg STK-MED ONCE .ROUTE ; Start at 07:16; Stop 12/05/16 at 07:17; Status DC Cellulose 1 each STK-MED ONCE .ROUTE ; Start 12/05/16 at 07:34; Stop 12/05/16 at 07:35; Status DC Phenylephrine HCl 1 mg 1 mg STK-MED ONCE IV ; Start 12/05/16 at 07:46; Stop at 07:47; Status DC Acetaminophen (Ofirmev) 100 ml @ As Directed STK-MED ONCE IV ; Start 12/05/16 at 08:29; Stop 12/05/16 at 08:30; Status DC Fentanyl Citrate (Fentanyl 2ml Vial) 100 mcg STK-MED ONCE .ROUTE ; Start at 08:32; Stop 12/05/16 at 08:33; Status DC Desflurane (Suprane) 90 ml STK-MED ONCE IH ; Start 12/05/16 at 09:09; Stop at 09:10; Status DC Insulin Aspart (Novolog) 8 units 1X ONCE SQ ; Start 12/05/16 at 10:15; Stop 12/05 at 10:15; Status DC Ephedrine Sulfate 50 mg STK-MED ONCE IV ; Start 12/05/16 at 10:01; Stop 12/05/16 at 10:02; Status DC Insulin Aspart (Novolog Vial) 8 unit ONCE ONCE SQ ; Start 12/05/16 at 10:15; Stop 12/05/16 at 10:16; Status DC Insulin Human Regular (Novolin R Vial) 8 unit 1X ONCE IV ; Start 12/05/16 at 10: 30; Stop 12/05/16 at 10:30; Status DC Insulin Human Regular 8 unit 8 unit 1X ONCE IV ; Start 12/05/16 at 10:30; Stop 12/05/16 at 10:31; Status DC Albumin Human 0 ml @ As Directed STK-MED ONCE IV ; Start 12/05/16 at 10:20; Stop 12/05/16 at 10:21; Status DC Albumin Human 0 ml @ As Directed STK-MED ONCE IV ; Start 12/05/16 at 10:20; Stop 12/05/16 at 10:21; Status DC Albumin Human (Plasmanate) 500 ml @ As Directed STK-MED ONCE IV ; Start at 10:24; Stop 12/05/16 at 10:25; Status DC Neostigmine Methylsulfate 5 mg STK-MED ONCE .ROUTE ; Start 12/05/16 at 10:55; Stop 12/05/16 at 10:56; Status DC Glycopyrrolate (Robinul) 1 mg STK-MED ONCE .ROUTE ; Start 12/05/16 at 10:55; Stop 12/05/16 at 10:56; Status DC Phenylephrine HCl (Guido-Synephrine Inj) 10 mg STK-MED ONCE .ROUTE ; Start at 11:00; Stop 12/05/16 at 11:01; Status DC Insulin Aspart (Novolog) 3 units 1X ONCE SQ Last administered on 12/06/16 14: 30; Start 12/06/16 at 14:30; Stop 12/06/16 at 14:31; Status DC Lidocaine HCl (Glydo (Lidocaine) Jelly) 1 kassidy 1X ONCE MM ; Start 12/06/16 at 22: 00; Stop 12/06/16 at 22:01; Status DC Acetaminophen/ Hydrocodone Bitart (Lortab 7.5-325/ 15ml Oral Solution) 15 ml PRN Q6HRS PRN PO PAIN; Start 12/07/16 at 09:15 Furosemide (Lasix) 20 mg DAILY PO Last administered on 12/10/16 09:23; Start at 16:00 Insulin Aspart (Novolog) 20 units 1X ONCE SQ Last administered on 12/07/16 21: 08; Start 12/07/16 at 21:00; Stop 12/07/16 at 21:02; Status DC Insulin Aspart (Novolog) 0-12 UNITS QIDACHS SQ Last administered on 12/10/16 09 :32; Start 12/09/16 at 12:30 Active Scripts Active Reported Calcium 600 + Vit D 200 Tablet (Calcium Carbonate/Vitamin D3) 1 Each Tablet 1 Each PO BID Simvastatin 40 Mg Tablet 0.5 Tab PO QHS Ranitidine Hcl 150 Mg Tablet 1 Tab PO BID Omeprazole 40 Mg Capsule.dr 1 Cap PO DAILY Humulin R (Insulin Regular, Human) 100 Unit/1 Ml Vial 5-8 Unit IJ TIDWMEALS Furosemide 40 Mg Tablet 0.5 Tab PO DAILY PRN Furosemide 40 Mg Tablet 0.5 Tab PO DAILY Sinemet 25-100 Mg Tablet (Carbidopa/Levodopa) 1 Each Tablet 1 Tab PO QID Aspirin Ec (Aspirin) 81 Mg Tablet.dr 1 Tab PO DAILY Amlodipine Besylate 5 Mg Tablet 2.5 Mg PO DAILY Tylenol (Acetaminophen) 325 Mg Tablet 1-2 Tab PO QID Vitals/I & O Vital Sign - Last 24 Hours 12/09/16 12/09/16 12/09/16 12/09/16 11:00 15:00 19:00 20:00 Temp 97.6 98.0 98.2 97.6 98.0 98.2 Pulse 55 46 59 Resp 20 20 30 B/P 115/42 120/43 125/33 Pulse Ox 95 95 97 O2 Delivery Room Air Room Air Room Air Room Air 12/09/16 12/10/16 12/10/16 12/10/16 23:00 03:00 07:00 09:23 Temp 99.1 99.5 98.2 99.1 99.5 98.2 Pulse 58 60 67 67 Resp 22 20 16 B/P 103/40 120/47 121/55 121/55 Pulse Ox 94 92 O2 Delivery Room Air Room Air Room Air Intake and Output 12/09/16 12/09/16 12/10/16 15:00 23:00 07:00 Intake Total 1050 ml 910 ml 960 ml Output Total 1050 ml 250 ml Balance 1050 ml -140 ml 710 ml MARIFER MURRY MD Dec 10, 2016 10:43
[2016-12-10] MEDS ORDERED: SALIVA STIMULANT AGENT 44ML SPRAY BOTTLE. PO PRN (10:45)
[2016-12-10 11:00] VITALS: BP 131/50
[2016-12-10] MEDS: INSULIN DETEMIR 300 UNITS/3 ML INSULN.PEN. SQ SCH (11:00)
--- NOTE | 2016-12-10 11:10 | PDOC ---
Subjective: Subjective: Some mild abd pain w/ coughing. Eating (full liquids) okay. Objective: Objective: No GI issues per RN. 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 DC per primary/surgery. SD CLEMENTE Dec 10, 2016 11:10
[2016-12-10] MEDS: AA 4.25%/CALCIUM/LYTES/D5W 1,000 ML IV SCH (14:46)
[2016-12-10 15:00] VITALS: BP 126/45
--- NOTE | 2016-12-10 16:46 | PDOC ---
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 Very OHOGAMIUT and unable to get ROS OBJECTIVE Vital Signs Vital Signs Date Time Temp Pulse Resp B/P Pulse Ox O2 Delivery O2 Flow Rate FiO2 12/10/16 15:00 97.6 56 16 126/45 99 Room Air 97.6 12/10/16 08:00 2.0 I & 0 Intake and Output 12/10/16 07:00 Intake Total 2920 ml Output Total 1300 ml Balance 1620 ml Intake Oral 860 ml IV Total 2060 ml Output Urine Total 1300 ml # Bowel Movements 2 PHYSICAL EXAM Physical Exam GEN: Awake, Oriented x ?, In no distress EYES: Vision Unchanged, Conjunctiva Normal EN: No EN Drainage, Mucous Membranes moist NECK: no JVD, min JVP, Supple, no Thyromegaly CVS: S1S2, + Murmur, No Gallop, No Rub,no Edema RESP: no Rales, no Rhonchi,no Acc. Muscle Use GI: BS + ve, NO Bruit, Non Tender, Non Distended : no CVA tenderness, no Suprapubic Tenderness DIAGNOSIS/ASSESSMENT Assessment & Plan DIPIKA: Current fluid and E-lyte status does not necessitate emergent need for dialysis. Will re-evaluate for dialysis in the am ? 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 Cmyoaphty: Clinically appears to be compensated HYPERNATREMIA -resolved on PPN Problems: COMMENT/RELEVANT DATA Meds Current Medications Medications (Trade) Dose Ordered Sig/Jaylan Start Time Stop Time Status Last Admin Dose Admin Acetaminophen (Ofirmev) 100 ml @ As Directed STK-MED ONCE 12/05/16 08:29 12/05/16 08:30 DC Acetaminophen (Tylenol) 650 mg PRN Q6HRS PRN 12/04/16 09:30 Acetaminophen 650 mg 650 mg PRN Q6HRS PRN 12/02/16 19:45 12/04/16 14:30 DC Acetaminophen/ Hydrocodone Bitart (Lortab 7.5-325/ 15ml Oral Solution) 15 ml PRN Q6HRS PRN 12/07/16 09:15 Albumin Human (Plasmanate) 500 ml @ As Directed STK-MED ONCE 12/05/16 10:24 12/05/16 10:25 DC Amino Acids/ Electrolytes/ Dextrose 1,000 ml @ 80 mls/hr [id number] 12/04/16 10:30 12/10/16 14:46 80 MLS/HR Amlodipine Besylate (Norvasc) 2.5 mg DAILY 12/04/16 10:00 12/10/16 09:23 2.5 MG Aspirin (Ecotrin) 81 mg DAILY 12/04/16 10:00 12/10/16 09:23 81 MG Atorvastatin Calcium (Lipitor) 20 mg QHS 12/04/16 21:00 12/09/16 21:17 20 MG Bisacodyl (Dulcolax Supp) 10 mg PRN DAILY PRN 12/02/16 19:30 Bupivacaine HCl/ Epinephrine Bitart 30 ml 30 ml STK-MED ONCE 12/05/16 07:09 12/05/16 07:10 DC 12/05/16 08:35 10 ML Calcium/Vitamin D (Oscal D 500mg/ 200uts) 1 tab [id number] 12/04/16 10:00 12/10/16 09:22 1 TAB Carbidopa/Levodopa (Sinemet 25/100) 1 tab QID 12/04/16 10:00 12/10/16 12:48 1 TAB Cellulose 1 each STK-MED ONCE 12/05/16 07:34 12/05/16 07:35 DC Desflurane (Suprane) 90 ml STK-MED ONCE 12/05/16 09:09 12/05/16 09:10 DC Dextrose 12.5 gm 12.5 gm PRN Q15MIN PRN 12/04/16 09:30 Ephedrine Sulfate 50 mg STK-MED ONCE 12/05/16 10:01 12/05/16 10:02 DC Fentanyl Citrate (Fentanyl 2ml Vial) 100 mcg STK-MED ONCE 12/05/16 08:32 12/05/16 08:33 DC Furosemide (Lasix) 20 mg DAILY 12/07/16 16:00 12/10/16 09:23 20 MG Glycopyrrolate (Robinul) 1 mg STK-MED ONCE 12/05/16 10:55 12/05/16 10:56 DC Heparin Sodium (Porcine) 5,000 unit Q8HRS 12/04/16 14:30 12/04/16 16:48 DC Hydralazine HCl (Apresoline) 10 mg PRN Q4HRS PRN 12/02/16 19:45 Hydromorphone HCl (Dilaudid) 0.5 mg PRN Q10MIN PRN 12/05/16 07:00 12/06/16 06:59 DC Insulin Aspart (Novolog Vial) 8 unit ONCE ONCE 12/05/16 10:15 12/05/16 10:16 DC Insulin Aspart (Novolog) 0-12 UNITS QIDACHS 12/09/16 12:30 12/10/16 12:02 12 UNITS Insulin Detemir (Levemir) 15 units DAILY08 12/10/16 10:45 12/10/16 11:00 15 UNITS Insulin Human Regular (Novolin R Vial) 8 unit 1X ONCE 12/05/16 10:30 12/05/16 10:30 DC Insulin Human Regular 8 unit 8 unit 1X ONCE 12/05/16 10:30 12/05/16 10:31 DC Lactated Ringer's (Iv Lactated Ringers) 1,000 ml @ 0 mls/hr Q0M 12/05/16 07:00 12/05/16 18:59 DC Lidocaine HCl (Glydo (Lidocaine) Jelly) 1 kassidy 1X ONCE 12/06/16 22:00 12/06/16 22:01 DC Lidocaine HCl (Lidocaine Pf 2% Vial) 5 ml STK-MED ONCE 12/04/16 14:58 12/04/16 14:59 DC Morphine Sulfate 1 mg 1 mg PRN Q10MIN PRN 12/05/16 07:00 12/06/16 06:59 DC Neostigmine Methylsulfate 5 mg STK-MED ONCE 12/05/16 10:55 12/05/16 10:56 DC Ondansetron HCl (Zofran) 4 mg PRN Q6HRS PRN 12/05/16 07:00 12/06/16 06:59 DC Pantoprazole Sodium 40 mg 40 mg DAILYAC 12/04/16 10:00 12/10/16 09:23 40 MG Phenylephrine HCl (Guido-Synephrine Inj) 10 mg STK-MED ONCE 12/05/16 11:00 12/05/16 11:01 DC Phenylephrine HCl 1 mg 1 mg STK-MED ONCE 12/05/16 07:46 12/05/16 07:47 DC Piperacillin Sod/ Tazobactam Sod 2.25 gm/Sodium Chloride 50 ml @ 100 mls/hr Q8HRS 12/03/16 06:00 12/10/16 14:46 100 MLS/HR Piperacillin Sod/ Tazobactam Sod 1 each 1 each PRN DAILY PRN 12/02/16 23:00 12/05/16 09:25 DC Piperacillin Sod/ Tazobactam Sod/ Sodium Chloride (Zosyn/Iv Sodium Chloride 0.9% 50ml) 50 ml @ 100 mls/hr 1X ONCE 12/02/16 23:00 12/02/16 23:29 DC 12/03/16 00:15 100 MLS/HR Potassium Chloride/Sodium Chloride (KCl 20 Meq-0.45% Nacl) 1,000 ml @ 75 mls/hr [id number] 12/04/16 10:00 12/04/16 14:30 DC Potassium Chloride 100 ml @ 100 mls/hr Q1H 12/04/16 10:00 12/04/16 11:59 DC 12/04/16 12:29 100 MLS/HR Prochlorperazine Edisylate (Compazine) 5 mg PACU PRN PRN 12/05/16 07:00 12/06/16 06:59 DC Propofol (Diprivan) 20 ml @ As Directed STK-MED ONCE 12/05/16 07:13 12/05/16 07:14 DC Rocuronium [place] (Zemuron) 50 mg STK-MED ONCE 12/05/16 07:13 12/05/16 07:14 DC Saliva Substitute (Biotene Moisturizing Mouth) 2 spray PRN Q15MIN PRN 12/10/16 10:45 12/10/16 10:57 2 SPRAY Sodium Chloride (Iv Sodium Chloride 0.45%) 1,000 ml @ 75 mls/hr Q6H40M 12/03/16 23:00 12/04/16 09:27 DC 12/03/16 01:56 150 MLS/HR Sodium Chloride (Iv Sodium Chloride 0.9% 1000ml Bag) 1,000 ml @ 75 mls/hr [id number] 12/04/16 14:00 12/06/16 16:14 DC 12/06/16 06:00 75 MLS/HR Sodium Chloride (Normal Saline Flush) 3 ml PRN DAILY PRN 12/02/16 19:30 Succinylcholine Chloride (Anectine) 200 mg STK-MED ONCE 12/05/16 07:14 12/05/16 07:15 DC Lab Laboratory Tests Test 12/09/16 16:47 12/09/16 20:37 12/10/16 02:40 12/10/16 07:13 Glucose (Fingerstick) 171mg/dL (70-99) 189mg/dL (70-99) 339mg/dL (70-99) White Blood Count 10.2x10^3/uL (4.0-11.0) Red Blood Count 2.47x10^6/uL (4.30-5.70) Hemoglobin 7.7g/dL (13.0-17.5) Hematocrit 23.7% (39.0-53.0) Mean Corpuscular Volume 96fL (79-100) Mean Corpuscular Hemoglobin 31pg (25-35) Mean Corpuscular Hemoglobin Concent 32g/dL (31-37) Red Cell Distribution Width 13.0% (11.5-14.5) Platelet Count 191x10^3/uL (140-400) Neutrophils (%) (Auto) 66% (31-73) Lymphocytes (%) (Auto) 18% (24-48) Monocytes (%) (Auto) 12% (0-9) Eosinophils (%) (Auto) 4% (0-3) Basophils (%) (Auto) 0% (0-3) Neutrophils # (Auto) 6.8x10^3uL (1.8-7.7) Lymphocytes # (Auto) 1.8x10^3/uL (1.0-4.8) Monocytes # (Auto) 1.2x10^3/uL (0.0-1.1) Eosinophils # (Auto) 0.4x10^3/uL (0.0-0.7) Basophils # (Auto) 0.0x10^3/uL (0.0-0.2) Sodium Level 139mmol/L (136-145) Potassium Level 4.6mmol/L (3.5-5.1) Chloride Level 103mmol/L (98-107) Carbon Dioxide Level 28mmol/L (21-32) Anion Gap 8 (6-14) Blood Urea Nitrogen 94mg/dL (8-26) Creatinine 2.1mg/dL (0.7-1.3) Estimated GFR (Cockcroft-Gault) 30.0 BUN/Creatinine Ratio 45 (6-20) Glucose Level 267mg/dL (70-99) Calcium Level 9.0mg/dL (8.5-10.1) Phosphorus Level 4.4mg/dL (2.6-4.7) Magnesium Level 2.2mg/dL (1.8-2.4) Total Bilirubin 0.5mg/dL (0.2-1.0) Aspartate Amino Transf (AST/SGOT) 21U/L (15-37) Alanine Aminotransferase (ALT/SGPT) 8U/L (16-63) Alkaline Phosphatase 51U/L (46-116) Total Protein 5.0g/dL (6.4-8.2) Albumin 1.8g/dL (3.4-5.0) Albumin/Globulin Ratio 0.6 (1.0-1.7) Test 12/10/16 10:03 12/10/16 11:57 12/10/16 16:24 Glucose (Fingerstick) 441mg/dL (70-99) 329mg/dL (70-99) 85mg/dL (70-99) LANDEN REEVES MD Dec 10, 2016 16:46
[2016-12-10 19:15] VITALS: BP 121/49
[2016-12-10] MEDS: ATORVASTATIN CALCIUM 20 MG TABLET PO SCH (21:19)
[2016-12-10 23:10] VITALS: BP 110/47
[2016-12-11 02:55] VITALS: BP 113/56
[2016-12-11 04:04] LABS: BASO % 0 % (0-3); EOS % 4 % (0-3); HEMATOCRIT 22.9 % (39.0-53.0); HEMOGLOBIN 7.7 g/dL (13.0-17.5); LYMPH # 1.6 x10^3/uL (1.0-4.8); LYMPH % 15 % (24-48); MEAN CORPUSCULAR HEMOGLOBIN 32 pg (25-35); MEAN CORPUSCULAR HGB CONC 34 g/dL (31-37); MEAN CORPUSCULAR VOLUME 95 fL (79-100); MONO % 12 % (0-9); NEUT % 69 % (31-73); PLATELET COUNT 216 x10^3/uL (140-400); RED BLOOD COUNT 2.41 x10^6/uL (4.30-5.70); RED CELL DISTRIBUTION WIDTH 13.5 % (11.5-14.5); WHITE BLOOD COUNT 10.9 x10^3/uL (4.0-11.0)
[2016-12-11 04:27] LABS: CALCIUM 9.1 mg/dL (8.5-10.1); CREATININE 1.9 mg/dL (0.7-1.3); GFR 33.6; POTASSIUM 4.6 mmol/L (3.5-5.1)
[2016-12-11] MEDS: AA 4.25%/CALCIUM/LYTES/D5W 1,000 ML IV SCH ×3 (05:25→21:18)
[2016-12-11] MEDS: PIPERACILLIN/TAZOBACTAM 2.25 GM in IV NORMAL SALINE 50ML 50 ML IV SCH ×3 (06:05→22:09)
[2016-12-11 07:00] VITALS: BP 108/51
[2016-12-11] MEDS: ASPIRIN ENTERIC COATED 81 MG TABLET.DR. PO SCH (08:27)
[2016-12-11] MEDS: FUROSEMIDE 20 MG TABLET PO SCH (08:27)
[2016-12-11] MEDS: AMLODIPINE BESYLATE 2.5 MG TABLET PO SCH (08:28)
[2016-12-11] MEDS: CARBIDOPA/LEVODOPA 25/100MG TABLET PO SCH ×4 (08:28→21:18)
[2016-12-11] MEDS: CALCIUM CARB/VIT D3 500/200 TABLET PO SCH ×2 (08:28→17:19)
[2016-12-11] MEDS: PANTOPRAZOLE 40 MG TABLET. PO SCH (08:28)
[2016-12-11] MEDS: INSULIN ASPART 300 UNITS/3 ML INSULN.PEN SQ SCH ×4 (08:36→21:00)
[2016-12-11] MEDS: INSULIN DETEMIR 300 UNITS/3 ML INSULN.PEN. SQ SCH (08:39)
--- NOTE | 2016-12-11 10:03 | PDOC ---
Subjective: Subjective: Feeling okay. Objective: Objective: Per RN - possible DC today, no GI complaints. Vital Signs: Vital Signs Date Time Temp Pulse Resp B/P Pulse Ox O2 Delivery O2 Flow Rate FiO2 12/11/16 08:28 63 108/51 12/11/16 07:00 97.4 12 93 Room Air 97.4 12/10/16 08:00 2.0 Labs: Laboratory Tests Test 12/10/16 10:03 12/10/16 11:57 12/10/16 16:24 12/10/16 21:05 Glucose (Fingerstick) 441mg/dL 329mg/dL 85mg/dL 157mg/dL Test 12/11/16 03:15 White Blood Count 10.9x10^3/uL Red Blood Count 2.41x10^6/uL Hemoglobin 7.7g/dL Hematocrit 22.9% Mean Corpuscular Volume 95fL Mean Corpuscular Hemoglobin 32pg Mean Corpuscular Hemoglobin Concent 34g/dL Red Cell Distribution Width 13.5% Platelet Count 216x10^3/uL Neutrophils (%) (Auto) 69% Lymphocytes (%) (Auto) 15% Monocytes (%) (Auto) 12% Eosinophils (%) (Auto) 4% Basophils (%) (Auto) 0% Neutrophils # (Auto) 7.5x10^3uL Lymphocytes # (Auto) 1.6x10^3/uL Monocytes # (Auto) 1.3x10^3/uL Eosinophils # (Auto) 0.5x10^3/uL Basophils # (Auto) 0.0x10^3/uL Sodium Level 139mmol/L Potassium Level 4.6mmol/L Chloride Level 105mmol/L Carbon Dioxide Level 28mmol/L Anion Gap 6 Blood Urea Nitrogen 86mg/dL Creatinine 1.9mg/dL Estimated GFR (Cockcroft-Gault) 33.6 Glucose Level 214mg/dL Calcium Level 9.1mg/dL PE: GEN: NAD LUNGS: clear anteriorly HEART: S1S2 ABD: NABS, S/ND/NT NEURO/PSYCH: A & O 3 A/P: 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 SD CLEMENTE Dec 11, 2016 10:03
[2016-12-11] MEDS ORDERED: HYDR15SO4 PO (10:21)
[2016-12-11] MEDS ORDERED: INSU100I27 SQ (10:21)
[2016-12-11 11:00] VITALS: BP 111/75
--- NOTE | 2016-12-11 12:54 | PDOC ---
PROGRESS NOTES Chief Complaint Chief Complaint 1. Gastric outlet obstruction, hiatal hernia with gastric volvulus 2. Abdominal pain 3. Constipation 4. Diabetes Mellitus Type 2 5. Hypertension 6. Parkinson's Disease 7. severe malnutrition History of Present Illness History of Present Illness plan to DC to [facility], would benefit from a few more days of PPN, ongoing poor nutrition status will preclude global improvement Patient was sitting in the bed at the time of evaluation, was in no acute distress cont w full liquid diet and able to keep it down, no new complains reported this AM. Vitals Vitals Vital Signs Date Time Temp Pulse Resp B/P Pulse Ox O2 Delivery O2 Flow Rate FiO2 12/11/16 11:00 97.9 56 16 111/75 97 Room Air 97.9 12/10/16 08:00 2.0 Physical Exam General: Alert, Oriented X3, Cooperative, No acute distress Heart: Regular rate Lungs: Clear Abdomen: Soft, Other (lap sites c/d/i, no erythema ) Extremities: No clubbing, No cyanosis, No edema, Normal pulses, No tenderness/ swelling Skin: No breakdown, No significant lesion Labs LABS Laboratory Tests Test 12/10/16 16:24 12/10/16 21:05 12/11/16 03:15 Glucose (Fingerstick) 85mg/dL (70-99) 157mg/dL (70-99) White Blood Count 10.9x10^3/uL (4.0-11.0) Red Blood Count 2.41x10^6/uL (4.30-5.70) Hemoglobin 7.7g/dL (13.0-17.5) Hematocrit 22.9% (39.0-53.0) Mean Corpuscular Volume 95fL (79-100) Mean Corpuscular Hemoglobin 32pg (25-35) Mean Corpuscular Hemoglobin Concent 34g/dL (31-37) Red Cell Distribution Width 13.5% (11.5-14.5) Platelet Count 216x10^3/uL (140-400) Neutrophils (%) (Auto) 69% (31-73) Lymphocytes (%) (Auto) 15% (24-48) Monocytes (%) (Auto) 12% (0-9) Eosinophils (%) (Auto) 4% (0-3) Basophils (%) (Auto) 0% (0-3) Neutrophils # (Auto) 7.5x10^3uL (1.8-7.7) Lymphocytes # (Auto) 1.6x10^3/uL (1.0-4.8) Monocytes # (Auto) 1.3x10^3/uL (0.0-1.1) Eosinophils # (Auto) 0.5x10^3/uL (0.0-0.7) Basophils # (Auto) 0.0x10^3/uL (0.0-0.2) Sodium Level 139mmol/L (136-145) Potassium Level 4.6mmol/L (3.5-5.1) Chloride Level 105mmol/L (98-107) Carbon Dioxide Level 28mmol/L (21-32) Anion Gap 6 (6-14) Blood Urea Nitrogen 86mg/dL (8-26) Creatinine 1.9mg/dL (0.7-1.3) Estimated GFR (Cockcroft-Gault) 33.6 Glucose Level 214mg/dL (70-99) Calcium Level 9.1mg/dL (8.5-10.1) Assessment and Plan Assessmemt and Plan DC to SNU soon on PPN hold lasix one day Problems Medical Problems: (1) Gastric outlet obstruction Status: Acute Problems: Comment Review of Relevant I have reviewed the following items rachael (where applicable) has been applied. Labs Laboratory Tests Test 12/09/16 16:47 12/09/16 20:37 12/10/16 02:40 12/10/16 07:13 Glucose (Fingerstick) 171mg/dL (70-99) 189mg/dL (70-99) 339mg/dL (70-99) White Blood Count 10.2x10^3/uL (4.0-11.0) Red Blood Count 2.47x10^6/uL (4.30-5.70) Hemoglobin 7.7g/dL (13.0-17.5) Hematocrit 23.7% (39.0-53.0) Mean Corpuscular Volume 96fL (79-100) Mean Corpuscular Hemoglobin 31pg (25-35) Mean Corpuscular Hemoglobin Concent 32g/dL (31-37) Red Cell Distribution Width 13.0% (11.5-14.5) Platelet Count 191x10^3/uL (140-400) Neutrophils (%) (Auto) 66% (31-73) Lymphocytes (%) (Auto) 18% (24-48) Monocytes (%) (Auto) 12% (0-9) Eosinophils (%) (Auto) 4% (0-3) Basophils (%) (Auto) 0% (0-3) Neutrophils # (Auto) 6.8x10^3uL (1.8-7.7) Lymphocytes # (Auto) 1.8x10^3/uL (1.0-4.8) Monocytes # (Auto) 1.2x10^3/uL (0.0-1.1) Eosinophils # (Auto) 0.4x10^3/uL (0.0-0.7) Basophils # (Auto) 0.0x10^3/uL (0.0-0.2) Sodium Level 139mmol/L (136-145) Potassium Level 4.6mmol/L (3.5-5.1) Chloride Level 103mmol/L (98-107) Carbon Dioxide Level 28mmol/L (21-32) Anion Gap 8 (6-14) Blood Urea Nitrogen 94mg/dL (8-26) Creatinine 2.1mg/dL (0.7-1.3) Estimated GFR (Cockcroft-Gault) 30.0 BUN/Creatinine Ratio 45 (6-20) Glucose Level 267mg/dL (70-99) Calcium Level 9.0mg/dL (8.5-10.1) Phosphorus Level 4.4mg/dL (2.6-4.7) Magnesium Level 2.2mg/dL (1.8-2.4) Total Bilirubin 0.5mg/dL (0.2-1.0) Aspartate Amino Transf (AST/SGOT) 21U/L (15-37) Alanine Aminotransferase (ALT/SGPT) 8U/L (16-63) Alkaline Phosphatase 51U/L (46-116) Total Protein 5.0g/dL (6.4-8.2) Albumin 1.8g/dL (3.4-5.0) Albumin/Globulin Ratio 0.6 (1.0-1.7) Test 12/10/16 10:03 12/10/16 11:57 12/10/16 16:24 12/10/16 21:05 Glucose (Fingerstick) 441mg/dL (70-99) 329mg/dL (70-99) 85mg/dL (70-99) 157mg/dL (70-99) Test 12/11/16 03:15 White Blood Count 10.9x10^3/uL (4.0-11.0) Red Blood Count 2.41x10^6/uL (4.30-5.70) Hemoglobin 7.7g/dL (13.0-17.5) Hematocrit 22.9% (39.0-53.0) Mean Corpuscular Volume 95fL (79-100) Mean Corpuscular Hemoglobin 32pg (25-35) Mean Corpuscular Hemoglobin Concent 34g/dL (31-37) Red Cell Distribution Width 13.5% (11.5-14.5) Platelet Count 216x10^3/uL (140-400) Neutrophils (%) (Auto) 69% (31-73) Lymphocytes (%) (Auto) 15% (24-48) Monocytes (%) (Auto) 12% (0-9) Eosinophils (%) (Auto) 4% (0-3) Basophils (%) (Auto) 0% (0-3) Neutrophils # (Auto) 7.5x10^3uL (1.8-7.7) Lymphocytes # (Auto) 1.6x10^3/uL (1.0-4.8) Monocytes # (Auto) 1.3x10^3/uL (0.0-1.1) Eosinophils # (Auto) 0.5x10^3/uL (0.0-0.7) Basophils # (Auto) 0.0x10^3/uL (0.0-0.2) Sodium Level 139mmol/L (136-145) Potassium Level 4.6mmol/L (3.5-5.1) Chloride Level 105mmol/L (98-107) Carbon Dioxide Level 28mmol/L (21-32) Anion Gap 6 (6-14) Blood Urea Nitrogen 86mg/dL (8-26) Creatinine 1.9mg/dL (0.7-1.3) Estimated GFR (Cockcroft-Gault) 33.6 Glucose Level 214mg/dL (70-99) Calcium Level 9.1mg/dL (8.5-10.1) Laboratory Tests Test 12/10/16 16:24 12/10/16 21:05 12/11/16 03:15 Glucose (Fingerstick) 85mg/dL (70-99) 157mg/dL (70-99) White Blood Count 10.9x10^3/uL (4.0-11.0) Red Blood Count 2.41x10^6/uL (4.30-5.70) Hemoglobin 7.7g/dL (13.0-17.5) Hematocrit 22.9% (39.0-53.0) Mean Corpuscular Volume 95fL (79-100) Mean Corpuscular Hemoglobin 32pg (25-35) Mean Corpuscular Hemoglobin Concent 34g/dL (31-37) Red Cell Distribution Width 13.5% (11.5-14.5) Platelet Count 216x10^3/uL (140-400) Neutrophils (%) (Auto) 69% (31-73) Lymphocytes (%) (Auto) 15% (24-48) Monocytes (%) (Auto) 12% (0-9) Eosinophils (%) (Auto) 4% (0-3) Basophils (%) (Auto) 0% (0-3) Neutrophils # (Auto) 7.5x10^3uL (1.8-7.7) Lymphocytes # (Auto) 1.6x10^3/uL (1.0-4.8) Monocytes # (Auto) 1.3x10^3/uL (0.0-1.1) Eosinophils # (Auto) 0.5x10^3/uL (0.0-0.7) Basophils # (Auto) 0.0x10^3/uL (0.0-0.2) Sodium Level 139mmol/L (136-145) Potassium Level 4.6mmol/L (3.5-5.1) Chloride Level 105mmol/L (98-107) Carbon Dioxide Level 28mmol/L (21-32) Anion Gap 6 (6-14) Blood Urea Nitrogen 86mg/dL (8-26) Creatinine 1.9mg/dL (0.7-1.3) Estimated GFR (Cockcroft-Gault) 33.6 Glucose Level 214mg/dL (70-99) Calcium Level 9.1mg/dL (8.5-10.1) Medications Current Medications Sodium Chloride (Normal Saline Flush) 3 ml PRN DAILY PRN IV AFTER MEDS AND BLOOD DRAWS; Start 12/02/16 at 19:30 Morphine Sulfate 1 mg PRN Q1HR PRN IV PAIN Last administered on 12/06/16 10:22 ; Start 12/02/16 at 19:30 Bisacodyl (Dulcolax Supp) 10 mg PRN DAILY PRN NE CONSTIPATION; Start 12/02/16 at 19:30 Hydralazine HCl (Apresoline) 10 mg PRN Q4HRS PRN IVP ELEVATED BP, SEE COMMENTS ; Start 12/02/16 at 19:45 Acetaminophen 650 mg 650 mg PRN Q6HRS PRN NE MILD PAIN / TEMP; Start 12/02/16 at 19:45; Stop 12/04/16 at 14:30; Status DC Sodium Chloride 1,000 ml @ 150 mls/hr Q6H40M IV ; Start 12/02/16 at 23:00; Stop 12/03/16 at 01:24; Status DC Piperacillin Sod/ Tazobactam Sod/ Sodium Chloride (Zosyn/Iv Sodium Chloride 0.9 % 50ml) 50 ml @ 100 mls/hr 1X ONCE IV Last administered on 12/03/16 00:15; Start 12/02/16 at 23:00; Stop 12/02/16 at 23:29; Status DC Piperacillin Sod/ Tazobactam Sod 1 each 1 each PRN DAILY PRN MC SEE COMMENTS; Start 12/02/16 at 23:00; Stop 12/05/16 at 09:25; Status DC Piperacillin Sod/ Tazobactam Sod 2.25 gm/Sodium Chloride 50 ml @ 100 mls/hr Q8HRS IV Last administered on 12/11/16 06:05; Start 12/03/16 at 06:00 Sodium Chloride 1,000 ml @ 75 mls/hr Q6H40M IV Last administered on 12/03/16 01:56; Start 12/03/16 at 23:00; Stop 12/04/16 at 09:27; Status DC Lactated Ringer's (Iv Lactated Ringers) 1,000 ml @ 50 mls/hr Q20H IV ; Start at 07:00; Stop 12/04/16 at 18:59; Status DC Acetaminophen (Tylenol) 650 mg PRN Q6HRS PRN PO FEVER; Start 12/04/16 at 09:30 Amlodipine Besylate (Norvasc) 2.5 mg DAILY PO Last administered on 12/11/16 08: 28; Start 12/04/16 at 10:00 Aspirin (Ecotrin) 81 mg DAILY PO Last administered on 12/11/16 08:27; Start at 10:00 Carbidopa/Levodopa (Sinemet 25/100) 1 tab QID PO Last administered on 12/11/16 08:28; Start 12/04/16 at 10:00 Atorvastatin Calcium (Lipitor) 20 mg QHS PO Last administered on 12/10/16 21:19 ; Start 12/04/16 at 21:00 Calcium/Vitamin D (Oscal D 500mg/ 200uts) 1 tab BIDWMEALS PO Last administered on 12/11/16 08:28; Start 12/04/16 at 10:00 Pantoprazole Sodium 40 mg 40 mg DAILYAC PO Last administered on 12/11/16 08:28 ; Start 12/04/16 at 10:00 Potassium Chloride 100 ml @ 100 mls/hr Q1H IV Last administered on 12/04/16 12:29; Start 12/04/16 at 10:00; Stop 12/04/16 at 11:59; Status DC Potassium Chloride/Sodium Chloride (KCl 20 Meq-0.45% Nacl) 1,000 ml @ 75 mls/ hr [id number] IV ; Start 12/04/16 at 10:00; Stop 12/04/16 at 14:30; Status DC Insulin Aspart (Novolog) 0-9 UNITS TIDWMEALS SQ ; Start 12/04/16 at 12:00; Stop 12/05/16 at 00:12; Status DC Dextrose 12.5 gm 12.5 gm PRN Q15MIN PRN IV SEE COMMENTS; Start 12/04/16 at 09: 30 Amino Acids/ Electrolytes/ Dextrose 1,000 ml @ 100 mls/hr Q10H IV Last administered on 12/11/16 05:25; Start 12/04/16 at 10:30 Sodium Chloride (Iv Sodium Chloride 0.9% 1000ml Bag) 1,000 ml @ 75 mls/hr [id number] IV Last administered on 12/06/16 06:00; Start 12/04/16 at 14:00; Stop 12/06/16 at 16:14; Status DC Heparin Sodium (Porcine) 5000 unit 5,000 unit Q8HRS SQ ; Start 12/04/16 at 14:30 ; Stop 12/04/16 at 16:48; Status DC Propofol (Diprivan) 20 ml @ As Directed STK-MED ONCE IV ; Start 12/04/16 at 14: 58; Stop 12/04/16 at 14:59; Status DC Lidocaine HCl (Lidocaine Pf 2% Vial) 5 ml STK-MED ONCE .ROUTE ; Start 12/04/16 at 14:58; Stop 12/04/16 at 14:59; Status DC Ondansetron HCl (Zofran) 4 mg PRN Q6HRS PRN IV Nausea; Start 12/05/16 at 07:00; Stop 12/06/16 at 06:59; Status DC Fentanyl Citrate (Fentanyl 2ml Vial) 25 mcg PRN Q5MIN PRN IV MILD PAIN; Start 12/05/16 at 07:00; Stop 12/06/16 at 06:59; Status DC Fentanyl Citrate (Fentanyl 2ml Vial) 50 mcg PRN Q5MIN PRN IV MODERATE PAIN Last administered on 12/05/16 15:24; Start 12/05/16 at 07:00; Stop 12/06/16 at 06: 59; Status DC Morphine Sulfate 1 mg 1 mg PRN Q10MIN PRN IV SEVERE PAIN; Start 12/05/16 at 07: 00; Stop 12/06/16 at 06:59; Status DC Lactated Ringer's (Iv Lactated Ringers) 1,000 ml @ 0 mls/hr Q0M IV ; Start 12/05 at 07:00; Stop 12/05/16 at 18:59; Status DC Lidocaine HCl 2 ml 1X PRN PRN ID IV START; Start 12/05/16 at 07:00; Stop at 06:59; Status DC Hydromorphone HCl (Dilaudid) 0.5 mg PRN Q10MIN PRN IV SEVERE PAIN, Second choice; Start 12/05/16 at 07:00; Stop 12/06/16 at 06:59; Status DC Prochlorperazine Edisylate (Compazine) 5 mg PACU PRN PRN IV NAUSEA; Start at 07:00; Stop 12/06/16 at 06:59; Status DC Insulin Aspart (Novolog) 0-9 UNITS QIDACHS SQ Last administered on 12/09/16 08: 20; Start 12/05/16 at 00:30; Stop 12/09/16 at 12:22; Status DC Cellulose 1 each STK-MED ONCE .ROUTE ; Start 12/05/16 at 07:09; Stop 12/05/16 at 07:10; Status DC Bupivacaine HCl/ Epinephrine Bitart 30 ml 30 ml STK-MED ONCE .ROUTE Last administered on 12/05/16 08:35; Start 12/05/16 at 07:09; Stop 12/05/16 at 07:10; Status DC Propofol (Diprivan) 20 ml @ As Directed STK-MED ONCE IV ; Start 12/05/16 at 07:13 ; Stop 12/05/16 at 07:14; Status DC Lidocaine HCl 100 mg STK-MED ONCE .ROUTE ; Start 12/05/16 at 07:13; Stop 12/05/16 at 07:14; Status DC Rocuronium [place] (Zemuron) 50 mg STK-MED ONCE .ROUTE ; Start 12/05/16 at 07:13 ; Stop 12/05/16 at 07:14; Status DC Succinylcholine Chloride (Anectine) 200 mg STK-MED ONCE .ROUTE ; Start 12/05/16 at 07:14; Stop 12/05/16 at 07:15; Status DC Fentanyl Citrate (Fentanyl 2ml Vial) 100 mcg STK-MED ONCE .ROUTE ; Start at 07:16; Stop 12/05/16 at 07:17; Status DC Cellulose 1 each STK-MED ONCE .ROUTE ; Start 12/05/16 at 07:34; Stop 12/05/16 at 07:35; Status DC Phenylephrine HCl 1 mg 1 mg STK-MED ONCE IV ; Start 12/05/16 at 07:46; Stop at 07:47; Status DC Acetaminophen (Ofirmev) 100 ml @ As Directed STK-MED ONCE IV ; Start 12/05/16 at 08:29; Stop 12/05/16 at 08:30; Status DC Fentanyl Citrate (Fentanyl 2ml Vial) 100 mcg STK-MED ONCE .ROUTE ; Start at 08:32; Stop 12/05/16 at 08:33; Status DC Desflurane (Suprane) 90 ml STK-MED ONCE IH ; Start 12/05/16 at 09:09; Stop at 09:10; Status DC Insulin Aspart (Novolog) 8 units 1X ONCE SQ ; Start 12/05/16 at 10:15; Stop 12/05 at 10:15; Status DC Ephedrine Sulfate 50 mg STK-MED ONCE IV ; Start 12/05/16 at 10:01; Stop 12/05/16 at 10:02; Status DC Insulin Aspart (Novolog Vial) 8 unit ONCE ONCE SQ ; Start 12/05/16 at 10:15; Stop 12/05/16 at 10:16; Status DC Insulin Human Regular (Novolin R Vial) 8 unit 1X ONCE IV ; Start 12/05/16 at 10: 30; Stop 12/05/16 at 10:30; Status DC Insulin Human Regular 8 unit 8 unit 1X ONCE IV ; Start 12/05/16 at 10:30; Stop 12/05/16 at 10:31; Status DC Albumin Human 0 ml @ As Directed STK-MED ONCE IV ; Start 12/05/16 at 10:20; Stop 12/05/16 at 10:21; Status DC Albumin Human 0 ml @ As Directed STK-MED ONCE IV ; Start 12/05/16 at 10:20; Stop 12/05/16 at 10:21; Status DC Albumin Human (Plasmanate) 500 ml @ As Directed STK-MED ONCE IV ; Start at 10:24; Stop 12/05/16 at 10:25; Status DC Neostigmine Methylsulfate 5 mg STK-MED ONCE .ROUTE ; Start 12/05/16 at 10:55; Stop 12/05/16 at 10:56; Status DC Glycopyrrolate (Robinul) 1 mg STK-MED ONCE .ROUTE ; Start 12/05/16 at 10:55; Stop 12/05/16 at 10:56; Status DC Phenylephrine HCl (Guido-Synephrine Inj) 10 mg STK-MED ONCE .ROUTE ; Start at 11:00; Stop 12/05/16 at 11:01; Status DC Insulin Aspart (Novolog) 3 units 1X ONCE SQ Last administered on 12/06/16 14: 30; Start 12/06/16 at 14:30; Stop 12/06/16 at 14:31; Status DC Lidocaine HCl (Glydo (Lidocaine) Jelly) 1 kassidy 1X ONCE MM ; Start 12/06/16 at 22: 00; Stop 12/06/16 at 22:01; Status DC Acetaminophen/ Hydrocodone Bitart (Lortab 7.5-325/ 15ml Oral Solution) 15 ml PRN Q6HRS PRN PO PAIN; Start 12/07/16 at 09:15 Furosemide (Lasix) 20 mg DAILY PO Last administered on 12/11/16 08:27; Start at 16:00 Insulin Aspart (Novolog) 20 units 1X ONCE SQ Last administered on 12/07/16 21: 08; Start 12/07/16 at 21:00; Stop 12/07/16 at 21:02; Status DC Insulin Aspart (Novolog) 0-12 UNITS QIDACHS SQ Last administered on 12/11/16 08 :36; Start 12/09/16 at 12:30 Insulin Detemir (Levemir) 15 units DAILY08 SQ Last administered on 12/11/16 08: 39; Start 12/10/16 at 10:45 Saliva Substitute (Biotene Moisturizing Mouth) 2 spray PRN Q15MIN PRN PO DRY MOUTH Last administered on 12/10/16 10:57; Start 12/10/16 at 10:45 Active Scripts Active Levemir Flextouch (Insulin Detemir) 100 Unit/1 Ml Insuln.pen 15 Units SQ DAILY08 Hydrocodone-Apap 7.5-325/15 Soln (Hydrocodone Bit/Acetaminophen) 15 Ml Solution 15 Ml PO PRN Q6HRS PRN Reported Calcium 600 + Vit D 200 Tablet (Calcium Carbonate/Vitamin D3) 1 Each Tablet 1 Each PO BID Simvastatin 40 Mg Tablet 0.5 Tab PO QHS Ranitidine Hcl 150 Mg Tablet 1 Tab PO BID Omeprazole 40 Mg Capsule.dr 1 Cap PO DAILY Humulin R (Insulin Regular, Human) 100 Unit/1 Ml Vial 5-8 Unit IJ TIDWMEALS Furosemide 40 Mg Tablet 0.5 Tab PO DAILY PRN Furosemide 40 Mg Tablet 0.5 Tab PO DAILY Sinemet 25-100 Mg Tablet (Carbidopa/Levodopa) 1 Each Tablet 1 Tab PO QID Aspirin Ec (Aspirin) 81 Mg Tablet.dr 1 Tab PO DAILY Amlodipine Besylate 5 Mg Tablet 2.5 Mg PO DAILY Tylenol (Acetaminophen) 325 Mg Tablet 1-2 Tab PO QID Vitals/I & O Vital Sign - Last 24 Hours 12/10/16 12/10/16 12/10/16 12/10/16 15:00 19:15 19:50 23:10 Temp 97.6 97.6 97.6 97.6 97.6 97.6 Pulse 56 56 55 Resp 16 18 18 B/P 126/45 121/49 110/47 Pulse Ox 99 94 95 O2 Delivery Room Air Room Air Room Air Room Air 12/11/16 12/11/16 12/11/16 12/11/16 02:55 07:00 08:00 08:28 Temp 97.5 97.4 97.5 97.4 Pulse 76 63 63 Resp 18 12 B/P 113/56 108/51 108/51 Pulse Ox 92 93 O2 Delivery Room Air Room Air Room Air 12/11/16 11:00 Temp 97.9 97.9 Pulse 56 Resp 16 B/P 111/75 Pulse Ox 97 O2 Delivery Room Air Intake and Output 12/10/16 12/10/16 12/11/16 15:00 23:00 07:00 Intake Total 240 ml 1480 ml 2160 ml Output Total 250 ml Balance 240 ml 1480 ml 1910 ml MARIFER MURRY MD Dec 11, 2016 12:54
[2016-12-11 15:00] VITALS: BP 128/48
[2016-12-11 19:15] VITALS: BP 113/49
[2016-12-11] MEDS: ATORVASTATIN CALCIUM 20 MG TABLET PO SCH (21:18)
[2016-12-11 23:36] VITALS: BP 107/40
[2016-12-12] VITALS (7 sets, daily range): BP systolic 109–125; BP diastolic 40–53
[2016-12-12 05:22] LABS: BASO % 0 % (0-3); EOS % 4 % (0-3); HEMATOCRIT 21.3 % (39.0-53.0); LYMPH # 1.1 x10^3/uL (1.0-4.8); LYMPH % 10 % (24-48); MEAN CORPUSCULAR HEMOGLOBIN 31 pg (25-35); MEAN CORPUSCULAR HGB CONC 32 g/dL (31-37); MEAN CORPUSCULAR VOLUME 96 fL (79-100); MONO % 10 % (0-9); NEUT % 76 % (31-73); PLATELET COUNT 230 x10^3/uL (140-400); RED BLOOD COUNT 2.21 x10^6/uL (4.30-5.70); RED CELL DISTRIBUTION WIDTH 13.3 % (11.5-14.5); WHITE BLOOD COUNT 11.2 x10^3/uL (4.0-11.0)
[2016-12-12 05:40] LABS: CALCIUM 8.6 mg/dL (8.5-10.1); CREATININE 1.8 mg/dL (0.7-1.3); GFR 35.8
[2016-12-12 05:42] LABS: HEMOGLOBIN 6.9 g/dL (13.0-17.5)
[2016-12-12] MEDS: PIPERACILLIN/TAZOBACTAM 2.25 GM in IV NORMAL SALINE 50ML 50 ML IV SCH ×2 (06:15→14:23)
[2016-12-12] MEDS: PANTOPRAZOLE 40 MG TABLET. PO SCH (07:54)
[2016-12-12] MEDS: CARBIDOPA/LEVODOPA 25/100MG TABLET PO SCH ×2 (07:54→12:02)
[2016-12-12] MEDS: ASPIRIN ENTERIC COATED 81 MG TABLET.DR. PO SCH (07:54)
[2016-12-12] MEDS: CALCIUM CARB/VIT D3 500/200 TABLET PO SCH (07:54)
[2016-12-12] MEDS: AMLODIPINE BESYLATE 2.5 MG TABLET PO SCH (07:55)
[2016-12-12] MEDS: INSULIN ASPART 300 UNITS/3 ML INSULN.PEN SQ SCH ×3 (08:03→16:30)
[2016-12-12] MEDS: INSULIN DETEMIR 300 UNITS/3 ML INSULN.PEN. SQ SCH (08:03)
[2016-12-12] MEDS: AA 4.25%/CALCIUM/LYTES/D5W 1,000 ML IV SCH (09:58)
--- NOTE | 2016-12-12 10:29 | PDOC ---
Subjective: Subjective: No complaints. Objective: Objective: To transfused 1 unit pRBCs prior to DC. Vital Signs: Vital Signs Date Time Temp Pulse Resp B/P Pulse Ox O2 Delivery O2 Flow Rate FiO2 12/12/16 09:09 Room Air 2.0 12/12/16 07:55 70 118/52 12/12/16 07:00 97.4 16 96 97.4 Labs: Laboratory Tests Test 12/11/16 21:21 12/12/16 04:30 Glucose (Fingerstick) 178mg/dL White Blood Count 11.2x10^3/uL Red Blood Count 2.21x10^6/uL Hemoglobin 6.9g/dL Hematocrit 21.3% Mean Corpuscular Volume 96fL Mean Corpuscular Hemoglobin 31pg Mean Corpuscular Hemoglobin Concent 32g/dL Red Cell Distribution Width 13.3% Platelet Count 230x10^3/uL Neutrophils (%) (Auto) 76% Lymphocytes (%) (Auto) 10% Monocytes (%) (Auto) 10% Eosinophils (%) (Auto) 4% Basophils (%) (Auto) 0% Neutrophils # (Auto) 8.5x10^3uL Lymphocytes # (Auto) 1.1x10^3/uL Monocytes # (Auto) 1.1x10^3/uL Eosinophils # (Auto) 0.4x10^3/uL Basophils # (Auto) 0.0x10^3/uL Sodium Level 137mmol/L Potassium Level 5.0mmol/L Chloride Level 103mmol/L Carbon Dioxide Level 30mmol/L Anion Gap 4 Blood Urea Nitrogen 82mg/dL Creatinine 1.8mg/dL Estimated GFR (Cockcroft-Gault) 35.8 Glucose Level 195mg/dL Calcium Level 8.6mg/dL PE: GEN: NAD LUNGS: CTAB HEART: RRR ABD: S/ND/NT NEURO/PSYCH: A & O 3 A/P: 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 SD CLEMENTE Dec 12, 2016 10:29
[2016-12-12] MEDS ORDERED: TAMSULOSIN 0.4 MG CAP.ER.24H. PO ONE (11:30)
--- NOTE | 2016-12-12 13:19 | PDOC ---
PROGRESS NOTES Chief Complaint Chief Complaint 1. Gastric outlet obstruction, hiatal hernia with gastric volvulus 2. Abdominal pain 3. Constipation 4. Diabetes Mellitus Type 2 5. Hypertension 6. Parkinson's Disease 7. severe malnutrition 8. anemia of CKD History of Present Illness History of Present Illness DC to [facility], 1 u PRBC, then DC repeat labs would benefit from a few more days of PPN, ongoing poor nutrition status will preclude global improvement Vitals Vitals Vital Signs Date Time Temp Pulse Resp B/P Pulse Ox O2 Delivery O2 Flow Rate FiO2 12/12/16 12:00 97.2 61 18 113/40 97.2 12/12/16 10:30 95 Room Air 12/12/16 09:09 2.0 Physical Exam General: Alert, Oriented X3, Cooperative, No acute distress Heart: Regular rate Lungs: Clear Abdomen: Soft, Other (lap sites c/d/i, no erythema ) Extremities: No clubbing, No cyanosis, No edema, Normal pulses, No tenderness/ swelling Skin: No breakdown, No significant lesion Labs LABS Laboratory Tests Test 12/11/16 15:55 12/11/16 21:21 12/12/16 04:30 12/12/16 07:22 Glucose (Fingerstick) 252mg/dL (70-99) 178mg/dL (70-99) 241mg/dL (70-99) White Blood Count 11.2x10^3/uL (4.0-11.0) Red Blood Count 2.21x10^6/uL (4.30-5.70) Hemoglobin 6.9g/dL (13.0-17.5) Hematocrit 21.3% (39.0-53.0) Mean Corpuscular Volume 96fL (79-100) Mean Corpuscular Hemoglobin 31pg (25-35) Mean Corpuscular Hemoglobin Concent 32g/dL (31-37) Red Cell Distribution Width 13.3% (11.5-14.5) Platelet Count 230x10^3/uL (140-400) Neutrophils (%) (Auto) 76% (31-73) Lymphocytes (%) (Auto) 10% (24-48) Monocytes (%) (Auto) 10% (0-9) Eosinophils (%) (Auto) 4% (0-3) Basophils (%) (Auto) 0% (0-3) Neutrophils # (Auto) 8.5x10^3uL (1.8-7.7) Lymphocytes # (Auto) 1.1x10^3/uL (1.0-4.8) Monocytes # (Auto) 1.1x10^3/uL (0.0-1.1) Eosinophils # (Auto) 0.4x10^3/uL (0.0-0.7) Basophils # (Auto) 0.0x10^3/uL (0.0-0.2) Sodium Level 137mmol/L (136-145) Potassium Level 5.0mmol/L (3.5-5.1) Chloride Level 103mmol/L (98-107) Carbon Dioxide Level 30mmol/L (21-32) Anion Gap 4 (6-14) Blood Urea Nitrogen 82mg/dL (8-26) Creatinine 1.8mg/dL (0.7-1.3) Estimated GFR (Cockcroft-Gault) 35.8 Glucose Level 195mg/dL (70-99) Calcium Level 8.6mg/dL (8.5-10.1) Test 12/12/16 11:17 Glucose (Fingerstick) 174mg/dL (70-99) Assessment and Plan Assessmemt and Plan Problems Medical Problems: (1) Gastric outlet obstruction Status: Acute Problems: Comment Review of Relevant I have reviewed the following items rachael (where applicable) has been applied. Labs Laboratory Tests Test 12/10/16 16:24 12/10/16 21:05 12/11/16 03:15 12/11/16 07:22 Glucose (Fingerstick) 85mg/dL (70-99) 157mg/dL (70-99) 232mg/dL (70-99) White Blood Count 10.9x10^3/uL (4.0-11.0) Red Blood Count 2.41x10^6/uL (4.30-5.70) Hemoglobin 7.7g/dL (13.0-17.5) Hematocrit 22.9% (39.0-53.0) Mean Corpuscular Volume 95fL (79-100) Mean Corpuscular Hemoglobin 32pg (25-35) Mean Corpuscular Hemoglobin Concent 34g/dL (31-37) Red Cell Distribution Width 13.5% (11.5-14.5) Platelet Count 216x10^3/uL (140-400) Neutrophils (%) (Auto) 69% (31-73) Lymphocytes (%) (Auto) 15% (24-48) Monocytes (%) (Auto) 12% (0-9) Eosinophils (%) (Auto) 4% (0-3) Basophils (%) (Auto) 0% (0-3) Neutrophils # (Auto) 7.5x10^3uL (1.8-7.7) Lymphocytes # (Auto) 1.6x10^3/uL (1.0-4.8) Monocytes # (Auto) 1.3x10^3/uL (0.0-1.1) Eosinophils # (Auto) 0.5x10^3/uL (0.0-0.7) Basophils # (Auto) 0.0x10^3/uL (0.0-0.2) Sodium Level 139mmol/L (136-145) Potassium Level 4.6mmol/L (3.5-5.1) Chloride Level 105mmol/L (98-107) Carbon Dioxide Level 28mmol/L (21-32) Anion Gap 6 (6-14) Blood Urea Nitrogen 86mg/dL (8-26) Creatinine 1.9mg/dL (0.7-1.3) Estimated GFR (Cockcroft-Gault) 33.6 Glucose Level 214mg/dL (70-99) Calcium Level 9.1mg/dL (8.5-10.1) Test 12/11/16 10:25 12/11/16 15:55 12/11/16 21:21 12/12/16 04:30 Glucose (Fingerstick) 221mg/dL (70-99) 252mg/dL (70-99) 178mg/dL (70-99) White Blood Count 11.2x10^3/uL (4.0-11.0) Red Blood Count 2.21x10^6/uL (4.30-5.70) Hemoglobin 6.9g/dL (13.0-17.5) Hematocrit 21.3% (39.0-53.0) Mean Corpuscular Volume 96fL (79-100) Mean Corpuscular Hemoglobin 31pg (25-35) Mean Corpuscular Hemoglobin Concent 32g/dL (31-37) Red Cell Distribution Width 13.3% (11.5-14.5) Platelet Count 230x10^3/uL (140-400) Neutrophils (%) (Auto) 76% (31-73) Lymphocytes (%) (Auto) 10% (24-48) Monocytes (%) (Auto) 10% (0-9) Eosinophils (%) (Auto) 4% (0-3) Basophils (%) (Auto) 0% (0-3) Neutrophils # (Auto) 8.5x10^3uL (1.8-7.7) Lymphocytes # (Auto) 1.1x10^3/uL (1.0-4.8) Monocytes # (Auto) 1.1x10^3/uL (0.0-1.1) Eosinophils # (Auto) 0.4x10^3/uL (0.0-0.7) Basophils # (Auto) 0.0x10^3/uL (0.0-0.2) Sodium Level 137mmol/L (136-145) Potassium Level 5.0mmol/L (3.5-5.1) Chloride Level 103mmol/L (98-107) Carbon Dioxide Level 30mmol/L (21-32) Anion Gap 4 (6-14) Blood Urea Nitrogen 82mg/dL (8-26) Creatinine 1.8mg/dL (0.7-1.3) Estimated GFR (Cockcroft-Gault) 35.8 Glucose Level 195mg/dL (70-99) Calcium Level 8.6mg/dL (8.5-10.1) Test 12/12/16 07:22 12/12/16 11:17 Glucose (Fingerstick) 241mg/dL (70-99) 174mg/dL (70-99) Laboratory Tests Test 12/11/16 15:55 12/11/16 21:21 12/12/16 04:30 12/12/16 07:22 Glucose (Fingerstick) 252mg/dL (70-99) 178mg/dL (70-99) 241mg/dL (70-99) White Blood Count 11.2x10^3/uL (4.0-11.0) Red Blood Count 2.21x10^6/uL (4.30-5.70) Hemoglobin 6.9g/dL (13.0-17.5) Hematocrit 21.3% (39.0-53.0) Mean Corpuscular Volume 96fL (79-100) Mean Corpuscular Hemoglobin 31pg (25-35) Mean Corpuscular Hemoglobin Concent 32g/dL (31-37) Red Cell Distribution Width 13.3% (11.5-14.5) Platelet Count 230x10^3/uL (140-400) Neutrophils (%) (Auto) 76% (31-73) Lymphocytes (%) (Auto) 10% (24-48) Monocytes (%) (Auto) 10% (0-9) Eosinophils (%) (Auto) 4% (0-3) Basophils (%) (Auto) 0% (0-3) Neutrophils # (Auto) 8.5x10^3uL (1.8-7.7) Lymphocytes # (Auto) 1.1x10^3/uL (1.0-4.8) Monocytes # (Auto) 1.1x10^3/uL (0.0-1.1) Eosinophils # (Auto) 0.4x10^3/uL (0.0-0.7) Basophils # (Auto) 0.0x10^3/uL (0.0-0.2) Sodium Level 137mmol/L (136-145) Potassium Level 5.0mmol/L (3.5-5.1) Chloride Level 103mmol/L (98-107) Carbon Dioxide Level 30mmol/L (21-32) Anion Gap 4 (6-14) Blood Urea Nitrogen 82mg/dL (8-26) Creatinine 1.8mg/dL (0.7-1.3) Estimated GFR (Cockcroft-Gault) 35.8 Glucose Level 195mg/dL (70-99) Calcium Level 8.6mg/dL (8.5-10.1) Test 12/12/16 11:17 Glucose (Fingerstick) 174mg/dL (70-99) Medications Current Medications Sodium Chloride (Normal Saline Flush) 3 ml PRN DAILY PRN IV AFTER MEDS AND BLOOD DRAWS; Start 12/02/16 at 19:30 Morphine Sulfate 1 mg PRN Q1HR PRN IV PAIN Last administered on 12/06/16 10:22 ; Start 12/02/16 at 19:30 Bisacodyl (Dulcolax Supp) 10 mg PRN DAILY PRN LA CONSTIPATION; Start 12/02/16 at 19:30 Hydralazine HCl (Apresoline) 10 mg PRN Q4HRS PRN IVP ELEVATED BP, SEE COMMENTS ; Start 12/02/16 at 19:45 Acetaminophen 650 mg 650 mg PRN Q6HRS PRN LA MILD PAIN / TEMP; Start 12/02/16 at 19:45; Stop 12/04/16 at 14:30; Status DC Sodium Chloride 1,000 ml @ 150 mls/hr Q6H40M IV ; Start 12/02/16 at 23:00; Stop 12/03/16 at 01:24; Status DC Piperacillin Sod/ Tazobactam Sod/ Sodium Chloride (Zosyn/Iv Sodium Chloride 0.9 % 50ml) 50 ml @ 100 mls/hr 1X ONCE IV Last administered on 12/03/16 00:15; Start 12/02/16 at 23:00; Stop 12/02/16 at 23:29; Status DC Piperacillin Sod/ Tazobactam Sod 1 each 1 each PRN DAILY PRN MC SEE COMMENTS; Start 12/02/16 at 23:00; Stop 12/05/16 at 09:25; Status DC Piperacillin Sod/ Tazobactam Sod 2.25 gm/Sodium Chloride 50 ml @ 100 mls/hr Q8HRS IV Last administered on 12/12/16 06:15; Start 12/03/16 at 06:00 Sodium Chloride 1,000 ml @ 75 mls/hr Q6H40M IV Last administered on 12/03/16 01:56; Start 12/03/16 at 23:00; Stop 12/04/16 at 09:27; Status DC Lactated Ringer's (Iv Lactated Ringers) 1,000 ml @ 50 mls/hr Q20H IV ; Start at 07:00; Stop 12/04/16 at 18:59; Status DC Acetaminophen (Tylenol) 650 mg PRN Q6HRS PRN PO FEVER Last administered on 13:16; Start 12/04/16 at 09:30 Amlodipine Besylate (Norvasc) 2.5 mg DAILY PO Last administered on 12/12/16 07: 55; Start 12/04/16 at 10:00 Aspirin (Ecotrin) 81 mg DAILY PO Last administered on 12/12/16 07:54; Start at 10:00 Carbidopa/Levodopa (Sinemet 25/100) 1 tab QID PO Last administered on 12/12/16 12:02; Start 12/04/16 at 10:00 Atorvastatin Calcium (Lipitor) 20 mg QHS PO Last administered on 12/11/16 21:18 ; Start 12/04/16 at 21:00 Calcium/Vitamin D (Oscal D 500mg/ 200uts) 1 tab BIDWMEALS PO Last administered on 12/12/16 07:54; Start 12/04/16 at 10:00 Pantoprazole Sodium 40 mg 40 mg DAILYAC PO Last administered on 12/12/16 07:54 ; Start 12/04/16 at 10:00 Potassium Chloride 100 ml @ 100 mls/hr Q1H IV Last administered on 12/04/16 12:29; Start 12/04/16 at 10:00; Stop 12/04/16 at 11:59; Status DC Potassium Chloride/Sodium Chloride (KCl 20 Meq-0.45% Nacl) 1,000 ml @ 75 mls/ hr [id number] IV ; Start 12/04/16 at 10:00; Stop 12/04/16 at 14:30; Status DC Insulin Aspart (Novolog) 0-9 UNITS TIDWMEALS SQ ; Start 12/04/16 at 12:00; Stop 12/05/16 at 00:12; Status DC Dextrose 12.5 gm 12.5 gm PRN Q15MIN PRN IV SEE COMMENTS; Start 12/04/16 at 09: 30 Amino Acids/ Electrolytes/ Dextrose 1,000 ml @ 100 mls/hr Q10H IV Last administered on 12/12/16 09:58; Start 12/04/16 at 10:30 Sodium Chloride (Iv Sodium Chloride 0.9% 1000ml Bag) 1,000 ml @ 75 mls/hr [id number] IV Last administered on 12/06/16 06:00; Start 12/04/16 at 14:00; Stop 12/06/16 at 16:14; Status DC Heparin Sodium (Porcine) 5000 unit 5,000 unit Q8HRS SQ ; Start 12/04/16 at 14:30 ; Stop 12/04/16 at 16:48; Status DC Propofol (Diprivan) 20 ml @ As Directed STK-MED ONCE IV ; Start 12/04/16 at 14: 58; Stop 12/04/16 at 14:59; Status DC Lidocaine HCl (Lidocaine Pf 2% Vial) 5 ml STK-MED ONCE .ROUTE ; Start 12/04/16 at 14:58; Stop 12/04/16 at 14:59; Status DC Ondansetron HCl (Zofran) 4 mg PRN Q6HRS PRN IV Nausea; Start 12/05/16 at 07:00; Stop 12/06/16 at 06:59; Status DC Fentanyl Citrate (Fentanyl 2ml Vial) 25 mcg PRN Q5MIN PRN IV MILD PAIN; Start 12/05/16 at 07:00; Stop 12/06/16 at 06:59; Status DC Fentanyl Citrate (Fentanyl 2ml Vial) 50 mcg PRN Q5MIN PRN IV MODERATE PAIN Last administered on 12/05/16t 15:24; Start 12/05/16 at 07:00; Stop 12/06/16 at 06: 59; Status DC Morphine Sulfate 1 mg 1 mg PRN Q10MIN PRN IV SEVERE PAIN; Start 12/05/16 at 07: 00; Stop 12/06/16 at 06:59; Status DC Lactated Ringer's (Iv Lactated Ringers) 1,000 ml @ 0 mls/hr Q0M IV ; Start 12/05 at 07:00; Stop 12/05/16 at 18:59; Status DC Lidocaine HCl 2 ml 1X PRN PRN ID IV START; Start 12/05/16 at 07:00; Stop at 06:59; Status DC Hydromorphone HCl (Dilaudid) 0.5 mg PRN Q10MIN PRN IV SEVERE PAIN, Second choice; Start 12/05/16 at 07:00; Stop 12/06/16 at 06:59; Status DC Prochlorperazine Edisylate (Compazine) 5 mg PACU PRN PRN IV NAUSEA; Start at 07:00; Stop 12/06/16 at 06:59; Status DC Insulin Aspart (Novolog) 0-9 UNITS QIDACHS SQ Last administered on 12/09/16 08: 20; Start 12/05/16 at 00:30; Stop 12/09/16 at 12:22; Status DC Cellulose 1 each STK-MED ONCE .ROUTE ; Start 12/05/16 at 07:09; Stop 12/05/16 at 07:10; Status DC Bupivacaine HCl/ Epinephrine Bitart 30 ml 30 ml STK-MED ONCE .ROUTE Last administered on 12/05/16 08:35; Start 12/05/16 at 07:09; Stop 12/05/16 at 07:10; Status DC Propofol (Diprivan) 20 ml @ As Directed STK-MED ONCE IV ; Start 12/05/16 at 07:13 ; Stop 12/05/16 at 07:14; Status DC Lidocaine HCl 100 mg STK-MED ONCE .ROUTE ; Start 12/05/16 at 07:13; Stop 12/05/16 at 07:14; Status DC Rocuronium Chester (Zemuron) 50 mg STK-MED ONCE .ROUTE ; Start 12/05/16 at 07:13 ; Stop 12/05/16 at 07:14; Status DC Succinylcholine Chloride (Anectine) 200 mg STK-MED ONCE .ROUTE ; Start 12/05/16 at 07:14; Stop 12/05/16 at 07:15; Status DC Fentanyl Citrate (Fentanyl 2ml Vial) 100 mcg STK-MED ONCE .ROUTE ; Start at 07:16; Stop 12/05/16 at 07:17; Status DC Cellulose 1 each STK-MED ONCE .ROUTE ; Start 12/05/16 at 07:34; Stop 12/05/16 at 07:35; Status DC Phenylephrine HCl 1 mg 1 mg STK-MED ONCE IV ; Start 12/05/16 at 07:46; Stop at 07:47; Status DC Acetaminophen (Ofirmev) 100 ml @ As Directed STK-MED ONCE IV ; Start 12/05/16 at 08:29; Stop 12/05/16 at 08:30; Status DC Fentanyl Citrate (Fentanyl 2ml Vial) 100 mcg STK-MED ONCE .ROUTE ; Start at 08:32; Stop 12/05/16 at 08:33; Status DC Desflurane (Suprane) 90 ml STK-MED ONCE IH ; Start 12/05/16 at 09:09; Stop at 09:10; Status DC Insulin Aspart (Novolog) 8 units 1X ONCE SQ ; Start 12/05/16 at 10:15; Stop 12/05 at 10:15; Status DC Ephedrine Sulfate 50 mg STK-MED ONCE IV ; Start 12/05/16 at 10:01; Stop 12/05/16 at 10:02; Status DC Insulin Aspart (Novolog Vial) 8 unit ONCE ONCE SQ ; Start 12/05/16 at 10:15; Stop 12/05/16 at 10:16; Status DC Insulin Human Regular (Novolin R Vial) 8 unit 1X ONCE IV ; Start 12/05/16 at 10: 30; Stop 12/05/16 at 10:30; Status DC Insulin Human Regular 8 unit 8 unit 1X ONCE IV ; Start 12/05/16 at 10:30; Stop 12/05/16 at 10:31; Status DC Albumin Human 0 ml @ As Directed STK-MED ONCE IV ; Start 12/05/16 at 10:20; Stop 12/05/16 at 10:21; Status DC Albumin Human 0 ml @ As Directed STK-MED ONCE IV ; Start 12/05/16 at 10:20; Stop 12/05/16 at 10:21; Status DC Albumin Human (Plasmanate) 500 ml @ As Directed STK-MED ONCE IV ; Start at 10:24; Stop 12/05/16 at 10:25; Status DC Neostigmine Methylsulfate 5 mg STK-MED ONCE .ROUTE ; Start 12/05/16 at 10:55; Stop 12/05/16 at 10:56; Status DC Glycopyrrolate (Robinul) 1 mg STK-MED ONCE .ROUTE ; Start 12/05/16 at 10:55; Stop 12/05/16 at 10:56; Status DC Phenylephrine HCl (Guido-Synephrine Inj) 10 mg STK-MED ONCE .ROUTE ; Start at 11:00; Stop 12/05/16 at 11:01; Status DC Insulin Aspart (Novolog) 3 units 1X ONCE SQ Last administered on 12/06/16 14: 30; Start 12/06/16 at 14:30; Stop 12/06/16 at 14:31; Status DC Lidocaine HCl (Glydo (Lidocaine) Jelly) 1 kassidy 1X ONCE MM ; Start 12/06/16 at 22: 00; Stop 12/06/16 at 22:01; Status DC Acetaminophen/ Hydrocodone Bitart (Lortab 7.5-325/ 15ml Oral Solution) 15 ml PRN Q6HRS PRN PO PAIN; Start 12/07/16 at 09:15 Furosemide (Lasix) 20 mg DAILY PO Last administered on 12/11/16 08:27; Start at 16:00; Stop 12/11/16 at 12:58; Status DC Insulin Aspart (Novolog) 20 units 1X ONCE SQ Last administered on 12/07/16 21: 08; Start 12/07/16 at 21:00; Stop 12/07/16 at 21:02; Status DC Insulin Aspart (Novolog) 0-12 UNITS QIDACHS SQ Last administered on 12/12/16 12 :09; Start 12/09/16 at 12:30 Insulin Detemir (Levemir) 15 units DAILY08 SQ Last administered on 12/12/16 08: 03; Start 12/10/16 at 10:45 Saliva Substitute (Biotene Moisturizing Mouth) 2 spray PRN Q15MIN PRN PO DRY MOUTH Last administered on 12/10/16 10:57; Start 12/10/16 at 10:45 Tamsulosin HCl (Flomax) 0.4 mg DAILY PO ; Start 12/13/16 at 09:00 Tamsulosin HCl (Flomax) 0.4 mg 1X ONCE PO Last administered on 12/12/16 12:02 ; Start 12/12/16 at 11:30; Stop 12/12/16 at 11:31; Status DC Active Scripts Active Levemir Flextouch (Insulin Detemir) 100 Unit/1 Ml Insuln.pen 15 Units SQ DAILY08 Hydrocodone-Apap 7.5-325/15 Soln (Hydrocodone Bit/Acetaminophen) 15 Ml Solution 15 Ml PO PRN Q6HRS PRN Reported Calcium 600 + Vit D 200 Tablet (Calcium Carbonate/Vitamin D3) 1 Each Tablet 1 Each PO BID Simvastatin 40 Mg Tablet 0.5 Tab PO QHS Ranitidine Hcl 150 Mg Tablet 1 Tab PO BID Omeprazole 40 Mg Capsule.dr 1 Cap PO DAILY Humulin R (Insulin Regular, Human) 100 Unit/1 Ml Vial 5-8 Unit IJ TIDWMEALS Furosemide 40 Mg Tablet 0.5 Tab PO DAILY PRN Furosemide 40 Mg Tablet 0.5 Tab PO DAILY Sinemet 25-100 Mg Tablet (Carbidopa/Levodopa) 1 Each Tablet 1 Tab PO QID Aspirin Ec (Aspirin) 81 Mg Tablet. 1 Tab PO DAILY Amlodipine Besylate 5 Mg Tablet 2.5 Mg PO DAILY Tylenol (Acetaminophen) 325 Mg Tablet 1-2 Tab PO QID Vitals/I & O Vital Sign - Last 24 Hours 12/11/16 12/11/16 12/11/16 12/11/16 15:00 19:15 19:30 23:36 Temp 97.7 97.6 97.5 97.7 97.6 97.5 Pulse 67 62 73 Resp B/P 128/48 113/49 107/40 Pulse Ox 98 96 98 O2 Delivery Room Air Room Air Room Air Room Air 12/12/16 12/12/16 12/12/16 12/12/16 03:14 07:00 07:55 09:09 Temp 98.1 97.4 98.1 97.4 Pulse 66 70 70 Resp 16 B/P 110/50 118/52 118/52 Pulse Ox 93 96 O2 Delivery Room Air Room Air Room Air O2 Flow Rate 2.0 12/12/16 12/12/16 12/12/16 12/12/16 10:30 10:44 11:03 12:00 Temp 97.0 97.0 97.7 97.2 97.0 97.0 97.7 97.2 Pulse 71 71 64 61 Resp B/P 122/48 122/48 109/47 113/40 Pulse Ox 95 O2 Delivery Room Air Intake and Output 12/11/16 12/11/16 12/12/16 15:00 23:00 07:00 Intake Total 1170 ml 2720 ml Output Total 750 ml 650 ml Balance 420 ml 2070 ml MARIFER MURRY MD Dec 12, 2016 13:19
--- NOTE | 2016-12-12 15:04 | PDOC ---
SUBJECTIVE ROS CKD III/ Iv OBJECTIVE Vital Signs Vital Signs Date Time Temp Pulse Resp B/P Pulse Ox O2 Delivery O2 Flow Rate FiO2 12/12/16 13:20 98.4 62 15 125/53 98.4 12/12/16 10:30 95 Room Air 12/12/16 09:09 2.0 I & 0 Intake and Output 12/12/16 07:00 Intake Total 3890 ml Output Total 1400 ml Balance 2490 ml Intake Oral 580 ml IV Total 2210 ml Other 1100 ml Output Urine Total 1400 ml PHYSICAL EXAM Physical Exam General Appearance: Awake: Alert Oriented x ? Neck: No JVD or JVP Chest: CTA Alfredo Heart: S1 S2 Abdomen - Soft NTND Extremities - No Edema DIAGNOSIS/ASSESSMENT Assessment & Plan ? 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 Cmyoaphty: Clinically appears to be compensated Problems: COMMENT/RELEVANT DATA Meds Current Medications Medications (Trade) Dose Ordered Sig/Jaylan Start Time Stop Time Status Last Admin Dose Admin Acetaminophen (Ofirmev) 100 ml @ As Directed STK-MED ONCE 12/05/16 08:29 12/05/16 08:30 DC Acetaminophen (Tylenol) 650 mg PRN Q6HRS PRN 12/04/16 09:30 12/11/16 13:16 650 MG Acetaminophen 650 mg 650 mg PRN Q6HRS PRN 12/02/16 19:45 12/04/16 14:30 DC Acetaminophen/ Hydrocodone Bitart (Lortab 7.5-325/ 15ml Oral Solution) 15 ml PRN Q6HRS PRN 12/07/16 09:15 Albumin Human (Plasmanate) 500 ml @ As Directed STK-MED ONCE 12/05/16 10:24 12/05/16 10:25 DC Amino Acids/ Electrolytes/ Dextrose 1,000 ml @ 100 mls/hr Q10H 12/04/16 10:30 12/12/16 09:58 100 MLS/HR Amlodipine Besylate (Norvasc) 2.5 mg DAILY 12/04/16 10:00 12/12/16 07:55 2.5 MG Aspirin (Ecotrin) 81 mg DAILY 12/04/16 10:00 12/12/16 07:54 81 MG Atorvastatin Calcium (Lipitor) 20 mg QHS 12/04/16 21:00 12/11/16 21:18 20 MG Bisacodyl (Dulcolax Supp) 10 mg PRN DAILY PRN 12/02/16 19:30 Bupivacaine HCl/ Epinephrine Bitart 30 ml 30 ml STK-MED ONCE 12/05/16 07:09 12/05/16 07:10 DC 12/05/16 08:35 10 ML Calcium/Vitamin D (Oscal D 500mg/ 200uts) 1 tab BIDWMEALS 12/04/16 10:00 12/12/16 07:54 1 TAB Carbidopa/Levodopa (Sinemet 25/100) 1 tab QID 12/04/16 10:00 12/12/16 12:02 1 TAB Cellulose 1 each STK-MED ONCE 12/05/16 07:34 12/05/16 07:35 DC Desflurane (Suprane) 90 ml STK-MED ONCE 12/05/16 09:09 12/05/16 09:10 DC Dextrose 12.5 gm 12.5 gm PRN Q15MIN PRN 12/04/16 09:30 Ephedrine Sulfate 50 mg STK-MED ONCE 12/05/16 10:01 12/05/16 10:02 DC Fentanyl Citrate (Fentanyl 2ml Vial) 100 mcg STK-MED ONCE 12/05/16 08:32 12/05/16 08:33 DC Furosemide (Lasix) 20 mg DAILY 12/07/16 16:00 12/11/16 12:58 DC 12/11/16 08:27 20 MG Glycopyrrolate (Robinul) 1 mg STK-MED ONCE 12/05/16 10:55 12/05/16 10:56 DC Heparin Sodium (Porcine) 5,000 unit Q8HRS 12/04/16 14:30 12/04/16 16:48 DC Hydralazine HCl (Apresoline) 10 mg PRN Q4HRS PRN 12/02/16 19:45 Hydromorphone HCl (Dilaudid) 0.5 mg PRN Q10MIN PRN 12/05/16 07:00 12/06/16 06:59 DC Insulin Aspart (Novolog Vial) 8 unit ONCE ONCE 12/05/16 10:15 12/05/16 10:16 DC Insulin Aspart (Novolog) 0-12 UNITS QIDACHS 12/09/16 12:30 12/12/16 12:09 7 UNITS Insulin Detemir (Levemir) 15 units DAILY08 12/10/16 10:45 12/12/16 08:03 15 UNITS Insulin Human Regular (Novolin R Vial) 8 unit 1X ONCE 12/05/16 10:30 12/05/16 10:30 DC Insulin Human Regular 8 unit 8 unit 1X ONCE 12/05/16 10:30 12/05/16 10:31 DC Lactated Ringer's (Iv Lactated Ringers) 1,000 ml @ 0 mls/hr Q0M 12/05/16 07:00 12/05/16 18:59 DC Lidocaine HCl (Glydo (Lidocaine) Jelly) 1 kassidy 1X ONCE 12/06/16 22:00 12/06/16 22:01 DC Lidocaine HCl (Lidocaine Pf 2% Vial) 5 ml STK-MED ONCE 12/04/16 14:58 12/04/16 14:59 DC Morphine Sulfate 1 mg 1 mg PRN Q10MIN PRN 12/05/16 07:00 12/06/16 06:59 DC Neostigmine Methylsulfate 5 mg STK-MED ONCE 12/05/16 10:55 12/05/16 10:56 DC Ondansetron HCl (Zofran) 4 mg PRN Q6HRS PRN 12/05/16 07:00 12/06/16 06:59 DC Pantoprazole Sodium 40 mg 40 mg DAILYAC 12/04/16 10:00 12/12/16 07:54 40 MG Phenylephrine HCl (Guido-Synephrine Inj) 10 mg STK-MED ONCE 12/05/16 11:00 12/05/16 11:01 DC Phenylephrine HCl 1 mg 1 mg STK-MED ONCE 12/05/16 07:46 12/05/16 07:47 DC Piperacillin Sod/ Tazobactam Sod 2.25 gm/Sodium Chloride 50 ml @ 100 mls/hr Q8HRS 12/03/16 06:00 12/12/16 14:23 100 MLS/HR Piperacillin Sod/ Tazobactam Sod 1 each 1 each PRN DAILY PRN 12/02/16 23:00 12/05/16 09:25 DC Piperacillin Sod/ Tazobactam Sod/ Sodium Chloride (Zosyn/Iv Sodium Chloride 0.9% 50ml) 50 ml @ 100 mls/hr 1X ONCE 12/02/16 23:00 12/02/16 23:29 DC 12/03/16 00:15 100 MLS/HR Potassium Chloride/Sodium Chloride (KCl 20 Meq-0.45% Nacl) 1,000 ml @ 75 mls/hr [id number] 12/04/16 10:00 12/04/16 14:30 DC Potassium Chloride 100 ml @ 100 mls/hr Q1H 12/04/16 10:00 12/04/16 11:59 DC 12/04/16 12:29 100 MLS/HR Prochlorperazine Edisylate (Compazine) 5 mg PACU PRN PRN 12/05/16 07:00 12/06/16 06:59 DC Propofol (Diprivan) 20 ml @ As Directed STK-MED ONCE 12/05/16 07:13 12/05/16 07:14 DC Rocuronium [place] (Zemuron) 50 mg STK-MED ONCE 12/05/16 07:13 12/05/16 07:14 DC Saliva Substitute (Biotene Moisturizing Mouth) 2 spray PRN Q15MIN PRN 12/10/16 10:45 12/10/16 10:57 2 SPRAY Sodium Chloride (Iv Sodium Chloride 0.45%) 1,000 ml @ 75 mls/hr [id number] 12/03/16 23:00 12/04/16 09:27 DC 12/03/16 01:56 150 MLS/HR Sodium Chloride (Iv Sodium Chloride 0.9% 1000ml Bag) 1,000 ml @ 75 mls/hr [id number] 12/04/16 14:00 12/06/16 16:14 DC 12/06/16 06:00 75 MLS/HR Sodium Chloride (Normal Saline Flush) 3 ml PRN DAILY PRN 12/02/16 19:30 Succinylcholine Chloride (Anectine) 200 mg STK-MED ONCE 12/05/16 07:14 12/05/16 07:15 DC Tamsulosin HCl (Flomax) 0.4 mg 1X ONCE 12/12/16 11:30 12/12/16 11:31 DC 12/12/16 12:02 0.4 MG Lab Laboratory Tests Test 12/11/16 15:55 12/11/16 21:21 12/12/16 04:30 12/12/16 07:22 Glucose (Fingerstick) 252mg/dL (70-99) 178mg/dL (70-99) 241mg/dL (70-99) White Blood Count 11.2x10^3/uL (4.0-11.0) Red Blood Count 2.21x10^6/uL (4.30-5.70) Hemoglobin 6.9g/dL (13.0-17.5) Hematocrit 21.3% (39.0-53.0) Mean Corpuscular Volume 96fL (79-100) Mean Corpuscular Hemoglobin 31pg (25-35) Mean Corpuscular Hemoglobin Concent 32g/dL (31-37) Red Cell Distribution Width 13.3% (11.5-14.5) Platelet Count 230x10^3/uL (140-400) Neutrophils (%) (Auto) 76% (31-73) Lymphocytes (%) (Auto) 10% (24-48) Monocytes (%) (Auto) 10% (0-9) Eosinophils (%) (Auto) 4% (0-3) Basophils (%) (Auto) 0% (0-3) Neutrophils # (Auto) 8.5x10^3uL (1.8-7.7) Lymphocytes # (Auto) 1.1x10^3/uL (1.0-4.8) Monocytes # (Auto) 1.1x10^3/uL (0.0-1.1) Eosinophils # (Auto) 0.4x10^3/uL (0.0-0.7) Basophils # (Auto) 0.0x10^3/uL (0.0-0.2) Sodium Level 137mmol/L (136-145) Potassium Level 5.0mmol/L (3.5-5.1) Chloride Level 103mmol/L (98-107) Carbon Dioxide Level 30mmol/L (21-32) Anion Gap 4 (6-14) Blood Urea Nitrogen 82mg/dL (8-26) Creatinine 1.8mg/dL (0.7-1.3) Estimated GFR (Cockcroft-Gault) 35.8 Glucose Level 195mg/dL (70-99) Calcium Level 8.6mg/dL (8.5-10.1) Test 12/12/16 11:17 Glucose (Fingerstick) 174mg/dL (70-99) LANDEN REEVES MD Dec 12, 2016 15:04
[2016-12-13] MEDS ORDERED: TAMSULOSIN 0.4 MG CAP.ER.24H. PO SCH (09:00)
== END 2016-12-12 16:45 | disposition short-term general hospital (02) | DRG 326 ==
LOC: 1 WEST ICU 18:49 → 4 NORTH 12-06 15:54
PROVIDERS: ADMIT Internal Medicine Hematology & Oncology; ATTEND Internal Medicine Hematology & Oncology
PROC: 0BUR4JZ (ICD-10-PCS; 2016-12-05)
PROC: 0DQ44ZZ Repair Esophagogastric Junction, Percutaneous Endoscopic Approach (ICD-10-PCS; 2016-12-05)
PROC: 0DJ08ZZ Inspection of Upper Intestinal Tract, Via Natural or Artificial Opening Endoscopic (ICD-10-PCS; 2016-12-05)
PROC: 30233N1 Transfusion of Nonautologous Red Blood Cells into Peripheral Vein, Percutaneous Approach (ICD-10-PCS; 2016-12-05)
PROC: 0DQ44ZZ Repair Esophagogastric Junction, Percutaneous Endoscopic Approach (ICD-10-PCS; 2016-12-05)
PROC: 0BUS4JZ (ICD-10-PCS; principal; 2016-12-05 07:30)
DX: K44.0 Diaphragmatic hernia with obstruction, without gangrene (principal); N17.0 Acute kidney failure with tubular necrosis; E43 Unspecified severe protein-calorie malnutrition; K31.1 Adult hypertrophic pyloric stenosis; E87.0 Hyperosmolality and hypernatremia; I50.22 Chronic systolic (congestive) heart failure; K91.3 Postprocedural intestinal obstruction; Z68.1 Body mass index [BMI] 19.9 or less, adult; I13.0 Hypertensive heart and chronic kidney disease with heart failure and stage 1 through stage 4 chronic kidney disease, or unspecified chronic kidney disease; K21.0 Gastro-esophageal reflux disease with esophagitis; D63.1 Anemia in chronic kidney disease; D72.829 Elevated white blood cell count, unspecified; E11.22 Type 2 diabetes mellitus with diabetic chronic kidney disease; E86.0 Dehydration; E86.1 Hypovolemia; E87.6 Hypokalemia; G20 Parkinson's disease; H91.90 Unspecified hearing loss, unspecified ear; I25.10 Atherosclerotic heart disease of native coronary artery without angina pectoris; I27.2 Other secondary pulmonary hypertension; J44.9 Chronic obstructive pulmonary disease, unspecified; K66.8 Other specified disorders of peritoneum; M19.90 Unspecified osteoarthritis, unspecified site; N18.3 Chronic kidney disease, stage 3 (moderate); Z79.899 Other long term (current) drug therapy; Z82.49 Family history of ischemic heart disease and other diseases of the circulatory system; Z95.0 Presence of cardiac pacemaker; Z79.82 Long term (current) use of aspirin; Z90.49 Acquired absence of other specified parts of digestive tract
CPT/HCPCS: 36415; 71010; 76770; 80048; 80053; 81001; 82947; 83735; 83880; 84100; 84443; 84484; 85007; 85027; 85610; 86850; 86900; 86901; 86920; 87641; 87804; 88302; 93306; C1769; C1781; J0330; J1815; J2270; J2370; J2543; J2704; J2710; J3010; J3480; J3490; J7030; P9016; P9045; P9046; 97110; 97116; 97530; 97535

== ENCOUNTER 2016-12-20 17:59 | Inpatient (IN) | payer MEDICARE ==
[~2016-12-20] VITALS: Ht 160 cm; Wt 66.2 kg
[~2016-12-20 17:59] MED LIST: ACET325T9 PO; AMLO5TAB2 PO; ASPI81TA9 PO; CALC1TAB75 PO; CARB1TAB2 PO; FURO40TA4 PO; HYDR15SO4 PO; INSU100I27 SQ; INSU100V5 SQ; OMEP40CA5 PO; RANI150T2 PO; SIMV40TA3 PO
[2016-12-20 20:04] VITALS: BP 125/52
[2016-12-20 20:17] VITALS: BP 125/52
[2016-12-20] MEDS ORDERED: ATOR20TA58 PO (20:20)
[2016-12-20] MEDS ORDERED: BISA10SU50 RC (20:20)
[2016-12-20 20:54] LABS: BASO # 0.1 x10^3/uL (0.0-0.2); BASO % 1 % (0-3); EOS % 1 % (0-3); HEMATOCRIT 24.2 % (39.0-53.0); HEMOGLOBIN 7.8 g/dL (13.0-17.5); LYMPH # 0.9 x10^3/uL (1.0-4.8); LYMPH % 16 % (24-48); MEAN CORPUSCULAR HEMOGLOBIN 30 pg (25-35); MEAN CORPUSCULAR HGB CONC 32 g/dL (31-37); MEAN CORPUSCULAR VOLUME 94 fL (79-100); MONO % 13 % (0-9); NEUT % 70 % (31-73); PLATELET COUNT 348 x10^3/uL (140-400); RED BLOOD COUNT 2.58 x10^6/uL (4.30-5.70); RED CELL DISTRIBUTION WIDTH 14.4 % (11.5-14.5); WHITE BLOOD COUNT 5.9 x10^3/uL (4.0-11.0)
[2016-12-20 21:05] LABS: CALCIUM 8.6 mg/dL (8.5-10.1); CREATININE 1.7 mg/dL (0.7-1.3); GFR 38.2; POTASSIUM 4.4 mmol/L (3.5-5.1)
[2016-12-20] MEDS: IV NORMAL SALINE 1000ML BAG 1,000 ML IV SCH (21:10)
[2016-12-20 21:13] LABS: ALBUMIN 2.4 g/dL (3.4-5.0); ALBUMIN/GLOBULIN RATIO 0.7 (1.0-1.7); TOTAL BILIRUBIN 0.6 mg/dL (0.2-1.0); TOTAL PROTEIN 5.9 g/dL (6.4-8.2)
[2016-12-20 23:00] VITALS: BP 161/47
[2016-12-20] MEDS ORDERED: ACETAMINOPHEN 325 MG TABLET. PO PRN (23:00)
[2016-12-20] MEDS ORDERED: HYDROCODONE/APAP 7.5/325MG ORAL 15 ML SOLUTION. PO PRN (23:00)
[2016-12-20] MEDS ORDERED: BISACODYL 10 MG SUPP.RECT RC PRN (23:00)
[2016-12-20] MEDS ORDERED: INSU100C4 SQ (23:02)
[2016-12-21] MEDS: IV NORMAL SALINE 1000ML BAG 1,000 ML IV SCH ×2 (00:40→21:00)
[2016-12-21 03:00] VITALS: BP 114/50
[2016-12-21 06:56] LABS: BASO % 1 % (0-3); EOS % 3 % (0-3); HEMATOCRIT 24.1 % (39.0-53.0); HEMOGLOBIN 7.8 g/dL (13.0-17.5); LYMPH # 1.2 x10^3/uL (1.0-4.8); LYMPH % 22 % (24-48); MEAN CORPUSCULAR HEMOGLOBIN 31 pg (25-35); MEAN CORPUSCULAR HGB CONC 33 g/dL (31-37); MEAN CORPUSCULAR VOLUME 94 fL (79-100); MONO % 15 % (0-9); NEUT % 59 % (31-73); PLATELET COUNT 349 x10^3/uL (140-400); RED BLOOD COUNT 2.57 x10^6/uL (4.30-5.70); RED CELL DISTRIBUTION WIDTH 14.5 % (11.5-14.5); WHITE BLOOD COUNT 5.7 x10^3/uL (4.0-11.0)
[2016-12-21 07:00] VITALS: BP 99/47
[2016-12-21 07:10] LABS: INR 1.2 (0.8-1.1)
[2016-12-21 07:14] LABS: ALBUMIN 2.2 g/dL (3.4-5.0); ALBUMIN/GLOBULIN RATIO 0.6 (1.0-1.7); CALCIUM 8.7 mg/dL (8.5-10.1); CREATININE 1.6 mg/dL (0.7-1.3); POTASSIUM 3.6 mmol/L (3.5-5.1); TOTAL BILIRUBIN 0.7 mg/dL (0.2-1.0); TOTAL PROTEIN 5.6 g/dL (6.4-8.2)
[2016-12-21] MEDS: INSULIN ASPART 300 UNITS/3 ML INSULN.PEN SQ SCH ×4 (07:30→17:06)
[2016-12-21] MEDS: INSULIN DETEMIR 300 UNITS/3 ML INSULN.PEN. SQ SCH (08:00)
[2016-12-21] MEDS: CALCIUM CARB/VIT D3 500/200 TABLET PO SCH ×2 (08:53→16:22)
[2016-12-21] MEDS: CARBIDOPA/LEVODOPA 25/100MG TABLET PO SCH ×4 (08:53→21:04)
[2016-12-21] MEDS: PANTOPRAZOLE 40 MG TABLET. PO SCH (08:53)
[2016-12-21] MEDS: FUROSEMIDE 20 MG TABLET PO SCH (09:00)
[2016-12-21] MEDS: AMLODIPINE BESYLATE 2.5 MG TABLET PO SCH (09:00)
[2016-12-21 10:43] VITALS: BP 105/50
[2016-12-21 14:58] VITALS: BP 109/56
--- NOTE | 2016-12-21 16:41 | HP ---
ADMIT DATE: 12/20/2016 HISTORY OF PRESENT ILLNESS: The patient is an 86-year-old male patient who was residing at [facility] and has been having constant hematuria. He dropped his H and H steadily. His hemoglobin and hematocrit were 9.6 and 29.4 in August. It was 8.3 and 24.9 on 12/13/2016 and dropped down to 7.9 and 23.9 on 12/16/2016 and yesterday morning dropped down to 7.2 and 21.6 and therefore a decision was made to admit him directly to [facility] to consult the urologist. The patient himself denied any complaint; particularly denied any pain. Denied any nausea, vomiting, diarrhea or constipation and because of his anemia and constant hematuria, decision was made to admit him to transfuse him if need be, and consult urologist. PAST MEDICAL HISTORY: Significant for hypertension, type 2 diabetes, congestive heart failure, Parkinson's disease, hyperlipidemia, osteomyelitis, status post amputation. He has chronic renal failure, coronary artery disease that required CABG, but he refused treatment, surgical intervention, has congestive heart failure with an ejection fraction of 30-35%. PAST SURGICAL HISTORY: Significant for appendectomy, hernia repair, cholecystectomy, knee surgery. He was admitted recently for a large paraesophageal hernia with gastric outlet obstruction and underwent laparoscopic repair of large paraesophageal hernia with Henea fundoplication and has been on clear liquid diet for almost 2 weeks. That was advanced recently to full liquid and then to mechanically soft diet. ALLERGIES: He has no known drug allergies. MEDICATIONS: He is currently on the following medications: He is on acetaminophen 650 mg every 4 hours as needed. He is on amlodipine besylate 5 mg once a day, aspirin 81 mg once a day, atorvastatin calcium 20 mg once a day, bisacodyl 10 mg suppositories rectally once a day, calcium carbonate with vitamin D3 one tablet twice a day, carbidopa/levodopa 25/100 four times a day, furosemide 40 mg half a tablet once a day, hydrocodone/APAP, 7.5/25 in 15 mL solution every 6 hours. He is on NovoLog insulin 3 times a day with meals and Levemir insulin 15 units at bedtime, omeprazole 40 mg once a day. FAMILY HISTORY: Unremarkable. SOCIAL HISTORY: Retired, lives with his , has 2 daughters. He does not smoke, drink alcohol or use recreational drugs. REVIEW OF SYSTEMS: As per history of present illness. PHYSICAL EXAMINATION GENERAL: On admission, he looked well and was clearly in no apparent respiratory distress, pale, but no jaundice, cyanosis, or thyromegaly. No jugular venous distention. No limb edema. VITAL SIGNS: His heart rate was 64, blood pressure 125/52, temperature was 98.3, respiratory rate was ____ and oxygen saturation was 99% on room air. HEAD, EYES, EARS, NOSE AND THROAT: Normocephalic, atraumatic. NECK: Supple. HEART: Showed normal first and second heart sounds with no gallop, rub or murmur. CHEST: Clear to auscultation. No crepitation or rhonchi. ABDOMEN: Distended, soft, nontender. No guarding or rigidity. No organomegaly. Hernial orifices intact. Bowel sounds normal. NEUROLOGIC: He was awake, alert, responding appropriately. Cranial nerves intact. EXTREMITIES: He moves all extremities without difficulty, has obvious parkinsonian features. LABORATORY DATA: Showed his white cell count to be 5900, hemoglobin 7.8, hematocrit 24, MCV 94 and platelet count 348,000. His chemistry showed a serum sodium of 139, potassium 4.4, chloride was 104, bicarbonate was 27, anion gap of 8, BUN 38, creatinine 1.7, estimated GFR was 38 mL per minute. His glucose was 129, calcium was 8.6. Total bilirubin, AST, ALT, alkaline phosphatase were normal. His total protein was 5.9, albumin was 2.4. PLAN: My plan is to arrange for him to repeat his lab work tomorrow morning, keep him n.p.o. from midnight and consult the urologist team, Dr. Barraza and/or Dr. Brennan and decide on further management accordingly. We will continue with all his medication except his aspirin. JEFF ISLAS MD DR: MARCIA/mc JOB#: [id number] / [id number]
[2016-12-21 19:50] VITALS: BP 131/53
[2016-12-21] MEDS: ATORVASTATIN CALCIUM 20 MG TABLET PO SCH (21:04)
--- NOTE | 2016-12-21 21:20 | PN ---
DATE: 12/21/2016 SUBJECTIVE: The patient was admitted yesterday with hematuria and blood loss anemia. His hemoglobin had dropped down to 7.2 in the custodial and his hematocrit came down to 21.4 and was admitted directly for further evaluation by the urologist. We checked his hemoglobin yesterday and hematocrit and were 7.8 and 24.2. We did repeat his labs this morning. It was 7.8 and 24.1. However, as he continued to have hematuria, we did scan his bladder and he was retaining urine and there was 900 mL of urine in the bladder and unfortunately neither Dr. Barraza nor Dr. Brennan is in town. I decided to put a 3-way catheter and would start continuous bladder irrigation. PHYSICAL EXAMINATION: GENERAL: When I examined him this afternoon, he looked well and was clearly in no apparent respiratory distress, pale, but no jaundice, cyanosis or thyromegaly. No jugular venous distention. No limb edema. VITAL SIGNS: His heart rate was 66, blood pressure was 105/50, temperature was 98.2, respiratory rate was 14 and oxygen saturation was 93%. The rest of clinical examination is unremarkable. LABORATORY DATA: His lab work this morning showed a white cell count of 5700, hemoglobin 7.8, hematocrit 24, MCV 94, platelet count 349,000. His chemistry showed a BUN of 34, creatinine 1.6. His blood sugar seems to be stable. His albumin was 2.2. PLAN: The plan is to place a Perry catheter and start him on continuous bladder irrigation. I will repeat his lab work tomorrow and decide on further management accordingly. JEFF ISLAS MD DR: MARCIA/mc JOB#: [id number] / [id number]
[2016-12-21 23:54] VITALS: BP 119/48
[2016-12-22 03:45] VITALS: BP 115/42
[2016-12-22 07:00] VITALS: BP 103/45
[2016-12-22] MEDS: INSULIN ASPART 300 UNITS/3 ML INSULN.PEN SQ SCH ×3 (08:00→16:28)
[2016-12-22] MEDS: AMLODIPINE BESYLATE 2.5 MG TABLET PO SCH (09:00)
[2016-12-22] MEDS: PANTOPRAZOLE 40 MG TABLET. PO SCH (09:21)
[2016-12-22] MEDS: FUROSEMIDE 20 MG TABLET PO SCH (09:21)
[2016-12-22] MEDS: CARBIDOPA/LEVODOPA 25/100MG TABLET PO SCH ×4 (09:21→22:34)
[2016-12-22] MEDS: CALCIUM CARB/VIT D3 500/200 TABLET PO SCH ×2 (09:22→17:26)
[2016-12-22] MEDS: INSULIN DETEMIR 300 UNITS/3 ML INSULN.PEN. SQ SCH (09:27)
[2016-12-22 09:32] LABS: BASO % 1 % (0-3); EOS % 2 % (0-3); HEMATOCRIT 25.5 % (39.0-53.0); HEMOGLOBIN 8.2 g/dL (13.0-17.5); LYMPH % 14 % (24-48); MEAN CORPUSCULAR HEMOGLOBIN 30 pg (25-35); MEAN CORPUSCULAR HGB CONC 32 g/dL (31-37); MEAN CORPUSCULAR VOLUME 95 fL (79-100); MONO % 13 % (0-9); NEUT % 70 % (31-73); PLATELET COUNT 345 x10^3/uL (140-400); RED BLOOD COUNT 2.69 x10^6/uL (4.30-5.70); RED CELL DISTRIBUTION WIDTH 14.8 % (11.5-14.5); WHITE BLOOD COUNT 7.3 x10^3/uL (4.0-11.0)
[2016-12-22 09:42] LABS: ALBUMIN 2.3 g/dL (3.4-5.0); ALBUMIN/GLOBULIN RATIO 0.8 (1.0-1.7); CALCIUM 8.2 mg/dL (8.5-10.1); CREATININE 1.3 mg/dL (0.7-1.3); GFR 52.1; POTASSIUM 4.1 mmol/L (3.5-5.1); TOTAL BILIRUBIN 0.7 mg/dL (0.2-1.0); TOTAL PROTEIN 5.2 g/dL (6.4-8.2)
[2016-12-22 11:00] VITALS: BP 123/52
[2016-12-22] MEDS: IV NORMAL SALINE 1000ML BAG 1,000 ML IV SCH ×2 (11:58→17:27)
[2016-12-22 15:00] VITALS: BP 120/45
[2016-12-22 19:00] VITALS: BP 140/108
[2016-12-22] MEDS: DEXTROSE 50% 25 GM / 50ML DISP.SYRIN. IV PRN (20:56)
[2016-12-22] MEDS: ATORVASTATIN CALCIUM 20 MG TABLET PO SCH (22:34)
[2016-12-22 23:00] VITALS: BP 132/62
--- NOTE | 2016-12-23 00:31 | PN ---
DATE: 12/22/2016 SUBJECTIVE: The patient is sitting comfortably in chair, eating his lunch, in no apparent distress. On questioning him, he denied any complaint. The nursing staff did not voice any concern except that he continued to have gross hematuria and needs continuous bladder irrigation. PHYSICAL EXAMINATION: GENERAL: When I examined him, he looked pale, but not jaundiced, cyanosis, or thyromegaly. No jugular venous distension. No limb edema. VITAL SIGNS: His heart rate was 65, blood pressure 123/52, temperature was 97.2, respiratory rate was 14 and oxygen saturation was 93%. Rest of clinical examination is unremarkable. He retained about 900 mL yesterday, so we put in at 3-way catheter and was started on continuous bladder irrigation; however, his hemoglobin and hematocrit remain stable. LABORATORY DATA: His lab work this morning showed a white cell count 7300, hemoglobin 8.2, hematocrit 25.5, MCV 95 and platelet count 245,000. His chemistry showed a serum sodium 141, potassium 4.1, chloride 105, bicarbonate 28, anion gap of 8, BUN of 25, creatinine 1.3, estimated GFR was 52 mL per minute. His glucose was 127, calcium was 8.2. Total bilirubin, AST, ALT, alkaline phosphatase were normal. Total protein was 5.2, albumin was 2.3. His prothrombin time was 14, INR 1.2. ASSESSMENT: Gross hematuria continues, he is now on continuous bladder irrigation. Hemoglobin and hematocrit is stable. Other issues include hypertension well controlled on amlodipine and Lasix, Type 2 diabetes mellitus well controlled, congestive heart failure, clinically ____ compensated, Parkinson's disease on carbidopa/levodopa. He has had a recent gastric outlet obstruction and was found to have large paraesophageal hernia treated with laparoscopic Heena fundoplication. He is now on mechanically soft diet. We will continue to monitor his H and H and will consult the urology team hopefully on Saturday. JEFF ISLAS MD DR: MARCIA/mc JOB#: [id number] / [id number]
[2016-12-23 03:04] VITALS: BP 109/50
[2016-12-23 05:56] LABS: HEMATOCRIT 24.6 % (39.0-53.0); HEMOGLOBIN 7.9 g/dL (13.0-17.5)
[2016-12-23 06:17] LABS: CALCIUM 8.1 mg/dL (8.5-10.1); CREATININE 1.3 mg/dL (0.7-1.3); GFR 52.1; POTASSIUM 3.9 mmol/L (3.5-5.1)
[2016-12-23] MEDS: DEXTROSE 50% 25 GM / 50ML DISP.SYRIN. IV PRN (06:23)
[2016-12-23 07:00] VITALS: BP 137/51
[2016-12-23] MEDS: INSULIN ASPART 300 UNITS/3 ML INSULN.PEN SQ SCH ×3 (08:00→16:56)
[2016-12-23] MEDS: INSULIN DETEMIR 300 UNITS/3 ML INSULN.PEN. SQ SCH (08:00)
[2016-12-23] MEDS: CALCIUM CARB/VIT D3 500/200 TABLET PO SCH ×2 (08:13→17:00)
[2016-12-23] MEDS: PANTOPRAZOLE 40 MG TABLET. PO SCH (08:13)
[2016-12-23] MEDS: CARBIDOPA/LEVODOPA 25/100MG TABLET PO SCH ×4 (09:08→19:53)
[2016-12-23] MEDS: FUROSEMIDE 20 MG TABLET PO SCH (09:08)
[2016-12-23] MEDS: AMLODIPINE BESYLATE 2.5 MG TABLET PO SCH (09:10)
[2016-12-23 11:00] VITALS: BP 118/46
[2016-12-23] MEDS: IV NORMAL SALINE 1000ML BAG 1,000 ML IV SCH (13:20)
[2016-12-23 15:00] VITALS: BP 110/52
[2016-12-23 19:00] VITALS: BP 121/44
[2016-12-23] MEDS: ATORVASTATIN CALCIUM 20 MG TABLET PO SCH (19:53)
--- NOTE | 2016-12-23 21:16 | PN ---
DATE: 12/23/2016 SUBJECTIVE: The patient is sitting comfortably in his chair in no apparent respiratory distress. On questioning him, denied any complaint. The nursing staff stated that his blood sugar was low this morning at 44 mg/L. He continued to have hematuria; however, his hemoglobin and hematocrit has dropped down slightly to 7.9 and 24.6. OBJECTIVE: GENERAL: When I examined him this morning, he looked pale, but no jaundice, cyanosis or thyromegaly. No jugular venous distention. No limb edema. VITAL SIGNS: His heart rate was 69, blood pressure 137/61, temperature was 97.8, respiratory rate was 22 and oxygen saturation was 96%. The rest of clinical examination is unremarkable. His intake was 2140, output was 7800 as he is on continuous bladder irrigation. LABORATORY DATA: As of this morning showed hemoglobin of 7.9, hematocrit 24.6. His chemistry showed a serum sodium 141, potassium 3.9, chloride 107, bicarbonate 27, anion gap of 7, BUN 22, creatinine 1.3, estimated GFR was 62 mL per minute. Calcium was 8.1. ASSESSMENT: 1. Gross hematuria continues, he is now on continuous bladder irrigation. 2. hemoglobin and hematocrit are slightly down to 7.9 and 24.6. 3. Hypertension, well controlled on amlodipine and Lasix. 4. Type 2 diabetes mellitus, extremely well controlled. He had multiple episodes of hypoglycemia, discontinued his Levemir altogether. 5. Congestive heart failure, clinically well compensated. 6. Parkinson's disease on carbidopa levodopa. 7. He was admitted recently with gastric outlet obstruction and was found to have a large paraesophageal hernia, treated with laparoscopic Heena fundoplication; he is now on a mechanically soft diet. PLAN: Continue with continuous bladder irrigation. Continue to monitor his H and H and transfusion as needed. Continue await evaluation by the urology team. JEFF ISLAS MD DR: MARCIA/mc JOB#: [id number] / [id number]
[2016-12-23 23:00] VITALS: BP 105/39
[2016-12-24 03:00] VITALS: BP 110/38
[2016-12-24 05:29] LABS: HEMATOCRIT 22.8 % (39.0-53.0); HEMOGLOBIN 7.4 g/dL (13.0-17.5)
[2016-12-24 07:00] VITALS: BP 119/41
[2016-12-24] MEDS: INSULIN ASPART 300 UNITS/3 ML INSULN.PEN SQ SCH ×3 (08:00→17:38)
[2016-12-24] MEDS: PANTOPRAZOLE 40 MG TABLET. PO SCH (09:01)
[2016-12-24] MEDS: CARBIDOPA/LEVODOPA 25/100MG TABLET PO SCH ×4 (09:02→21:21)
[2016-12-24] MEDS: AMLODIPINE BESYLATE 2.5 MG TABLET PO SCH (09:02)
[2016-12-24] MEDS: FUROSEMIDE 20 MG TABLET PO SCH (09:03)
[2016-12-24] MEDS: CALCIUM CARB/VIT D3 500/200 TABLET PO SCH ×2 (09:03→17:34)
[2016-12-24] MEDS: IV NORMAL SALINE 1000ML BAG 1,000 ML IV SCH (09:07)
[2016-12-24 10:58] VITALS: BP 137/54
[2016-12-24 15:06] VITALS: BP 121/53
--- NOTE | 2016-12-24 16:15 | PDOC ---
SUBJECTIVE Subjective Pt. with urinary retention and hx of hematuria OBJECTIVE Objective holden in place PVR was 900cc when holden was placed Vital Signs Vital Signs Date Time Temp Pulse Resp B/P Pulse Ox O2 Delivery O2 Flow Rate FiO2 12/24/16 15:06 97.7 60 18 121/53 100 Room Air 97.7 12/24/16 10:58 95.0 67 20 137/54 95 Room Air 95.0 12/24/16 09:02 69 119/41 12/24/16 07:00 98.1 69 20 119/41 94 Room Air 98.1 12/24/16 03:00 97.8 65 18 110/38 93 97.8 12/23/16 23:00 98.1 72 18 105/39 97 98.1 12/23/16 20:00 Room Air 12/23/16 19:00 97.5 61 18 121/44 100 97.5 I & O Intake and Output 12/24/16 07:00 Intake Total 1840 ml Output Total 3050 ml Balance -1210 ml Intake Oral 840 ml IV Total 1000 ml Output Urine Total 1650 ml Drainage Total 1400 ml # Voids 1 PHYSICAL EXAM Physical Exam holden in place. urine clear in tubing on slow cbi ASSESSMENT/PLAN Assessment/Plan retention. keep holden taper off cbi will plan to do cysto and possible biopsy and fulgeration on 12/26/16 Problems: COMMENT Lab Laboratory Tests Test 12/23/16 16:39 12/23/16 21:39 12/24/16 04:55 Glucose (Fingerstick) 107mg/dL (70-99) 154mg/dL (70-99) Hemoglobin 7.4g/dL (13.0-17.5) Hematocrit 22.8% (39.0-53.0) RADHA OLIVA MD Dec 24, 2016 16:15
[2016-12-24] MEDS: TAMSULOSIN 0.4 MG CAP.ER.24H. PO SCH (17:34)
[2016-12-24 19:00] VITALS: BP 113/45
[2016-12-24] MEDS: ATORVASTATIN CALCIUM 20 MG TABLET PO SCH (21:20)
[2016-12-24 23:00] VITALS: BP 114/53
--- NOTE | 2016-12-25 00:44 | PN ---
DATE: 12/24/2016 SUBJECTIVE: The patient is resting in his chair comfortably, eating his lunch. On questioning him, he did complain of some pressure in his suprapubic area. The nurse said that a 1000 mL was infused and only 500 was drained out despite flushing the Perry catheter. PHYSICAL EXAMINATION: GENERAL: When I examined him, he looked pale, but no jaundice, cyanosis thyromegaly. No jugular venous distention. No limb edema. VITAL SIGNS: His heart rate was 67, blood pressure was 157/54, temperature was 95, respiratory rate was 20, and oxygen saturation was 95% on room air. The rest of the examination is unremarkable, has not really changed. His intake over the last 24 hours was 1840, output was 3050. LABORATORY DATA: Showed a hemoglobin 7.4, hematocrit 22.8. His blood sugar seems to be well controlled. Most recent chemistry as of yesterday showed a serum sodium 141, potassium 3.9, chloride 107, bicarbonate 27, anion gap of 7, BUN 22, creatinine 1.3, estimated GFR was mL per minute, his blood sugar was 44, calcium was 8.1. ASSESSMENT: 1. Gross hematuria, he is now on continuous bladder irrigation. His hemoglobin and hematocrit are slightly further down to 7.4 and 22.8. 2. Hypertension, well controlled on amlodipine and Lasix. 3. Type 2 diabetes mellitus, extremely well controlled. He had multiple episodes of hypoglycemia. We discontinued his Levemir altogether. 4. Congestive heart failure, clinically well compensated. 5. Parkinson disease with carbidopa/levodopa. 6. He was admitted recently with gastric outlet obstruction and was found to have a large paraesophageal hernia treated with laparoscopic Heena fundoplication. He is now on mechanically soft diet. PLAN: To await evaluation by the fire ranger and repeat his lab works tomorrow and if his hemoglobin drops below 7, we will transfuse him. JEFF ISLAS MD DR: MARCIA/mc JOB#: [id number] / [id number]
--- NOTE | 2016-12-25 00:55 | CONS ---
DATE OF CONSULTATION: 12/24/2016 LOCATION: The patient is in room 584. HISTORY OF PRESENT ILLNESS: The patient is a very pleasant, 86-year-old male, who was admitted with hematuria, found to be in urinary retention and Perry catheter was placed. Urology was consulted. The patient had had a history also of renal failure last month when he was admitted with problems with gastrointestinal tract. He had a Heena fundoplication at that time. He at that time had urinary retention and renal failure, had a Perry catheter in place. Apparently, he was discharged to a [facility]pc and then Perry catheter was removed and then the patient went back into retention, started having difficulty voiding, and then developed hematuria. The patient's urine last month only had shown 1 to 2 red cells, 1 to 4 white cells, and few bacteria and it was nitrite negative. He was seen by Nephrology at that time. The patient has never had any urologic operations. He has prostatic enlargement on his ultrasound and CT, no upper tract lesions. PAST MEDICAL HISTORY: Significant for hypertension, diabetes, congestive heart failure, Parkinson's, hyperlipidemia, chronic renal failure. Creatinine was in the 3s last month, now it is down to 1.3. PAST SURGICAL HISTORY: He has had a previous appendectomy, herniorrhaphy, cholecystectomy, knee surgery. ALLERGIES: He has no known drug allergies. PHYSICAL EXAMINATION: GENITOURINARY: Testes are descended bilaterally. Phallus is uncircumcised, within normal limits. He has a Perry catheter, on very slow CBI, and the urine is clear in the tubing. RECTAL: Fairly good sphincter tone. Prostate is smooth without nodules, overall size 60+ grams. MEDICATIONS: The patient is on Lipitor, Lasix, Sinemet, Norvasc, Os-Rubén, NovoLog, Protonix. He is not on alpha-karen therapy. PLAN: Will be to keep Perry in place, place him on Flomax, and then plan on proceeding with a cystoscopy on 12/26/2016, with possible biopsy, possible fulguration if indicated, and then proceed accordingly. I certainly appreciate being allowed to participate in this patient's care. RADHA OLIVA MD DR: MARK/mc JOB#: [id number] / [id number]
[2016-12-25 03:00] VITALS: BP 114/43
[2016-12-25] MEDS: IV NORMAL SALINE 1000ML BAG 1,000 ML IV SCH ×2 (03:30→20:51)
[2016-12-25 05:17] LABS: BASO % 1 % (0-3); EOS % 4 % (0-3); HEMATOCRIT 24.7 % (39.0-53.0); HEMOGLOBIN 8.1 g/dL (13.0-17.5); LYMPH % 16 % (24-48); MEAN CORPUSCULAR HEMOGLOBIN 31 pg (25-35); MEAN CORPUSCULAR HGB CONC 33 g/dL (31-37); MEAN CORPUSCULAR VOLUME 94 fL (79-100); MONO % 13 % (0-9); NEUT % 67 % (31-73); PLATELET COUNT 279 x10^3/uL (140-400); RED BLOOD COUNT 2.62 x10^6/uL (4.30-5.70); RED CELL DISTRIBUTION WIDTH 14.6 % (11.5-14.5); WHITE BLOOD COUNT 6.4 x10^3/uL (4.0-11.0)
[2016-12-25 05:43] LABS: ALBUMIN/GLOBULIN RATIO 0.7 (1.0-1.7); CALCIUM 7.8 mg/dL (8.5-10.1); CREATININE 1.2 mg/dL (0.7-1.3); GFR 57.1; POTASSIUM 4.1 mmol/L (3.5-5.1); TOTAL BILIRUBIN 0.7 mg/dL (0.2-1.0); TOTAL PROTEIN 4.9 g/dL (6.4-8.2)
[2016-12-25 07:00] VITALS: BP 111/47
[2016-12-25] MEDS: INSULIN ASPART 300 UNITS/3 ML INSULN.PEN SQ SCH ×3 (08:00→16:54)
[2016-12-25] MEDS: PANTOPRAZOLE 40 MG TABLET. PO SCH (08:13)
[2016-12-25] MEDS: FUROSEMIDE 20 MG TABLET PO SCH (08:13)
[2016-12-25] MEDS: CALCIUM CARB/VIT D3 500/200 TABLET PO SCH ×2 (08:13→16:51)
[2016-12-25] MEDS: TAMSULOSIN 0.4 MG CAP.ER.24H. PO SCH (08:13)
[2016-12-25] MEDS: AMLODIPINE BESYLATE 2.5 MG TABLET PO SCH (08:15)
[2016-12-25] MEDS: CARBIDOPA/LEVODOPA 25/100MG TABLET PO SCH ×4 (08:18→20:50)
--- NOTE | 2016-12-25 08:51 | PDOC ---
SUBJECTIVE Subjective Pt. feeling well OBJECTIVE Objective holden in place Vital Signs Vital Signs Date Time Temp Pulse Resp B/P Pulse Ox O2 Delivery O2 Flow Rate FiO2 12/25/16 08:15 78 111/47 12/25/16 07:00 97.9 75 20 111/47 95 Room Air 97.9 12/25/16 03:00 97.7 68 20 114/43 98 Room Air 97.7 12/24/16 23:00 97.6 63 18 114/53 98 Room Air 97.6 12/24/16 20:00 Room Air 12/24/16 19:00 97.4 64 20 113/45 98 Room Air 97.4 12/24/16 15:06 97.7 60 18 121/53 100 Room Air 97.7 12/24/16 10:58 95.0 67 20 137/54 95 Room Air 95.0 12/24/16 09:02 69 119/41 I & O Intake and Output 12/25/16 07:00 Intake Total 740 ml Output Total 4250 ml Balance -3510 ml Intake Oral 740 ml Output Urine Total 3000 ml Other 1250 ml PHYSICAL EXAM Physical Exam urine clear Hb. 8.1 ASSESSMENT/PLAN Assessment/Plan Plan for cysto, possible biopsy and fulgeration tomorrow under anesthesia Problems: COMMENT Lab Laboratory Tests Test 12/24/16 10:41 12/24/16 16:16 12/24/16 20:43 12/25/16 04:58 Glucose (Fingerstick) 123mg/dL (70-99) 157mg/dL (70-99) 138mg/dL (70-99) White Blood Count 6.4x10^3/uL (4.0-11.0) Red Blood Count 2.62x10^6/uL (4.30-5.70) Hemoglobin 8.1g/dL (13.0-17.5) Hematocrit 24.7% (39.0-53.0) Mean Corpuscular Volume 94fL (79-100) Mean Corpuscular Hemoglobin 31pg (25-35) Mean Corpuscular Hemoglobin Concent 33g/dL (31-37) Red Cell Distribution Width 14.6% (11.5-14.5) Platelet Count 279x10^3/uL (140-400) Neutrophils (%) (Auto) 67% (31-73) Lymphocytes (%) (Auto) 16% (24-48) Monocytes (%) (Auto) 13% (0-9) Eosinophils (%) (Auto) 4% (0-3) Basophils (%) (Auto) 1% (0-3) Neutrophils # (Auto) 4.3x10^3uL (1.8-7.7) Lymphocytes # (Auto) 1.0x10^3/uL (1.0-4.8) Monocytes # (Auto) 0.8x10^3/uL (0.0-1.1) Eosinophils # (Auto) 0.2x10^3/uL (0.0-0.7) Basophils # (Auto) 0.0x10^3/uL (0.0-0.2) Sodium Level 139mmol/L (136-145) Potassium Level 4.1mmol/L (3.5-5.1) Chloride Level 106mmol/L (98-107) Carbon Dioxide Level 24mmol/L (21-32) Anion Gap 9 (6-14) Blood Urea Nitrogen 19mg/dL (8-26) Creatinine 1.2mg/dL (0.7-1.3) Estimated GFR (Cockcroft-Gault) 57.1 BUN/Creatinine Ratio 16 (6-20) Glucose Level 137mg/dL (70-99) Calcium Level 7.8mg/dL (8.5-10.1) Total Bilirubin 0.7mg/dL (0.2-1.0) Aspartate Amino Transf (AST/SGOT) 18U/L (15-37) Alanine Aminotransferase (ALT/SGPT) 6U/L (16-63) Alkaline Phosphatase 78U/L (46-116) Total Protein 4.9g/dL (6.4-8.2) Albumin 2.0g/dL (3.4-5.0) Albumin/Globulin Ratio 0.7 (1.0-1.7) RADHA OLIVA MD Dec 25, 2016 08:51
[2016-12-25 11:00] VITALS: BP 101/53
[2016-12-25 14:57] VITALS: BP 126/50
[2016-12-25 19:00] VITALS: BP 120/50
[2016-12-25] MEDS: ATORVASTATIN CALCIUM 20 MG TABLET PO SCH (20:51)
[2016-12-25 23:00] VITALS: BP 113/55
--- NOTE | 2016-12-25 23:39 | PN ---
DATE: 12/25/2016 SUBJECTIVE: The patient is resting, slightly propped up in bed, in no apparent respiratory distress, is sitting comfortably in his chair in no apparent distress. He denied any complaints. He was seen by Dr. Barraza and the plan is for him to go tomorrow for cystoscopy and make any further procedures deemed necessity. PHYSICAL EXAMINATION: GENERAL: When I saw him this morning, he looked well, slightly pale, but no jaundice, cyanosis or thyromegaly. No jugular venous distention. No limb edema. VITAL SIGNS: His heart rate was 94, blood pressure was 101/53, temperature was 95, respiratory rate 20, and oxygen saturation was 98% on room air. Rest of clinical examination is unremarkable, has not really changed. His intake was 740, output was 4250. LABORATORY DATA: Showed a serum sodium 139, potassium 4.1, chloride ____, bicarbonate 24, anion gap of 9, BUN 19, creatinine 1.2, estimated GFR was 57 mL per minute. His glucose 137, calcium was 7.8. Total bilirubin, AST, ALT, alkaline phosphatase were normal. Total protein was 4.9, albumin was 2. White cell count is 6400, hemoglobin 8.1, hematocrit 24.7, MCV 94 and platelet count of 279,000. ASSESSMENT: 1. Gross hematuria for which he was on continuous bladder irrigation. His hemoglobin and hematocrit remained stable. 2. Hypertension, well controlled on amlodipine and Lasix. 3. Type 2 diabetes mellitus, extremely well controlled. He had multiple episodes of hypoglycemia, we discontinued his Levemir altogether. 4. Congestive heart failure, clinically well compensated. 5. Parkinson disease, on carbidopa/levodopa. 6. He was admitted recently with gastric outlet obstruction and was found to have large ____ hernia, treated with laparoscopic Heena fundoplication. He is now on mechanically soft diet. PLAN: To continue his current medication. He is scheduled for cystoscopy and we will decide further management according to the finding. JEFF ISLAS MD DR: MARCIA/mc JOB#: [id number] / [id number]
[2016-12-26] VITALS (13 sets, daily range): BP systolic 95–125; BP diastolic 46–66
[2016-12-26] MEDS ORDERED: HYDROMORPHONE 2 MG/ML VIAL. IV PRN (07:00)
[2016-12-26] MEDS ORDERED: MORPHINE SULFATE 2 MG/ML DISP.SYRIN. IV PRN (07:00)
[2016-12-26] MEDS ORDERED: ONDANSETRON PF 4 MG/2 ML VIAL. IV PRN (07:00)
[2016-12-26] MEDS ORDERED: PROCHLORPERAZINE 10 MG/2 ML VIAL. IV PRN (07:00)
[2016-12-26] MEDS ORDERED: IV RINGERS,LACTATED 1000ML 1,000 ML IV SCH (07:00)
[2016-12-26] MEDS ORDERED: LIDOCAINE 1% 1 ML SYRINGE. ID PRN (07:00)
[2016-12-26] MEDS ORDERED: FENTANYL PF 100 MCG/2 ML VIAL. IV PRN ×2 (07:00)
[2016-12-26] MEDS: PANTOPRAZOLE 40 MG TABLET. PO SCH (07:30)
[2016-12-26] MEDS: CALCIUM CARB/VIT D3 500/200 TABLET PO SCH ×2 (08:00→17:09)
[2016-12-26] MEDS: INSULIN ASPART 300 UNITS/3 ML INSULN.PEN SQ SCH ×3 (08:00→17:15)
[2016-12-26] MEDS ORDERED: CEFAZOLIN 1GM IVPB FOR OMNI 50 ML IV ONE (08:47)
[2016-12-26] MEDS: TAMSULOSIN 0.4 MG CAP.ER.24H. PO SCH (08:48)
[2016-12-26] MEDS: CARBIDOPA/LEVODOPA 25/100MG TABLET PO SCH ×4 (08:49→20:24)
[2016-12-26] MEDS: FUROSEMIDE 20 MG TABLET PO SCH (08:49)
[2016-12-26] MEDS: AMLODIPINE BESYLATE 2.5 MG TABLET PO SCH (08:49)
[2016-12-26] MEDS ORDERED: CEFAZOLIN 1GM IVPB FOR OMNI. IV ONE (09:00)
[2016-12-26] MEDS ORDERED: CEFAZOLIN 1GM IVPB FOR OMNI 50 ML IV PRN (09:15)
[2016-12-26] MEDS ORDERED: PROPOFOL 20 ML IV ONE (09:20)
[2016-12-26] MEDS ORDERED: LIDOCAINE 2% 100 MG/5 ML DISP.SYRIN. ONE (09:21)
[2016-12-26] MEDS ORDERED: ONDANSETRON PF 4 MG/2 ML VIAL. ONE (09:21)
[2016-12-26] MEDS ORDERED: DEXAMETHASONE SOD PHOS 20 MG/5 ML VIAL. ONE (09:21)
[2016-12-26] MEDS ORDERED: FENTANYL PF 100 MCG/2 ML VIAL. ONE (09:44)
[2016-12-26] MEDS ORDERED: PHENYLEPHRINE in 0.9% NACL PF 1 MG/10 ML DISP.SYRIN. IV ONE (09:44)
[2016-12-26] MEDS ORDERED: SEVOFLURANE 31 TO 60 MINUTES. IH ONE (10:11)
--- NOTE | 2016-12-26 10:18 | PDOC4 ---
Operative Note Operative Note pre-op dx-hematuria, retention procedure-cystoscopy, clot evacuation, holden change surgeon-benito anes-general no tumors seen, BPH, trabeculated bladder Pt. to PACU in stable condition keep holden add proscar to flomax voiding trial in 2-3 weeks RADHA OLIVA MD Dec 26, 2016 10:18
--- NOTE | 2016-12-26 11:37 | OP ---
DATE OF SURGERY: 12/26/2016 OPERATION: Cystoscopy with clot evacuation and Perry catheter change. SURGEON: Radha Barraza M.D. ANESTHESIA: General. PREOPERATIVE DIAGNOSES: Hematuria and urinary retention. POSTOPERATIVE DIAGNOSES: Hematuria and urinary retention. INDICATIONS: The patient is a very pleasant 86-year-old male with history of urinary retention and gross hematuria after Perry catheter placement. I have discussed with the patient the options, alternatives, benefits, risks and possible complications of cystoscopy with possible fulguration of bleeders, possible biopsy. He understands this and does wish to proceed with the operation. DESCRIPTION OF PROCEDURE: After obtaining informed consent, the patient was taken to the operating room and after an excellent general anesthetic, the patient was placed in dorsal lithotomy position, indwelling Perry catheter was removed. Groin was prepped and draped in sterile fashion. The patient was preloaded with IV antibiotics. Panendoscopy and cystoscopy were then performed with the flexible cystoscope. The patient is uncircumcised. Penile urethra was found to be grossly normal. External sphincter appeared intact. Prostatic urethra showed marked trilobar enlargement of the prostate with median lobe protrusion circumferentially. Bladder was entered and inspected. The patient noted to have moderate amount of free floating clot in the bladder, which was irrigated out of the bladder through the scope under direct vision. Bladder was inspected thoroughly. The patient noted to have marked trabeculation with cellule and diverticular formation, but no bladder tumors were identified and both ureteral orifices were identified and found to be grossly patent. No active bleeding was noted in the bladder. No tumors or stones were identified. The patient noted to have just prominent prostatic enlargement and prominent mucosal blood vessels lining the trigone area and prostatic urethra, which were most likely the source of the patient's gross hematuria. After deep bladder decompression with Perry catheter when he was first admitted, appeared to be no active bleeding; therefore, the flexible cystoscope was withdrawn from the patient and a new 18-Romansh Perry catheter was passed per urethra and bladder and connected to gravity drainage. Clear drainage was noted; therefore, the Perry balloon was inflated and the catheter connected to gravity drainage and secured the patient's left thigh with a StatLock. The patient tolerated the procedure very well, was taken to recovery room in stable condition. Plan will be to keep the Perry catheter in place to allow ____ tone. The patient was already on Flomax. We will add on Proscar and then have the patient follow up with Urology nurse practitioner, Eva Alberts in 2-3 weeks for a voiding trial. RADHA BARRAZA MD DR: MARK/mc JOB#: [id number] / [id number]
[2016-12-26] MEDS: FINASTERIDE 5 MG TABLET PO SCH (12:02)
[2016-12-26] MEDS: ATORVASTATIN CALCIUM 20 MG TABLET PO SCH (20:24)
[2016-12-27 05:23] LABS: BASO % 0 % (0-3); EOS % 0 % (0-3); HEMATOCRIT 24.5 % (39.0-53.0); HEMOGLOBIN 8.2 g/dL (13.0-17.5); LYMPH # 0.8 x10^3/uL (1.0-4.8); LYMPH % 10 % (24-48); MEAN CORPUSCULAR HEMOGLOBIN 31 pg (25-35); MEAN CORPUSCULAR HGB CONC 33 g/dL (31-37); MEAN CORPUSCULAR VOLUME 91 fL (79-100); MONO % 8 % (0-9); NEUT % 82 % (31-73); PLATELET COUNT 305 x10^3/uL (140-400); RED BLOOD COUNT 2.68 x10^6/uL (4.30-5.70); RED CELL DISTRIBUTION WIDTH 14.5 % (11.5-14.5)
--- NOTE | 2016-12-27 06:15 | PN ---
DATE: 12/26/2016 SUBJECTIVE: The patient was admitted with gross hematuria and urinary retention. He underwent cystoscopy, clot evacuation, and Perry catheter change. There is apparently no evidence of any tumor. He has benign prostatic hypertrophy with trabeculated bladder. The Proscar was added to Flomax and the urologist recommended keeping the Perry catheter and initiate voiding trials in 2-3 weeks. PHYSICAL EXAMINATION: GENERAL: When I examined him this afternoon, he looked well and was clearly in no apparent respiratory distress, pale, but no jaundice, cyanosis, or thyromegaly. No jugular venous distension. No limb edema. VITAL SIGNS: His heart rate was 71, blood pressure 113/49, temperature was 97.5, respiratory rate was 16, and oxygen saturation was 96%. The rest of clinical examination is unremarkable, has not really changed. His intake over the last 24 hours was 320, output was 1700. LABORATORY DATA: His lab work this morning showed a white cell count. His most recent white cell count was 6400, hemoglobin 8.1, hematocrit 24.7, MCV 94, platelet count of 279,000. His chemistry today showed that his serum sodium was 139, potassium 4.1, chloride 106, bicarbonate 24, anion gap of 9, BUN 19, creatinine 1.2, estimated GFR was 57 mL per minute. His glucose was 137, calcium was 7.8. Total bilirubin, AST, ALT, alkaline phosphatase were normal. Total protein was 4.9, albumin 2. ASSESSMENT: 1. Gross hematuria, status post cystoscopy with evacuation of hematoma, no evidence of tumor. He has benign prostatic hypertrophy with trabeculated bladder. 2. Acute blood loss anemia with stable hemoglobin and hematocrit of 8.1 and 24.7. 3. Hypertension, well controlled on amlodipine and Lasix. 4. Type 2 diabetes mellitus, extremely well controlled. 5. Congestive heart failure, well compensated. 6. Parkinson's disease, on carbidopa and levodopa. 7. 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 He is now on mechanically soft diet. PLAN: To discontinue IV fluid and we will discharge him back to [facility] tomorrow. JEFF ISLAS MD DR: MARCIA/mc JOB#: [id number] / [id number]
[2016-12-27 06:21] LABS: ALBUMIN 2.2 g/dL (3.4-5.0); ALBUMIN/GLOBULIN RATIO 0.7 (1.0-1.7); CALCIUM 8.2 mg/dL (8.5-10.1); CREATININE 1.4 mg/dL (0.7-1.3); GFR 47.8; TOTAL BILIRUBIN 0.5 mg/dL (0.2-1.0); TOTAL PROTEIN 5.3 g/dL (6.4-8.2)
[2016-12-27 06:27] LABS: POTASSIUM 5.3 mmol/L (3.5-5.1)
[2016-12-27] MEDS: PANTOPRAZOLE 40 MG TABLET. PO SCH (06:33)
[2016-12-27 07:00] VITALS: BP 93/54
--- NOTE | 2016-12-27 08:41 | PDOC ---
SUBJECTIVE Subjective Pt. feeling well OBJECTIVE Objective holden in place Vital Signs Vital Signs Date Time Temp Pulse Resp B/P Pulse Ox O2 Delivery O2 Flow Rate FiO2 12/27/16 07:00 98.0 59 18 93/54 96 Room Air 98.0 12/26/16 22:35 97.6 82 19 118/56 96 Room Air 97.6 12/26/16 20:00 Room Air 12/26/16 19:00 97.5 76 19 115/46 98 Room Air 97.5 12/26/16 15:30 97.5 71 16 113/49 96 Room Air 97.5 12/26/16 15:00 97.6 75 14 113/49 96 Room Air 97.6 12/26/16 14:30 97.5 64 16 121/54 93 Room Air 97.5 12/26/16 13:30 97.5 74 16 112/56 93 Room Air 97.5 12/26/16 13:00 97.5 83 16 117/57 93 Room Air 97.5 12/26/16 12:30 97.5 69 16 112/51 93 Room Air 97.5 12/26/16 12:15 97.5 72 16 118/49 93 Room Air 97.5 12/26/16 11:58 75 108/66 93 Room Air 12/26/16 11:44 97.5 69 16 95/46 92 Room Air 97.5 12/26/16 11:15 96.9 85 20 102/46 94 Room Air 96.9 12/26/16 11:00 61 20 114/69 94 Room Air 12/26/16 10:50 Room Air 12/26/16 10:45 97.3 61 20 104/47 95 Room Air 97.3 12/26/16 10:30 72 21 125/61 100 Simple Mask 10 12/26/16 10:25 Mask 10 12/26/16 10:15 96.9 83 21 125/53 100 Simple Mask 10 96.9 12/26/16 09:10 97.6 68 18 119/56 96 Room Air 97.6 12/26/16 08:49 68 125/59 I & O Intake and Output 12/27/16 07:00 Intake Total 1530 ml Output Total 700 ml Balance 830 ml Intake Oral 1130 ml IV Total 400 ml Output Urine Total 700 ml # Bowel Movements 1 PHYSICAL EXAM Physical Exam urine clear yellow ASSESSMENT/PLAN Assessment/Plan keep holden flomax and proscar f/u 2-3 weeks for voiding trial Problems: COMMENT Lab Laboratory Tests Test 12/26/16 10:34 12/26/16 11:52 12/26/16 16:59 12/26/16 20:10 Glucose (Fingerstick) 89mg/dL (70-99) 103mg/dL (70-99) 244mg/dL (70-99) 282mg/dL (70-99) Test 12/27/16 04:45 12/27/16 07:21 White Blood Count 8.0x10^3/uL (4.0-11.0) Red Blood Count 2.68x10^6/uL (4.30-5.70) Hemoglobin 8.2g/dL (13.0-17.5) Hematocrit 24.5% (39.0-53.0) Mean Corpuscular Volume 91fL (79-100) Mean Corpuscular Hemoglobin 31pg (25-35) Mean Corpuscular Hemoglobin Concent 33g/dL (31-37) Red Cell Distribution Width 14.5% (11.5-14.5) Platelet Count 305x10^3/uL (140-400) Neutrophils (%) (Auto) 82% (31-73) Lymphocytes (%) (Auto) 10% (24-48) Monocytes (%) (Auto) 8% (0-9) Eosinophils (%) (Auto) 0% (0-3) Basophils (%) (Auto) 0% (0-3) Neutrophils # (Auto) 6.6x10^3uL (1.8-7.7) Lymphocytes # (Auto) 0.8x10^3/uL (1.0-4.8) Monocytes # (Auto) 0.6x10^3/uL (0.0-1.1) Eosinophils # (Auto) 0.0x10^3/uL (0.0-0.7) Basophils # (Auto) 0.0x10^3/uL (0.0-0.2) Sodium Level 138mmol/L (136-145) Potassium Level 5.3mmol/L (3.5-5.1) Chloride Level 105mmol/L (98-107) Carbon Dioxide Level 23mmol/L (21-32) Anion Gap 10 (6-14) Blood Urea Nitrogen 24mg/dL (8-26) Creatinine 1.4mg/dL (0.7-1.3) Estimated GFR (Cockcroft-Gault) 47.8 BUN/Creatinine Ratio 17 (6-20) Glucose Level 261mg/dL (70-99) Calcium Level 8.2mg/dL (8.5-10.1) Total Bilirubin 0.5mg/dL (0.2-1.0) Aspartate Amino Transf (AST/SGOT) 16U/L (15-37) Alanine Aminotransferase (ALT/SGPT) 7U/L (16-63) Alkaline Phosphatase 79U/L (46-116) Total Protein 5.3g/dL (6.4-8.2) Albumin 2.2g/dL (3.4-5.0) Albumin/Globulin Ratio 0.7 (1.0-1.7) Glucose (Fingerstick) 231mg/dL (70-99) RADHA OLIVA MD Dec 27, 2016 08:41
[2016-12-27] MEDS: CALCIUM CARB/VIT D3 500/200 TABLET PO SCH (08:54)
[2016-12-27] MEDS: FINASTERIDE 5 MG TABLET PO SCH (08:56)
[2016-12-27] MEDS: TAMSULOSIN 0.4 MG CAP.ER.24H. PO SCH (08:56)
[2016-12-27] MEDS: CARBIDOPA/LEVODOPA 25/100MG TABLET PO SCH (08:56)
[2016-12-27] MEDS: FUROSEMIDE 20 MG TABLET PO SCH (08:58)
[2016-12-27] MEDS: AMLODIPINE BESYLATE 2.5 MG TABLET PO SCH (08:59)
[2016-12-27] MEDS: INSULIN ASPART 300 UNITS/3 ML INSULN.PEN SQ SCH (09:03)
[2016-12-27 11:01] VITALS: BP 129/58
--- NOTE | 2016-12-29 14:05 | DS ---
DATE OF DISCHARGE: 12/27/2016 HOSPITAL COURSE: The patient is an 86-year-old male patient, a resident at [facility], who was admitted with gross hematuria. We did put a 3-way catheter and started him on continuous bladder irrigation, followed his H and H on a regular basis, and we did consult Dr. Barraza and he underwent cystoscopy with clot evacuation. There was no tumor seen; however, he has benign prostatic hypertrophy with trabeculated bladder, and Dr. Barraza recommended to keep the Perry catheter, added Proscar to his Flomax, and recommended that the patient should see him in 2-3 weeks' time to start voiding trial. DISCHARGE PHYSICAL EXAMINATION: GENERAL: On the day of discharge, he looked well and was clearly in no apparent respiratory distress. He was pale, denied jaundice, cyanosis, or thyromegaly. No jugular venous distension. No limb edema. VITAL SIGNS: His heart rate was 70, blood pressure 129/58, temperature was 97.9, respiratory rate was 18, and oxygen saturation was 97%. HEAD, EYES, EARS, NOSE, AND THROAT: Showed normocephalic, atraumatic. NECK: Supple. HEART: Showed normal first and second heart sounds without any gallop, rub, or murmur. CHEST: Clear to auscultation. No crepitation or rhonchi. ABDOMEN: Distended, soft, and nontender. NEUROLOGIC: He was awake, alert, and responding appropriately. His cranial nerves were intact. He has prominent Parkinsonian feature. He is mostly bedbound, chair bound. His intake over the 24-hour period was 1500, output was 700. LABORATORY DATA: On the day of discharge showed a white cell count of 8000, hemoglobin 8.2, hematocrit 24.5, MCV 91, and platelet count of 305,000 with normal manual differential. His chemistry showed a serum sodium of 138, potassium 5.3, chloride 105, bicarbonate 23, anion gap of 10, BUN 24, creatinine 1.4, and estimated GFR was 48 mL per minute. His glucose was 261 and calcium was 8.2. Total bilirubin, AST, ALT, and alkaline phosphatase were normal. His total protein was 5.2, albumin 2.2. DISCHARGE MEDICATIONS: The patient was discharged back to [facility] to continue on the following medications: Tylenol 650 mg every 4 hours as needed, amlodipine besylate 2.5 mg once a day, aspirin 81 mg once a day, bisacodyl suppositories per rectum 10 mg daily, calcium carbonate with vitamin D one tablet twice a day, carbidopa/levodopa 25/100 mg one tablet 4 times a day, furosemide 20 mg once a day, hydrocodone/APAP 7.5/325 mg at 15-mL solution, to take 15 mL every 4 hours as needed. He is on NovoLog insulin before meals so, I discontinued his Levemir as he has recurrent episodes of hypoglycemia and omeprazole 40 mg once a day. FINAL DISCHARGE DIAGNOSES: 1. Colostomy with gross hematuria, status post cystoscopy with evacuation of the clot. No evidence of any tumor. 2. Enlarged prostate with trabeculated bladder. 3. Acute blood loss anemia. 4. Hypertension. 5. Parkinson disease. JEFF ISLAS MD DR: MARCIA/mc JOB#: [id number] / [id number]
== END 2016-12-27 12:15 | DRG 698 ==
LOC: 5 SOUTH 18:05
PROVIDERS: ADMIT Internal Medicine; ATTEND Internal Medicine
PROC: 0TCB8ZZ Extirpation of Matter from Bladder, Via Natural or Artificial Opening Endoscopic (ICD-10-PCS; 2016-12-26)
PROC: 0T2BX0Z Change Drainage Device in Bladder, External Approach (ICD-10-PCS; principal; 2016-12-26 09:45)
DX: N32.89 Other specified disorders of bladder (principal); E43 Unspecified severe protein-calorie malnutrition; D62 Acute posthemorrhagic anemia; I13.0 Hypertensive heart and chronic kidney disease with heart failure and stage 1 through stage 4 chronic kidney disease, or unspecified chronic kidney disease; N40.1 Benign prostatic hyperplasia with lower urinary tract symptoms; R31.0 Gross hematuria; D50.0 Iron deficiency anemia secondary to blood loss (chronic); E11.22 Type 2 diabetes mellitus with diabetic chronic kidney disease; E78.5 Hyperlipidemia, unspecified; G20 Parkinson's disease; I25.10 Atherosclerotic heart disease of native coronary artery without angina pectoris; I50.9 Heart failure, unspecified; N18.9 Chronic kidney disease, unspecified; R33.8 Other retention of urine; Z90.49 Acquired absence of other specified parts of digestive tract; Z95.1 Presence of aortocoronary bypass graft; Z68.25 Body mass index [BMI] 25.0-25.9, adult
CPT/HCPCS: 36415; 80048; 80053; 82947; 85014; 85018; 85027; 85610; 86850; 86900; 86901; 87641; J0690; J1100; J1815; J2370; J2405; J2704; J3010; J7030; J7042; J7120; 97110; 97116; 97530; 97535

== ENCOUNTER 2017-11-08 15:10 | Inpatient (IN) | payer MEDICARE ==
[2017-11-08] MEDS ORDERED: PROCHLORPERAZINE 25 MG SUPP.RECT. PR (17:15)
[2017-11-08] MEDS ORDERED: BISACODYL 10 MG SUPP.RECT. PR (17:15)
[2017-11-08] MEDS ORDERED: IBUPROFEN 400 MG TABLET. PO (17:15)
[2017-11-08] MEDS ORDERED: HYDROcodon/APAP 7.5/325MG ORAL 15 ML SOLUTION PO (17:15)
[2017-11-08] MEDS ORDERED: ACETAMINOPHEN 325 MG TABLET. PO (17:15)
[2017-11-08] MEDS ORDERED: MORPHINE SULFATE 2 MG/ML DISP.SYRIN. IV (17:15)
[2017-11-08] MEDS ORDERED: BISACODYL 10 MG SUPP.RECT. RC (17:15)
[2017-11-08] MEDS ORDERED: ONDANSETRON PF 4 MG/2 ML VIAL. IV (17:15)
[2017-11-08] MEDS ORDERED: PIP/TAZO PER PHARMACY MC (17:15)
[2017-11-08] MEDS ORDERED: MAGNESIUM HYDROXIDE 2,400 MG/30 ML ORAL.SUSP. PO (17:15)
[2017-11-08] MEDS ORDERED: DEXTROSE 50% 25 GM / 50ML DISP.SYRIN. IV (17:15)
[2017-11-08] MEDS ORDERED: PROCHLORPERAZINE 10 MG/2 ML VIAL. IV (17:15)
[2017-11-08] MEDS ORDERED: oxyCODONE IR 5 MG TABLET PO (17:15)
[2017-11-08] MEDS ORDERED: oxyCODONE/APAP 5/325 1 TAB TABLET PO (17:15)
[2017-11-08] MEDS ORDERED: C.DIFF MED SCREEN BY RX. MC (17:15)
[2017-11-08] MEDS: CALCIUM CARB/VIT D3 500/200 TABLET. PO (18:00)
[2017-11-08] MEDS: PIPERACILLIN/TAZOBACTAM 2.25 GM in IV NORMAL SALINE 50ML 50 ML IV ×2 (18:00→23:49)
[2017-11-08] MEDS: VANCOMYCIN 1.25 GM in IV DEXTROSE 5% 250 ML IV (20:14)
[2017-11-08] MEDS: VANCOMYCIN PER PHARMACY MC (20:20)
[2017-11-08 20:23] LABS: POC GLUCOSE 186 mg/dL (70-99)
[2017-11-08] MEDS: DOCUSATE SODIUM 100 MG CAPSULE. PO (21:00)
[2017-11-08] MEDS: CARBIDOPA/LEVODOPA 25/100MG TABLET PO (21:33)
[2017-11-08] MEDS: ATORVASTATIN CALCIUM 20 MG TABLET PO (21:34)
[2017-11-08] MEDS: LACTOBACILLUS RHAMNOSUS GG 1 CAPSULE. PO (21:34)
[2017-11-08] MEDS: SACUBITRIL/VALSARTAN 24/26MG TABLET. PO (21:35)
[2017-11-08] MEDS: INSULIN DETEMIR 300 UNITS/3 ML INSULN.PEN. SQ (21:43)
[2017-11-09] MEDS: PIPERACILLIN/TAZOBACTAM 2.25 GM in IV NORMAL SALINE 50ML 50 ML IV ×3 (05:36→18:17)
[2017-11-09 06:41] LABS: ADD MAN DIFF? NO
[2017-11-09 07:13] LABS: BASO % 1 % (0-3); EOS # 0.4 x10^3/uL (0.0-0.7); EOS % 6 % (0-3); HEMOGLOBIN 10.9 g/dL (13.0-17.5); LYMPH # 1.4 x10^3/uL (1.0-4.8); LYMPH % 25 % (24-48); MEAN CORPUSCULAR HEMOGLOBIN 31 pg (25-35); MEAN CORPUSCULAR HGB CONC 33 g/dL (31-37); MEAN CORPUSCULAR VOLUME 93 fL (79-100); MONO # 0.5 x10^3/uL (0.0-1.1); MONO % 9 % (0-9); NEUT # 3.4 x10^3uL (1.8-7.7); NEUT % 60 % (31-73); PLATELET COUNT 319 x10^3/uL (140-400); RED BLOOD COUNT 3.54 x10^6/uL (4.30-5.70); WHITE BLOOD COUNT 5.8 x10^3/uL (4.0-11.0)
[2017-11-09 07:14] LABS: INR 1.1 (0.8-1.1); PROTHROMBIN TIME PATIENT 13.6 SEC (11.7-14.0)
[2017-11-09 07:37] LABS: ALBUMIN 1.8 g/dL (3.4-5.0); ALBUMIN/GLOBULIN RATIO 0.5 (1.0-1.7); ALK PHOS 90 U/L (46-116); ALT (SGPT) 7 U/L (16-63); ANION GAP 3 (6-14); AST (SGOT) 17 U/L (15-37); BLOOD UREA NITROGEN 37 mg/dL (8-26); BUN/CREATININE RATIO 34 (6-20); CALCIUM 8.4 mg/dL (8.5-10.1); CARBON DIOXIDE 28 mmol/L (21-32); CHLORIDE 102 mmol/L (98-107); CREATININE 1.1 mg/dL (0.7-1.3); GFR 63.2; GLUCOSE 145 mg/dL (70-99); PHOSPHORUS 2.8 mg/dL (2.6-4.7); POTASSIUM 4.6 mmol/L (3.5-5.1); SODIUM 133 mmol/L (136-145); TOTAL BILIRUBIN 0.2 mg/dL (0.2-1.0); TOTAL PROTEIN 5.6 g/dL (6.4-8.2)
[2017-11-09 07:58] LABS: SEDIMENTATION RATE 30 (0-15)
[2017-11-09] MEDS: INSULIN ASPART 300 UNITS/3 ML INSULN.PEN SQ ×3 (08:00→18:43)
[2017-11-09] MEDS ORDERED: INSULIN ASPART SQ (08:00)
[2017-11-09] MEDS ORDERED: amLODIPine BESYLATE 2.5 MG TABLET PO (09:00)
[2017-11-09] MEDS: FUROSEMIDE 40 MG TABLET. PO (09:00)
[2017-11-09 10:48] LABS: POC GLUCOSE 152 mg/dL (70-99)
[2017-11-09] MEDS: CARBIDOPA/LEVODOPA 25/100MG TABLET PO ×4 (11:08→20:23)
[2017-11-09] MEDS: LACTOBACILLUS RHAMNOSUS GG 1 CAPSULE. PO ×2 (11:08→20:23)
[2017-11-09] MEDS: POTASSIUM CHLORIDE 20 MEQ TABLET.ER. PO (11:09)
[2017-11-09] MEDS: PANTOPRAZOLE 40 MG TABLET.DR. PO (11:09)
[2017-11-09] MEDS: SACUBITRIL/VALSARTAN 24/26MG TABLET. PO ×2 (11:10→21:00)
[2017-11-09] MEDS: CALCIUM CARB/VIT D3 500/200 TABLET. PO ×2 (11:10→18:17)
[2017-11-09] MEDS: DOCUSATE SODIUM 100 MG CAPSULE. PO ×2 (11:10→20:24)
[2017-11-09 11:40] LABS: POC GLUCOSE 107 mg/dL (70-99)
[2017-11-09] MEDS: VANCOMYCIN PER PHARMACY MC (12:44)
[2017-11-09 18:16] LABS: POC GLUCOSE 178 mg/dL (70-99)
[2017-11-09] MEDS: ATORVASTATIN CALCIUM 20 MG TABLET PO (20:23)
[2017-11-09] MEDS: VANCOMYCIN 750 MG in IV NORMAL SALINE 100ML 100 ML IV (20:23)
[2017-11-09] MEDS: INSULIN DETEMIR 300 UNITS/3 ML INSULN.PEN. SQ (20:30)
[2017-11-09 20:38] LABS: POC GLUCOSE 122 mg/dL (70-99)
[2017-11-10] MEDS: PIPERACILLIN/TAZOBACTAM 2.25 GM in IV NORMAL SALINE 50ML 50 ML IV ×4 (00:04→17:22)
[2017-11-10 02:11] LABS: HEMOGLOBIN A1C 6.6 % (4.8-5.6)
[2017-11-10 07:14] LABS: POC GLUCOSE 83 mg/dL (70-99)
[2017-11-10] MEDS: INSULIN ASPART 300 UNITS/3 ML INSULN.PEN SQ ×3 (08:00→17:35)
[2017-11-10] MEDS: FUROSEMIDE 40 MG TABLET. PO (09:00)
[2017-11-10] MEDS: SACUBITRIL/VALSARTAN 24/26MG TABLET. PO ×2 (09:00→21:00)
[2017-11-10] MEDS: DOCUSATE SODIUM 100 MG CAPSULE. PO ×2 (09:40→21:00)
[2017-11-10] MEDS: PANTOPRAZOLE 40 MG TABLET.DR. PO (09:41)
[2017-11-10] MEDS: LACTOBACILLUS RHAMNOSUS GG 1 CAPSULE. PO ×2 (09:41→21:20)
[2017-11-10] MEDS: CARBIDOPA/LEVODOPA 25/100MG TABLET PO ×4 (09:41→21:20)
[2017-11-10] MEDS: CALCIUM CARB/VIT D3 500/200 TABLET. PO ×2 (09:42→17:22)
[2017-11-10] MEDS: POTASSIUM CHLORIDE 20 MEQ TABLET.ER. PO (09:42)
[2017-11-10] MEDS: VANCOMYCIN PER PHARMACY MC ×3 (10:23→20:11)
[2017-11-10 11:10] LABS: POC GLUCOSE 143 mg/dL (70-99)
[2017-11-10 16:30] LABS: POC GLUCOSE 168 mg/dL (70-99)
[2017-11-10 19:38] LABS: ANION GAP 7 (6-14); BLOOD UREA NITROGEN 41 mg/dL (8-26); CALCIUM 8.6 mg/dL (8.5-10.1); CARBON DIOXIDE 26 mmol/L (21-32); CHLORIDE 105 mmol/L (98-107); CREATININE 1.9 mg/dL (0.7-1.3); GFR 33.6; GLUCOSE 176 mg/dL (70-99); POTASSIUM 4.9 mmol/L (3.5-5.1); SODIUM 138 mmol/L (136-145)
[2017-11-10 19:45] LABS: VANC TR 26.5 mcg/mL (10.0-20.0)
[2017-11-10] MEDS: VANCOMYCIN 750 MG in IV NORMAL SALINE 100ML 100 ML IV (20:00)
[2017-11-10 20:40] LABS: POC GLUCOSE 159 mg/dL (70-99)
[2017-11-10] MEDS: INSULIN DETEMIR 300 UNITS/3 ML INSULN.PEN. SQ (21:00)
[2017-11-10] MEDS: ATORVASTATIN CALCIUM 20 MG TABLET PO (21:20)
[2017-11-11] MEDS: PIPERACILLIN/TAZOBACTAM 2.25 GM in IV NORMAL SALINE 50ML 50 ML IV ×5 (00:38→23:15)
[2017-11-11] MEDS: VANCOMYCIN RANDOM LEVEL. MC (05:00)
[2017-11-11 05:16] LABS: ANION GAP 8 (6-14); BLOOD UREA NITROGEN 44 mg/dL (8-26); CALCIUM 8.6 mg/dL (8.5-10.1); CARBON DIOXIDE 25 mmol/L (21-32); CHLORIDE 106 mmol/L (98-107); CREATININE 1.8 mg/dL (0.7-1.3); GFR 35.8; GLUCOSE 134 mg/dL (70-99); POTASSIUM 5.1 mmol/L (3.5-5.1); SODIUM 139 mmol/L (136-145)
[2017-11-11 07:07] LABS: POC GLUCOSE 128 mg/dL (70-99)
[2017-11-11 07:12] LABS: POC GLUCOSE 123 mg/dL (70-99)
[2017-11-11] MEDS: INSULIN ASPART 300 UNITS/3 ML INSULN.PEN SQ ×3 (08:00→17:26)
[2017-11-11] MEDS: VANCOMYCIN PER PHARMACY MC (09:14)
[2017-11-11] MEDS ORDERED: LIDOCAINE WITH 8.4% SOD BICARB 3 ML DISP.SYRIN. (09:36)
[2017-11-11] MEDS: LIDOCAINE WITH 8.4% SOD BICARB 3 ML DISP.SYRIN. IJ (09:57)
[2017-11-11 10:56] LABS: PH,BODY FLUID 7.86
[2017-11-11 11:19] LABS: POC GLUCOSE 94 mg/dL (70-99)
[2017-11-11] MEDS: LACTOBACILLUS RHAMNOSUS GG 1 CAPSULE. PO ×2 (11:53→21:15)
[2017-11-11] MEDS: POTASSIUM CHLORIDE 20 MEQ TABLET.ER. PO (11:55)
[2017-11-11] MEDS: CALCIUM CARB/VIT D3 500/200 TABLET. PO ×2 (11:55→17:35)
[2017-11-11] MEDS: CARBIDOPA/LEVODOPA 25/100MG TABLET PO ×4 (11:56→21:15)
[2017-11-11] MEDS: SACUBITRIL/VALSARTAN 24/26MG TABLET. PO ×2 (11:56→21:00)
[2017-11-11] MEDS: PANTOPRAZOLE 40 MG TABLET.DR. PO (11:57)
[2017-11-11] MEDS: DOCUSATE SODIUM 100 MG CAPSULE. PO ×2 (12:07→21:15)
[2017-11-11 16:38] LABS: POC GLUCOSE 166 mg/dL (70-99)
[2017-11-11] MEDS: CALCIUM CARBONATE 500 MG TAB.CHEW PO (17:20)
[2017-11-11] MEDS: INSULIN DETEMIR 300 UNITS/3 ML INSULN.PEN. SQ (21:00)
[2017-11-11] MEDS: ATORVASTATIN CALCIUM 20 MG TABLET PO (21:15)
[2017-11-11 21:43] LABS: POC GLUCOSE 168 mg/dL (70-99)
[2017-11-12] MEDS: PIPERACILLIN/TAZOBACTAM 2.25 GM in IV NORMAL SALINE 50ML 50 ML IV ×3 (05:30→17:27)
[2017-11-12] MEDS: VANCOMYCIN RANDOM LEVEL. MC (06:00)
[2017-11-12 07:06] LABS: POC GLUCOSE 118 mg/dL (70-99)
[2017-11-12] MEDS: DOCUSATE SODIUM 100 MG CAPSULE. PO ×2 (08:26→21:44)
[2017-11-12] MEDS: PANTOPRAZOLE 40 MG TABLET.DR. PO (08:26)
[2017-11-12] MEDS: LACTOBACILLUS RHAMNOSUS GG 1 CAPSULE. PO ×2 (08:26→21:44)
[2017-11-12] MEDS: CALCIUM CARB/VIT D3 500/200 TABLET. PO ×2 (08:26→17:00)
[2017-11-12] MEDS: SACUBITRIL/VALSARTAN 24/26MG TABLET. PO ×2 (08:27→21:44)
[2017-11-12] MEDS: CARBIDOPA/LEVODOPA 25/100MG TABLET PO ×4 (08:27→21:44)
[2017-11-12] MEDS: INSULIN ASPART 300 UNITS/3 ML INSULN.PEN SQ ×3 (08:28→17:27)
[2017-11-12] MEDS: POTASSIUM CHLORIDE 20 MEQ TABLET.ER. PO (08:29)
[2017-11-12 11:02] LABS: POC GLUCOSE 199 mg/dL (70-99)
[2017-11-12] MEDS: INSULIN DETEMIR 300 UNITS/3 ML INSULN.PEN. SQ (21:00)
[2017-11-12 21:43] LABS: POC GLUCOSE 124 mg/dL (70-99)
[2017-11-12] MEDS: ATORVASTATIN CALCIUM 20 MG TABLET PO (21:44)
[2017-11-12 23:10] LABS: BF TRIGLYCERIDES 20 mg/dL (.); BODY FLUID GLUCOSE 136 mg/dL (.)
[2017-11-12 23:10] LABS: BODY FLUID LDH 117 IU/L (.)
[2017-11-13] MEDS: PIPERACILLIN/TAZOBACTAM 2.25 GM in IV NORMAL SALINE 50ML 50 ML IV ×4 (00:28→17:24)
[2017-11-13 05:25] LABS: ADD MAN DIFF? NO
[2017-11-13 05:53] LABS: ANION GAP 5 (6-14); BLOOD UREA NITROGEN 34 mg/dL (8-26); CARBON DIOXIDE 28 mmol/L (21-32); CHLORIDE 105 mmol/L (98-107); CREATININE 1.5 mg/dL (0.7-1.3); GFR 44.2; GLUCOSE 122 mg/dL (70-99); POTASSIUM 4.8 mmol/L (3.5-5.1); SODIUM 138 mmol/L (136-145)
[2017-11-13 06:11] LABS: BASO % 1 % (0-3); EOS # 0.2 x10^3/uL (0.0-0.7); EOS % 5 % (0-3); HEMATOCRIT 29.8 % (39.0-53.0); HEMOGLOBIN 9.9 g/dL (13.0-17.5); LYMPH # 1.3 x10^3/uL (1.0-4.8); LYMPH % 26 % (24-48); MEAN CORPUSCULAR HEMOGLOBIN 31 pg (25-35); MEAN CORPUSCULAR HGB CONC 33 g/dL (31-37); MEAN CORPUSCULAR VOLUME 92 fL (79-100); MONO # 0.6 x10^3/uL (0.0-1.1); MONO % 12 % (0-9); NEUT # 2.8 x10^3uL (1.8-7.7); NEUT % 57 % (31-73); PLATELET COUNT 295 x10^3/uL (140-400); RED BLOOD COUNT 3.23 x10^6/uL (4.30-5.70); RED CELL DISTRIBUTION WIDTH 15.6 % (11.5-14.5); WHITE BLOOD COUNT 4.9 x10^3/uL (4.0-11.0)
[2017-11-13] MEDS ORDERED: LIDOCAINE 2% PF Vial for OR 5 ML VIAL. ×2 (06:33→10:48)
[2017-11-13] MEDS ORDERED: PROPOFOL 20 ML IV ×2 (06:33→10:48)
[2017-11-13] MEDS ORDERED: ONDANSETRON PF 4 MG/2 ML VIAL. (06:33)
[2017-11-13 06:55] LABS: POC GLUCOSE 111 mg/dL (70-99)
[2017-11-13] MEDS ORDERED: LIDOCAINE 1% PF 2 ML VIAL. ID (07:15)
[2017-11-13] MEDS ORDERED: fentaNYL PF VIAL 100 MCG/2 ML VIAL IV ×2 (07:15)
[2017-11-13] MEDS ORDERED: ONDANSETRON PF 4 MG/2 ML VIAL. IV (07:15)
[2017-11-13] MEDS ORDERED: HYDROcodone/APAP 10/325 1 TAB TABLET PO (07:15)
[2017-11-13] MEDS ORDERED: PROCHLORPERAZINE 10 MG/2 ML VIAL. IV (07:15)
[2017-11-13] MEDS ORDERED: HYDROmorphone 2 MG/ML VIAL IV (07:15)
[2017-11-13] MEDS ORDERED: MORPHINE SULFATE 2 MG/ML DISP.SYRIN. IV (07:15)
[2017-11-13] MEDS ORDERED: LIDOCAINE 1% 20 ML VIAL. (07:26)
[2017-11-13] MEDS ORDERED: ETOMIDATE 20 MG/10 ML VIAL. IV (07:35)
[2017-11-13] MEDS: IV RINGERS,LACTATED 1000ML 1,000 ML IV (07:35)
[2017-11-13] MEDS ORDERED: PHENYLEPHRINE in 0.9% NACL PF 1 MG/10 ML SYRINGE. IV (07:35)
[2017-11-13] MEDS: INSULIN ASPART 300 UNITS/3 ML INSULN.PEN SQ ×3 (08:00→17:00)
[2017-11-13] MEDS ORDERED: SEVOFLURANE 31 TO 60 MINUTES. IH (08:24)
[2017-11-13 08:42] LABS: POC GLUCOSE 99 mg/dL (70-99)
[2017-11-13] MEDS: POTASSIUM CHLORIDE 20 MEQ TABLET.ER. PO (10:39)
[2017-11-13] MEDS: CARBIDOPA/LEVODOPA 25/100MG TABLET PO ×4 (10:39→20:28)
[2017-11-13] MEDS: PANTOPRAZOLE 40 MG TABLET.DR. PO (10:39)
[2017-11-13] MEDS: CALCIUM CARB/VIT D3 500/200 TABLET. PO ×2 (10:39→17:23)
[2017-11-13] MEDS: LACTOBACILLUS RHAMNOSUS GG 1 CAPSULE. PO ×2 (10:40→20:29)
[2017-11-13] MEDS: SACUBITRIL/VALSARTAN 24/26MG TABLET. PO ×2 (10:40→20:30)
[2017-11-13] MEDS: DOCUSATE SODIUM 100 MG CAPSULE. PO ×2 (10:40→20:29)
[2017-11-13 11:43] LABS: POC GLUCOSE 164 mg/dL (70-99)
[2017-11-13 16:28] LABS: POC GLUCOSE 137 mg/dL (70-99)
[2017-11-13] MEDS: ATORVASTATIN CALCIUM 20 MG TABLET PO (20:28)
[2017-11-13] MEDS: INSULIN DETEMIR 300 UNITS/3 ML INSULN.PEN. SQ (20:29)
[2017-11-14] MEDS: PIPERACILLIN/TAZOBACTAM 2.25 GM in IV NORMAL SALINE 50ML 50 ML IV ×2 (00:33→06:20)
[2017-11-14 01:35] LABS: POC GLUCOSE 103 mg/dL (70-99)
[2017-11-14 06:08] LABS: ADD MAN DIFF? NO
[2017-11-14 06:19] LABS: BASO % 1 % (0-3); EOS # 0.3 x10^3/uL (0.0-0.7); EOS % 5 % (0-3); HEMATOCRIT 30.5 % (39.0-53.0); LYMPH # 1.7 x10^3/uL (1.0-4.8); LYMPH % 28 % (24-48); MEAN CORPUSCULAR HEMOGLOBIN 30 pg (25-35); MEAN CORPUSCULAR HGB CONC 33 g/dL (31-37); MEAN CORPUSCULAR VOLUME 93 fL (79-100); MONO # 0.7 x10^3/uL (0.0-1.1); MONO % 12 % (0-9); NEUT # 3.4 x10^3uL (1.8-7.7); NEUT % 55 % (31-73); PLATELET COUNT 280 x10^3/uL (140-400); RED BLOOD COUNT 3.28 x10^6/uL (4.30-5.70); RED CELL DISTRIBUTION WIDTH 15.5 % (11.5-14.5); WHITE BLOOD COUNT 6.1 x10^3/uL (4.0-11.0)
[2017-11-14 06:45] LABS: ANION GAP 7 (6-14); BLOOD UREA NITROGEN 32 mg/dL (8-26); CALCIUM 8.9 mg/dL (8.5-10.1); CARBON DIOXIDE 27 mmol/L (21-32); CHLORIDE 107 mmol/L (98-107); CREATININE 1.5 mg/dL (0.7-1.3); GFR 44.2; GLUCOSE 86 mg/dL (70-99); POTASSIUM 5.1 mmol/L (3.5-5.1); SODIUM 141 mmol/L (136-145)
[2017-11-14 07:20] LABS: POC GLUCOSE 80 mg/dL (70-99)
[2017-11-14] MEDS: PANTOPRAZOLE 40 MG TABLET.DR. PO (07:59)
[2017-11-14] MEDS: INSULIN ASPART 300 UNITS/3 ML INSULN.PEN SQ ×3 (08:00→17:00)
[2017-11-14] MEDS: POTASSIUM CHLORIDE 20 MEQ TABLET.ER. PO ×2 (08:00→09:19)
[2017-11-14] MEDS: CALCIUM CARB/VIT D3 500/200 TABLET. PO ×2 (09:19→17:25)
[2017-11-14] MEDS: DOCUSATE SODIUM 100 MG CAPSULE. PO ×2 (09:19→22:23)
[2017-11-14] MEDS: LACTOBACILLUS RHAMNOSUS GG 1 CAPSULE. PO ×2 (09:19→22:22)
[2017-11-14] MEDS: CARBIDOPA/LEVODOPA 25/100MG TABLET PO ×4 (09:19→22:22)
[2017-11-14] MEDS: SACUBITRIL/VALSARTAN 24/26MG TABLET. PO (09:20)
[2017-11-14 11:27] LABS: POC GLUCOSE 147 mg/dL (70-99)
[2017-11-14] MEDS ORDERED: ceFAZolin SODIUM 1 GM in IV DEXTROSE 5% 50 ML IV (14:00)
[2017-11-14] MEDS: ceFAZolin SODIUM IV Push 1 GM VIAL. IVP ×2 (14:22→22:22)
[2017-11-14 16:14] LABS: POC GLUCOSE 148 mg/dL (70-99)
[2017-11-14 21:47] LABS: POC GLUCOSE 221 mg/dL (70-99)
[2017-11-14 21:56] LABS: POC GLUCOSE 227 mg/dL (70-99)
[2017-11-14] MEDS: ATORVASTATIN CALCIUM 20 MG TABLET PO (22:22)
[2017-11-14] MEDS: INSULIN DETEMIR 300 UNITS/3 ML INSULN.PEN. SQ (22:31)
[2017-11-15] MEDS: ACETAMINOPHEN 325 MG TABLET. PO (04:45)
[2017-11-15 05:44] LABS: ADD MAN DIFF? NO
[2017-11-15 06:01] LABS: BASO % 1 % (0-3); EOS # 0.2 x10^3/uL (0.0-0.7); EOS % 4 % (0-3); HEMATOCRIT 25.2 % (39.0-53.0); HEMOGLOBIN 8.4 g/dL (13.0-17.5); LYMPH # 1.1 x10^3/uL (1.0-4.8); LYMPH % 24 % (24-48); MEAN CORPUSCULAR HEMOGLOBIN 31 pg (25-35); MEAN CORPUSCULAR HGB CONC 33 g/dL (31-37); MEAN CORPUSCULAR VOLUME 93 fL (79-100); MONO # 0.6 x10^3/uL (0.0-1.1); MONO % 13 % (0-9); NEUT # 2.9 x10^3uL (1.8-7.7); NEUT % 60 % (31-73); PLATELET COUNT 250 x10^3/uL (140-400); RED BLOOD COUNT 2.71 x10^6/uL (4.30-5.70); RED CELL DISTRIBUTION WIDTH 15.1 % (11.5-14.5); WHITE BLOOD COUNT 4.8 x10^3/uL (4.0-11.0)
[2017-11-15] MEDS: ceFAZolin SODIUM IV Push 1 GM VIAL. IVP ×2 (06:09→13:13)
[2017-11-15 06:26] LABS: ANION GAP 3 (6-14); BLOOD UREA NITROGEN 31 mg/dL (8-26); CALCIUM 8.2 mg/dL (8.5-10.1); CARBON DIOXIDE 31 mmol/L (21-32); CHLORIDE 106 mmol/L (98-107); CREATININE 1.7 mg/dL (0.7-1.3); GFR 38.2; GLUCOSE 86 mg/dL (70-99); POTASSIUM 4.4 mmol/L (3.5-5.1); SODIUM 140 mmol/L (136-145)
[2017-11-15 07:14] LABS: POC GLUCOSE 68 mg/dL (70-99)
[2017-11-15] MEDS: INSULIN ASPART 300 UNITS/3 ML INSULN.PEN SQ ×2 (08:00→12:00)
[2017-11-15] MEDS ORDERED: LIDOCAINE WITH 8.4% SOD BICARB 3 ML DISP.SYRIN. (08:21)
[2017-11-15] MEDS: LIDOCAINE WITH 8.4% SOD BICARB 3 ML DISP.SYRIN. INJ (08:50)
[2017-11-15] MEDS ORDERED: LIDOCAINE 1%/EPI 1:100,000 20 ML VIAL. (09:17)
[2017-11-15] MEDS: LIDOCAINE 1%/EPI 1:100,000 20 ML VIAL. INJ (09:30)
[2017-11-15] MEDS ORDERED: HEPARIN PF 500 UNIT/5 ML DISP.SYRIN. IV (09:34)
[2017-11-15] MEDS: HEPARIN PF 500 UNIT/5 ML DISP.SYRIN. IV (09:45)
[2017-11-15] MEDS: PANTOPRAZOLE 40 MG TABLET.DR. PO (10:52)
[2017-11-15] MEDS: DOCUSATE SODIUM 100 MG CAPSULE. PO (10:52)
[2017-11-15] MEDS: LACTOBACILLUS RHAMNOSUS GG 1 CAPSULE. PO (10:52)
[2017-11-15] MEDS: POTASSIUM CHLORIDE 20 MEQ TABLET.ER. PO (10:52)
[2017-11-15] MEDS: CALCIUM CARB/VIT D3 500/200 TABLET. PO (10:53)
[2017-11-15] MEDS: CARBIDOPA/LEVODOPA 25/100MG TABLET PO ×2 (10:53→13:12)
[2017-11-15 11:16] LABS: POC GLUCOSE 114 mg/dL (70-99)
== END 2017-11-15 16:49 | DRG 616 ==
LOC: 5 SOUTH 15:10
PROVIDERS: Internal Medicine
PROC: 0Y6M0Z9 Detachment at Right Foot, Partial 1st Ray, Open Approach (ICD-10-PCS; principal; 2017-11-13 07:30)
PROC: 0Y6M0ZB Detachment at Right Foot, Partial 2nd Ray, Open Approach (ICD-10-PCS; 2017-11-13 07:30)
PROC: 0Y6M0ZC Detachment at Right Foot, Partial 3rd Ray, Open Approach (ICD-10-PCS; 2017-11-13 07:30)
PROC: 0W9B3ZZ Drainage of Left Pleural Cavity, Percutaneous Approach (ICD-10-PCS; 2017-11-13 07:34)
PROC: 02H633Z Insertion of Infusion Device into Right Atrium, Percutaneous Approach (ICD-10-PCS; 2017-11-13 07:34)
PROC: B244ZZZ Ultrasonography of Right Heart (ICD-10-PCS; 2017-11-13 07:34)
DX: E11.69 Type 2 diabetes mellitus with other specified complication (principal); E43 Unspecified severe protein-calorie malnutrition; J90 Pleural effusion, not elsewhere classified; E11.22 Type 2 diabetes mellitus with diabetic chronic kidney disease; G20 Parkinson's disease; R78.81 Bacteremia; E11.51 Type 2 diabetes mellitus with diabetic peripheral angiopathy without gangrene; I49.5 Sick sinus syndrome; I50.42 Chronic combined systolic (congestive) and diastolic (congestive) heart failure; I13.0 Hypertensive heart and chronic kidney disease with heart failure and stage 1 through stage 4 chronic kidney disease, or unspecified chronic kidney disease; I27.21 Secondary pulmonary arterial hypertension; L03.115 Cellulitis of right lower limb; M86.8X7 Other osteomyelitis, ankle and foot; J93.9 Pneumothorax, unspecified; E11.42 Type 2 diabetes mellitus with diabetic polyneuropathy; E11.621 Type 2 diabetes mellitus with foot ulcer; B95.61 Methicillin susceptible Staphylococcus aureus infection as the cause of diseases classified elsewhere; D64.9 Anemia, unspecified; E78.5 Hyperlipidemia, unspecified; I25.10 Atherosclerotic heart disease of native coronary artery without angina pectoris; I25.5 Ischemic cardiomyopathy; I27.29 Other secondary pulmonary hypertension; J44.9 Chronic obstructive pulmonary disease, unspecified; K21.9 Gastro-esophageal reflux disease without esophagitis; M19.90 Unspecified osteoarthritis, unspecified site; L97.514 Non-pressure chronic ulcer of other part of right foot with necrosis of bone; N18.3 Chronic kidney disease, stage 3 (moderate); Z66 Do not resuscitate; Z83.3 Family history of diabetes mellitus; Z85.6 Personal history of leukemia; Z86.14 Personal history of Methicillin resistant Staphylococcus aureus infection; Z87.891 Personal history of nicotine dependence; Z89.411 Acquired absence of right great toe; Z89.429 Acquired absence of other toe(s), unspecified side; Z91.81 History of falling; Z95.0 Presence of cardiac pacemaker; Z79.4 Long term (current) use of insulin
CPT/HCPCS: 32555; 36415; 36558; 36569; 71045; 71046; 71250; 73620; 76937; 77001; 80048; 80053; 80202; 82945; 82962; 83036; 83615; 83735; 83986; 84100; 84157; 84478; 85025; 85610; 85651; 87040; 87071; 87075; 87205; 88112; 88305; 88311; 93005; 97110-GP; 97116-GP; 97162-GP; 97164-GP; 97166-GO; 97530-GP; 97535-GO; C1751; C1769; C1892; J0690; J1815; J2370; J2405; J2543; J2704; J3370; J3490; J7120